=== PATIENT | female | born 1950 | race Caucasian/White ===

== ENCOUNTER 2023-01-26 10:29 | Outpatient (OUT) | payer MEDICARE, MEDICAID, SELFPAY ==
[2023-01-26 11:24] LABS: Basophils Percent Auto 0.6 % (0.2-2.0); Eosinophils Absolute Auto 0.1 10^3/uL (0.0-0.7); Eosinophils Percent Auto 2.7 % (0.9-7.0); Hematocrit 41.5 % (36.0-48.0); Hemoglobin 13.7 g/dL (12.0-16.0); Immature Granulocytes Abs Auto 0.02 10^3/uL (0.00-0.03); Immature Granulocytes Pct Auto 0.4 % (0.0-0.5); Lymphocytes Absolute Auto 1.2 10^3/uL (1.2-3.8); Lymphocytes Percent Auto 23.4 % (20.5-60.0); Mean Corpuscular Hemoglobin 28.1 pg (26.7-34.0); Mean Platelet Volume 8.7 fL (9.5-13.5); Monocytes Absolute Auto 0.3 10^3/uL (0.3-0.8); Monocytes Percent Auto 6.4 % (1.7-12.0); Neutrophils Absolute Auto 3.4 10^3/uL (1.4-6.5); Neutrophils Percent Auto 66.5 % (43.0-75.0); Platelet Count 223 10^3/uL (150-450); Red Blood Count 4.88 10^6/uL (4.20-5.40); Red Cell Distribution Width 12.4 % (11.0-15.0); White Blood Count 5.1 10^3/uL (4.0-11.0)
[2023-01-26 11:39] LABS: Microalbumin Urine Random 2.6 mg/dL (<=30.0)
[2023-01-26 11:45] LABS: Alanine Aminotransferase 67 U/L (14-59); Albumin Level 3.9 g/dL (3.4-5.0); Alkaline Phosphatase 76 U/L (46-116); Anion Gap 12.6; Aspartate Amino Transferase 46 U/L (15-37); BUN Creatinine Ratio 25.9; Bilirubin Total 0.4 mg/dL (0.2-1.0); Calcium 9.5 mg/dL (8.5-10.1); Carbon Dioxide 30.8 mmol/L (21.0-32.0); Chloride 101 mmol/L (98-107); Chol HDL Ratio 5.2; Cholesterol 196 mg/dL (<=200); Estimated GFR (African America >60 (>=60); Estimated GFR (Non-African Ame >60 (>=60); Globulin 3.9 g/dL; Glucose 133 mg/dL (74-106); HDL Cholesterol 38 mg/dL (40-60); Potassium 3.4 mmol/L (3.5-5.1); Sodium 141 mmol/L (136-145); Total Protein 7.8 g/dL (6.4-8.2); Triglycerides 294 mg/dL (<=150); VLDL CHOLESTEROL 58.8 mg/dL
[2023-01-26 11:48] LABS: Bilirubin Urine NEGATIVE (NEGATIVE); Blood Urine NEGATIVE (NEGATIVE); Clarity Urine CLEAR (CLEAR); Color Urine LT. YELLOW (YELLOW); Glucose Urine UA NEGATIVE (NEGATIVE); Ketones Urine NEGATIVE (NEGATIVE); Leukocyte Esterase Urine SMALL (NEGATIVE); Nitrite Urine NEGATIVE (NEGATIVE); Protein Urine NEGATIVE (NEG/TRACE); Specific Gravity Urine 1.025 (1.005-1.025); Urobilinogen Urine 0.2 EU/dL (0.2-1.0); pH Urine 5.5 (5.0-9.0)
[2023-01-26 11:52] LABS: Estimated Average Glucose 137 mg/dL; Glycohemoglobin A1C 6.4 % (4.5-6.2)
[2023-01-26 12:13] LABS: RBC Urine NONE SEEN #/HPF (0-2)
[2023-01-26 12:14] LABS: Bacteria Urine NONE SEEN #/HPF (NONE SEEN); Cast Seen? NONE SEEN #/LPF (NONE SEEN); Crystals Seen? None Seen #/HPF (None Seen); Mucus Urine NONE SEEN (NONE SEEN); Squamous Epithelial Cell Urine FEW #/LPF (NONE/RARE); Urine Culture Indicated YES
== END 2023-01-26 10:30 | disposition home or self-care (01) ==
LOC: LAB 10:35
PROVIDERS: PCP Nurse Practitioner; Visit Provider Nurse Practitioner
DX: E11.9 Type 2 diabetes mellitus without complications (principal); E78.5 Hyperlipidemia, unspecified; R82.90 Unspecified abnormal findings in urine
CPT/HCPCS: 36415; 80053; 80061; 81001; 82043; 83036; 85025; 87086

== ENCOUNTER 2023-02-06 12:00 | Outpatient (OUT) | payer MEDICARE, MEDICAID, SELFPAY | END 2023-02-06 12:01 | disposition home or self-care (01) | LOC: PST 02-10 18:47 | PROVIDERS: PCP Nurse Practitioner; Visit Provider Surgery | DX: Z01.818 Encounter for other preprocedural examination (principal); Z86.010 Personal history of colon polyps ==

== ENCOUNTER 2023-02-08 06:30 | Day surgery (SDC) | payer MEDICARE, MEDICAID, SELFPAY ==
[2023-02-08 06:54] LABS: Amphetamine Screen Urine NEGATIVE (NEGATIVE); Barbiturates Screen Urine NEGATIVE (NEGATIVE); Benzodiazepines Screen Urine NEGATIVE (NEGATIVE); Buprenorphine Screen Urine POSITIVE (NEGATIVE); Cannabinoid Screen Urine NEGATIVE (NEGATIVE); Cocaine Screen Urine NEGATIVE (NEGATIVE); Methadone Screen Urine NEGATIVE (NEGATIVE); Methamphetamines Screen Urine NEGATIVE (NEGATIVE); Opiate Screen Urine NEGATIVE (NEGATIVE); Oxycodone Screen Urine NEGATIVE (NEGATIVE); Phencyclidine Screen Urine NEGATIVE (NEGATIVE); Tricyclic Antidepressant Urine NEGATIVE (NEGATIVE)
[2023-02-08 07:13] LABS: Glucometer 150 mg/dL (74-106)
--- NOTE | 2023-02-08 07:17 | PM.GSPRC ---
Date of procedure: 02/08/23 Indications for Procedure: History of tubulovillous adenoma 2019 Pre-op diagnosis: History of tubulovillous adenoma two thousand nineteen Procedure: colonoscopy with hot snare ascending colon and proximal rectum 5-6 mm each Random biopsy descending colon rule out colitis Findings: colon polyp ?2 Anesthesia: MAC Surgeon: Jd Romeo Procedure Summary: 72-year-old female was taken to the Endo suite and placed in the left lateral recumbent position and given sedation and monitored anesthesia care by anesthesiologist. Rectal digital exam was performed. Sphincter counts found be normal. No rectal masses were appreciated. The Olympus video colonoscope was advanced under direct visualization into the rectum, sigmoid and descending, transverse, ascending colon to the ileocecal valve where the appendiceal lumen was visualized as well as the cecum. The scope was slowly withdrawn and just outside the cecum there was a small polyp which was snared and retrieved and hemostasis maintained. This was done with hot snare. The scope was then withdrawn further and random biopsy of the colon was taken and the descending colon and there was some bleeding and a clip was placed hemostasis which was maintained. And then in the proximal rectum there was another polyp which was hot snared and retrieved and hemostasis maintained and the scope was retroflexed on itself and that was normal. The scope was then withdrawn from the rectum. I would recommend polyps go to pathology as well as the biopsy and that as long as these are benign would recommend repeat colonoscopy in five years for surveillance. There was difficulty with the procedure due to her body habitus and abdominal pressure had a Pereyra placed on the abdomen and she had been given significant amounts of intravenous propofol by anesthesia almost 700 mg. Her prep was good enough to see polyps greater than 5 mm. Estimated blood loss (mL): 1 Specimens: colon polyps ?2 Random biopsy descending colon Complications: No Condition: stable Disposition: PACU
[2023-02-08] MEDS: LACTATED RINGER'S SOLUTION 1,000 ML 50 ML IV (07:20)
[2023-02-08 07:59] VITALS: BP 121/43; PULSE 70; RESP 16; TEMP 36.6; O2SAT 97
[2023-02-08 08:15] VITALS: BP 143/45; PULSE 70; RESP 20; O2SAT 93
[2023-02-08 08:52] VITALS: BP 160/65; PULSE 74; RESP 20; O2SAT 93
== END 2023-02-08 08:52 | disposition home or self-care (01) ==
PROVIDERS: PCP Nurse Practitioner; Visit Provider Surgery
PROC: (CPT 45385; principal; 2023-02-08 07:30)
DX: D12.7 Benign neoplasm of rectosigmoid junction (principal); Z86.010 Personal history of colon polyps; K59.00 Constipation, unspecified; R19.7 Diarrhea, unspecified; Z79.82 Long term (current) use of aspirin; Z79.899 Other long term (current) drug therapy; Z79.84 Long term (current) use of oral hypoglycemic drugs; Z87.891 Personal history of nicotine dependence
CPT/HCPCS: 45385; 36415; 80307; 82948; 88305; J2704

== ENCOUNTER 2023-08-01 11:29 | Outpatient (OUT) | payer MEDICARE, MEDICAID, SELFPAY ==
[2023-08-01 12:02] LABS: Microalbum Creatinine Ratio Ur 21.2 mg/g (0.0-29.9); Microalbumin Urine Random 4.8 mg/dL (<=30.0)
[2023-08-01 12:02] LABS: Basophils Absolute Auto 0.1 10^3/uL (0.0-0.1); Basophils Percent Auto 1.1 % (0.2-2.0); Eosinophils Absolute Auto 0.1 10^3/uL (0.0-0.7); Eosinophils Percent Auto 2.5 % (0.9-7.0); Estimated Average Glucose 140 mg/dL; Glycohemoglobin A1C 6.5 % (4.5-6.2); Hemoglobin 13.6 g/dL (12.0-16.0); Immature Granulocytes Abs Auto 0.02 10^3/uL (0.00-0.03); Immature Granulocytes Pct Auto 0.4 % (0.0-0.5); Lymphocytes Absolute Auto 1.4 10^3/uL (1.2-3.8); Mean Corpuscular HGB Conc 33.2 g/dL (29.9-35.2); Mean Corpuscular Hemoglobin 28.4 pg (26.7-34.0); Mean Corpuscular Volume 85.6 fL (81.0-99.0); Monocytes Absolute Auto 0.3 10^3/uL (0.3-0.8); Monocytes Percent Auto 6.3 % (1.7-12.0); Neutrophils Absolute Auto 3.4 10^3/uL (1.4-6.5); Neutrophils Percent Auto 63.7 % (43.0-75.0); Platelet Count 223 10^3/uL (150-450); Red Blood Count 4.79 10^6/uL (4.20-5.40); Red Cell Distribution Width 12.2 % (11.0-15.0); White Blood Count 5.3 10^3/uL (4.0-11.0)
[2023-08-01 12:06] LABS: Bilirubin Urine NEGATIVE (NEGATIVE); Blood Urine NEGATIVE (NEGATIVE); Clarity Urine CLEAR (CLEAR); Color Urine ORANGE (YELLOW); Glucose Urine UA NEGATIVE (NEGATIVE); Ketones Urine NEGATIVE (NEGATIVE); Leukocyte Esterase Urine SMALL (NEGATIVE); Nitrite Urine NEGATIVE (NEGATIVE); Protein Urine NEGATIVE (NEG/TRACE); Specific Gravity Urine >=1.030 (1.005-1.025)
[2023-08-01 12:11] LABS: Erythrocyte Sedimentation Rate 41 mm/hr (<=30)
[2023-08-01 12:24] LABS: Urine Microscopic Indicated YES
[2023-08-01 12:27] LABS: Uric Acid Crystals Urine MODERATE
[2023-08-01 12:28] LABS: Crystals Seen? Seen #/HPF (None Seen); Squamous Epithelial Cell Urine FEW #/LPF (NONE/RARE)
[2023-08-01 12:29] LABS: Bacteria Urine SMALL #/HPF (NONE SEEN); Cast Seen? SEEN #/LPF (NONE SEEN); Hyaline Casts Urine RARE; Mucus Urine NONE SEEN (NONE SEEN); Urine Culture Indicated YES
[2023-08-01 12:57] LABS: Alanine Aminotransferase 57 U/L (14-59); Albumin Level 3.7 g/dL (3.4-5.0); Alkaline Phosphatase 71 U/L (46-116); Anion Gap 12.4; Aspartate Amino Transferase 44 U/L (15-37); BUN Creatinine Ratio 18.5; Bilirubin Total 0.5 mg/dL (0.2-1.0); Calcium 9.7 mg/dL (8.5-10.1); Chloride 103 mmol/L (98-107); Estimated GFR (African America >60 (>=60); Estimated GFR (Non-African Ame >60 (>=60); Globulin 3.7 g/dL; Glucose 148 mg/dL (74-106); Potassium 3.4 mmol/L (3.5-5.1); Sodium 141 mmol/L (136-145); Total Protein 7.4 g/dL (6.4-8.2)
[2023-08-01 12:58] LABS: C Reactive Protein <0.50 mg/dL (<=0.50)
[2023-08-02 04:07] LABS: Antistreptolysin O Ab <20.0 IU/mL (0.0-200.0); Rheumatoid Factor (RF) <10.0 IU/mL (<14.0)
[2023-08-02 12:09] LABS: Sjogren's Anti-SS-A <0.2 AI (0.0-0.9); Sjogren's Anti-SS-B <0.2 AI (0.0-0.9)
[2023-08-03 12:10] LABS: Antinuclear Antibodies, IFA Negative (.)
== END 2023-08-01 11:30 | disposition home or self-care (01) ==
LOC: LAB 11:30
PROVIDERS: PCP Nurse Practitioner; Visit Provider Nurse Practitioner
DX: K11.20 Sialoadenitis, unspecified (principal); E11.9 Type 2 diabetes mellitus without complications; H04.123 Dry eye syndrome of bilateral lacrimal glands
CPT/HCPCS: 36415; 80053; 81001; 82043; 82570; 83036; 85025; 85652; 86038; 86060; 86140; 86235; 86430; 86431; 87086

== ENCOUNTER 2023-08-01 14:51 | Outpatient (OUT) | payer MEDICARE, MEDICAID, SELFPAY ==
--- NOTE | 2023-08-01 14:55 | CT_ITS ---
The [address] [address] Patient Name: LITTLE MONTEZ MRN: [id number] date: 1950 Sex: F Assigned Patient Location: CT Current Patient Location: CT Accession/Order Number: [id number] Exam Date: 08/01/2023 15:05 Report Date: 08/01/2023 15:34 At the request of: NON-STAFF PHYSICIAN Procedure: CT soft tissue neck wo con CT NECK WITHOUT CONTRAST. 08/01/2023 3:05 PM EST Clinical History:Sialadenitis K11.20 on the left Comparison: None available . Unenhanced helically acquired data per standard protocol. The lack of IV contrast material hampers evaluation of the vasculature, for enhancing fluid collections, and for adenopathy. There is artifact from dental hardware. At the expected location of far distal aspects of left Colbert's duct there is a calculus measuring 5 mm.. Colbert's duct is not obviously dilated. However, the left submandibular gland is slightly larger than the right and is minimally hazy at its undersurface. No submental adenopathy. There are symmetric minimally elongated submandibular nodes bilaterally. No fluid collection within the submandibular regions. No adenopathy along the cervical gregoria chains on either side. Thyroid is normal in size. It contains a few nonspecific calcifications in the right lobe. The parotid glands are symmetric and unremarkable. Some calcific disease at both carotid bifurcations. Multilevel degenerative changes cervical spinal column. CT/CT soft tissue neck wo con IMPRESSION: 1. A relatively good sized 5 mm calculus at the expected location far distal left Colbert's duct. Left Colbert's duct is not obviously dilated. The left submandibular gland is slightly larger than the right. No perisubmandibular fluid collection. All CT scans at this facility use dose modulation, iterative reconstruction, and/or weight based dosing when appropriate to reduce radiation dose to as low as reasonably achievable. Electronically authenticated by: DONNELL MARTINEZ Date: 08/01/2023 15:34
== END 2023-08-01 14:52 | disposition home or self-care (01) ==
LOC: CT 14:51
PROVIDERS: PCP Nurse Practitioner
DX: K11.20 Sialoadenitis, unspecified (principal)
CPT/HCPCS: 70490

== ENCOUNTER 2023-09-18 14:49 | Outpatient (OUT) | payer MEDICARE, MEDICAID, SELFPAY ==
[2023-09-18 15:11] LABS: Potassium 3.5 mmol/L (3.5-5.1)
== END 2023-09-18 14:50 | disposition home or self-care (01) ==
LOC: LAB 14:49
PROVIDERS: PCP Nurse Practitioner; Visit Provider Nurse Practitioner
DX: E87.6 Hypokalemia (principal)
CPT/HCPCS: 36415; 84132

== ENCOUNTER 2023-11-23 14:28 | Outpatient (RCR) | payer MEDICARE, MEDICAID, SELFPAY | END 2023-11-24 17:07 | disposition home or self-care (01) | LOC: PT 14:28 | PROVIDERS: PCP Nurse Practitioner; Visit Provider Personal Emergency Response Attendant | DX: M25.562 Pain in left knee (principal); M17.12 Unilateral primary osteoarthritis, left knee | CPT/HCPCS: 97110; 97161 ==

== ENCOUNTER 2024-01-04 11:30 | Outpatient (OUT) | payer MEDICARE, MEDICAID, SELFPAY ==
[2024-01-04 12:13] LABS: Estimated Average Glucose 120 mg/dL; Glycohemoglobin A1C 5.8 % (4.5-6.2)
[2024-01-04 13:13] LABS: Alanine Aminotransferase 43 U/L (14-59); Albumin Globulin Ratio 1.1; Albumin Level 3.9 g/dL (3.4-5.0); Alkaline Phosphatase 60 U/L (46-116); Anion Gap 11.3; Aspartate Amino Transferase 37 U/L (15-37); Bilirubin Total 0.7 mg/dL (0.2-1.0); Calcium 9.9 mg/dL (8.5-10.1); Carbon Dioxide 34.1 mmol/L (21.0-32.0); Chloride 102 mmol/L (98-107); Chol HDL Ratio 4.5; Cholesterol 208 mg/dL (<=200); Estimated GFR (African America >60 (>=60); Estimated GFR (Non-African Ame >60 (>=60); Globulin 3.7 g/dL; Glucose 141 mg/dL (74-106); HDL Cholesterol 46 mg/dL (40-60); Potassium 3.4 mmol/L (3.5-5.1); Sodium 144 mmol/L (136-145); Total Protein 7.6 g/dL (6.4-8.2); Triglycerides 208 mg/dL (<=150); VLDL CHOLESTEROL 41.6 mg/dL
== END 2024-01-04 11:31 | disposition home or self-care (01) ==
PROVIDERS: PCP Nurse Practitioner; Visit Provider Nurse Practitioner
DX: L03.90 Cellulitis, unspecified (principal); E11.9 Type 2 diabetes mellitus without complications; R82.90 Unspecified abnormal findings in urine
CPT/HCPCS: 36415; 80053; 80061; 83036; 87086; 87150; 87186

== ENCOUNTER 2024-04-24 08:04 | Outpatient (OUT) | payer MEDICARE, MEDICAID, SELFPAY ==
--- OUTSIDE RECORDS SUMMARY | 2024-04-24 08:12 | XMS_ITS | CCD ---
Author Organization [facility] Care Team Providers Care Dealer Account Manager Name Role Phone PHYSICIAN, DEFAULT Unavailable Unavailable PHYSICIAN, DEFAULT Unavailable Unavailable PHYSICIAN, DEFAULT Unavailable Unavailable PHYSICIAN, DEFAULT Unavailable Unavailable PHYSICIAN, DEFAULT Unavailable Unavailable PHYSICIAN, DEFAULT Unavailable Unavailable AICHHOLZ, DATA SCIENTIST GINNY Admitting Unavailable AICHHOLZ, DATA SCIENTIST GINNY Attending Unavailable AICHHOLZ, DATA SCIENTIST GINNY Primary Care Unavailable AICHHOLZ, DATA SCIENTIST GINNY Consulting Unavailable ZIEBER, DR BENEDICTO Aquino Consulting Unavailable AICHHOLZ, DATA SCIENTIST GINNY Admitting Unavailable AICHHOLZ, DATA SCIENTIST GINNY Attending Unavailable AICHHOLZ, DATA SCIENTIST GINNY Primary Care Unavailable AICHHOLZ, DATA SCIENTIST GINNY Admitting Unavailable AICHHOLZ, DATA SCIENTIST GINNY Attending Unavailable AICHHOLZ, DATA SCIENTIST GINNY Primary Care Unavailable AICHHOLZ, DATA SCIENTIST GINNY Primary Care Unavailable FLORENCIA ., DR LAFLEUR Admitting Unavailable HOY ., DR LAFLEUR Attending Unavailable HOY ., DR LAFLEUR Consulting Unavailable ZIEBER, DR BENEDICTO Aquino Consulting Unavailable PAY ., DR FOWLER Consulting Unavailable JOEL ., COTY DAVIS Consulting Unavailabl e AICHHOLZ, DATA SCIENTIST GINNY Admitting Unavailable AICHHOLZ, DATA SCIENTIST GINNY Attending Unavailable AICHHOLZ, DATA SCIENTIST GINNY Primary Care Unavailable AICHHOLZ, DATA SCIENTIST GINNY Consulting Unavailable Gina Harkins Unavailable Yair Nails MD Primary Care Provider [phone] Delgado HAYES, Ginny Unavailable DO Migel Best Attending Provider [phone] NON STAFF Primary Care Provider Unavailabl e AICHHOLZ, GINNY Attending Unavailable MIGEL BEST Attending Unavailable MGIEL BEST Attending Unavailable MIGEL BEST Attending Unavailable AICHHOLZ, GINNY Attending Unavailable AICHHOLZ, GINNY Attending Unavailable GRIS BOSE Attending Unavailable GRIS BOSE Referring Unavailable DANIELA CANO Attending Unavailable GRIS BOSE Referring Unavailable JOSE MONTES Attending Unavailable JR. TORY, VINCENZO Rubio Attending UnavailGINNY Matta Attending Unavailable SOFYA MEYER Attending Unavailable Ginny Natarajan Primary Care Provider [phone] Markus (Clinic), DO Crawford Attending Provider Migel Best Attending Unavailable NON STAFF Primary Care Unavailable Migel Best Admitting Unavailable Grenora (Clinic), Yvette Admitting Unavailyeni Aparicio (Clinic), Yvette Attending UnavailGinny Hutchison Primary Care Unavailable Allergies Allergy Classification Reported Allergen(s) Allergy Type Date of Onset Reaction(s) Facility (2 sources) Erythromycin; 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: [ERYTHROMYCIN BASE] Drug Allergy 2 [facility] Repository (2 sources) Gemfibrozil; 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: [GEMFIBROZIL] Drug Allergy 2 [facility] Repository (2 sources) Simvastatin; 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: [SIMVASTATIN] Drug Allergy 2 [facility] Repository (4 sources) HMG-CoA reductase inhibitor Propensity to adverse reactions 3 [facility] (4 sources) Simvastatin Propensity to adverse reactions 3 [facility] (1 source) Lidocaine; 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: [LIDOCAINE] Drug Allergy 2 [facility] Repository (1 source) Tukxsii-DKG-XrP Reductase Inhibitor Drug allergy (disorder) 4 [facility] Repository Medications Current Medications Medication Drug Class(es) Dates Sig (Normalized) Sig (Original) albuterol 0.83 mg/ml inhalation solution (8 sources) beta2-Adrenergic Agonist albuterol (2.5 MG/3ML) 0.083% nebulizer solution INHALE 1 VIAL VIA NEBULIZER EVERY 6 HOURS NEEDED FOR WHEEZING OR SHORTNESS OF BREATH 0 Active take 2 puff(s) by mo uth every six hours as needed albuterol HFA (Ventolin HFA) 90 mcg/act inhaler INHALE 2 PUFFS BY MOUTH EVERY 6 HOURS NEEDED FOR SHORTNESS OF BREATH 0 Active Ascorbic Acid (11 sources) Vitamin C Start: 11-10-2023 take 1 g by mouth once daily Ascorbic Acid (Vitamin C) Active 1 GM PO Daily November 10, 2023 12:00am take 1 tablet by mouth once rebecca y ascorbic acid (Vitamin C) 1000 MG tablet Take 1,000 mg by mouth 1 (one) time each day at the same time 0 Active aspirin 81 mg chewable tablet (11 sources) Platelet Aggregation Inhibitor, Nonsteroidal Anti-inflammatory Drug Start: 11-10-2023 take 81 mg by mouth once daily Aspirin Active 81 MG PO Daily November 10, 2023 12:00am aspirin 81 MG ch ewable tablet Chew 81 mg 1 (one) time each day at the same time 0 Active azithromycin 250 mg oral tablet (1 source) Macrolide Antimicrobial Start: 04-04-2023 Azithromycin 250 MG 2 tablet on the first day, then 1 tablet daily for 4 days Orally Once a day for 5 day(s) Mar, Active b complex vitamins capsule (4 sources) take 1 capsule by mouth in the morning b complex vitamins capsule Take 1 capsule by mouth in the morning. 0 Active Obhzbprm-Bpcgrtf-Fp tin-Quercet (Bilberry Extract) 40 MG capsule (4 sources) take 1 capsule by mouth in the morning Juzoyruh-Uulglxz-U utin-Quercet (Bilberry Extract) 40 MG capsule Take 40 mg by mouth in the morning. 0 Active buprenorphine 12 mg / naloxone 3 mg sublingual film (5 sources) Partial Opioid Agonist, Opioid Antagonist buprenorphine-nalo xone (Suboxone) 12-3 MG per sublingual film Place 1 Film under the tongue 1 (one) time 0 Active Buprenorphine HC l-Naloxone HCl 12-3 MG 1 film under the tongue and allow to dissolve Sublingual Once a day Not-Taking busPIRone hydrochloride 10 mg oral tablet (4 sources) take 1 tablet by mouth in the morning busPIRone (Buspar) 10 MG tablet Take 1 tablet by mouth in the morning and 1 tablet before bedtime. 0 Active CALCIUM MAGNESIUM ZINC PO (4 sources) take 1 tablet by mouth in the morning CALCIUM MAGNESIUM ZINC PO Take 1 tablet by mouth in the morning. 0 Active Calcium/Magnesium/Zinc - (1 source) Calcium/Magnesiu m/Zinc - as directed Orally *please review for potential _update for e-prescription and drug interaction check* Active Carboxymethylcellulose (6 sources) Start : 11-09 carboxymethylcellulose sodium (Refresh Tears) Active 1 DROPS OPHTHALMIC As Directed November 10, 2023 12:00am carvedilol 25 mg oral tablet (14 sources) alpha-Adrener gic Dave, beta-Adrenerg ic Dave Start : 02-15 End: 03-20 take 1 mg by mouth twice daily Carvedilol Active MG PO Twice daily March 20, 2024 2:44pm Start: 11-10-2023 End: 02-16-2024 take 12.5 mg by mouth twice daily Carvedilol Discontinued 12.5 MG PO Twice daily November 10, 2023 12:00am February 16, 2024 11:55am Start: 05-29-2023 take 1 tablet by tre th in the morning carvedilol (Coreg) 12.5 MG tablet Take 12.5 mg by mouth in the morning and 12.5 mg in the evening. Take with meals. 0 05/29/2023 Active Carvedilol 6.25 MG as directed Orally Active cetirizine hydrochloride 10 mg oral tablet (6 sources) Histamine-1 Receptor Antagonist Start: 11-10-2023 take 1 tablet by mouth once daily Cetirizine (Allergy Relief (Cetirizine)) 10 mg tablet Active 10 MG PO Daily November 10, 2023 12:00am chlorthalidone 25 mg oral tablet (14 sources) Thiazide-like Diuretic Start: 03-08-2023 End: 03-07-2024 take 25 mg by mouth once daily Chlorthalidone Active 25 MG PO Daily November 10, 2023 12:00am cholecalciferol 0.05 mg oral capsule (8 sources) Vitamin D Start: 12-27-2023 take 50 ug by mouth once daily Cholecalciferol (Vitamin D3) Active 50 MCG PO Daily December 27, 2023 12:00am cholecalciferol (Vitamin D-[address]) 25 MCG (1000 UT) tablet Take 1,000 Units by mouth in the morning. 0 Active clobetasol propionate 0.0005 mg/mg topical ointment (4 sources) Corticosteroid Start: 04-27-2023 clobetasol (Temovate) 0.05 % ointment Apply 1 application topically in the morning and 1 application before bedtime. 0 04/27/2023 Active docosahexaenoic acid 120 mg / eicosapentaenoic acid 180 mg oral capsule (4 sources) take 1 capsule by mouth every twelve hours omega-3 (Fish Oil) 1000 MG capsule 1 capsule every 12 (twelve) hours 0 Active fenofibrate 145 mg oral tablet (11 sources) Peroxisome Proliferator Receptor alpha Agonist Start: 11-10-2023 Fenofibrate Nanocrystallized Active 145 MG PO .3 times weekly November 10, 2023 12:00am take 1 tablet by mouth once rebecca y fenofibrate (Tricor) 145 MG tablet Take 145 mg by mouth 1 (one) time each day at the same time 0 Active Fish Oils (1 source) take 1 capsule by mouth twice daily Fish Oil 1000 MG 1 capsule Orally Twice a day Active fluconazole 150 mg oral tablet (4 sources) Azole Antifungal Start: 2022 take 1 tablet by mouth once fluconazole (Diflucan) 150 MG tablet Take 150 mg by mouth 1 (one) time 0 04/16/2023 Active Folic Acid-Cholecalciferol 1-59941 MG-UNIT tablet (4 sources) take 1 tablet by mouth in the morning Folic Acid-Cholecalciferol 1-44630 MG-UNIT tablet Take 10,000 Units by mouth in the morning. 0 Active Garlic preparation (4 sources) Non-Standardized Food Allergenic Extract GARLIC PO Take by mo uth 0 Active hydroCHLOROthiazide 25 mg oral tablet (5 sources) Thiazide Diuretic take 1 tablet by mouth once daily hydroCHLOROthiazide (HYDRODiuril) 25 MG tablet Take 25 mg by mouth 1 (one) time each day at the same time 0 Active ibuprofen 800 mg oral tablet (5 sources) Nonsteroidal Anti-inflammatory Drug Start: 2023 take 800 mg by mouth three times daily Ibuprofen Active 800 MG PO Three times daily March 20, 2024 12:00am Start: 10-25-2022 take 1 tablet by tre th in the morning, then take 1 tablet by mouth in the evening, then take 1 tablet by mouth at bedtime ibuprofen 800 MG tablet Take 800 mg by mouth in the morning and 800 mg in the evening and 800 mg before bedtime. 0 10/25/2022 Active ketoconazole 20 mg/ml topical cream (10 sources) Azole Antifungal Start: 11-10-2023 Ketoconazole Active APPLIC TOPICAL Twice daily November 10, 2023 12:00am Start: 04-27-2023 ketoconazole ( NIZOral) 2 % cream Apply 1 application topically in the morning and 1 application before bedtime. 0 04/27/2023 Active loratadine 10 mg oral tablet (4 sources) Start: 04-27-2023 take 1 tablet by mouth in the morning loratadine (Claritin) 10 MG tablet Take 10 mg by mouth in the morning. 0 04/27/2023 Active Magnesium Chloride (6 sources) Start: 11-10-2023 take 1 tablet by mouth once daily magnesium chloride Active 1 TAB PO Daily November 10, 2023 12:00am magnesium oxide 400 mg oral tablet (4 sources) take 1 tablet by mouth once daily magnesium oxide (Mag-Ox) 400 MG tablet magnesium oxide 400 mg (241.3 mg magnesium) tablet TAKE 1 TABLET BY MOUTH EVERY DAY DIRECTED 0 Active meclizine hydrochloride 12.5 mg oral tablet (10 sources) Antiemetic Start: 11-10-2023 take 12.5 mg by mouth once daily Meclizine Active 12.5 MG PO Daily November 10, 2023 12:00am Start: 04-27-2023 take 1 tablet by tre th three times daily as needed for dizziness meclizine (Antivert) 25 MG tablet Take 25 mg by mouth 3 (three) times a day as needed for dizziness 0 04/27/2023 Active meloxicam 15 mg oral tablet (4 sources) Nonsteroidal Anti-inflammatory Drug take 1 tablet by mouth in the morning meloxicam (Mobic) 15 MG tablet Take 1 tablet by mouth in the morning. 0 Active metFORMIN hydrochloride 1000 mg oral tablet (11 sources) Biguanide Start: 11-10-19 take 1000 mg by mouth twice daily Metformin Active 1000 MG PO Twice daily November 10, 2023 12:00am Start: 06-11-2023 take 1 tablet by tre th in the morning metFORMIN (Glucophage) 1000 MG tablet Take 1,000 mg by mouth in the morning and 1,000 mg before bedtime. 0 06/11/2023 Active take 1 tablet by tre th every twenty-four hours metFORMIN HCl 500 MG 1 tablet with a meal Orally Once a day for 30 day(s) Active milk thistle extract 500 mg oral capsule (5 sources) Milk Thistle 500 MG capsule as directed Orally 0 Active Milk Thistle 500 MG as directed Orally Not-Taking nitrofurantoin, macrocrystals 25 mg / nitrofurantoin, monohydrate 75 mg oral capsule (4 sources) Nitrofuran Antibacterial take 1 capsule by mouth in the morning nitrofurantoin, macrocrystal-monohydrate, (Macrobid) 100 MG capsule Take 1 capsule by mouth in the morning and 1 capsule before bedtime. 0 Active Cordova 4-Whi-Ajn-Fish Oil (Fish Oil) 1,000 mg (120 mg-180 mg) capsule (6 sources) Start : 11-09 take 1 capsule by mouth once daily Cordova 5-Yis-Xki-Fish Oil (Fish Oil) 1,000 mg (120 mg-180 mg) capsule Active 1 CAP PO Daily November 10, 2023 12:00am polaprezinc (zinc carnosine) (6 sources) Start : 11-09 take 1 tablet by mouth once daily polaprezinc (zinc carnosine) Active 1 TAB PO Daily November 10, 2023 12:00am potassium chloride 10 meq extended release oral capsule (8 sources) Start : 01-30 take 20 mEq by mouth once daily Potassium Chloride Active 20 MEQ PO Daily January 31, 2024 12:00am Start: 08-03-2023 End: 11-26-2023 take 1 tablet by mouth in the morning potassium chloride CR (Klor-Con M20) 20 MEQ ER tablet Indications: Hypokalemia Take 1 tablet (20 mEq) by mouth in the morning. Do not crush or chew.. 90 tablet 1 08/28/2023 11/26/2023 Active predniSONE 20 mg oral tablet (1 source) Start: 04-04-2023 take 1 tablet by tre th every twelve hours prednisone 20 MG 1 tablet Orally BID for 5 Mar, Active Tirzepatide (4 sources) Start: 03-20-2024 inject 0.5 mg by subcutaneous injection every week Tirzepatide Active 5 MG SUBCUT every week 09 20March 20, 2024 3:17pm Ok to dispense 2.5 mg dosing if 5.0 mg not available Start: 01-31-2024 End: 03-20-2024 inject 0.5 mg by subcutaneous injection every week Tirzepatide Discontinued 5 MG SUBCUT every week 2 January 31, 2024 2:33pm March 20, 2024 3:17pm Ok to dispense 2.5 mg dosing if 5.0 mg not available Start: 01-31-2024 inject 0.5 mg by sub cutaneous injection every week Tirzepatide Active 5 MG SUBCUT every week 2 January 31, 2024 2:33pm Ok to dispense 2.5 mg dosing if 5.0 mg not available tiZANidine 4 mg oral tablet (7 sources) Central alpha-2 Adrenergic Agonist Start: 02-16-2024 End: 03-20-2024 Tizanidine Active MG PO March 20, 2024 2:46pm tiZANidine (Micheal flex) 4 MG tablet TAKE 1 TABLET AT BEDTIME NEEDED FOR MUSCLE SPASMS 0 Active triamcinolone acetonide 0.07063 mg/mg topical ointment (2 sources) Corticosteroid Start: 08-16-2023 triamcinolone (Kenalog) 0.025 % ointment APPLY A SMALL AMOUNT EXTERNALLY TWICE A DAY FOR SEBORRHEIC DERMATITIS TO SKIN OF EARS/BEHIND EARS 0 08/16/2023 Active Tumeric (1 source) Tumeric daily *please review for potential _update for e-prescription and drug interaction check* Active Turmeric extract (4 sources) take 1 tablet by mouth once daily Turmeric (QC TUMERIC COMPLEX PO) Take 1 tablet by mouth 1 (one) time each day at the same time 0 Active ubidecarenone 10 mg oral capsule (10 sources) Start: 11-10-2023 Coenzyme Q10 A ctive 10 MG PO Daily November 10, 2023 12:00am take 1 capsule by mouth once nadine ly coenzyme Q-10 10 MG capsule Take 10 mg by mouth 1 (one) time each day at the same time 0 Active valACYclovir 1000 mg oral tablet (4 sources) Herpesvirus Nucleoside Analog DNA Polymerase Inhibitor, Herpes Simplex Virus Nucleoside Analog DNA Polymerase Inhibitor, Herpes Zoster Virus Nucleoside Analog DNA Polymerase Inhibitor take 1 tablet by mouth every twelve hours valACYclovir (Valtrex) 1 g tablet Take 1 tablet by mouth every 12 (twelve) hours 0 Active vitamin b12 1 mg oral tablet (11 sources) Vitamin B12 Start: 11-10-19 take 1000 ug by mouth once daily Cyanocobalamin (Vitamin B-12) Active 1000 MCG PO Daily November 10, 2023 12:00am take 1 tablet by mouth once rebecca y Cyanocobalamin 1000 MCG capsule Take 1 tablet by mouth 1 (one) time each day at the same time 0 Active take 1 tablet by mouth once rebecca y Cyanocobalamin 1000 MCG 1 tablet Orally Once a day for 30 day(s) *please review for potential _update for e-prescription and drug interaction check* Not-Taking vitamin e d-alpha 400 unt oral capsule (4 sources) alpha tocopherol (Vitamin E) 400 units capsule 1 capsule 1 (one) time each day at the same time 0 Active Vitamin E 400 UNIT (1 source) take 1 capsule by mo [facility] once daily Vitamin E 400 UNIT 1 capsule Orally Once a day for 30 day(s) Active Completed/Discontinued Medications Medication Drug Class(es) Dates Sig (Normalized) Sig (Original) bilberry extract 40 mg oral capsule (1 source) Bilberry Extract 40 MG as directed Orally Not-Taking Cholecalciferol 45580 UNIT (1 source) Cholecalciferol 63102 UNIT as directed Orally *please review for potential _update for e-prescription and drug interaction check* Not-Taking Coenzyme Q10 10 MG (1 source) take 1 capsule by mouth once daily Coenzyme Q10 10 MG 1 capsule with a meal Orally Once a day for 30 day(s) Not-Taking diclofenac sodium 75 mg delayed release oral tablet (1 source) Nonsteroidal Anti-inflammatory Drug Start: 12-27-2018 take 1 tablet by mouth every twelve hours Diclofenac Sodium 75 MG 1 tablet with food or milk Orally Twice a day for 30 day(s) Dec, Not-Taking grape seed extract 25 mg oral capsule (1 source) Grape Seed 25 MG as directed Orally *please review for potential _update for e-prescription and drug interaction check* Not-Taking Potassium Chloride (Klor-Con M20) 20 mEq tablet,ER particles/crystals (6 sources) Start: 11-10-2023 End: 01-31-2024 Potassium Chloride (Klor-Con M20) 20 mEq tablet,ER particles/crystals Discontinued MEQ PO November 10, 2023 12:00am January 31, 2024 2:02pm Start: 11-10-2023 Potassium Chlo ride (Klor-Con M20) 20 mEq tablet,ER particles/crystals Active MEQ PO November 10, 2023 12:00am Reservapak - (1 source) Reservapak - as directed Orally *please review for potential _update for e-prescription and drug interaction check* Not-Taking Tirzepatide (5 sources) Start: 11-10-2023 End: 01-31-2024 Tirzepatide (Mounjaro) 2.5 m g/0.5 mL pen injector Discontinued 2.5 MG SUBCUT every week 3 November 10, 2023 12:00am January 31, 2024 2:35pm Start: 11-10-2023 Tirzepatide (M ounjaro) 2.5 mg/0.5 mL pen injector Active 2.5 MG SUBCUT every week 3 November 10, 2023 12:00am Problems Active Problems Problem Classification Problem Date Documented Date Episodic/Chronic Anxiety disorders (5 sources) Generalized anxiety disorder; 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: [Generalized anxiety disorder] Onset: 03-14-2022 07-21-2023 Chronic Diabetes mellitus with complications (6 sources) Hyperglycemia due to type 2 diabetes mellitus; 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: [Type 2 diabetes mellitus with hyperglycemia] 11-10-2023 Chronic Diabetes mellitus without complication (9 sources) Type 2 diabetes mellitus without complications; 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: [Type 2 diabetes mellitus without complication] Onset: 08-05-2022 Resolved: 07-27-2023 07-26-2023 Chronic Disorders of lipid metabolism (20 sources) Hyperlipidemia, unspecified; 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: [Hyperlipidemia] Onset: 03-14-2022 Resolved: 07-27-2023 07-27-2023 Chronic Essential hypertension (17 sources) Essential (primary) hypertension; 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: [Hypertensive disorder] Onset: 12-23-2021 Resolved: 07-27-2023 07-21-2023 Chronic Fluid and electrolyte disorders (6 sources) Hypokalemia; 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: [Hypokalemia] Onset: 12-23-2021 08-28-2023 Episodic Lymphadenitis (4 sources) Enlarged lymph nodes, unspecified; 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: [ENLARGED LYMPH NODES UNSPECIFIED] Onset: 08-03-2022 Episodic Nutritional deficiencies (15 sources) Vitamin D deficiency; 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: [Vitamin D deficiency, unspecified] 11-10-2023 Chronic Nutritional deficiencies (5 sources) Cobalamin deficiency; 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: [Deficiency of other specified B group vitamins] 11-10-2023 Episodic Osteoarthritis (19 sources) Osteoarthritis; 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: [Unspecified osteoarthritis, unspecified site] Onset: 07-27-2023 Resolved: 07-27-2023 07-27-2023 Chronic Other eye disorders (4 sources) Dry eyes; 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: [Dry eye syndrome of bilateral lacrimal glands] Onset: 07-26-2023 07-26-2023 Episodic Other non-traumatic joint disorders (4 sources) Ankle pain; 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: [Pain in right ankle and joints of right foot] Onset: 07-21-2023 07-21-2023 Episodic Other nutritional; endocrine; and metabolic disorders (1 source) Morbid (severe) obesity due to excess calories; 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: [MORBID SEVERE OBES D/T EXCESS CHAI] Onset: 12-23-2021 Chronic Other nutritional; endocrine; and metabolic disorders (1 source) Body mass index (BMI) 37.0-37.9, adult; 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: [BODY MASS INDEX BMI 37.0-37.9 ADULT] Onset: 12-23-2021 Chronic Other nutritional; endocrine; and metabolic disorders (9 sources) Obesity; 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: [Obesity, unspecified] Onset: 07-27-2023 Resolved: 07-27-2023 07-27-2023 Chronic Other nutritional; endocrine; and metabolic disorders (5 sources) Body mass index 40+ - severely obese; 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: [Body mass index (BMI) 40.0-44.9, adult] 11-10-2023 Chronic Other nutritional; endocrine; and metabolic disorders (10 sources) Body mass index (BMI) 40.0-44.9, adult; 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: [Body Mass Index 40.0-44.9, adult] 11-10-2023 Chronic Other nutritional; endocrine; and metabolic disorders (10 sources) Obesity, unspecified; 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: [Obesity, unspecified] 11-10-2023 Chronic Other screening for suspected conditions (not mental disorders or infectious disease) (5 sources) Liver function tests abnormal; 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: [Abnormal results of liver function studies] Onset: 07-27-2023 Resolved: 07-27-2023 07-27-2023 Episodic Other skin disorders (2 sources) Mass of neck; 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: [Localized swelling, mass and lump, neck] 09-07-2023 Episodic Other upper respiratory infections (7 sources) Acute maxillary sinusitis, unspecified; 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: [Acute maxillary sinusitis] Onset: 07-27-2023 Resolved: 07-27-2023 Episodic Unclassified (1 source) CONTACT W/AND (SUSP) EXPOS COVID-19; 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: [CONTACT W/AND (SUSP) EXPOS COVID-19] Onset: 12-23-2021 Viral infection (4 sources) Herpes simplex; 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: [Herpesviral infection, unspecified] Onset: 07-21-2023 07-21-2023 Episodic Past or Other Problems Problem Classification Problem Date Documented Da te Episodic/Chronic Allergic reactions (4 sources) Allergic urticaria; 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: [Allergic urticaria] Onset: 4 Resolved: 4 07-27-2023 Episodic Blindness and vision defects (8 sources) Presbyopia; 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: [Presbyopia] Onset: 4 Resolved: 4 07-27-2023 Episodic Conditions associated with dizziness or vertigo (8 sources) Dizziness and giddiness; 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: [Dizziness] Onset: 2 Resolved: 4 Episodic Diabetes mellitus without complication (5 sources) Prediabetes; 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: [Prediabetes] Onset: 2 Resolved: 4 07-26-2023 Episodic Diseases of mouth; excluding dental (9 sources) Sialoadenitis; 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: [Sialoadenitis, unspecified] Onset: 3 07-26-2023 Episodic Esophageal disorders (4 sources) Gastroesophageal reflux disease; 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: [Gastro-esophageal reflux disease without esophagitis] Onset: 4 Resolved: 4 07-27-2023 Chronic Headache; including migraine (4 sources) Migraine; 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: [Migraine, unspecified, not intractable, without status migrainosus] Onset: 3 Resolved: 4 07-27-2023 Chronic Hepatitis (4 sources) Nonalcoholic steatohepatitis; 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: [Nonalcoholic steatohepatitis (CORCORAN)] Onset: 4 Resolved: 4 07-27-2023 Chronic Mood disorders (8 sources) Depressive disorder; 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: [Depressive disorder] Onset: 4 Resolved: 4 07-27-2023 Chronic Mycoses (4 sources) Onychomycosis of toenails; 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: [Tinea unguium] Onset: 4 Resolved: 4 07-27-2023 Episodic Neoplasms of unspecified nature or uncertain behavior (4 sources) Villous adenoma of colon; 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: [Neoplasm of uncertain behavior of colon] Onset: 4 Resolved: 4 07-27-2023 Episodic Other aftercare (1 source) 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 coordinator (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) use of 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; 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: [FLOOR 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 CURRENT USE OF ASPIRIN] Onset: 2 Episodic Other aftercare (1 source) [facility] (current) use of oral hypoglycemic drugs; 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: [FLOOR PRESS OPERATOR USE ORAL HYPOGLYCEMIC DX] Onset: 2 Episodic Other aftercare (1 source) Other [facility] (current) drug therapy; 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: [OTH FLOOR PRESS OPERATOR CURRENT DRUG THERAPY] Onset: 2 Episodic Other gastrointestinal disorders (4 sources) Occult blood in stools; 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: [Other fecal abnormalities] Onset: 4 Resolved: 4 07-27-2023 Episodic Other liver diseases (1 source) Abnormal levels of other serum enzymes; 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: [ABNORMAL LEVELS OTHER SERUM ENZYMES] Onset: 2 Episodic Other lower respiratory disease (4 sources) Breathing painful; 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: [Chest pain on breathing] Onset: 4 Resolved: 4 07-27-2023 Episodic Other nervous system disorders (4 sources) Carpal tunnel syndrome; 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: [Carpal tunnel syndrome, unspecified upper limb] Onset: 4 Resolved: 4 07-27-2023 Chronic Other nervous system disorders (1 source) Paresthesia of skin; 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: [PARESTHESIA OF SKIN] Onset: 2 Episodic Other nervous system disorders (4 sources) Skin sensation disturbance; 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: [Unspecified disturbances of skin sensation] Onset: 4 Resolved: 4 07-27-2023 Episodic Other skin disorders (4 sources) Ingrowing toenail; 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: [Ingrowing nail] Onset: 4 Resolved: 4 07-27-2023 Episodic Pancreatic disorders (not diabetes) (4 sources) Acute pancreatitis; 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: [Acute pancreatitis without necrosis or infection, unspecified] Onset: 4 Resolved: 4 07-27-2023 Episodic Residual codes; unclassified (4 sources) Other specified health status; 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: [OTHER SPECIFIED HEALTH STATUS] Onset: 2 Episodic Residual codes; unclassified (4 sources) Other general symptoms and signs; 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: [Other general symptoms] Onset: 4 Resolved: 4 07-27-2023 Episodic Residual codes; unclassified (4 sources) Tobacco user; 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: [Tobacco use] Onset: 4 Resolved: 4 07-27-2023 Episodic Screening and history of mental health and substance abuse codes (1 source) Personal history of nicotine dependence; 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: [PERSONAL HISTORY OF NICOTINE DEPEND] Onset: 2 Episodic Skin and subcutaneous tissue infections (4 sources) Carbuncle of trunk; 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: [Carbuncle of trunk, unspecified] Onset: 4 Resolved: 4 07-27-2023 Episodic Spondylosis; intervertebral disc disorders; other back problems (10 sources) Spondylosis without myelopathy or radiculopathy, cervical region; 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: [Spondylosis without myelopathy or radiculopathy, lumbar region] Onset: 2 Resolved: Chronic Spondylosis; intervertebral disc disorders; other back problems (4 sources) Sciatica; 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: [Sciatica, unspecified side] Onset: 4 Resolved: 4 07-27-2023 Episodic Sprains and strains (4 sources) Lumbar sprain; 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: [Sprain of ligaments of lumbar spine, initial encounter] Onset: 4 Resolved: 4 07-27-2023 Episodic Substance-related disorders (13 sources) Opioid abuse, uncomplicated; 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: [Nondependent opioid abuse ] Onset: 2 Resolved: 4 07-27-2023 Chronic Syncope (1 source) Syncope and collapse; 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: [SYNCOPE AND COLLAPSE] Onset: 2 Episodic Urinary tract infections (5 sources) Urinary tract infection, site not specified; 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: [Acute urinary tract infection] Onset: 2 Resolved: 4 07-27-2023 Episodic Results Test Name Value Interpretation Reference Range Facility MM screening mammo BI w/CADo n 03-11-2024 MM screening mammo BI w/CAD [facility] Main [place] [address] [place] [address] Mammography Report Signed Patient: Norma Redmond MR#: [id number] : 1950 Acct:[id number] Age/Sex: 73 / F ADM Date: 03/11/24 Loc: [place] Room: Type: [facility] Attending Dr: Yvette Aparicio (Clinic) DO [facility] Copies to: DO Ginny Blount NP-C Ordering Provider: Yvette Aparicio DO Date of Service: 03/11/24 MM/MM screening mammo BI w/CAD: SCREENING BILATERAL Screening Full Field digital mammogram with 3-D imaging. Full field digital CC and MLO imaging performed. CAD utilized. COMPARISON: 12/15/2022 HISTORY: Annual screening BREAST COMPOSITION: Scattered fibroglandular densities of the breast parenchyma identified BREAST CALCIFICATIONS: Benign calcifications present. VASCULAR CALCIFICATIONS: Present ARCHITECTURAL DISTORTION: None BREAST NODULE: Left intramammary lymph nodes redemonstrated AXILLARY LYMPH NODES: Normal POSTSURGICAL CHANGES: None MM/MM screening mammo BI w/CAD IMPRESSION: No mammographic evidence of malignancy. Routine follow-up recommended in one year. RESULT CODE: 2 Benign Findings(s) DENSITY CODE: 2 (approximately 25-50% glandular) FOLLOW UP: 1YR THE FALSE-NEGATIVE RATE OF MAMMOGRAPHY IS APPROXIMATELY 10%. IMAGING OF A PALPABLE ABNORMALITY MUST BE BASED ON CLINICAL GROUNDS. PATIENT WAS ENTERED INTO A REMINDER SYSTEM WITH A TARGET DUE DATE FOR THE NEXT MAMMOGRAM. Impression dictated by: Jose Yan M.D.03/11/2024 2:00 PM Dictation Location: [facility] Transcribed By: [facility] 03/11/24 1400 Dictated By: Jose Yan DO 03/11/24 1359 Signed By: 03/11/24 1400 Normal The Count Includes [facility] No Panel InformationOrdered By: Gina Harkins on 02-16-2024 Quick Strep (POC) [facility] Respiratory specimen 2019 no aaron coronavirus RNA detection by probe and target amplifion 02-16-2024 SARS-CoV-2 (COVID-19) RNA MARY+probe Ql (Resp) Negative [facility] Office Visiton 02-14-2024 Follow-up visit [id number] Norma Redmond 1950 F Date Provider Department Center 02/14/2024 120-BETSY, SOFYA BH C[facility] Family History Problem Relation Age of Onset Atrial fibrillation Mother Family Status - Relation Status Age at Mother Level of Service:29189 SC OFFICE/OUTPATIENT ESTABLISHED LOW MDM 20 MIN Normal [facility] HbA1c HPLC (Bld) [Mass fract ion]on 11-10-2023 HbA1c (Bld) [Mass fraction] 6.3 % [facility] No Panel Informationon 11-09 Bedside Glucose 122 [facility] Fernando 08-29-2023 L Specimen: [id number] Received: 08/29/23 Status: GAYE Rivera Num: [id number] Spec Type: Surgical Subm Dr: Migel Best DO Tissues: A Gross Only (SALIVARY STONE) Procedures: Level 1 Gross Age/ Patient Sex Location Account Attending Physician Norma Redmond 72/F [place] [id number] Migel Best DO SPEC NUM: [id number] RECD: 08/29/23 STATUS: GAYE RIVERA NUM: [id number] BIB: 08/29/23- SUBM DR: Migel Best DO ENTERED: 08/29/[address]: [facility] SPEC TYPE: Surgical DEPT: S ORDERED: Level 1 Gross ORDERED: Level 1 Gross Pathological Diagnosis Salivary gland stone removal from mouth, sialodochoplasty: - A yellow-rider slightly elongated calculus. Gross only examination Clinical Information Salivary stone Gross Description Received in formalin labeled with the patient's name, date of and salivary stone is a 0.6 x 0.3 x 0.2 cm yellow-rider calculus. A gross photo is taken. Gross examination only. CPT Codes 48572 Gross Photo Specimen: [id number] Received: 08/29/23 Status: GAYE Rivera Num: [id number] Spec Type: Surgical Subm Dr: Migel Best DO Tissues: A Gross Only (SALIVARY STONE) Procedures: Level 1 Gross Patient: Norma Redmond [id number] (Continued) Signed (signatur e on file) Lele Ford MD 02/16/24 1403 Normal The Count Includes [facility] COVID Quick Testingon 2022 Result Negative [employer] Other CT NECK ST W CONon CT NECK ST W CON EXAMINATION: CT NECK ST W CON HISTORY: Lymphadenopathy ; left side neck swelling after eating COMPARISON: No relevant comparison available. TECHNIQUE: Axial, Coronal, and Sagittal CT images created with IV contrast. Dose reduction techniques were achieved by using automated exposure control and/or adjustment of mA and/or kV according to patient size and/or use of iterative reconstruction technique. FINDINGS: NASOPHARYNX: No asymmetry of the fossae of Rosenmuller and torus tubarius. ORAL CAVITY: No visible mass. OROPHARYNX: No asymmetry of the facial and lingual tonsils. HYPOPHARYNX: No mass or other visible lesion. LARYNX: No mass or asymmetry of the vocal cords. SINUSES: No significant fluid or mucosal thickening. NECK GLADS: No visible abnormality of the parotid, submandibular, and thyroid glands. LYMPH NODES: No pathological-appear ing or enlarged lymph nodes. VASCULATURE: No suspicious abnormality. BONES: Slight reversal of the normal lordotic curvature. Moderate-marked degenerative disc disease C4-C5, C5-C6, C6-C7. Multilevel mild degenerative facet arthropathy. Congenital osseous fusion versus marked degenerative facet arthropathy C2-C3 and C3-C4 bilaterally. OTHER: No additional imaging findings. IMPRESSION: 1. No lymphadenopathy. 2. Skin surface marker localizing the patient's area of swelling overlies the left submandibular salivary gland; no appreciable abnormality of the salivary gland or asymmetry compared to right side. No specific findings to account for patient's symptoms. Electronically authenticated by: BENEDICTO KARIMI Date: 2022-08-04 08:41 Normal [facility] CBC AUTO DIFFon 08-03-2022 BASO # 0.0 103/ul Normal 0.0-0.1 [facility] Comment on above: Performed By: #### A 1C #### [facility] [address] [address] [address] Blanca Ford Basophils/100 WBC (Bld) 0.8 % Normal 0.2-2.0 [facility] Comment on above: Performed By: #### A 1C #### [facility] [address] [address] [address] Blanca Ford EO # 0.2 103/ul Normal 0.0-0.7 [facility] Comment on above: Performed By: #### A 1C #### [facility] [address] [place] [address] Dr. Blanca Ford Eosinophils/100 WBC (Bld) 3.1 % Normal 0.9-7.0 [facility] Comment on above: Performed By: #### A 1C #### [facility] [address] [place] [address] Dr. Blanca Ford Erythrocyte distribution width (RBC) [Ratio] 12.4 % Normal 11.0-15.0 [facility] Comment on above: Performed By: #### A 1C #### [facility] [address] [place] [address] Dr. Blanca Ford Hematocrit (Bld) [Volume fraction] 42.5 % Normal 36.0-48.0 [facility] Comment on above: Performed By: #### A 1C #### [facility] [address] [place] [address] Dr. Blanca Ford Hemoglobin (Bld) [Mass/Vol] 14.0 g/dL Normal 12.0-16.0 [facility] Comment on above: Performed By: #### A 1C #### [facility] [address] [place] [address] Dr. Blanca Ford IG # 0.03 10e3/ul Normal 0.00-0.03 [facility] Comment on above: Performed By: #### A 1C #### [facility] [address] [place] [address] Dr. Blanca Ford IG % 0.6 % Critically high 0.0-0.5 [facility] Comment on above: Performed By: #### A 1C #### [facility] [address] [place] [address] Dr. Blanca Ford LYMPH # 1.2 103/ul Normal 1.2-3.8 [facility] Comment on above: Performed By: #### A 1C #### [facility] [address] [place] [address] Dr. Blanca Ford Lymphocytes/100 WBC (Bld) 22.6 % Normal 20.5-60.0 [facility] Comment on above: Performed By: #### A 1C #### [facility] [address] [place] [address] Dr. Blanca Ford MANUAL DIFF REQ NO Normal [facility] Comment on above: Performed By: #### A 1C #### [facility] [address] [place] [address] Dr. Blanca Ford MCH (RBC) [Entitic mass] 28.1 pg Normal 26.7-34.0 [facility] Comment on above: Performed By: #### A 1C #### [facility] [address] [place] [address] Dr. Blanca Ford MCHC (RBC) [Mass/Vol] 32.9 g/dL Normal 29.9-35.2 [facility] Comment on above: Performed By: #### A 1C #### [facility] [address] [place] [address] Dr. Blanca Ford MCV (RBC) [Entitic vol] 85.3 fL Normal 81.0-99.0 [facility] Comment on above: Performed By: #### A 1C #### [facility] [address] [place] [address] Dr. Blanca Ford MONO # 0.3 103/ul Normal 0.3-0.8 [facility] Comment on above: Performed By: #### A 1C #### [facility] [address] [place] [address] Dr. Blanca Ford Monocytes/100 WBC (Bld) 6.3 % Normal 1.7-12.0 [facility] Comment on above: Performed By: #### A 1C #### [facility] [address] [place] [address] Dr. Blanca Ford NEUT # 3.5 103/ul Normal 1.4-6.5 [facility] Comment on above: Performed By: #### A 1C #### [facility] [address] [place] [address] Dr. Blanca Ford Neutrophils/100 WBC (Bld) 66.6 % Normal 43.0-75.0 [facility] Comment on above: Performed By: #### A 1C #### [facility] [address] [place] [address] Dr. Blanca Ford Platelet mean volume (Bld) [Entitic vol] 8.7 fL Critically low 9.5-13.5 [facility] Comment on above: Performed By: #### A 1C #### [facility] [address] [place] [address] Dr. Blanca Ford PLT 214 103/ul Normal 150-450 [facility] Comment on above: Performed By: #### A 1C #### [facility] [address] [place] [address] Dr. Blanca Ford RBC 4.98 106/ul Normal 4.20-5.40 [facility] Comment on above: Performed By: #### A 1C #### [facility] [address] [place] [address] Dr. Blanca Ford WBC 5.2 103/ul Normal 4.0-11.0 [facility] Comment on above: Performed By: #### A 1C #### [facility] [address] [place] [address] Dr. Blanca Ford CRPon 08-03-2022 CRP [Mass/Vol] mg/L Normal <=1.0 [facility] Comment on above: Performed By: #### L ACT #### [facility] [address] [place] [address] Dr. Blanca Ford GLYCOHEMOGLOBIN A1Con 2022 ADA RECOMMENDATION SEE BELOW Normal [facility] Comment on above: Result Comment: ADA RECOMMENDED LIMIT 4.0 - 6.0 ADA THERAPEUTIC TARGET < 7.0 ACTION SUGGESTED > 7.0 Performed By: #### C MP #### [facility] [address] [place] [address] Dr. Blanca Ford Glucose [Mass/Vol] 137 mg/dL Normal [facility] Comment on above: Performed By: #### C MP #### [facility] [address] [place] [address] Dr. lBanca Ford HbA1c (Bld) [Mass fraction] 6.4 % Critically high 4.5-6.2 [facility] Comment on above: Performed By: #### C MP #### [facility] [address], [place] [address] Dr. Blanca Ford PROF CHEM 8 (BAS METB)on Anion gap [Moles/Vol] 12.8 mmol/L Normal [facility] Comment on above: Performed By: #### B MP ####[facility] [address] [id number] Ford Calcium [Mass/Vol] 9.4 mg/dL Normal 8.5-10.1 [facility] Comment on above: Performed By: #### B MP ####[facility] [address] [id number] Ford Chloride [Moles/Vol] 101 mmol/L Normal 98-107 [facility] Comment on above: Performed By: #### B MP ####[facility] [address] [id number] Ford CO2 [Moles/Vol] 30.0 mmol/L Normal 21.0-32.0 [facility] Comment on above: Performed By: #### B MP ####[facility] [address] [id number] Fodr Creatinine [Mass/Vol] 0.69 mg/dL Normal 0.55-1.02 [facility] Comment on above: Performed By: #### B MP ####[facility] [address] [id number] Ford EGFR-AF MEXICAN >60 Normal >=60 [facility] Comment on above: Performed By: #### B MP ####[facility] [address] [id number] Ford EGFR-NON AF MEXICAN >60 Normal >=60 [facility] Comment on above: Performed By: #### B MP ####[facility] [address] [id number] Ford Glucose [Mass/Vol] 138 mg/dL Critically high 74-[address] [facility] Comment on above: Performed By: #### B MP ####[facility] [address] [address]Dr. Blanca Ford Potassium [Moles/Vol] 3.8 mmol/L Normal 3.5-5.1 [facility] Comment on above: Performed By: #### B MP ####[facility] [address] [address]DrElyssa Ford Sodium [Moles/Vol] 140 mmol/L Normal 136-145 [facility] Comment on above: Performed By: #### B MP ####[facility] [address] [address]Dr. Blanca Ford Urea nitrogen [Mass/Vol] 13.0 mg/dL Normal 7.0-18.0 [facility] Comment on above: Performed By: #### B MP ####[facility] [address] [place], [place] [address]DrElyssa Ford Urea nitrogen/Creatinine [Mass ratio] 18.8 mg/mg Normal [facility] Comment on above: Performed By: #### B MP ####[facility] [address] [place], [place] [address]DrElyssa Ford [facility] SED RATE 35 mm/hr Critically high <=30 [facility] Comment on above: Performed By: #### A 1C #### [facility] [address] [address] [address] Blanca Ford CBC AUTO DIFFon 03-03-2022 BASO # 0.1 103/ul Normal 0.0-0.1 [facility] Comment on above: Performed By: #### C BC ####[facility] [address] [address]DrElyssa Ford Basophils/100 WBC (Bld) 1.0 % Normal 0.2-2.0 [facility] Comment on above: Performed By: #### C BC ####[facility] [address] [address]Dr. Blanca Ford EO # 0.1 103/ul Normal 0.0-0.7 [facility] Comment on above: Performed By: #### C BC ####[facility] [address] [place], [place] [address]Dr. Blanca Ford Eosinophils/100 WBC (Bld) 2.4 % Normal 0.9-7.0 [facility] Comment on above: Performed By: #### C BC ####[facility] [address] [place], [place] [address]Dr. Blanca Ford Erythrocyte distribution width (RBC) [Ratio] 12.3 % Normal 11.0-15.0 [facility] Comment on above: Performed By: #### C BC ####[facility] [address] [place], [place] [address]Dr. Blanca Ford Hematocrit (Bld) [Volume fraction] 43.9 % Normal 36.0-48.0 [facility] Comment on above: Performed By: #### C BC ####[facility] [address] [place], [place] [address]Dr. Blanca Ford Hemoglobin (Bld) [Mass/Vol] 14.6 g/dL Normal 12.0-16.0 [facility] Comment on above: Performed By: #### C BC ####[facility] [address] [place], [place] [address]Dr. Blanca Ford IG # 0.01 10e3/ul Normal 0.00-0.03 [facility] Comment on above: Performed By: #### C BC ####[facility] [address] [place], [place] [address]Dr. Blanca Ford IG % 0.2 % Normal 0.0-0.5 [facility] Comment on above: Performed By: #### C BC ####[facility] [address] [place], [place] [address]Dr. Blanca Ford LYMPH # 1.2 103/ul Normal 1.2-3.8 [facility] Comment on above: Performed By: #### C BC ####[facility] [address] [id number]. Blanca Logan Lymphocytes/100 WBC (Bld) 22.9 % Normal 20.5-60.0 [facility] Comment on above: Performed By: #### C BC ####[facility] [address] [address]Dr. Claudiadebra Ford MANUAL DIFF REQ NO Normal [facility] Comment on above: Performed By: #### C BC ####[facility] [address] [address]Dr. Blanca Logan MCH (RBC) [Entitic mass] 28.0 pg Normal 26.7-34.0 [facility] Comment on above: Performed By: #### C BC ####[facility] [address] [place], [place] [address]Dr. Blanca Logan MCHC (RBC) [Mass/Vol] 33.3 g/dL Normal 29.9-35.2 [facility] Comment on above: Performed By: #### C BC ####[facility] [address] [place], [place] [address]Dr. Claudiadebra Ford MCV (RBC) [Entitic vol] 84.3 fL Normal 81.0-99.0 [facility] Comment on above: Performed By: #### C BC ####[facility] [address] [place], [place] [address]Dr. Blanca Ford MONO # 0.3 103/ul Normal 0.3-0.8 [facility] Comment on above: Performed By: #### C BC ####[facility] [address] [place], [place] [address]Dr. Claudiadebra Ford Monocytes/100 WBC (Bld) 5.9 % Normal 1.7-12.0 [facility] Comment on above: Performed By: #### C BC ####[facility] [address] [place], [place] [address]Dr. Blanca Ford NEUT # 3.4 103/ul Normal 1.4-6.5 [facility] Comment on above: Performed By: #### C BC ####[facility] [address] [address]Dr. Blanca Ford Neutrophils/100 WBC (Bld) 67.6 % Normal 43.0-75.0 [facility] Comment on above: Performed By: #### C BC ####[facility] [address] [address]Dr. Blanca Ford Platelet mean volume (Bld) [Entitic vol] 8.7 fL Critically low 9.5-13.5 [facility] Comment on above: Performed By: #### C BC ####[facility] [address] [address]Dr. Blanca Ford PLT 236 103/ul Normal 150-450 [facility] Comment on above: Performed By: #### C BC ####[facility] [address] [address]Dr. Blanca Ford RBC 5.21 106/ul Normal 4.20-5.40 [facility] Comment on above: Performed By: #### C BC ####[facility] [address] [place], [place] [address]DrElyssa Ford WBC 5.1 103/ul Normal 4.0-11.0 [facility] Comment on above: Performed By: #### C BC ####[facility] [address] [address]DrElyssa Ford FREE T4on 03-03-2022 Free T4 [Mass/Vol] 1.04 ng/dL Normal 0.76-1.46 [facility] Comment on above: Performed By: #### F T4 ####[facility] [address] [place], [place] [address]DrElyssa Ford GLYCOHEMOGLOBIN A1Con 2021 ADA RECOMMENDATION SEE BELOW Normal [facility] Comment on above: Result Comment: ADA RECOMMENDED LIMIT 4.0 - 6.0 ADA THERAPEUTIC TARGET < 7.0 ACTION SUGGESTED > 7.0 Performed By: #### A 1C #### [facility] [address] [address] [address] Blanca Ford Glucose [Mass/Vol] 128 mg/dL Normal [facility] Comment on above: Performed By: #### A 1C #### [facility] [address] [place] [address] Dr. Blanca Ford HbA1c (Bld) [Mass fraction] 6.1 % Normal 4.5-6.2 [facility] Comment on above: Performed By: #### A 1C #### [facility] [address] [place] [address] Dr. Blanca Ford LIPID PROFILEon 03-03-2022 CHOL-HDL RATIO NORM SEE BELOW Normal [facility] Comment on above: Result Comment: 3.3 - 4.4 LOW RISK 4.4 - 7.1 AVERAGE RISK 7.1 - 11.0 MODERATE RISK >11.0 HIGH RISK Performed By: #### L ACT #### [facility] [address] [place] [address] Dr. Blanca Ford Cholesterol [Mass/Vol] 214 mg/dL Critically high <=200 [facility] Comment on above: Performed By: #### L ACT #### [facility] [address] [place] [address] Dr. Blanca Ford Cholesterol in HDL [Mass/Vol] 45 mg/dL Normal 40-60 [facility] Comment on above: Performed By: #### L ACT #### [facility] [address] [place] [address] Dr. Blanca Ford Cholesterol in LDL [Mass/Vol] 134.2 mg/dL Normal [facility] Comment on above: Performed By: #### L ACT #### [facility] [address] [place] [address] Dr. Blanca Ford Cholesterol.total/Chol esterol in HDL [Mass ratio] 4.8 {ratio} Normal [facility] [facility] Comment on above: Performed By: #### L ACT #### [facility] [address] [place] [address] Dr. Blanca Ford HDL NORMAL > or = 60 mg/dl - LOW CARDIOVASCULAR RISK <40 mg/dl - HIGH CARDIOVASCULAR RISK Normal [facility] Comment on above: Performed By: #### L ACT #### [facility] [address] [place] [address] Dr. Blanca Ford LDL CALC NORMAL SEE BELOW Normal [facility] Comment on above: Result Comment: <100 mg/dl OPTIMAL 100 - 129 mg/dl NEAR OR ABOVE OPTIMAL 130 - 159 mg/dl BORDERLINE HIGH 160 - 189 mg/dl HIGH >190 mg/dl VERY HIGH Performed By: #### L ACT #### [facility] [address] [address] [address] Blanca Ford Triglyceride [Mass/Vol] 174 mg/dL Critically high <=150 [facility] Comment on above: Performed By: #### L ACT #### [facility] [address] [address] [address] Blanca Ford VLDL CALC 34.8 mg/dL Normal [facility] Comment on above: Performed By: #### L ACT #### [facility] [address] [address] [address] Blanca Ford PROF 14(COMP METB)on 022 Albumin [Mass/Vol] 4.1 g/dL Normal 3.4-5.0 [facility] Comment on above: Performed By: #### L ACT #### [facility] [address] [address] [address] Blanca Ford Albumin/Globulin [Mass ratio] 1.1 {ratio} Normal [facility] Comment on above: Performed By: #### L ACT #### [facility] [address] [address] [address] Blanca Ford ALP [Catalytic activity/Vol] 78 U/L Normal 46-116 [facility] Comment on above: Performed By: #### L ACT #### [facility] [address] [address] [address] Blanca Ford ALT [Catalytic activity/Vol] 54 U/L Normal 14-59 [facility] Comment on above: Performed By: #### L ACT #### [facility] [address] [address] [address] Blanca Ford Anion gap [Moles/Vol] 12.1 mmol/L Normal [facility] Comment on above: Performed By: #### L ACT #### [facility] [address] [address] [address] Blanca Ford AST [Catalytic activity/Vol] 35 U/L Normal 15-37 [facility] Comment on above: Performed By: #### L ACT #### [facility] [address] [address] [address] Blanca Ford Bilirubin [Mass/Vol] 0.7 mg/dL Normal 0.2-1.0 [facility] Comment on above: Performed By: #### L ACT #### [facility] [address] [address] [address] Blanca Ford Calcium [Mass/Vol] 9.6 mg/dL Normal 8.5-10.1 [facility] Comment on above: Performed By: #### L ACT #### [facility] [address] [place] [address] Dr. Blanca Ford Chloride [Moles/Vol] 102 mmol/L Normal 98-107 [facility] Comment on above: Performed By: #### L ACT #### [facility] [address] [address] [address] Blanca Ford CO2 [Moles/Vol] 30.5 mmol/L Normal 21.0-32.0 [facility] Comment on above: Performed By: #### L ACT #### [facility] [address] [place] [address] Dr. Blanca Ford Creatinine [Mass/Vol] 0.72 mg/dL Normal 0.55-1.02 [facility] Comment on above: Performed By: #### L ACT #### [facility] [address] [address] [address] Blanca Ford EGFR-AF MEXICAN >60 Normal >=60 [facility] Comment on above: Performed By: #### L ACT #### [facility] [address] [address] [address] Blanca Ford EGFR-NON AF MEXICAN >60 Normal >=60 [facility] Comment on above: Performed By: #### L ACT #### [facility] [address] [place] [address] Dr. Blanca Ford Globulin (S) [Mass/Vol] 3.6 g/dL Normal [facility] Comment on above: Performed By: #### L ACT #### [facility] [address] [address] [address] Blanca Ford Glucose [Mass/Vol] 129 mg/dL Critically high 74-106 [facility] Comment on above: Performed By: #### L ACT #### [facility] [address] [address] [address] Blanca Ford Potassium [Moles/Vol] 3.6 mmol/L Normal 3.5-5.1 [facility] Comment on above: Performed By: #### L ACT #### [facility] [address] [address] [address] Blanca Ford Protein [Mass/Vol] 7.7 g/dL Normal 6.4-8.2 [facility] Comment on above: Performed By: #### L ACT #### [facility] [address] [address] [address] Blanca Ford Sodium [Moles/Vol] 141 mmol/L Normal 136-145 [facility] Comment on above: Performed By: #### L ACT #### [facility] [address] [address] [address] Blanca Ford Urea nitrogen [Mass/Vol] 16.0 mg/dL Normal 7.0-18.0 [facility] Comment on above: Performed By: #### L ACT #### [facility] [address] [address] [address] Blanca Ford Urea nitrogen/Creatinine [Mass ratio] 22.2 mg/mg Normal [facility] Comment on above: Performed By: #### L ACT #### [facility] [address] [address] [address] Blanca Ford TSHon 03-03-2022 TSH 2.932 uIU/mL Normal 0.358-3.740 [facility] Comment on above: Performed By: #### L ACT #### [facility] [address] [address] [address] Blanca Ford UA RANDOM W/MICROSCOPICon BACTERIA TRACE Abnormal NONE SEEN The [facility] Comment on above: Performed By: #### U AMIC #### [facility] [address] [address] [address] Blanca Ford Bilirubin Ql (U) Negative Normal NEGATIVE [facility] Comment on above: Performed By: #### U AMIC #### [facility] [address] [address] [address] Blanca Ford CAST NONE SEEN Normal NONE SEEN The [facility] Comment on above: Performed By: #### U AMIC #### [facility] [address] [address] [address] Blanca Ford Clarity (U) CLEAR Normal CLEAR [facility] Comment on above: Performed By: #### U AMIC #### [facility] [address] [place] [address] Dr. Blanca Ford Color (U) YELLOW Normal YELLOW [facility] Comment on above: Performed By: #### U AMIC #### [facility] [address] [address] [address] Blanca Ford Crystals LM Nom (Urine sed) NONE SEEN Normal NONE SEEN The [facility] Comment on above: Performed By: #### U AMIC #### [facility] [address] [address] [address] Blanca Ford Epithelial cells LM Ql (Urine sed) FEW Abnormal NONE SEEN /RARE The [facility] Comment on above: Performed By: #### U AMIC #### [facility] [address] [place] [address] Dr. Blnaca Ford Glucose Ql (U) Negative Normal NEGATIVE [facility] Comment on above: Performed By: #### U AMIC #### [facility] [address] [address] [address] Blanca Ford Hemoglobin Ql (U) Negative Normal NEGATIVE [facility] Comment on above: Performed By: #### U AMIC #### [facility] [address] [address] [address] Blanca Ford Ketones Ql (U) Negative Normal NEGATIVE [facility] Comment on above: Performed By: #### U AMIC #### [facility] [address] [address] [address] Blanca Ford LEUKOCYTES SMALL Abnormal NEGATIVE [facility] Comment on above: Performed By: #### U AMIC #### [facility] [address] [address] [address] Blanca Ford MUCOUS SMALL Abnormal NONE SEEN The [facility] Comment on above: Performed By: #### U AMIC #### [facility] [address] [address] [address] Blanca Ford Nitrite Ql (U) Negative Normal NEGATIVE [facility] Comment on above: Performed By: #### U AMIC #### [facility] [address] [address] [address] Blanca Ford pH (U) 6.0 [pH] Normal 5-9 [facility] Comment on above: Performed By: #### U AMIC #### [facility] [address] [address] [address] Blanca Ford RBC NONE SEEN Abnormal 0-2 [facility] Comment on above: Performed By: #### U AMIC #### [facility] [address] [place] [address] Dr. Blanca Ford SPEC GRAVITY >=1.030 Abnormal 1.005-<=1.025 [facility] Comment on above: Performed By: #### U AMIC #### [facility] [address] [place] [address] Dr. Blanca Ford UA PROTEIN Negative Normal NEGATIVE/ TRACE [facility] Comment on above: Performed By: #### U AMIC #### [facility] [address] [place] [address] Dr. Blanca Ford Urobilinogen Qn (U) 1.0 {Erwin'U}/dL Normal 0.2 - 1. 0 [facility] Comment on above: Performed By: #### U AMIC #### [facility] [address] [place] [address] Dr. Blanca Ford WBC 5-10 Abnormal NONE SEEN The [facility] Comment on above: Performed By: #### U AMIC #### [facility] [address] [place] [address] Dr. Blanca Ford CBC AUTO DIFFon 12-19-2021 BASO # 0.0 103/ul Normal 0.0-0.1 [facility] Comment on above: Performed By: #### C MP #### [facility] [address] [place] [address] Dr. Blanca Ford Basophils/100 WBC (Bld) 0.2 % Normal 0.2-2.0 [facility] Comment on above: Performed By: #### C MP #### [facility] [address] [place] [address] Dr. Blanca Ford EO # 0.1 103/ul Normal 0.0-0.7 [facility] Comment on above: Performed By: #### C MP #### [facility] [address] [place] [address] Dr. Blanca Ford Eosinophils/100 WBC (Bld) 1.0 % Normal 0.9-7.0 [facility] Comment on above: Performed By: #### C MP #### [facility] [address] [place] [address] Dr. Blanca Ford Erythrocyte distribution width (RBC) [Ratio] 12.6 % Normal 11.0-15.0 [facility] Comment on above: Performed By: #### C MP #### [facility] [address] [place] [address] Dr. Blanca Ford Hematocrit (Bld) [Volume fraction] 36.1 % Normal 36.0-48.0 [facility] Comment on above: Performed By: #### C MP #### [facility] [address] [place] [address] Dr. Blanca Ford Hemoglobin (Bld) [Mass/Vol] 12.0 g/dL Normal 12.0-16.0 [facility] Comment on above: Performed By: #### C MP #### [facility] [address] [place] [address] Dr. Blanca Ford IG # 0.02 10e3/ul Normal 0.00-0.03 [facility] Comment on above: Performed By: #### C MP #### [facility] [address] [address] [address] Blanca Ford IG % 0.2 % Normal 0.0-0.5 [facility] Comment on above: Performed By: #### C MP #### [facility] [address] [place] [address] Dr. Blanca Ford LYMPH # 1.7 103/ul Normal 1.2-3.8 [facility] Comment on above: Performed By: #### C MP #### [facility] [address] [place] [address] Dr. Blanca Ford Lymphocytes/100 WBC (Bld) 20.9 % Normal 20.5-60.0 [facility] Comment on above: Performed By: #### C MP #### [facility] [address] [place] [address] Dr. Blanca Ford MANUAL DIFF REQ NO Normal [facility] Comment on above: Performed By: #### C MP #### [facility] [address] [place] [address] Dr. Blanca Ford MCH (RBC) [Entitic mass] 28.2 pg Normal 26.7-34.0 [facility] Comment on above: Performed By: #### C MP #### [facility] [address] [place] [address] Dr. Blanca Ford MCHC (RBC) [Mass/Vol] 33.2 g/dL Normal 29.9-35.2 [facility] Comment on above: Performed By: #### C MP #### [facility] [address] [place] [address] Dr. Blanca Ford MCV (RBC) [Entitic vol] 84.7 fL Normal 81.0-99.0 [facility] Comment on above: Performed By: #### C MP #### [facility] [address] [place] [address] Dr. Blanca Ford MONO # 0.4 103/ul Normal 0.3-0.8 [facility] Comment on above: Performed By: #### C MP #### [facility] [address] [place] [address] Dr. Blanca Ford Monocytes/100 WBC (Bld) 5.4 % Normal 1.7-12.0 [facility] Comment on above: Performed By: #### C MP #### [facility] [address] [address] [address] Blanca Ford NEUT # 5.9 103/ul Normal 1.4-6.5 [facility] Comment on above: Performed By: #### C MP #### [facility] [address] [address] [address] Blanca Ford Neutrophils/100 WBC (Bld) 72.3 % Normal 43.0-75.0 [facility] Comment on above: Performed By: #### C MP #### [facility] [address] [place] [address] Dr. Blanca Ford Platelet mean volume (Bld) [Entitic vol] 9.1 fL Critically low 9.5-13.5 [facility] Comment on above: Performed By: #### C MP #### [facility] [address] [place] [address] Dr. Blanca Ford PLT 216 103/ul Normal 150-450 [facility] Comment on above: Performed By: #### C MP #### [facility] [address] [place] [address] Dr. Blanca Ford RBC 4.26 106/ul Normal 4.20-5.40 [facility] Comment on above: Performed By: #### C MP #### [facility] [address] [place] [address] Dr. Blanca Ford WBC 8.1 103/ul Normal 4.0-11.0 [facility] Comment on above: Performed By: #### C MP #### [facility] [address] [place] [address] Dr. Blanca Ford POINT OF CARE GLUCOSEon 11-22 Glucose [Mass/Vol] 68 mg/dL Critically low 74-106 Th [facility] Comment on above: Performed By: #### P OCGLUC ####[facility] [id number] [address] Blanca Ford Glucose [Mass/Vol] 109 mg/dL Critically high 74-106 [facility] Comment on above: Performed By: #### L ACT #### [facility] [address] [place] [address] Dr. Blanca Ford Glucose [Mass/Vol] 127 mg/dL Critically high 74-106 [facility] Comment on above: Performed By: #### P OCGLUC #### [facility] [address] [place] [address] Dr. Blanca Ford PROF 14(COMP METB)on 022 Albumin [Mass/Vol] 3.1 g/dL Critically low 3.4-5.0 [facility] Comment on above: Performed By: #### C MP #### [facility] [address] [place] [address] Dr. Blanca Ford Albumin/Globulin [Mass ratio] 1.0 {ratio} Normal [facility] Comment on above: Performed By: #### C MP #### [facility] [address] [place] [address] Dr. Blanca Ford ALP [Catalytic activity/Vol] 50 U/L Normal 46-116 [facility] Comment on above: Performed By: #### C MP #### [facility] [address] [place] [address] Dr. Blanca Ford ALT [Catalytic activity/Vol] 10 U/L Critically low 14-59 [facility] Comment on above: Performed By: #### C MP #### [facility] [address] [place] [address] Dr. Blanca Ford Anion gap [Moles/Vol] 14.0 mmol/L Normal [facility] Comment on above: Performed By: #### C MP #### [facility] [address] [place] [address] Dr. Blanca Ford AST [Catalytic activity/Vol] 15 U/L Normal 15-37 [facility] Comment on above: Performed By: #### C MP #### [facility] [address] [place] [address] Dr. Blanca Ford Bilirubin [Mass/Vol] 0.2 mg/dL Normal 0.2-1.0 [facility] Comment on above: Performed By: #### C MP #### [facility] [address] [place] [address] Dr. Blanca Ford Calcium [Mass/Vol] 8.2 mg/dL Critically low 8.5-10.1 Th e [facility] Comment on above: Performed By: #### C MP #### [facility] [address] [place] [address] Dr. Blanca Ford Chloride [Moles/Vol] 104 mmol/L Normal 98-107 [facility] Comment on above: Performed By: #### C MP #### [facility] [address] [place] [address] Dr. Blanca Ford CO2 [Moles/Vol] 28.0 mmol/L Normal 21.0-32.0 [facility] Comment on above: Performed By: #### C MP #### [facility] [address] [place] [address] Dr. Blanca Ford Creatinine [Mass/Vol] 0.74 mg/dL Normal 0.55-1.02 [facility] Comment on above: Performed By: #### C MP #### [facility] [address] [place] [address] Dr. Blanca Ford EGFR-AF MEXICAN >60 Normal >=60 [facility] Comment on above: Performed By: #### C MP #### [facility] [address] [place] [address] Dr. Blanca Ford EGFR-NON AF MEXICAN >60 Normal >=60 [facility] Comment on above: Performed By: #### C MP #### [facility] [address] [place] [address] Dr. Blanca Ford Globulin (S) [Mass/Vol] 3.0 g/dL Normal [facility] Comment on above: Performed By: #### C MP #### [facility] [address] [place] [address] Dr. Blanca Ford Glucose [Mass/Vol] 127 mg/dL Critically high 74-[address] [facility] Comment on above: Performed By: #### C MP #### [facility] [address] [address] [address] Blanca Ford Potassium [Moles/Vol] 3.0 mmol/L Critically low 3.5-5.1 [facility] Comment on above: Performed By: #### C MP #### [facility] [address] [place] [address] Dr. Blanca Ford Protein [Mass/Vol] 6.1 g/dL Critically low 6.4-8.2 Th [facility] Comment on above: Performed By: #### C MP #### [facility] [address] [place] [address] Dr. Blanca Ford Sodium [Moles/Vol] 143 mmol/L Normal 136-145 [facility] Comment on above: Performed By: #### C MP #### [facility] [address] [place] [address] Dr. Blanca Ford Urea nitrogen [Mass/Vol] 16.0 mg/dL Normal 7.0-18.0 [facility] Comment on above: Performed By: #### C MP #### [facility] [address] [place] [address] Dr. Blanca Ford Urea nitrogen/Creatinine [Mass ratio] 21.6 mg/mg Normal [facility] Comment on above: Performed By: #### C MP #### [facility] [address] [place] [address] Dr. Blanca Ford CBC AUTO DIFFon 12-18-2021 BASO # 0.0 103/ul Normal 0.0-0.1 [facility] Comment on above: Performed By: #### C MP #### [facility] [address] [place] [address] Dr. Blanca Ford Basophils/100 WBC (Bld) 0.4 % Normal 0.2-2.0 [facility] Comment on above: Performed By: #### C MP #### [facility] [address] [place] [address] Dr. Blanca Ford EO # 0.0 103/ul Normal 0.0-0.7 [facility] Comment on above: Performed By: #### C MP #### [facility] [address] [address] [address] Blanca Ford Eosinophils/100 WBC (Bld) 0.2 % Critically low 0.9-7.0 [facility] Comment on above: Performed By: #### C MP #### [facility] [address] [place] [address] Dr. Blanca Ford Erythrocyte distribution width (RBC) [Ratio] 12.2 % Normal 11.0-15.0 [facility] Comment on above: Performed By: #### C MP #### [facility] [address] [place] [address] Dr. Blanca Ford Hematocrit (Bld) [Volume fraction] 40.4 % Normal 36.0-48.0 [facility] Comment on above: Performed By: #### C MP #### [facility] [address] [place] [address] Dr. Blanca Ford Hemoglobin (Bld) [Mass/Vol] 13.1 g/dL Normal 12.0-16.0 [facility] Comment on above: Performed By: #### C MP #### [facility] [address] [place] [address] Dr. Blanca Ford IG # 0.02 10e3/ul Normal 0.00-0.03 [facility] Comment on above: Performed By: #### C MP #### [facility] [address] [place] [address] Dr. Blanca Ford IG % 0.4 % Normal 0.0-0.5 [facility] Comment on above: Performed By: #### C MP #### [facility] [address] [place] [address] Dr. Blanca Ford LYMPH # 1.0 103/ul Critically low 1.2-3.8 [facility] Comment on above: Performed By: #### C MP #### [facility] [address] [place] [address] Dr. Blanca Ford Lymphocytes/100 WBC (Bld) 17.3 % Critically low 20.5-60.0 [facility] Comment on above: Performed By: #### C MP #### [facility] [address] [place] [address] Dr. Blanca Ford MANUAL DIFF REQ NO Normal [facility] Comment on above: Performed By: #### C MP #### [facility] [address] [place] [address] Dr. Blanca Ford MCH (RBC) [Entitic mass] 27.8 pg Normal 26.7-34.0 [facility] Comment on above: Performed By: #### C MP #### [facility] [address] [place] [address] Dr. Blanca Ford MCHC (RBC) [Mass/Vol] 32.4 g/dL Normal 29.9-35.2 [facility] Comment on above: Performed By: #### C MP #### [facility] [address] [place] [address] Dr. Blanca Ford MCV (RBC) [Entitic vol] 85.6 fL Normal 81.0-99.0 [facility] Comment on above: Performed By: #### C MP #### [facility] [address] [place] [address] Dr. Blanca Ford MONO # 0.1 103/ul Critically low 0.3-0.8 [facility] Comment on above: Performed By: #### C MP #### [facility] [address] [place] [address] Dr. Blanca Ford Monocytes/100 WBC (Bld) 1.4 % Critically low 1.7-12.0 [facility] Comment on above: Performed By: #### C MP #### [facility] [address] [place] [address] Dr. Blanca Ford NEUT # 4.6 103/ul Normal 1.4-6.5 [facility] Comment on above: Performed By: #### C MP #### [facility] [address] [place] [address] Dr. Blanca Ford Neutrophils/100 WBC (Bld) 80.3 % Critically high 43.0-75.0 [facility] Comment on above: Performed By: #### C MP #### [facility] [address] [address] [address] Blanca Ford Platelet mean volume (Bld) [Entitic vol] 9.1 fL Critically low 9.5-13.5 [facility] Comment on above: Performed By: #### C MP #### [facility] [address] [address] [address] Blanca Ford PLT 214 103/ul Normal 150-450 [facility] Comment on above: Performed By: #### C MP #### [facility] [address] [place] [address] Dr. Blanca Ford RBC 4.72 106/ul Normal 4.20-5.40 [facility] Comment on above: Performed By: #### C MP #### [facility] [address] [place] [address] Dr. Blanca Ford WBC 5.7 103/ul Normal 4.0-11.0 [facility] Comment on above: Performed By: #### C MP #### [facility] [address] [place] [address] Dr. Blanca Ford POINT OF CARE GLUCOSEon 11-22 Glucose [Mass/Vol] 159 mg/dL Critically high -[address] [place] [address] Comment on above: Performed By: #### L ACT #### [facility] [address] [place] [address] Dr. Blanca Ford Glucose [Mass/Vol] 142 mg/dL Critically high -106 [facility] Comment on above: Performed By: #### P OCGLUC #### [facility] [address] [place] [address] Dr. Blanca Ford Glucose [Mass/Vol] 224 mg/dL Critically high -106 [facility] Comment on above: Performed By: #### L ACT #### [facility] [address] [place] [address] Dr. Blanca Ford Glucose [Mass/Vol] 177 mg/dL Critically high [facility]106 [facility] Comment on above: Performed By: #### L ACT #### [facility] [address] [address] [address] Blanca Ford PROF 14(COMP METB)on 022 Albumin [Mass/Vol] 3.5 g/dL Normal 3.4-5.0 [facility] Comment on above: Performed By: #### C MP #### [facility] [address] [place] [address] Dr. Blanca Ford Albumin/Globulin [Mass ratio] 1.0 {ratio} Normal [facility] Comment on above: Performed By: #### C MP #### [facility] [address] [place] [address] Dr. Blanca Ford ALP [Catalytic activity/Vol] 61 U/L Normal 46-116 [facility] Comment on above: Performed By: #### C MP #### [facility] [address] [place] [address] Dr. Blanca Ford ALT [Catalytic activity/Vol] 40 U/L Normal 14-59 [facility] Comment on above: Performed By: #### C MP #### [facility] [address] [place] [address] Dr. Blanca Ford Anion gap [Moles/Vol] 12.8 mmol/L Normal [facility] Comment on above: Performed By: #### C MP #### [facility] [address] [place] [address] Dr. Blanca Ford AST [Catalytic activity/Vol] 20 U/L Normal 15-37 [facility] Comment on above: Performed By: #### C MP #### [facility] [address] [place] [address] Dr. Blanca Ford Bilirubin [Mass/Vol] 0.3 mg/dL Normal 0.2-1.0 [facility] Comment on above: Performed By: #### C MP #### [facility] [address] [place] [address] Dr. Blanca Ford Calcium [Mass/Vol] 8.7 mg/dL Normal 8.5-10.1 [facility] Comment on above: Performed By: #### C MP #### [facility] [address] [place] [address] Dr. Blanca Ford Chloride [Moles/Vol] 101 mmol/L Normal 98-107 [facility] Comment on above: Performed By: #### C MP #### [facility] [address] [address] [address] Blanca Ford CO2 [Moles/Vol] 28.5 mmol/L Normal 21.0-32.0 [facility] Comment on above: Performed By: #### C MP #### [facility] [address] [address] [address] Blanca Ford Creatinine [Mass/Vol] 0.91 mg/dL Normal 0.55-1.02 [facility] Comment on above: Performed By: #### C MP #### [facility] [address] [place] [address] Dr. Blanca Ford EGFR-AF MEXICAN >60 Normal >=60 [facility] Comment on above: Performed By: #### C MP #### [facility] [address] [address] [address] Blanca Ford EGFR-NON AF MEXICAN >60 Normal >=60 [facility] Comment on above: Performed By: #### C MP #### [facility] [address] [place] [address] Dr. Blanca Ford Globulin (S) [Mass/Vol] 3.6 g/dL Normal [facility] Comment on above: Performed By: #### C MP #### [facility] [address] [place] [address] Dr. Blanca Ford Glucose [Mass/Vol] 191 mg/dL Critically high 74-106 [facility] Comment on above: Performed By: #### C MP #### [facility] [address] [place] [address] Dr. Blanca Ford Potassium [Moles/Vol] 3.3 mmol/L Critically low 3.5-5.1 [facility] Comment on above: Performed By: #### C MP #### [facility] [address] [place] [address] Dr. Blanca Ford Protein [Mass/Vol] 7.1 g/dL Normal 6.4-8.2 [facility] Comment on above: Performed By: #### C MP #### [facility] [address] [address] [address] Blanca Ford Sodium [Moles/Vol] 139 mmol/L Normal 136-145 [facility] Comment on above: Performed By: #### C MP #### [facility] [address] [place] [address] Dr. Blanca Ford Urea nitrogen [Mass/Vol] 18.0 mg/dL Normal 7.0-18.0 [facility] Comment on above: Performed By: #### C MP #### [facility] [address] [place] [address] Dr. Blanca Ford Urea nitrogen/Creatinine [Mass ratio] 19.8 mg/mg Normal [facility] Comment on above: Performed By: #### C MP #### [facility] [address] [place] [address] Dr. Blanca Ford ACETONE SERUMon 12-17-2021 ACETONE Negative Normal NEGATIVE [facility] Comment on above: Performed By: #### L ACT #### [facility] [address] [place] [address] Dr. Blanca Ford CBC AUTO DIFFon 12-17-2021 BASO # 0.0 103/ul Normal 0.0-0.1 [facility] Comment on above: Performed By: #### C BC #### [facility] [address] [place] [address] Dr. Blanca Ford Basophils/100 WBC (Bld) 0.5 % Normal 0.2-2.0 [facility] Comment on above: Performed By: #### C BC #### [facility] [address] [place] [address] Dr. Blanca Ford EO # 0.1 103/ul Normal 0.0-0.7 [facility] Comment on above: Performed By: #### C BC #### [facility] [address] [place] [address] Dr. Blanca Ford Eosinophils/100 WBC (Bld) 1.2 % Normal 0.9-7.0 [facility] Comment on above: Performed By: #### C BC #### [facility] [address] [address] [address] Blanca Ford Erythrocyte distribution width (RBC) [Ratio] 12.3 % Normal 11.0-15.0 [facility] Comment on above: Performed By: #### C BC #### [facility] [address] [place] [address] Dr. Blanca Ford Hematocrit (Bld) [Volume fraction] 41.2 % Normal 36.0-48.0 [facility] Comment on above: Performed By: #### C BC #### [facility] [address] [place] [address] Dr. Blanca Ford Hemoglobin (Bld) [Mass/Vol] 13.8 g/dL Normal 12.0-16.0 [facility] Comment on above: Performed By: #### C BC #### [facility] [address] [place] [address] Dr. Blanca Ford IG # 0.02 10e3/ul Normal 0.00-0.03 [facility] Comment on above: Performed By: #### C BC #### [facility] [address] [place] [address] Dr. Blanca Ford IG % 0.3 % Normal 0.0-0.5 [facility] Comment on above: Performed By: #### C BC #### [facility] [address] [place] [address] Dr. Blanca Ford LYMPH # 1.1 103/ul Critically low 1.2-3.8 [facility] Comment on above: Performed By: #### C BC #### [facility] [address] [place] [address] Dr. Blanca Ford Lymphocytes/100 WBC (Bld) 15.0 % Critically low 20.5-60.0 [facility] Comment on above: Performed By: #### C BC #### [facility] [address] [place] [address] Dr. Blanca Ford MANUAL DIFF REQ NO Normal [facility] Comment on above: Performed By: #### C BC #### [facility] [address] [place] [address] Dr. Blanca Ford MCH (RBC) [Entitic mass] 28.1 pg Normal 26.7-34.0 [facility] Comment on above: Performed By: #### C BC #### [facility] [address] [place] [address] Dr. Blanca Ford MCHC (RBC) [Mass/Vol] 33.5 g/dL Normal 29.9-35.2 [facility] Comment on above: Performed By: #### C BC #### [facility] [address] [place] [address] Dr. Blanca Ford MCV (RBC) [Entitic vol] 83.9 fL Normal 81.0-99.0 [facility] Comment on above: Performed By: #### C BC #### [facility] [address] [place] [address] Dr. Blanca Ford MONO # 0.3 103/ul Normal 0.3-0.8 [facility] Comment on above: Performed By: #### C BC #### [facility] [address] [place] [address] Dr. Blanca Ford Monocytes/100 WBC (Bld) 4.3 % Normal 1.7-12.0 [facility] Comment on above: Performed By: #### C BC #### [facility] [address] [place] [address] Dr. Blanca Ford NEUT # 5.8 103/ul Normal 1.4-6.5 [facility] Comment on above: Performed By: #### C BC #### [facility] [address] [place] [address] Dr. Blanca Ford Neutrophils/100 WBC (Bld) 78.7 % Critically high 43.0-75.0 [facility] Comment on above: Performed By: #### C BC #### [facility] [address] [place] [address] Dr. Blanca Ford Platelet mean volume (Bld) [Entitic vol] 8.8 fL Critically low 9.5-13.5 [facility] Comment on above: Performed By: #### C BC #### [facility] [address] [place] [address] Dr. Blanca Ford PLT 240 103/ul Normal 150-450 [facility] Comment on above: Performed By: #### C BC #### [facility] [address] [address] [address] Blanca Ford RBC 4.91 106/ul Normal 4.20-5.40 [facility] Comment on above: Performed By: #### C BC #### [facility] [address] [address] [address] Blanca Ford WBC 7.4 103/ul Normal 4.0-11.0 [facility] Comment on above: Performed By: #### C BC #### [facility] [address] [address] [address] CSPINE WO CONon CT CSPINE WO CON EXAMINATION: CT CSPINE WO CON HISTORY: Dizziness , arm and feet numbness and tingling COMPARISON: No relevant comparison available. TECHNIQUE: Axial, Coronal, and Sagittal images were created without IV contrast. Dose reduction techniques were achieved by using automated exposure control and/or adjustment of mA and/or kV according to patient size and/or use of iterative reconstruction technique. FINDINGS: VERTEBRAL BODIES: Slight reversal of the normal lordotic curvature. No fracture or spondylolisthesis. FACET JOINTS: Multilevel degenerative changes, marked at C2-C3, C3-C4. No disruption or abnormal widening. CERVICAL DISCS: Marked narrowing C4-C5 through C6-C7. Uncovertebral joint spurring and posterior disc osteophyte complexes cause multilevel mild-moderate central canal and foramen narrowing. CENTRAL CANAL: No evidence of hemorrhage. PARASPINAL AREA: No visible mass. IMPRESSION: 1. No appreciable acute abnormality. 2. Multilevel moderate-marked degenerative changes. Electronically authenticated by: BENEDICTO KARIMI Date: 2021-12-17 17:12 Normal [facility] CT HEAD WO CONon 12-17-2021 CT HEAD WO CON EXAMINATION: CT HEAD WO CON HISTORY: Dizziness , blurred vision, arm and feet numbness and tingling for 5 days COMPARISON: No relevant comparison available. TECHNIQUE: Axial CT images were obtained without IV contrast. Dose reduction techniques were achieved by using automated exposure control and/or adjustment of mA and/or kV according to patient size and/or use of iterative reconstruction technique. FINDINGS: BRAIN: No edema, hemorrhage, mass, acute infarction, or inappropriate atrophy. CSF SPACES: No hydrocephalus, subarachnoid hemorrhage, or mass. Appropriate for age. SKULL: No fracture, mass, or other significant visible lesion. SINUSES: No significant mucosal thickening or fluid on the limited views. ORBITS: No appreciable abnormality on the limited views. OTHER: Negative IMPRESSION: 1. No intercranial hemorrhage, mass, hydrocephalus, or suspicious findings to account for patient's symptoms. 2. Age consistent chronic changes. Electronically authenticated by: BENEDICTO KARIMI Date: 2021-12-17 17:03 Normal [facility] CULTURE BLOODon 12-17-2021 Microscopic examination of blood, culture Culture Observations: NO GROWTH AT 5 DAYS. Normal [facility] Comment on above: Performed By: #### A 1C #### [facility] [address] [place] [address] Dr. Blanca Ford Microscopic examination of blood, culture Culture Observations: NO GROWTH AT 5 DAYS. Normal [facility] Comment on above: Performed By: #### A 1C #### [facility] [address] [address] [address] Blanca Ford CULTURE URINEon 12-17-2021 CULTURE URINE Culture Observations: LIGHT GROWTH OF MIXED GENITAL JULIANE. NO POTENTIAL PATHOGENS SEEN. Normal [facility] Comment on above: Performed By: #### A 1C #### [facility] [address] [place] [address] Dr. Blanca Ford [facility]22 SARS-CoV-2 (COVID-19) RNA MARY+probe Ql (Unsp spec) Not detected Normal NOT DETECTED [facility] Comment on above: Result Comment: When diagnostic testing is negative, the possibility of a false negative should be considered in the context of a patient's recent exposures and the presence of clinical signs and symptoms consistent with SARS-CoV-2. This test is not yet approved or cleared by the [place] FDA. When there are no FDA-approved or cleared tests available, and other criteria are met, FDA can make tests available under an emergency access mechanism called an Emergency Use Authorization (EUA). The EUA for this test is supported by the [place] of Health and Human Service's declaration that circumstances exist to justify the emergency use of in vitro diagnostics for the detection and/or diagnosis of the virus that causes COVID-19. This EUA will remain in effect for the duration of the COVID-19 declaration justifying emergency of IVDs, unless it is terminated or revoked by the FDA (after which the test may no longer be used). Performed By: #### A 1C #### [facility] [address] [address] [address] Blanca Ford ER URINE PROFILEon 2 Bilirubin Ql (U) Negative Normal NEGATIVE [facility] Comment on above: Performed By: #### SEAN BUSCH ####[facility] [address] [address]Dr. Blanca Ford Clarity (U) CLEAR Normal CLEAR [facility] Comment on above: Performed By: #### BRII BUSCHRO ####[facility] [address] [address]Dr. Blanca Ford Color (U) DK. ORANGE Abnormal YELLOW [facility] Comment on above: Performed By: #### BRII BUSCHRO ####[facility] [address] [address]Dr. Blanca DOWD A micrscopic examination will be performed if indicated. Normal [facility] Comment on above: Performed By: #### BRII BUSCHRO ####[facility] [address] [address]Dr. Blanca Ford Glucose Ql (U) Negative Normal NEGATIVE [facility] Comment on above: Performed By: #### BRII BUSCHRO ####[facility] [address] [address]Dr. Blanca Ford Hemoglobin Ql (U) Negative Normal NEGATIVE [facility] Comment on above: Performed By: #### BRII BUSCHRO ####[facility] [address] [place], [place] [address]Dr. Blanca Ford Ketones Ql (U) Negative Normal NEGATIVE [facility] Comment on above: Performed By: #### Jenniffer PETERSON UMICRO ####[facility] [address] [address]Dr. Blanca Ford LEUKOCYTES MODERATE Abnormal NEGATIVE [facility] Comment on above: Performed By: #### Jenniffer PETERSON UMICRO ####[facility] [address] [address]Dr. Blanca Ford Nitrite Ql (U) Positive Abnormal NEGATIVE [facility] Comment on above: Performed By: #### Jenniffer PETERSON UMICRO ####[facility] [address] [address]Dr. Blanca Ford pH (U) 6.5 [pH] Normal 5-9 [facility] Comment on above: Performed By: #### Jenniffer PETERSON UMICRO ####[facility] [address] [place], [place] [address]Dr. Blanca Ford SPEC GRAVITY 1.015 Normal 1.005-<=1.025 [facility] Comment on above: Performed By: #### Jenniffer PETERSON UMICRO ####[facility] [address] [place], [place] [address]Dr. Blanca Ford UA PROTEIN Negative Normal NEGATIVE/ TRACE [facility] Comment on above: Performed By: #### Jenniffer PETERSON UMICRO ####[facility] [address] [place], [place] [address]Dr. Blanca Ford UR MICRO IND INDICATED Normal [facility] Comment on above: Performed By: #### Jenniffer PETERSON UMICRO ####[facility] [address] [address]Dr. Blanca Ford Urobilinogen Qn (U) 1.0 {Erwin'U}/dL Normal 0.2 - 1. 0 [facility] Comment on above: Performed By: #### Jenniffer PETERSON UMICRO ####[facility] [address] [place], [place] [address]Dr. Blanca Ford LACTATE/LACTIC ACIDon 2021 Lactate [Moles/Vol] 1.8 mmol/L Normal 0.4-1.9 [facility] Comment on above: Performed By: #### L ACT #### [facility] [address] [address] [address] Blanca Ford Lactate [Moles/Vol] 2.2 mmol/L Critically high 0.4-1.9 [facility] Comment on above: Performed By: #### A 1C #### [facility] [address] [address] [address] Blanca Ford LIPASEon 12-17-2021 Lipase [Catalytic activity/Vol] 49.0 U/L Critically low 73.0-393.0 [facility] Comment on above: Performed By: #### T SH, HSTROPN, CMP, LIPA ####[facility] [address] [address]Dr. Blanca Ford POINT OF CARE GLUCOSEon 11-22 Glucose [Mass/Vol] 133 mg/dL Critically high 74-106 [facility] Comment on above: Performed By: #### L ACT #### [facility] [address] [address] [address] Blanca Ford Glucose [Mass/Vol] 113 mg/dL Critically high 74-106 [facility] Comment on above: Performed By: #### C MP #### [facility] [address] [place] [address] Dr. Blanca Ford PROF 14(COMP METB)on 022 Albumin [Mass/Vol] 3.8 g/dL Normal 3.4-5.0 [facility] Comment on above: Performed By: #### T SH, HSTROPN, CMP, LIPA ####[facility] [address] [address]Dr. Blanca Ford Albumin/Globulin [Mass ratio] 1.1 {ratio} Normal [facility] Comment on above: Performed By: #### T SH, HSTROPN, CMP, LIPA ####[facility] [address] [address]Dr. Blanca Ford ALP [Catalytic activity/Vol] 72 U/L Normal 46-116 [facility] Comment on above: Performed By: #### T SH, HSTROPN, CMP, LIPA ####[facility] [address] [address]Dr. Blanca Ford ALT [Catalytic activity/Vol] 46 U/L Normal 14-59 [facility] Comment on above: Performed By: #### T SH, HSTROPN, CMP, LIPA ####[facility] [address] [address]Dr. Blanca Ford Anion gap [Moles/Vol] 10.8 mmol/L Normal Th [facility] Comment on above: Performed By: #### T SH, HSTROPN, CMP, LIPA ####[facility] [address] [address]Dr. Blanca Ford AST [Catalytic activity/Vol] 25 U/L Normal 15-37 [facility] Comment on above: Performed By: #### T SH, HSTROPN, CMP, LIPA ####[facility] [address] [address]Dr. Blanca Ford Bilirubin [Mass/Vol] 0.5 mg/dL Normal 0.2-1.0 [facility] Comment on above: Performed By: #### T SH, HSTROPN, CMP, LIPA ####[facility] [address] [address]Dr. Blanca Ford Calcium [Mass/Vol] 9.4 mg/dL Normal 8.5-10.1 [facility] Comment on above: Performed By: #### T SH, HSTROPN, CMP, LIPA ####[facility] [address] [address]Dr. Blanca Ford Chloride [Moles/Vol] 99 mmol/L Normal 98-107 [facility] Comment on above: Performed By: #### T SH, HSTROPN, CMP, LIPA ####[facility] [address] [address]Dr. Blanca Ford CO2 [Moles/Vol] 31.2 mmol/L Normal 21.0-32.0 [facility] Comment on above: Performed By: #### T SH, HSTROPN, CMP, LIPA ####[facility] [address] [address]Dr. Blanca Ford Creatinine [Mass/Vol] 0.86 mg/dL Normal 0.55-1.02 [facility] Comment on above: Performed By: #### T SH, HSTROPN, CMP, LIPA ####[facility] [address] [address]Dr. Blanca Ford EGFR-AF MEXICAN >60 Normal >=60 [facility] Comment on above: Performed By: #### T SH, HSTROPN, CMP, LIPA ####[facility] [address] [address]Dr. Blanca Ford EGFR-NON AF MEXICAN >60 Normal >=60 [facility] Comment on above: Performed By: #### T SH, HSTROPN, CMP, LIPA ####[facility] [address] [place], [place] [address]Dr. Blanca Fodr Globulin (S) [Mass/Vol] 3.6 g/dL Normal [facility] Comment on above: Performed By: #### T SH, HSTROPN, CMP, LIPA ####[facility] [address] [address]Dr. Blanca Ford Glucose [Mass/Vol] 125 mg/dL Critically high 74-106 [facility] Comment on above: Performed By: #### T SH, HSTROPN, CMP, LIPA ####[facility] [address] [address]Dr. Blanca Ford Potassium [Moles/Vol] 3.0 mmol/L Critically low 3.5-5.1 [facility] Comment on above: Performed By: #### T SH, HSTROPN, CMP, LIPA ####[facility] [address] [address]Dr. Blanca Ford Protein [Mass/Vol] 7.4 g/dL Normal 6.4-8.2 [facility] Comment on above: Performed By: #### T SH, HSTROPN, CMP, LIPA ####[facility] [address] [address]Dr. Blanca Ford Sodium [Moles/Vol] 139 mmol/L Normal 136-145 [facility] Comment on above: Performed By: #### T SH, HSTROPN, CMP, LIPA ####[facility] [address] [address]Dr. Blanca Ford Urea nitrogen [Mass/Vol] 16.0 mg/dL Normal 7.0-18.0 [facility] Comment on above: Performed By: #### T SH, HSTROPN, CMP, LIPA ####[facility] [address] [address]Dr. Blanca Ford Urea nitrogen/Creatinine [Mass ratio] 18.6 mg/mg Normal [facility] Comment on above: Performed By: #### T SH, HSTROPN, CMP, LIPA ####[facility] [address] [address]DrElyssa Ford PROTIMEon 12-17-2021 INR Coag (PPP) [Relative time] 1.09 {INR} Normal The [facility] Comment on above: Performed By: #### P TT, PT #### [facility] [address] [place] [address] Dr. Blanca Ford INR GUIDELINES SEE BELOW Normal The [facility] [place] Comment on above: Result Comment: NICHOLAS RED INR: 2.0 - 3.0 CONDITIONS NOT LISTED BELOW 2.5 - 3.5 FOR PROSTHETIC HEART VALVE REPLACEMENT 2.5 - 3.5 RECURRENT THROMBOSIS Performed By: #### P TT, PT #### [facility] [address] [address] [address] Blanca Ford PT Coag (PPP) [Time] 11.7 s Critically high 9.0-11.6 [facility] Comment on above: Performed By: #### P TT, PT #### [facility] [address] [address] [address] Blanca Ford PTTon 12-17-2021 aPTT Coag (Bld) [Time] 26.5 s Normal 22.3-36.2 Th [facility] Comment on above: Performed By: #### P TT, PT #### [facility] [address] [address] [address] Blanca Ford TROPONIN, HIGH SENSITIVITYon 12-17-2021 HSTROP 6.8 pg/mL Normal 4.0-51.3 [facility] Comment on above: Result Comment: CUT- OFF POINTS HAVE BEEN ESTABLISHED BASED ON THE FOURTH UNIVERSAL DEFINITIONS OF MYOCARDIAL INFARCTION. THE UPPER REFERENCE LIMIT (URL) OF TROPONIN, DEFINED THE 99TH PERCENTILE OF cTnI DISTRIBUTION IN A REFERENCE POPULATION, HAS BEEN CONFIRMED THE DECISION THRESHOLD FOR MO DIAGNOSIS. Performed By: #### T SH, HSTROPN, CMP, LIPA ####[facility] [address] [address]Dr. Blanca Ford TSHon 12-17-2021 TSH 1.580 uIU/mL Normal 0.358-3.740 [facility] Comment on above: Performed By: #### T SH, HSTROPN, CMP, LIPA ####[facility] [address] [address]Dr. Blanca Ford TSH RANGE SEE BELOW Normal The [facility] Comment on above: Result Comment: <0.3 4 UIU/ml HYPERTHYROID 0.34-5.60 UIU/ml EUTHYROID >5.60 UIU/ml HYPOTHYROID Performed By: #### T SH, HSTROPN, CMP, LIPA ####[facility] [address] [address]Dr. Blanca Ford URINE MICROSCOPIC ONLYon BACTERIA TRACE Abnormal NONE SEEN The [facility] Comment on above: Performed By: #### SEAN BUSCH ####[facility] [address] [address]Dr. Blanca Ford Bacteria identified Cx Nom (U) INDICATED Normal [facility] Comment on above: Performed By: #### SEAN BUSCH ####[facility] [address] [address]Dr. Claudiadebra Ford CAST SEEN Abnormal NONE SEEN The [facility] Comment on above: Performed By: #### SEAN BUSCH ####[facility] [address] [address]Dr. Blanca Ford Crystals LM Nom (Urine sed) NONE SEEN Normal NONE SEEN The [facility] Comment on above: Performed By: #### SEAN BUSCH ####[facility] [address] [address]Dr. Blanca Ford Epithelial cells LM Ql (Urine sed) RARE Normal NONE SEEN /RARE [facility] Comment on above: Performed By: #### SEAN BUSCH ####[facility] [address] [address]Dr. Blanca Ford MUCOUS NONE SEEN Normal NONE SEEN The [facility] Comment on above: Performed By: #### SEAN BUSCH ####[facility] [address] [address]Dr. Blanca Ford RBC 0-2 Normal 0-2 [facility] Comment on above: Performed By: #### SEAN BUSCH ####[facility] [address] [address]Dr. Blanca Ford WBC 10-20 Abnormal NONE SEEN The [facility] Comment on above: Performed By: #### SEAN BUSCH ####[facility] [address] [address]Dr. Claudiadebra Ford XR CHEST 2 Von 12-17-2021 XR CHEST 2 V EXAMINATION: XR CHEST 2 V HISTORY: Dizziness COMPARISON: XR chest 05/31/2021 FINDINGS: LUNGS: No significant pulmonary parenchymal abnormalities. VASCULATURE: No increased pulmonary vasculature. PLEURA: No pneumothorax, effusion, or pleural thickening. CARDIAC: No cardiomegaly or cardiac silhouette abnormality. MEDIASTINUM: No visible mass or adenopathy. BONES: No fracture or visible bone lesion. OTHER: Negative. IMPRESSION: 1. No acute cardiopulmonary process. Stable chest. Electronically authenticated by: BENEDICTO KARIMI Date: 2021-12-17 17:13 Normal [facility] Vital Signs Date Time Vital Sign Value Performing Clinician Facility 03-20-2024 14:36-0400 Body height 163.83 cm Ginny Aichholz Work Phone: [facility] 03-20-2024 14:36-0400 Body mass index (BMI) [Ratio] 36.5 kg/m2 Ginny Aichholz Work Phone: [facility] 03-20-2024 14:36-0400 Body weight 97.97 kg Ginny Aichholz Work Phone: [facility] 03-20-2024 14:36-0400 Diastolic blood pressure 72 mm[Hg] Ginny Aichholz Work Phone: [facility] 03-20-2024 14:36-0400 Heart rate 70 /min Ginny Aichholz Work Phone: [facility] 03-20-2024 14:36-0400 Respiratory rate 18 /min Ginny Aichholz Work Phone: [facility] 03-20-2024 14:36-0400 SaO2% (BldA) [Mass fraction] 97 % Ginny Aichholz Work Phone: [facility] 03-20-2024 14:36-0400 Systolic blood pressure 132 mm[Hg] Ginny Aichholz Work Phone: [facility] 02-16-2024 12:04-0400 Body height 163.83 cm Ginny Aichholz Work Phone: [facility] 02-16-2024 12:04-0400 Body mass index (BMI) [Ratio] 37.5 kg/m2 Ginny Aichholz Work Phone: [facility] 02-16-2024 12:04-0400 Body temperature 97.7 [degF] Ginny Aichholz Work Phone: [facility] 02-16-2024 12:04-0400 Body weight 100.92 kg Ginny Aichholz Work Phone: [facility] 02-16-2024 12:04-0400 Diastolic blood pressure 77 mm[Hg] Ginny Aichholz Work Phone: [facility] 02-16-2024 12:04-0400 Heart rate 75 /min Ginny Aichholz Work Phone: [facility] 02-16-2024 12:04-0400 Respiratory rate 18 /min Ginny Aichholz Work Phone: [facility] 02-16-2024 12:04-0400 SaO2% (BldA) [Mass fraction] 97 % Ginny Aichholz Work Phone: [facility] 02-16-2024 12:04-0400 Systolic blood pressure 135 mm[Hg] Ginny Aichholz Work Phone: [facility] 01-31-2024 14:03-0400 Body height 163.83 cm [facility] 01-31-2024 14:03-0400 Body mass index (BMI) [Ratio] 38.5 kg/m2 [facility] 01-31-2024 14:03-0400 Body weight 103.47 kg [facility] 01-31-2024 14:03-0400 Heart rate 65 /min [facility] 01-31-2024 14:03-0400 Respiratory rate 18 /min [facility] 01-31-2024 14:03-0400 SaO2% (BldA) [Mass fraction] 100 % [facility] 12-27-2023 13:05-0400 Body height 163.83 cm [facility] 12-27-2023 13:05-0400 Body mass index (BMI) [Ratio] 38.3 kg/m2 [facility] 12-27-2023 13:05-0400 Body weight 102.96 kg [facility] 12-27-2023 13:05-0400 Diastolic blood pressure 79 mm[Hg] [facility] 12-27-2023 13:05-0400 Heart rate 65 /min [facility] 12-27-2023 13:05-0400 Respiratory rate 16 /min [facility] 12-27-2023 13:05-0400 SaO2% (BldA) [Mass fraction] 96 % [facility] 12-27-2023 13:05-0400 Systolic blood pressure 146 mm[Hg] [facility] 11-10-2023 11:28-0400 Body height 163.83 cm [facility] 11-10-2023 11:28-0400 Body mass index (BMI) [Ratio] 40.8 kg/m2 [facility] 11-10-2023 11:28-0400 Body weight 109.51 kg [facility] 11-10-2023 09:50-0400 Body height 163.83 cm DO Migel Biedenbach Work Phone: [facility] 11-10-2023 09:50-0400 Body mass index (BMI) [Ratio] 36.2 kg/m2 DO Migel Biedenbach Work Phone: [facility] 11-10-2023 09:50-0400 Body weight 97.26 kg DO Migel Biedenbach Work Phone: [facility] 11-10-2023 09:50-0400 Diastolic blood pressure 76 mm[Hg] DO Migel Biedenbach Work Phone: [facility] 11-10-2023 09:50-0400 Heart rate 67 /min DO Migel Biedenbach Work Phone: [facility] 11-10-2023 09:50-0400 Respiratory rate 18 /min DO Migel Biedenbach Work Phone: [facility] 11-10-2023 09:50-0400 SaO2% (BldA) [Mass fraction] 95 % DO Migel Biedenbach Work Phone: [facility] 11-10-2023 09:50-0400 Systolic blood pressure 120 mm[Hg] DO Migel [employer] Work Phone: [facility] 09-07-2023 10:42-0500 Body height 167.6 cm Migel Estebanedenthaddeus DO Work Phone: [facility] 09-07-2023 10:42-0500 Body mass index (BMI) [Ratio] 38.74 kg/m2 Migel Estebanedenthaddeus DO Work Phone: [facility] 09-07-2023 10:42-0500 Body weight 108.86 kg Migel Estebanedalan DO Work Phone: [facility] 04-04-2023 10:40-0400 Body height 167.64 cm Gina Harkins Other [employer] Other 04-04-2023 10:40-0400 Body mass index (BMI) [Ratio] 39.48 kg/m2 Gina Harkins Other [employer] Other 04-04-2023 10:40-0400 Body temperature 99.7 [degF] Gina Harkins Other [employer] Other 04-04-2023 10:40-0400 Body weight 110.95 kg Gina Harkins Other [employer] Other 04-04-2023 10:40-0400 Diastolic blood pressure 64 mm[Hg] Gina Harkins Other [employer] Other 04-04-2023 10:40-0400 Respiratory rate 18 /min Gina Harkins Other [employer] Other 04-04-2023 10:40-0400 SaO2% (BldA) [Mass fraction] 98 % Gina Harkins Other [employer] Other 04-04-2023 10:40-0400 Systolic blood pressure 149 mm[Hg] Gina Harkins Other [facility] [employer] Other Encounters Encounter Date Encounter Type Care Provider Facility Start: 03-20-2024 End: 03-20-2024 ambulatory Ginny Llanos Aichholz Work Phone: [facility] Work Phone: Start: 03-20-2024 End: 03-20-2024 Patient encounter procedure Ginny Aichholz Work Phone: Count Includes [facility] Work Phone: Start: 03-11-2024 End: 03-11-2024 Patient encounter procedure Ginny Aicjaylinholz Work Phone: [facility] Work Phone: Start: 03-11-2024 End: 03-11-2024 ambulatory Ginny Llanos Aichholz Work Phone: [facility] Work Phone: Start: 02-16-2024 End: 02-16-2024 Patient encounter procedure Ginny Aicjaylinholz Work Phone: Count Includes [facility] Work Phone: Start: 02-14-2024 End: 02-14-2024 ambulatory SOFYA [facility] Start: 01-31-2024 End: 01-31-2024 ambulatory [facility] Work Phone: Start: 01-31-2024 End: 01-31-2024 Patient encounter procedure Count Includes [facility] Work Phone: Start: 01-08-2024 End: 01-08-2024 ambulatory GINNY KARTHIKHOLZ Not Available Start: 01-03-2024 End: 01-03-2024 ambulatory VINCENZO BURNS Not Available Start: 12-27-2023 End: 12-27-2023 ambulatory [facility] Work Phone: Start: 12-27-2023 End: 12-27-2023 Patient encounter procedure Count Includes [facility] Work Phone: Start: 12-04-2023 End: 12-04-2023 ambulatory JOSE MONTES Not Available Start: 11-30-2023 End: 11-30-2023 ambulatory DANIELA CANO Not Available Start: 11-28-2023 End: 11-28-2023 ambulatory [facility] Work Phone: Start: 11-28-2023 End: 11-28-2023 Patient encounter procedure Count Includes [facility] Work Phone: Start: 11-10-2023 End: 11-10-2023 ambulatory NON STAFF [facility] Work Phone: Start: 11-10-2023 End: 11-10-2023 Patient encounter procedure DO Migel Best Work Phone: Count Includes [facility] Work Phone: Start: 11-06-2023 End: 11-06-2023 ambulatory GRIS BOSE Not Available Start: 10-04-2023 End: 10-04-2023 ambulatory GINNY AICHHOLZ Not Available Start: 09-25-2023 End: 09-25-2023 ambulatory GINNY AICHHOLZ Not Available Start: 09-07-2023 Bamboo flowsheet Migel travis DO Work Phone: [facility] Start: 09-07-2023 Bamboo flowsheet Migel travis DO Work Phone: [facility] Start: 09-07-2023 End: 09-07-2023 Postop follow up visit related to original px Migel Best DO Work Phone: [facility] Comment on above: Sialadenitis (Primar y Dx); Salivary duct stone; Neck mass Start: 09-07-2023 End: 09-07-2023 ambulatory MIGEL BEST Not Available Start: 08-29-2023 End: 08-29-2023 ambulatory Migel Best Facility:[facility] Start: 08-29-2023 End: 08-29-2023 Departed Referred DO Migel Best Work Phone: [facility] [place] Work Phone: Start: 08-28-2023 Refill Ginnyeleuterio Natarajan SEARCH DIRECTOR Work Phone: [facility] Comment on above: Hypokalemia Start: 08-11-2023 End: 08-11-2023 ambulatory MIGEL BEST Not Available Start: 07-28-2023 End: 07-28-2023 ambulatory MIGEL BEST Not Available Start: 07-27-2023 End: 07-27-2023 Patient encounter status Ginny Natarajan SEARCH DIRECTOR Work Phone: [facility] Start: 07-26-2023 End: 07-26-2023 ambulatory GINNY AICHHOLZ Not Available Start: 04-04-2023 End: 04-04-2023 ambulatory Gina Harkins Other [employer] Other Start: 04-04-2023 Office outpatient ne w 30 minutes Gina Harkins [facility] Start: 10-28-2022 ambulatory DATA SCIENTIST GINNY DELGADO Facil ity:H1 Start: 08-03-2022 End: 08-04-2022 ambulatory DATA SCIENTIST GINNY AICHHOLZ Facility:[facility] Start: 03-03-2022 End: 03-04-2022 ambulatory DATA SCIENTIST GINNY AICHHOLZ Facility:[facility] Start: 12-31-2021 End: 03-15-2022 ambulatory DATA SCIENTIST GINNY AICHHOLZ Facility:[facility] Start: 12-17-2021 End: 12-19-2021 ambulatory DATA SCIENTIST GINNY AICHHOLZ Facility:[facility] Start: 12-19-2017 End: 12-20-2017 Ambulatory DEFAULT PHYSICIAN Facility:[facility] Start: 12-14-2017 End: 12-15-2017 Ambulatory DEFAULT PHYSICIAN Facility:[facility] Start: 12-04-2017 End: 12-05-2017 Ambulatory DEFAULT PHYSICIAN Facility:[facility] Procedures Date Procedure Procedure Detail Performing Clinician Start: 03-11-2024 Screening mammograph y of bilateral breasts Ginny Delgado Work Phone: Start: 02-16-2024 Quick Strep (POC) Ginny Delgado Work Phone: Start: 12-15-2022 Mammography Ginny Sanchezalyson toney SEARCH DIRECTOR Work Phone: Plan of Treatment Date Care Activity Detail Author Start: 02-09-2028 Screening for malign ant neoplasm of colon [facility] Start: 06-06-2025 Glaucoma screening Diabetes: R etinopathy Screening [facility] Start: 08-01-2024 Urine screening for protein Diabetes: Urine Protein Screening [facility] Start: 01-21-2024 Influenza vaccination Influenza Vacc ine (#1) [facility] Comment on above: Postponed from 03/24 (Patient Refused) Start: 12-16-2023 Screening for malign ant neoplasm of breast Mammogram [facility] Start: 10-31-2023 Hemoglobin A1c measurement Diabetes: Hemoglobin A1C [facility] Start: 09-13-2023 End: 09-13-2023 Patient encounter procedure 09/13/2023 2:00 PM EST Office Visit [facility] [address] [place] [address] Ginny Natarajan NP [address] [place] [address] [facility] Start: 09-07-2023 End: 09-07-2023 Patient encounter procedure [facility] Comment on above: Arrived Start: 09-04-2023 End: 09-04-2023 Patient encounter procedure 09/04/2023 5:00 PM EST Office Visit [facility] [address] [place] [id number] Ginny Natarajan NP [address] [place] [address] [facility] Start: 08-29-2023 End: 08-29-2023 Patient encounter procedure 08/29/2023 10:15 AM EST Procedure Visit [facility]el Best, DO [address] [facility] [place] [address] [facility] Start: 12-09-1971 Urine screening for protein Diabetes: Urine Protein Screening [facility] Start: 1950 Hemoglobin A1c measurement Diabetes: Hemoglobin A1C [facility] Start: 1950 Medicare Annual Well ness (AWV) Medicare Annual Wellness (AWV) [facility] Start: 1950 Screening for malign ant neoplasm of colon [facility] Immunizations Immunization Date Immunization Notes Care Provider Fa cili 03-07-2022 pneumococcal polysaccharide vaccine, 23 valent Ginny Aichholz SEARCH DIRECTOR Work Phone: [facility] 09-28-2018 pneumococcal conjuga te vaccine, 13 valent Ginny Aichholz SEARCH DIRECTOR Work Phone: [facility] 04-10-2014 pneumococcal vaccine , unspecified formulation Ginny Aichholz SEARCH DIRECTOR Work Phone: [facility] 09-27-2012 hepatitis A and hepa titis B vaccine Ginny Aichholz SEARCH DIRECTOR Work Phone: [facility] 03-28-2012 hepatitis A and hepa titis B vaccine Ginny Aichholz SEARCH DIRECTOR Work Phone: [facility] 02-24-2012 hepatitis A and hepa titis B vaccine Ginny Aichholz SEARCH DIRECTOR Work Phone: [facility] 06-02-2010 influenza virus vacc ine, unspecified formulation Ginny Aichholz SEARCH DIRECTOR Work Phone: [facility] Payers Date Payer Category Payer Medicaid [id number] 2023 Self-pay [id number] 2017 [place] [facility] [place] [id number] 2017-Present [phone] [address] [place] [address] Medicaid [id number] 2017 Medicare MEDICARE MEDICAR E PART B [id number] 2017-Present [address] [address] [place] [address] Medicare [id number] 1959 Medicaid [id number] 1959 Medicare [id number] 1952 Unknown [id number] [id number] 1952 Unknown [id number] 2.16.840.1.366664.3.579.2.593 1952 Unknown [id number] 2.16.840.1.180347.3.579.2.593 1952 Unknown [id number] 2.16.840.1.780554.3.579.2.593 1952 Unknown [id number] 2.16.840.1.223215.3.579.2.593 1952 Unknown [id number] 2.16.840.1.511462.3.579.2.1259 1952 Unknown [id number] 2.16.840.1.262904.3.579.2.1259 1952 Unknown [id number] 2.16.840.1.335787.3.579.2.1259 1952 Unknown [id number] 2.16.840.1.917340.3.579.2.1259 1952 Unknown [id number] 2.16.840.1.344989.3.579.2.1258 1952 Unknown [id number] 2.16.840.1.253816.3.579.2.1258 1952 Unknown [id number] 2.16.840.1.480819.3.579.2.1258 1952 Unknown [id number] 2.16.840.1.067735.3.579.2.1258 1952 Unknown [id number] 2.16.840.1.165103.3.579.2.1258 1952 Unknown [id number] 2.16.840.1.315458.3.579.2.1258 1952 Unknown [id number] 2.16.840.1.792477.3.579.2.1258 1952 Unknown [id number] 2.16.840.1.841904.3.579.2.125 Unknown Unknown [id number] Unknown [id number] 2.16.840.1.410833.3.579.2.531 Unknown [id number] [id number] Social History Date Type Detail Facility Start: 08-11-2023 End: 09-07-2023 Sex Assigned At [facility] [employer] Other Start: 07-26-2023 End: 11-10-2023 Tobacco smoking status [facility] Ex-smoker [facility] End: 07-24-2011 History of tobacco use Current smoker [facility] End: 07-24-2011 History of tobacco use Cigarette Smoker [facility] Start: 07-26-2023 Tobacco use and exposure Smokeless tobacco non-user [facility] Start: 08-11-2023 End: 09-07-2023 Alcohol intake Lifetime non-drinker (finding) [facility] Start: 08-11-2023 End: 09-07-2023 History of Social function [facility] Start: 1950 Sex Assigned At Not on file [facility] Start: 1950 Sex Assigned At Female F [facility] Clinical Notes 04-04-2023 to 02-17-2024 Migel Parikh Carlitoyanivalan, - 09/07/2023 10:45 AM EST Note Date & Type Note Facility 02-17-2024 Note Lipid abnormalities are unchanged. Pharmacotherapy as ordered. She is intolerant in the past to statin, d/w pt about lifestyle modifications- heart healthy/low cholesterol diet, regular exercise and she voiced understanding, will monitor with PCP lipid levels [facility] 02-17-2024 Note Hypertension is unco ntrolled Therefore will increase coreg to 25 mg po bid and continue chlorthalidone 25 mg daily Continue to monitor b/p at home and d/w pt goal b/p is < 130/80 and to call office for any concerns [facility] 02-14-2024 Note [facility] CARDIOLOGY PROGR ESS NOTE HPI: Norma Redmond is a 73 y.o. female here for routine F/U HPI 73 yo female presents to clinic for routine F/U for HTN and HPL. States b/p at home is typically 140-150 systolic. Denied chest pain, SOB, orthopnea, palpitations States she has appt at [facility] Monday and they usually manage her lipid/cholesterol meds. 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 female is being evaluated via telehealth for routine follow-up. She has a past medical history including HTN, HLD. She hasn't been taking her BP routinely as of recently but before this it was averaging 140-160s/60. She states she has been feeling well. She gets SOB with heavy exertion. Otherwise she denies any CP, orthopnea, PND, LE edema dizziness/LH, headaches, palpitations. She states she is trying to walk more. We reviewed her most recent lipid panel. She states this is stable/improved from where it was. She is unable to tolerate statins d/t them causing liver impairment. [facility] manages her lipids. Hypertension This is a chronic problem. The problem is unchanged. The problem is uncontrolled. Pertinent negatives include no blurred vision, chest pain, headaches, orthopnea, palpitations, peripheral edema, PND or shortness of breath. There are no associated agents (stopped meloxicam since last seen) to hypertension. Risk factors for coronary artery disease include dyslipidemia, obesity and post-menopausal state. Hyperlipidemia This is a chronic problem. The current episode started more than 1 year ago. Recent lipid tests were reviewed and are high. Exacerbating diseases include obesity. Factors aggravating her hyperlipidemia include beta blockers. Pertinent negatives include no chest pain, focal sensory loss, focal weakness, leg pain, myalgias or shortness of breath. Current antihyperlipidemic treatment includes fibric acid derivatives (fish oil). Risk factors for coronary artery disease include hypertension, dyslipidemia, obesity and post-menopausal. Review of Systems Constitutional: Negative. Respiratory: Negative. Cardiovascular: Negative. Neurological: Negative. All other systems reviewed and are negative. Visit Vitals BP 165/73 Pulse 70 Ht 1.676 m (5' 6 ) Wt 101 kg (223 lb) SpO2 98% BMI 35.99 kg/m??? Smoking Status Former BSA 2.17 m??? Allergies Allergen Reactions Erythromycin Base Gemfibrozil Lidocaine Simvastatin Medications: Current Outpatient Medications on File Prior to Visit Medication Sig Dispense Refill aspirin 81 mg chewable tablet Chew 1 tablet every day by oral route. buprenorphine-naloxone (Suboxone) 8-[address] 1 film every day by sublingual route. fenofibrate (Tricor) 145 mg tablet Take 145 mg by mouth 3 (three) times a week. loratadine (Claritin) 10 mg tablet Take 1 tablet by mouth in the morning. magnesium oxide 400 mg magnesium capsule Take 1 capsule twice a day by oral route as directed for 90 days. metFORMIN (Glucophage) 1,000 mg tablet Take 1,000 mg by mouth with breakfast. tiZANidine (Zanaflex) 4 mg tablet TAKE 1 TABLET AT BEDTIME NEEDED FOR MUSCLE SPASMS valACYclovir (Valtrex) 1 gram tablet Take 1 tablet by mouth every 12 (twelve) hours. [DISCONTINUED] carvedilol (Coreg) 12.5 mg tablet TAKE 1 TABLET BY MOUTH TWICE DAILY, WITH BREAKFAST AND EVENING MEAL 180 tablet 3 [DISCONTINUED] chlorthalidone (Hygroton) 25 mg tablet Take 1 tablet (25 mg) by mouth in the morning. 90 tablet 3 potassium chloride ER (Micro-K) 10 mEq ER capsule Take 10 mEq by mouth in the morning. Do not crush or chew. No current facility-administered medications on file prior to visit. Physical Exam: Constitutional: Appearance: Normal appearance. Without apparent distress HENT: Head: Normocephalic and atraumatic. Nose: Nose normal. Mouth/Throat: Mouth: Mucous membranes are moist. Eyes: Extraocular Movements: Extraocular movements intact. Conjunctiva/sclera: Conjunctivae normal. Neck: Vascular: No JVD. Cardiovascular: Rate and Rhythm: Normal rate and regular rhythm. Pulses: Dorsalis pedis pulses are 3 on the right side and 3on the left side. Posterior tibial pulses are 3 on the right side and 3 on the left side. Heart sounds: Normal heart sounds, S1 normal and S2 normal. Pulmonary: Effort: Pulmonary effort is normal. Breath sounds: Normal breath sounds. Abdominal: General: Bowel sounds are normal. Palpations: Abdomen is soft. Musculoskeletal: General: Normal range of motion. Cervical back: Normal range of motion. Right lower leg: No edema. Left lower leg: No edema. Skin: General: Skin is warm and dry. Capillary Refill: Capillary refill takes less than 2 seconds. Neurological: General: No focal deficit present. Mental Status: She is alert and oriented to person, place, and time. Psychiatric: Mood and Affect: Mood normal. Behavior: Behavior normal. Thought Content: Thought content n (more content not included)... [facility] 02-14-2024 Note Review of Systems All other systems reviewed and are negative. [facility] 09-07-2023 History of Present illness Narrative Subjective Patient ID: Norma Redmond is a 72 y.o. female who presents for Post-op (Post op salivary stone removal) HPI This patient presents postop excision of left submandibular salivary stone with sialodochoplasty. States to be doing well. Mild fullness of the left neck. Review of Systems Patient describes mild fullness in the left submandibular region with very minimal discomfort. No longer having acute enlargement with eating. The rest of her review of systems is unchanged. Objective ENT Physical Exam The area of the salivary duct on the left is widely patent. Dissolvable sutures are still in place. Clear saliva is expressed. Assessment/Plan Diagnoses and all orders for this visit: Sialadenitis Comments: significant improvement Salivary duct stone Comments: floor of mouth is healing quite nicely. We will see her back as needed Neck mass Comments: Recommend massage and heat therapy documented in this encounter [facility] 04-04-2023 Evaluation note Encounter Date Diagnosis Assessment Notes Mar, Acute non-recurrent maxillary sinusitis (ICD-10 - J01.00) Advised patient that rapid COVID test was negative today in office. Discussed diagnosis with patient. Will today for bacterial sinusitis based on physical exam and duration of symptoms. Take antibiotic as prescribed, complete entire course of therapy even if symptoms resolve. Patient requests Z-Deyvi, states that medication works well for her. Reviewed allergies and recent antibiotic use with patient. Advised patient to take Rx of prednisone directed, reviewed side effects. Encouraged supportive care as directed, push fluids and rest, Tylenol as directed for discomfort/fev er, warm moist compress over sinuses several times a day, cool mist humidification , nasal saline spray as directed. Symptoms should improve in the next 3 days, if symptoms persist follow up with PCP. Immediate eval for warning s/sx as discussed. Patient verbalizes understanding and is agreeable to treatment plan [facility] [employer] Other Evaluation note* Diagnosis Hypokalemia Hypopotassemia documented in this encounter [facility] HealthcareEvaluation note* Diagnosis Sialadenitis- Primary Sialoadenitis Salivary duct stone Sialolithiasis Neck mass Swelling, mass, or lump in head and neck documented in this encounter [facility] [employer] GroupEvaluation noteNo assessment information availableSum[facility] Work Phone: Evaluation note* Diagnosis Onset Date Resolution Status Arthritis of knee acute BMI 40.0-44.9, adult acute Hyperlipidemia, unspecified acute Hypertriglyceridemia acute Obesity acute Vitamin D deficiency, unspecified acute [facility] Work Phone: Evaluation note* Diagnosis Onset Date Resolution Status Arthritis of knee acute BMI 40.0-44.9, adult acute Hyperlipidemia, unspecified acute Hypertriglyceridemia acute Obesity acute Vitamin D deficiency, unspecified acute Arthritis of knee acute BMI 40.0-44.9, adult acute Hyperlipidemia, unspecified acute Hypertriglyceridemia acute Obesity acute Vitamin D deficiency, unspecified acute Arthritis of knee acute BMI 40.0-44.9, adult acute Hyperlipidemia, unspecified acute Hypertriglyceridemia acute Obesity acute Vitamin D deficiency, unspecified acute [facility] Work Phone: Evaluation note* Diagnosis Onset Date Resolution Status Arthritis of knee acute BMI 40.0-44.9, adult acute Hyperlipidemia, unspecified acute Hypertriglyceridemia acute Obesity acute Vitamin D deficiency, unspecified acute Arthritis of knee acute BMI 40.0-44.9, adult acute Hyperlipidemia, unspecified acute Hypertriglyceridemia acute Obesity acute Vitamin D deficiency, unspecified acute Viral URI noneactive [facility] Work Phone: Evaluation note* Diagnosis Onset Date Resolution Status Arthritis of knee acute BMI 40.0-44.9, adult acute Hyperlipidemia, unspecified acute Hypertriglyceridemia acute Obesity acute Vitamin D deficiency, unspecified acute Arthritis of knee acute BMI 40.0-44.9, adult acute Hyperlipidemia, unspecified acute Hypertriglyceridemia acute Obesity acute Vitamin D deficiency, unspecified acute Viral URI noneactive Arthritis of knee acute BMI 40.0-44.9, adult acute Hyperlipidemia, unspecified acute Hypertriglyceridemia acute Obesity acute Vitamin D deficiency, unspecified acute [facility] Work Phone: History general Narrative - Reported* Type Description Date Medical History Arthritis Medical History Diabetes- Metformin Medical History Gallbladder Medical History HTN Surgical History Gallbladder 1997 Surgical History Lazer Surgery of Uterus 1995 Surgical History Rhinoplasty 1977 Surgical History Eyelids 2016 [facility] [employer] Other Summary Purpose Family History Relationship Condition Age at Onset Recorded Date/T jeff father Unknown Not Specified Hypertension Unknown Heart disease Unknown Unknown Atrial fibrillation Unknown Parkinson's disease Unknown Relationship Condition Age at Onset Recorded Date/T jeff father Unknown mother Hypertension Unknown Heart disease Unknown Unknown Atrial fibrillation Unknown Parkinson's disease Unknown Advance Directives Advance Directive Response Recorded Date/ Time Advance Directives No June 1:39pm Chief Complaint and Reason for Visit Chief Complaint salivary stone [facility] Chief Complaint [facility] Reason for Visit Arthritis of knee BMI 40.0-44.9, adult Hyperlipidemia, unspecified Hypertriglyceridemia Obesity Vitamin D deficiency, unspecified Chief Complaint [facility] [facility] f/u Reason for Visit Arthritis of knee BMI 40.0-44.9, adult Hyperlipidemia, unspecified Hypertriglyceridemia Obesity Vitamin D deficiency, unspecified Chief Complaint [facility] [facility]N f/u WMN f/u Reason for Visit Arthritis of knee BMI 40.0-44.9, adult Hyperlipidemia, unspecified Hypertriglyceridemia Obesity Vitamin D deficiency, unspecified Arthritis of knee BMI 40.0-44.9, adult Hyperlipidemia, unspecified Hypertriglyceridemia Obesity Vitamin D deficiency, unspecified Arthritis of knee BMI 40.0-44.9, adult Hyperlipidemia, unspecified Hypertriglyceridemia Obesity Vitamin D deficiency, unspecified Chief Complaint WMN f/u WMN f/u cough, sinus pressure Screening Reason for Visit Arthritis of knee BMI 40.0-44.9, adult Hyperlipidemia, unspecified Hypertriglyceridemia Obesity Vitamin D deficiency, unspecified Arthritis of knee BMI 40.0-44.9, adult Hyperlipidemia, unspecified Hypertriglyceridemia Obesity Vitamin D deficiency, unspecified Viral URI Chief Complaint WMN f/u WMN f/u cough, sinus pressure Screening 6-8 week f/u Reason for Visit Arthritis of knee BMI 40.0-44.9, adult Hyperlipidemia, unspecified Hypertriglyceridemia Obesity Vitamin D deficiency, unspecified Arthritis of knee BMI 40.0-44.9, adult Hyperlipidemia, unspecified Hypertriglyceridemia Obesity Vitamin D deficiency, unspecified Viral URI Arthritis of knee BMI 40.0-44.9, adult Hyperlipidemia, unspecified Hypertriglyceridemia Obesity Vitamin D deficiency, unspecified Additional Source Comments INFORMATION SOURCE (unrecogn ized section and content) DATE CREATED AUTHOR 01/10/2018 [facility] DATE CREATED AUTHOR AUTHOR'S ORGANIZ ATION 10/31/2022 [facility] DATE CREATED AUTHOR AUTHOR'S ORGANIZ ATION 01/10/2024 [facility] EPIC DATE CREATED AUTHOR AUTHOR'S ORGANIZ ATION 02/17/2024 [facility] DATE CREATED AUTHOR AUTHOR'S ORGANIZ ATION 03/15/2024 [facility] REASON FOR VISIT (unrecogniz ed section and content) Reason Comments Post-op Post op salivary sto ne removal Care Teams (unrecognized sec tion and content) Dealer Account Manager Relationship Specialty Start Date End Date Yair Nails MD PCP - General Family Medicine 07/24/22 Ginny Natarajan NP [address] [place] [id number] Referring Physician Nurse Practitioner 07/24/22 Dealer Account Manager Relationship Specialty Start Date End Date Yair Nails MD PCP - General Family Medicine 07/24/22 Ginny Natarajan NP [address] [place] [id number] Referring Physician Nurse Practitioner 07/24/22 Dealer Account Manager Relationship Specialty Start Date End Date Yair Nails MD PCP - General Family Medicine 07/24/22 Ginny Natarajan NP [address] [place] [address] Referring Physician Nurse Practitioner 07/24/22 Team Status: Active Member Role Status Dates Ginny Natarajan Primary Care Provider Active Team Status: Inactive Member Role Status Dates Migel Best DO Attending Provider Active S tart: August 29, 2023 End: August 29, 2023 NON STAFF Primary Care Provider Active Start: August 29, 2023 End: August 29, 2023 Team Status: Inactive Member Role Status Dates Danna Spence APRN Attending Provider Active Start: November 10, 2023 End: November 10, 2023 Ginny Natarajan Primary Care Provider Active Sta rt: November 10, 2023 End: November 10, 2023 Team Status: Inactive Member Role Status Dates Ginny Natarajan Primary Care Provider Active Sta rt: November 28, 2023 End: November 28, 2023 ADELIA Zhang Attending Provider Active Start: November 28, 2023 End: November 28, 2023 Team Status: Inactive Member Role Status Dates Ginny Natarajan Primary Care Provider Active Sta rt: December 27, 2023 End: December 27, 2023 Danna Spence APRN Attending Provider Active Start: December 27, 2023 End: December 27, 2023 Team Status: Inactive Member Role Status Dates Ginny Ariasricarda Primary Care Provider Active Sta rt: January 31, 2024 End: January 31, 2024 Danna Spence APRN Attending Provider Active Start: January 31, 2024 End: January 31, 2024 Team Status: Inactive Member Role Status Dates Ginny Ariasricarda Primary Care Provider Active Sta rt: February 16, 2024 End: February 16, 2024 Gina Harkins APRN Attending Provider Active Start: February 16, 2024 End: February 16, 2024 Team Status: Inactive Member Role Status Dates Ginny Ariasricarda Primary Care Provider Active Sta rt: March 11, 2024 End: March 11, 2024 Yvette Aparicio (Clinic) , DO [facility] Attending Provider Active Start: March 11, 2024 End: March 11, 2024 Team Status: Inactive Member Role Status Dates Ginny Ariasricarda Primary Care Provider Active Sta rt: March 20, 2024 End: March 20, 2024 Danna Spence APRN Attending Provider Active Start: March 20, 2024 End: March 20, 2024 Goals (unrecognized section and content) Goals may be documented in a n alternate section FOR RECORDS PERTAINING TO PATIENTS WHO ARE OR HAVE BEEN ENROLLED IN A CHEMICAL DEPENDENCY/SUBSTANCEABUSE PROGRAM, SOME INFORMATION MAY BE OMITTED. This clinical summary was aggregated from multiple sources. Caution should be exercised in using it in the provision of clinical care. This summary normalizes information from multiple sources, and as a consequence, information in this document may materially change the coding, format and clinical context of patient data. In addition, data may be omitted in some cases. CLINICAL DECISIONS SHOULD BE BASED ON THE PRIMARY CLINICAL RECORDS. [employer] provides no warranty or guarantee of the accuracy or completeness of information in this document.
[2024-04-24 08:59] LABS: BUN Creatinine Ratio 22.2; Calcium 9.8 mg/dL (8.5-10.1); Chloride 101 mmol/L (98-107); Estimated GFR (African America >60 (>=60 mL/min/1.73m^2); Estimated GFR (Non-African Ame >60 (>=60 mL/min/1.73m^2); Glucose 93 mg/dL (74-106); Magnesium 1.4 mg/dL (1.8-2.4); Potassium 3.5 mmol/L (3.5-5.1); Sodium 139 mmol/L (136-145)
[2024-04-24 09:04] LABS: Estimated Average Glucose 103 mg/dL; Glycohemoglobin A1C 5.2 % (4.5-6.2)
[2024-04-24 09:21] LABS: Anion Gap 11.1; Carbon Dioxide 30.4 mmol/L (21.0-32.0)
== END 2024-04-24 08:05 | disposition home or self-care (01) ==
LOC: LAB 08:08
PROVIDERS: PCP Nurse Practitioner; Visit Provider Nurse Practitioner
DX: R25.2 Cramp and spasm (principal); E11.9 Type 2 diabetes mellitus without complications
CPT/HCPCS: 36415; 80048; 83036; 83735

== ENCOUNTER 2024-07-18 22:51 | Emergency (ER) | payer MEDICARE, MEDICAID, SELFPAY ==
--- OUTSIDE RECORDS SUMMARY | 2024-07-18 23:00 | XMS_ITS | CCD ---
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 Name Role Phone PHYSICIAN, DEFAULT Unavailable Unavailable PHYSICIAN, DEFAULT Unavailable Unavailable PHYSICIAN, DEFAULT Unavailable Unavailable PHYSICIAN, DEFAULT Unavailable Unavailable PHYSICIAN, DEFAULT Unavailable Unavailable PHYSICIAN, DEFAULT Unavailable Unavailable AICHHOLZ, INDOOR LANDSCAPER/GARDENER GINNY Admitting Unavailable AICHHOLZ, INDOOR LANDSCAPER/GARDENER GINNY Attending Unavailable AICHHOLZ, INDOOR LANDSCAPER/GARDENER GINNY Primary Care Unavailable AICHHOLZ, INDOOR LANDSCAPER/GARDENER GINNY Consulting Unavailable ZIEBER, DR BENEDICTO Aquino Consulting Unavailable AICHHOLZ, INDOOR LANDSCAPER/GARDENER GINNY Admitting Unavailable AICHHOLZ, INDOOR LANDSCAPER/GARDENER GINNY Attending Unavailable AICHHOLZ, INDOOR LANDSCAPER/GARDENER GINNY Primary Care Unavailable AICHHOLZ, INDOOR LANDSCAPER/GARDENER GINNY Admitting Unavailable AICHHOLZ, INDOOR LANDSCAPER/GARDENER GINNY Attending Unavailable AICHHOLZ, INDOOR LANDSCAPER/GARDENER GINNY Primary Care Unavailable AICHHOLZ, INDOOR LANDSCAPER/GARDENER GINNY Primary Care Unavailable SANDRAY ., DR LAFLEUR Admitting Unavailable HOY ., DR LAFLEUR Attending Unavailable HOY ., DR LAFLEUR Consulting Unavailable ZIEBER, DR BENEDICTO Aquino Consulting Unavailable PAY ., DR FOWLER Consulting Unavailable GRECHNY ., COTY DAVIS Consulting Unavailabl e AICHHOLZ, INDOOR LANDSCAPER/GARDENER GINNY Admitting Unavailable AICHHOLZ, INDOOR LANDSCAPER/GARDENER GINNY Attending Unavailable AICHHOLZ, INDOOR LANDSCAPER/GARDENER GINNY Primary Care Unavailable AICHHOLZ, INDOOR LANDSCAPER/GARDENER GINNY Consulting Unavailable Gina Harkins Unavailable Yair Nails MD Primary Care Provider Aichjonathan DENTAL SECRETARY, Ginny Unavailable DO Migel Best Attending Provider NON STAFF Primary Care Provider UnavailSOFYA Jackson Attending Unavailable Aichholz, Ginny Viet Primary Care Provider [phone] Markus ([facility])DO Crawford Attending Provider [phone] Migel Best Attending Unavailable NON STAFF Primary Care Unavailable Migel Best Admitting Unavailable Markus (Clinic), Christine Admitting Unavailyeni Pereira (Clinic), Christine Attending UnavailGinny Hutchison Primary Care Unavailable Delgado DENTAL SECRETARY, Ginny Unavailable Yair Nails MD Primary Care Provider [phone] Delgado DENTAL SECRETARY, Ginny Unavailable GINNY NATARAJAN Attending Unavailable ESTEPHANIA, MIGEL Parikh Attending Unavailable MIGEL BEST Attending Unavailable MIGEL BEST Attending Unavailable GINNY NATARAJAN Attending Unavailable GINNY NATARAJAN Attending Unavailable GRIS BOSE Attending Unavailable GRIS BOSE Referring Unavailable DANIELA CANO Attending Unavailable GRIS BOSE Referring Unavailable JOSE MONTES Attending Unavailable JR. SPEARS GEORGE C Attending Unavaila GINNY Calvo Attending Unavailable GINNY NATARAJAN Attending Unavailable JOSE MONTES Attending Unavailable Allergies Allergy Classification Reported Allergen(s) Allergy Type Date of Onset Reaction(s) Facility (2 sources) Erythromycin; 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: [ERYTHROMYCIN BASE] Drug Allergy 2 [facility] Repository (2 sources) Gemfibrozil; 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: [GEMFIBROZIL] Drug Allergy 2 [facility] Repository (2 sources) Simvastatin; 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: [SIMVASTATIN] Drug Allergy 2 [facility] Repository (14 sources) HMG-CoA reductase inhibitor Propensity to adverse reactions 3 Unknown [facility] Healthcare (14 sources) Simvastatin Propensity to adverse reactions 3 [facility] Healthcare (1 source) Lidocaine; 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: [LIDOCAINE] Drug Allergy 2 [facility] Repository (1 source) Oletdmp-BYK-BoE Reductase Inhibitor Drug allergy (disorder) 4 [facility] Repository Medications Current Medications Medication Drug Class(es) [...] NEEDED FOR SHORTNESS OF BREATH 0 Active amoxicillin 875 mg / clavulanate 125 mg oral tablet (5 sources) Penicillin-class Antibacterial Start: 04-17-2024 End: 04-27-2024 take 1 tablet by mouth in the morning amoxicillin-clavulanate (Augmentin) 875-125 MG tablet Indications: Acute non-recurrent pansinusitis Take 1 tablet (875 mg) by mouth in the morning and 1 tablet (875 mg) before bedtime. Do all this for 10 days. Take with food. 20 tablet 04/17/2024 04/27/2024 Active Ascorbic Acid (20 sources) Vitamin C Start: 11-10-2023 take 1 g by mouth once daily Ascorbic Acid (Vitamin C) Active 1 GM PO Daily November 10, 2023 12:00am take 1 tablet by mouth once rebecca y ascorbic acid (Vitamin C) 1000 MG tablet Take 1,000 mg by mouth 1 (one) time each day at the same time Active aspirin 81 mg chewable tablet (20 sources) Platelet Aggregation Inhibitor, Nonsteroidal Anti-inflammatory Drug Start: 11-10-2023 take 81 mg by mouth once daily Aspirin Active 81 MG PO Daily November 10, 2023 12:00am azithromycin 250 mg oral tablet (1 source) Macrolide Antimicrobial Start: 04-04-2023 Azithromycin 250 MG 2 tablet on the first day, then 1 tablet daily for 4 days Orally Once a day for 5 day(s) Mar, Active b complex vitamins capsule (14 sources) take 1 capsule by mouth in the morning b complex vitamins capsule Take 1 capsule by mouth in the morning. Active take 1 capsule by mouth in the m orning b complex vitamins capsule Take 1 capsule by mouth in the morning. 0 Active Ripcztkw-Krbhsag-Ipuxf-Querc et (Bilberry Extract) 40 MG capsule (14 sources) take 1 capsule by mouth in the morning Sbdxppaa-Henpidy-Sexpf-Quercet (Bilberry Extract) 40 MG capsule Take 40 mg by mouth in the morning. Active take 1 capsule by mo uth in the morning Ujqwywmx-Whawfkf-Vrzij-Quercet (Bilberry Extract) 40 MG capsule Take 40 mg by mouth in the morning. 0 Active buprenorphine 12 mg / naloxone 3 mg sublingual film (15 sources) Partial Opioid Agonist, Opioid Antagonist buprenorphine-naloxo ne (Suboxone) 12-3 MG per sublingual film Place 1 Film under the tongue 1 (one) time Active Buprenorphine HC l-Naloxone HCl 12-3 MG 1 film under the tongue and allow to dissolve Sublingual Once a day Not-Taking busPIRone hydrochloride 10 m g oral tablet (4 sources) take 1 tablet by tre th in the morning busPIRone (Buspar) 10 MG tablet Take 1 tablet by mouth in the morning and 1 tablet before bedtime. 0 Active CALCIUM MAGNESIUM ZINC PO (14 sources) take 1 tablet by tre th in the morning CALCIUM MAGNESIUM ZINC PO Take 1 tablet by mouth in the morning. Active take 1 tablet by mouth in the mo rning CALCIUM MAGNESIUM ZINC PO Take 1 tablet by mouth in the morning. 0 Active Calcium/Magnesium/Zinc - (1 source) Calcium/Magnesiu m/Zinc - as directed Orally *please review for potential _update for e-prescription and drug interaction check* Active Carboxymethylcellulose (7 sources) Start: 2023 carboxymethylcellulose sodium (Refresh Tears) Active 1 DROPS OPHTHALMIC As Directed November 10, 2023 12:00am carvedilol 25 mg oral tablet (20 sources) alpha-Adrener gic Onofre, beta-Adrenerg ic Onofre Start: 2023 End: 2023 take 1 mg by mouth twice daily Carvedilol Discontinued MG PO Twice daily March 20, 2024 2:44pm May 15, 2024 2:11pm Start: 02-14-2024 take 1 tablet by tre th in the morning carvedilol (Coreg) 25 MG tablet Take 25 mg by mouth in the morning and 25 mg in the evening. Take with meals. 02/14/2024 Active Start: 05-29-2023 End: 04-17-2024 take 12.5 mg by mouth twice daily Carvedilol Discontinued 12.5 MG PO Twice daily November 10, 2023 12:00am February 16, 2024 11:55am Carvedilol 6.25 MG as directed Orally Active cetirizine hydrochloride 10 mg oral tablet (20 sources) Histamine-1 Receptor Antagonist Start: 10-24-2023 End: 07-23-2024 take 1 tablet by mouth once daily cetirizine (ZyrTEC) 10 MG tablet Indications: Environmental and seasonal allergies TAKE 1 TABLET (10 MG) BY MOUTH DAILY. 90 tablet 1 04/24/2024 07/23/2024 Active chlorthalidone 25 mg oral tablet (18 sources) Thiazide-like Diuretic Start: 03-08-2023 End: 04-17-2024 take 25 mg by mouth once daily Chlorthalidone Active 25 MG PO Daily November 10, 2023 12:00am cholecalciferol 0.05 mg oral capsule (19 sources) Vitamin D Start: 12-27-2023 take 50 ug by mouth once daily Cholecalciferol (Vitamin D3) Active 50 MCG PO Daily December 27, 2023 12:00am cholecalciferol (Vitamin D-[address]) 25 MCG (1000 UT) tablet Take 1,000 Units by mouth in the morning. Active clobetasol propionate 0.0005 mg/mg topical ointment (14 sources) Corticosteroid Start: 02-08-2024 clobetasol (Te movate) 0.05 % ointment Indications: Dyshidrosis (pompholyx) , Dyshidrosis APPLY TO HANDS TWICE A DAY MONDAY-MONDAY OFF ON WEEKENDS THEN NEEDED FOR FLARES 60 g 02/08/2024 Active Start: 04-27-2023 clobetasol (Te movate) 0.05 % ointment Apply 1 application topically in the morning and 1 application before bedtime. 0 04/27/2023 Active docosahexaenoic acid 120 mg / eicosapentaenoic acid 180 mg oral capsule (14 sources) take 1 capsule by mouth every twelve hours omega-3 (Fish Oil) 1000 MG capsule 1 capsule every 12 (twelve) hours Active doxycycline monohydrate 100 mg oral capsule (3 sources) Tetracycline-class Drug Start: End: take 1 capsule by mouth twice daily doxycycline (Monodox) 100 MG capsule Indications: Tick bite of abdomen, initial encounter Take 1 capsule, by mouth BID x 1 day 2 capsule 03/18/2024 04/17/2024 Discontinued (Therapy completed) fenofibrate 145 mg oral tablet (20 sources) Peroxisome Proliferator Receptor alpha Agonist Start: Fenofibrate Nanocrystallized Active 145 MG PO .3 times weekly November 10, 2023 12:00am take 1 tablet by mouth once rebecca y fenofibrate (Tricor) 145 MG tablet Take 145 mg by mouth 1 (one) time each day at the same time Active Fish Oils (1 source) take 1 capsule by mouth twice daily Fish Oil 1000 MG 1 capsule Orally Twice a day Active fluconazole 150 mg oral tablet (4 sources) Azole Antifungal Start: 04-16-2023 take 1 tablet by mouth once fluconazole (Diflucan) 150 MG tablet Take 150 mg by mouth 1 (one) time 0 04/16/2023 Active Folic Acid-Cholecalciferol 1-55095 MG-UNIT tablet (14 sources) take 1 tablet by mouth in the morning Folic Acid-Cholecalciferol 1-47584 MG-UNIT tablet Take 10,000 Units by mouth in the morning. Active take 1 tablet by tre th in the morning Folic Acid-Cholecalciferol 1-96118 MG-UN IT tablet Take 10,000 Units by mouth in the morning. 0 Active Garlic preparation (14 sources) Non-Standardized Food Allergenic Extract GARLIC PO Take by mo uth Active GARLIC PO Take b y mouth 0 Active hydroCHLOROthiazide 25 mg oral tablet (15 sources) Thiazide Diuretic take 1 tablet by mouth once daily hydroCHLOROthiazide (HYDRODiuril) 25 MG tablet Take 25 mg by mouth 1 (one) time each day at the same time Active ibuprofen 800 mg oral tablet (16 sources) Nonsteroidal Anti-inflammatory Drug Start: 2022 take 1 tablet by mouth in the morning, then take 1 tablet by mouth in the evening, then take 1 tablet by mouth at bedtime ibuprofen 800 MG tablet Take 800 mg by mouth in the morning and 800 mg in the evening and 800 mg before bedtime. 10/25/2022 Active ketoconazole 20 mg/ml topical cream (20 sources) Azole Antifungal Start: 2023 Ketoconazole Active APPLIC TOPICAL Twice daily November 10, 2023 12:00am Start: 04-27-2023 ketoconazole ( NIZOral) 2 % cream Apply 1 application topically in the morning and 1 application before bedtime. 04/27/2023 Active loratadine 10 mg oral tablet (4 sources) Start: 04-27-2023 take 1 tablet by mouth in the morning loratadine (Claritin) 10 MG tablet Take 10 mg by mouth in the morning. 0 04/27/2023 Active magnesium oxide 400 mg oral tablet (16 sources) Start: 04-25-2024 End: 07-24-2024 take 1 tablet by mouth once daily magnesium oxide (Mag-Ox) 400 MG tablet Indications: Hypomagnesemia Take 1 tablet (400 mg) by mouth Daily 90 tablet 04/25/2024 07/24/2024 Active take 1 tablet by mouth once rebecca y magnesium oxide (Mag-Ox) 400 MG tablet magnesium oxide 400 mg (241.3 mg magnesium) tablet TAKE 1 TABLET BY MOUTH EVERY DAY DIRECTED Active meclizine hydrochloride 12.5 mg oral tablet (20 sources) Antiemetic Start: 11-10-2023 take 12.5 mg by mouth once daily Meclizine Active 12.5 MG PO Daily November 10, 2023 12:00am Start: 04-27-2023 take 1 tablet by tre th three times daily as needed for dizziness meclizine (Antivert) 25 MG tablet Take 25 mg by mouth 3 (three) times a day as needed for dizziness 04/27/2023 Active meloxicam 15 mg oral tablet (4 sources) Nonsteroidal Anti-inflammatory Drug take 1 tablet by mouth in the morning meloxicam (Mobic) 15 MG tablet Take 1 tablet by mouth in the morning. 0 Active metFORMIN hydrochloride 1000 mg oral tablet (20 sources) Biguanide Start: End: 025 take 1 tablet by mouth in the morning metFORMIN (Glucophage) 1000 MG tablet Indications: Type 2 diabetes mellitus without complications (CMS/HCC) Take 1 tablet (1,000 mg) by mouth in the morning and 1 tablet (1,000 mg) in the evening. Take with meals. 180 tablet 1 03/11/2024 06/09/2024 Active Start: 06-11-2023 take 1 tablet by tre th in the morning metFORMIN (Glucophage) 1000 MG tablet Take 1,000 mg by mouth in the morning and 1,000 mg before bedtime. 0 06/11/2023 Active take 1 tablet by tre th every twenty-four hours metFORMIN HCl 500 MG 1 tablet with a meal Orally Once a day for 30 day(s) Active methylPREDNISolone (4 sources) Corticosteroid Start: 04-17-2024 End: 04-24-2024 methylPREDNISolone (Medrol Dospak) 4 MG tablets Indications: Acute non-recurrent pansinusitis Take as directed, take with food. Follow schedule on package instructions 21 tablet 04/17/2024 04/24/2024 Active milk thistle extract 500 mg oral capsule (15 sources) Milk Thistle 500 MG capsule as directed Orally Active Milk Thistle 500 MG capsule as directed Orally 0 Active Milk Thistle 500 MG as directed Orally Not-Taking Mounjaro 2.5 MG/0.5ML solution pen-injector (2 sources) Start: 11-10-2023 End: 04-17-2024 inject 0.5 mL by subcutaneous injection every week Mounjaro 2.5 MG/0.5ML solution pen-injector INJECT 0.5ML SUBCUTANEOUSLY ONCE A WEEK FOR 4 WEEKS 11/10/2023 04/17/2024 Discontinued (Therapy completed) Mounjaro 5 MG/0.5ML solution pen-injector (10 sources) Start: 03-26-2024 Mounjaro 5 MG/0.5ML solution pen-injector Inject 5 mg under the skin every 7 (seven) days 03/26/2024 Active nitrofurantoin, macrocrystals 25 mg / nitrofurantoin, monohydrate 75 mg oral capsule (4 sources) Nitrofuran Antibacterial take 1 capsule by mouth in the morning nitrofurantoin, macrocrystal-monoh ydrate, (Macrobid) 100 MG capsule Take 1 capsule by mouth in the morning and 1 capsule before bedtime. 0 Active ondansetron 4 mg disintegrating oral tablet (10 sources) Serotonin-3 Receptor Antagonist Start: 04-05-2024 take 1 tablet by mouth every eight hours as needed for nausea and vomiting ondansetron ODT (Zofran-ODT) 4 MG disintegrating tablet Take 4 mg by mouth every 8 (eight) hours if needed for nausea or vomiting 04/05/2024 Active polaprezinc (zinc carnosine) (7 sources) Start: 11-10-2023 take 1 tablet by mouth once daily polaprezinc (zinc carnosine) Active 1 TAB PO Daily November 10, 2023 12:00am potassium chloride 10 meq extended release oral capsule (20 sources) Start: 02-01-2024 End: 08-06-2024 potassium chloride ER (Micro-K) 10 MEQ ER capsule Indications: Hypokalemia Take 2 capsules (20 mEq) by mouth Daily 180 capsule 1 05/08/2024 08/06/2024 Active Start: 01-31-2024 take 20 mEq by mouth once rebecca y Potassium Chloride Active 20 MEQ PO Daily [...] source) Start: 04-04-2023 take 1 tablet by mouth every twelve hours prednisone 20 MG 1 tablet Orally BID for 5 Mar, Active sodium fluoride 0.011 mg/mg toothpaste (10 sources) Start: 03-13-2024 Sodium Fluorid e 5000 PPM 1.1 % paste APPLY THIN RIBBON TO TOOTHBRUSH, BRUSH TWICE DAILY X2MINS, SPIT, DO NOT EAT/DRINK/RINSE FOR 30 MIN 03/13/2024 Active Tirzepatide (1 source) Start: 05-15-2024 Tirzepatide Ac tive 7.5 MG SUBCUT every week 09 20May 15, 2024 3:05pm Ok to dispense 5.0 mg weekly if 7.5 mg delayed or unavailable tiZANidine 4 mg oral tablet (19 sources) Central alpha-2 Adrenergic Agonist Start: 02-16-2024 End: 03-20-2024 Tizanidine Active MG PO March 20, 2024 2:46pm Start: 02-08-2024 take 1 tablet by once daily at bedtime as needed for muscle spasms tiZANidine (Zanaflex) 4 MG tablet Indications: Spondylosis without myelopathy or radiculopathy, cervical region , Cervical spondylosis without myelopathy TAKE 1 TABLET BY MOUTH EVERY DAY AT BEDTIME NEEDED FOR MUSCLE SPASM 90 tablet 1 02/08/2024 Active tiZANidine (Micheal flex) 4 MG tablet TAKE 1 TABLET AT BEDTIME NEEDED FOR MUSCLE SPASMS 0 Active triamcinolone acetonide 0.48289 mg/mg topical ointment (12 sources) Corticosteroid Start: 08-16-2023 triamcinolone (Kenalog) 0.025 % ointment APPLY A SMALL AMOUNT EXTERNALLY TWICE A DAY FOR SEBORRHEIC DERMATITIS TO SKIN OF EARS/BEHIND EARS 08/16/2023 Active Tumeric (1 source) Tumeric daily *please review for potential _update for e-prescription and drug interaction check* Active Turmeric extract (14 sources) take 1 tablet by mouth once daily Turmeric (QC TUMERIC COMPLEX PO) Take 1 tablet by mouth 1 (one) time each day at the same time Active take 1 tablet by mouth once rebecca y Turmeric (QC TUMERIC COMPLEX PO) Take 1 tablet by mouth 1 (one) time each day at the same time 0 Active ubidecarenone 100 mg oral ca psule (20 sources) Start: 05-15-2024 Coenzyme Q10 ( Coq-10) 100 mg capsule Active 100 MG PO Daily May 15, 2024 12:00am Start: 11-10-2023 End: 05-15-2024 Coenzyme Q10 Discontinued 10 MG PO Daily November 10, 2023 12:00am May 15, 2024 2:06pm valACYclovir 1000 mg oral tablet (14 sources) Herpesvirus Nucleoside Analog DNA Polymerase Inhibitor, Herpes Simplex Virus Nucleoside Analog DNA Polymerase Inhibitor, Herpes Zoster Virus Nucleoside Analog DNA Polymerase Inhibitor Start: 03-29-2024 valACYclovir (Valtr ex) 1 g tablet Take 1,000 mg by mouth Daily as needed (breakouts) 03/29/2024 Active take 1 tablet by tre th every twelve hours valACYclovir (Valtrex) 1 g tablet Take 1 tablet by mouth every 12 (twelve) hours 0 Active vitamin b12 1 mg oral tablet (20 sources) Vitamin B12 Start: 11-10-2023 take 1000 ug by mouth once daily Cyanocobalamin (Vitamin B-12) Active 1000 MCG PO Daily November 10, 2023 12:00am take 1 tablet by mouth once rebecca y Cyanocobalamin 1000 MCG capsule Take 1 tablet by mouth 1 (one) time each day at the same time Active take 1 tablet by mouth once [...] (1 source) take 1 capsule by mo [facility] once daily Vitamin E 400 UNIT 1 capsule Orally Once a day for 30 day(s) Active Completed/Discontinued Medications Medication Drug Class(es) Dates Sig (Normalized) Sig (Original) bilberry extract 40 mg oral capsule (1 source) Bilberry Extract 40 MG as directed Orally Not-Taking Cholecalciferol 15670 UNIT (1 source) Cholecalciferol 39772 UNIT as directed Orally *please review for [...] for e-prescription and drug interaction check* Not-Taking Magnesium Chloride (7 sources) Start: 11-10-2023 End: 05-15-2024 take 1 tablet by mouth once daily magnesium chloride Discontinued 1 TAB PO Daily November 10, 2023 12:00am May 15, 2024 2:07pm Start: 11-10-2023 [facility] [address] [facility] chloride Active 1 TAB PO Daily November 10, 2023 12:00am [place] 0-Lhw-Tbn-Fish Oil (Fish Oil) 1,000 mg (120 mg-180 mg) capsule (7 sources) Start: 11-10-2023 End: 05-15-2024 take 1 capsule by mouth once daily [place] 0-Ktn-Pqj-Fish Oil (Fish Oil) 1,000 mg (120 mg-180 mg) capsule Discontinued 1 CAP PO Daily November 10, 2023 12:00am May 15, 2024 2:08pm Start: 11-10-2023 take 1 capsule by [facility] once daily [place] 7-Wdv-Tsn-Fish Oil (Fish Oil) 1,000 mg (120 mg-180 mg) capsule Active 1 CAP PO Daily November 10, 2023 12:00am Potassium Chloride (Klor-Con M20) 20 mEq tablet,ER particles/crystals (7 sources) Start: 11-10-2023 End: 01-31-2024 Potassium Chloride [...] e-prescription and drug interaction check* Not-Taking Tirzepatide (6 sources) Start: 11-10-2023 End: 01-31-2024 Tirzepatide (Mounjaro) 2.5 m g/0.5 mL pen injector Discontinued 2.5 MG SUBCUT every week 3 November 10, 2023 12:00am January 31, 2024 2:35pm Start: 11-10-2023 Tirzepatide (M ounjaro) 2.5 mg/0.5 mL pen injector Active 2.5 MG SUBCUT every week 3 November 10, 2023 12:00am Tirzepatide (6 sources) Start: 03-20-2024 End: 05-15-2024 inject 0.5 mg by subcutaneous injection every week Tirzepatide Discontinued 5 MG SUBCUT every week 2 March 20, 2024 3:17pm May 15, 2024 3:07pm Ok to dispense 2.5 mg dosing if 5.0 mg not available Start: 03-20-2024 inject 0.5 mg by sub cutaneous injection every week Tirzepatide Active 5 MG SUBCUT every week 2 March 20, 2024 3:17pm Ok to dispense [...] mg dosing if 5.0 mg not available Problems Active Problems Problem Classification Problem Date Documented Da te Episodic/Chronic Anxiety disorders (15 sources) Generalized anxiety disorder; 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: [Generalized anxiety disorder] Onset: 03-14-2022 07-21-2023 Chronic Diabetes mellitus without complication (20 sources) Type 2 diabetes mellitus without complications; 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: [Type 2 diabetes mellitus without complication] Onset: 08-05-2022 Resolved: 07-27-2023 07-26-2023 Chronic Disorders of lipid metabolism (20 sources) Hyperlipidemia, unspecified; 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: [Hyperlipidemia] Onset: 03-14-2022 Resolved: 07-27-2023 07-27-2023 Chronic Essential hypertension (20 sources) Essential (primary) hypertension; 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: [Hypertensive disorder] Onset: 12-23-2021 Resolved: 04-17-2024 07-21-2023 Chronic Lymphadenitis (4 sources) Enlarged lymph nodes, unspecified; 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: [ENLARGED LYMPH NODES UNSPECIFIED] Onset: 08-03-2022 Episodic Nutritional deficiencies (20 sources) Vitamin D deficiency; 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: [Vitamin D deficiency, unspecified] Onset: 01-08-2024 11-10-2023 Chronic Osteoarthritis (20 sources) Osteoarthritis; 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: [Unspecified osteoarthritis, unspecified site] Onset: 07-27-2023 Resolved: 07-27-2023 07-27-2023 Chronic Other and unspecified benign neoplasm (2 sources) Dermatofibroma; 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: [Other benign neoplasm of skin, unspecified] 05-27-2024 Episodic Other connective tissue disease (11 sources) Cramp; 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: [Cramp and spasm] Onset: 04-17-2024 04-17-2024 Episodic Other nutritional; endocrine; and metabolic disorders (1 source) Morbid (severe) obesity due to excess calories; 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: [MORBID SEVERE OBES D/T EXCESS CHAI] Onset: 12-23-2021 Chronic Other nutritional; endocrine; and metabolic disorders (1 source) Body mass index (BMI) 37.0-37.9, adult; 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: [BODY MASS INDEX BMI 37.0-37.9 ADULT] Onset: 12-23-2021 Chronic Other nutritional; endocrine; and metabolic disorders (6 sources) Body mass index 40+ - severely obese; 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: [Body mass index (BMI) 40.0-44.9, adult] 11-10-2023 Chronic Other nutritional; endocrine; and metabolic disorders (12 sources) Body mass index (BMI) 40.0-44.9, adult; 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: [Body Mass Index 40.0-44.9, adult] 11-10-2023 Chronic Other nutritional; endocrine; and metabolic disorders (12 sources) Obesity, unspecified; 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: [Obesity, unspecified] 11-10-2023 Chronic Other nutritional; endocrine; and metabolic disorders (10 sources) Body mass index 30+ - obesity; 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: [Obesity, unspecified] Onset: 10-04-2023 10-04-2023 Chronic Other nutritional; endocrine; and metabolic disorders (6 sources) Hypomagnesemia; 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: [Hypomagnesemia] Onset: 04-25-2024 04-25-2024 Chronic Other skin disorders (2 sources) Mass of neck; 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: [Localized swelling, mass and lump, neck] 09-07-2023 Episodic Other skin disorders (2 sources) Telogen effluvium; 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: [Telogen effluvium] 05-27-2024 Episodic Other upper respiratory disease (11 sources) Allergic disposition; 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: [Other allergic rhinitis] Onset: 09-25-2023 09-25-2023 Chronic Other upper respiratory infections (20 sources) Acute maxillary sinusitis, unspecified; 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: [Acute maxillary sinusitis] Onset: 07-27-2023 Resolved: 07-27-2023 Episodic Unclassified (1 source) CONTACT W/AND (SUSP) EXPOS COVID-19; 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: [CONTACT W/AND (SUSP) EXPOS COVID-19] Onset: 12-23-2021 Viral infection (20 sources) Herpes simplex; 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: [Herpesviral infection, unspecified] Onset: 07-21-2023 07-21-2023 Episodic Past or Other Problems Problem Classification Problem Date Documented Da te Episodic/Chronic Allergic reactions (14 sources) Allergic urticaria; 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: [Allergic urticaria] Onset: 4 Resolved: 4 07-27-2023 Episodic Blindness and vision defects (20 sources) Presbyopia; 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: [Presbyopia] Onset: 4 Resolved: 4 07-27-2023 Episodic Conditions associated with dizziness or vertigo (18 sources) Dizziness and giddiness; 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: [Dizziness] Onset: 2 Resolved: Episodic Diabetes mellitus with complications (19 sources) Hyperglycemia due to type 2 diabetes mellitus; 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: [Type 2 diabetes mellitus with hyperglycemia] Onset: 4 Resolved: 4 11-10-2023 Chronic Diabetes mellitus without complication (15 sources) Prediabetes; 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: [Prediabetes] Onset: 2 Resolved: 4 07-26-2023 Episodic Diseases of mouth; excluding dental (19 sources) Sialoadenitis; 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: [Sialoadenitis, unspecified] Onset: 3 07-26-2023 Episodic Esophageal disorders (14 sources) Gastroesophageal reflux disease; 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: [Gastro-esophageal reflux disease without esophagitis] Onset: 4 Resolved: 4 07-27-2023 Chronic Fluid and electrolyte disorders (17 sources) Hypokalemia; 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: [Hypokalemia] Onset: 2 08-28-2023 Episodic Headache; including migraine (14 sources) Migraine; 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: [Migraine, unspecified, not intractable, without status migrainosus] Onset: 3 Resolved: 4 07-27-2023 Chronic Hepatitis (14 sources) Nonalcoholic steatohepatitis; 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: [Nonalcoholic steatohepatitis (CORCORAN)] Onset: 4 Resolved: 4 07-27-2023 Chronic Mood disorders (20 sources) Depressive disorder; 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: [Depressive disorder] Onset: 4 Resolved: 07-27-2023 Chronic Mood disorders (10 sources) Mood disorders Onset: 4 01-08-2024 Mycoses (14 sources) Onychomycosis of toenails; 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: [Tinea unguium] Onset: 4 Resolved: 4 07-27-2023 Episodic Neoplasms of unspecified nature or uncertain behavior (16 sources) Villous adenoma of colon; 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: [Neoplasm of uncertain behavior of colon] Onset: 4 Resolved: 4 07-27-2023 Episodic Nutritional deficiencies (16 sources) Cobalamin deficiency; 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: [Deficiency of other specified B group vitamins] Onset: 4 11-10-2023 Episodic Other aftercare (1 source) terminal gauger (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) use of aspirin; 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: [CARE HOME CURRENT USE OF ASPIRIN] Onset: 2 Episodic Other aftercare (1 source) terminal gauger (current) use of oral hypoglycemic drugs; 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: [LOGGING OPERATIONS INSPECTOR USE ORAL HYPOGLYCEMIC DX] Onset: 2 Episodic Other aftercare (1 source) Other alf (current) drug therapy; 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: [OTH CARE HOME CURRENT DRUG THERAPY] Onset: 2 Episodic Other eye disorders (14 sources) Dry eyes; 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: [Dry eye syndrome of bilateral lacrimal glands] Onset: 4 07-26-2023 Episodic Other gastrointestinal disorders (14 sources) Occult blood in stools; 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: [Other fecal abnormalities] Onset: 4 Resolved: 4 07-27-2023 Episodic Other liver diseases (1 source) Abnormal levels of other serum enzymes; 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: [ABNORMAL LEVELS OTHER SERUM ENZYMES] Onset: 2 Episodic Other lower respiratory disease (14 sources) Breathing painful; 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: [Chest pain on breathing] Onset: 4 Resolved: 4 07-27-2023 Episodic Other nervous system disorders (14 sources) Carpal tunnel syndrome; 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: [Carpal tunnel syndrome, unspecified upper limb] Onset: 4 Resolved: 4 07-27-2023 Chronic Other nervous system disorders (1 source) Paresthesia of skin; 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: [PARESTHESIA OF SKIN] Onset: 2 Episodic Other nervous system disorders (14 sources) Skin sensation disturbance; 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: [Unspecified disturbances of skin sensation] Onset: 4 Resolved: 4 07-27-2023 Episodic Other non-traumatic joint disorders (14 sources) Ankle pain; 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: [Pain in right ankle and joints of right foot] Onset: 3 07-21-2023 Episodic Other non-traumatic joint disorders (10 sources) Pain in left knee; 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: [Pain in joint, lower leg] Onset: 4 09-26-2023 Episodic Other nutritional; endocrine; and metabolic disorders (20 sources) Obesity; 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: [Obesity, unspecified] Onset: 4 Resolved: 4 07-27-2023 Chronic Other screening for suspected conditions (not mental disorders or infectious disease) (20 sources) Liver function tests abnormal; 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: [Abnormal results of liver function studies] Onset: 4 Resolved: 4 07-27-2023 Episodic Other skin disorders (14 sources) Ingrowing toenail; 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: [Ingrowing nail] Onset: 4 Resolved: 4 07-27-2023 Episodic Other skin disorders (10 sources) Eruption; 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: [Rash and other nonspecific skin eruption] Onset: 4 01-08-2024 Episodic Pancreatic disorders (not diabetes) (14 sources) Acute pancreatitis; 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: [Acute pancreatitis without necrosis or infection, unspecified] Onset: 4 Resolved: 4 07-27-2023 Episodic Residual codes; unclassified (4 sources) Other specified health status; 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: [OTHER SPECIFIED HEALTH STATUS] Onset: 2 Episodic Residual codes; unclassified (14 sources) Other general symptoms and signs; 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: [Other general symptoms] Onset: 4 Resolved: 4 07-27-2023 Episodic Residual codes; unclassified (14 sources) Tobacco user; 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: [Tobacco use] Onset: 4 Resolved: 4 07-27-2023 Episodic Screening and history of mental health and substance abuse codes (1 source) Personal history of nicotine dependence; 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: [PERSONAL HISTORY OF NICOTINE DEPEND] Onset: 2 Episodic Skin and subcutaneous tissue infections (14 sources) Carbuncle of trunk; 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: [Carbuncle of trunk, unspecified] Onset: 4 Resolved: 4 07-27-2023 Episodic Spondylosis; intervertebral disc disorders; other back problems (20 sources) Spondylosis without myelopathy or radiculopathy, cervical region; 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: [Spondylosis without myelopathy or radiculopathy, lumbar region] Onset: 2 Resolved: 4 Chronic Spondylosis; intervertebral disc disorders; other back problems (4 sources) Sciatica; 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: [Sciatica, unspecified side] Onset: 4 Resolved: 4 07-27-2023 Episodic Sprains and strains (14 sources) Lumbar sprain; 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: [Sprain of ligaments of lumbar spine, initial encounter] Onset: 4 Resolved: 4 07-27-2023 Episodic Substance-related disorders (20 sources) Opioid abuse, uncomplicated; 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: [Nondependent opioid abuse ] Onset: 2 Resolved: 4 07-27-2023 Chronic Superficial injury; contusion (20 sources) Abrasion of left cornea; 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: [Injury of conjunctiva and corneal abrasion without foreign body, left eye, initial encounter] Onset: 4 Resolved: 4 04-17-2024 Episodic Syncope (1 source) Syncope and collapse; 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: [SYNCOPE AND COLLAPSE] Onset: 2 Episodic Urinary tract infections (20 sources) Urinary tract infection, site not specified; 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: [Acute urinary tract infection] Onset: 2 Resolved: 4 07-27-2023 Episodic Results Test Name Value Interpretation Reference Range Facility No Panel Informationon 05-27 Type of biopsy: tangential Informed consent: discussed and consent obtained Informed consent comment: The risks and benefits of the biopsy were discussed. Risks include but are not limited to bleeding, infection, scarring, pain, and nerve damage. An opportunity to ask questions prior to the procedure was permitted and all questions were answered. Patient was prepped and draped in usual sterile fashion: area cleansed with alcohol. Anesthesia: the lesion was anesthetized in a standard fashion Anesthetic: 1% lidocaine w/ epinephrine 1-100,000 buffered w/ 8.4% NaHCO3 Instrument used: DermaBlade Hemostasis achieved with: electrodesiccation Outcome: patient tolerated procedure well Outcome comment: The specimen was placed in a prelabeled formalin container to be sent for pathology Post-procedure details: sterile dressing applied and wound care instructions given Post-procedure details comment: Emphasized need to contact clinic for any signs of infection, uncontrollable bleeding, or complications. Dressing type: bandage Additional details: Photo taken Amount of lidocaine used: 1.0 cc [facility] Health[facility] e MLR HEMOGLOBIN A1Con 024 Glucose [Mass/Vol] 103 mg/dL [facility]althcare HbA1c (Bld) [Mass fraction] 5.2 % 4.5 - 6.2 % [facility] Comment on above: ADA RECOMMENDED LIMI T 4.0 - 6.0 ADA THERAPEUTIC TARGET < 7.0 ACTION SUGGESTED > 7.0 [facility] SpecialtyCare[facility] e MM screening mammo BI w/CADo n 03-11-2024 MM screening mammo BI w/CAD [facility] [place] [address] Mammography Report Signed Patient: Norma Redmond MR#: [id number] : 1950 Acct:[id number] Age/Sex: 73 / F ADM Date: 03/11/24 Loc: [place] Room: Type: [facility] Attending Dr: Christine Pereira (Clinic) , [facility] Copies to: DO Ginny Blount NP-C Ordering Provider: Christine Pereira DO Date of Service: 03/11/24 MM/MM screening [...] Jose Yan M.D.03/11/2024 2:00 PM Dictation Location: [facility] Transcribed By: [facility] 03/11/24 1400 Dictated By: Jose Yan DO 03/11/24 1359 Signed By: 03/11/24 1400 Normal [facility] No Panel InformationOrdered By: Gina Harkins on 02-16-2024 Quick Strep (POC) [facility] Respiratory specimen 2019 no aaron coronavirus RNA detection by probe and target amplifion 02-16-2024 SARS-CoV-2 (COVID-19) RNA MARY+probe Ql (Resp) Negative [facility] Office Visiton 02-14-2024 Follow-up visit [id number] Norma Redmond 1950 F Date Provider Department Center 02/14/2024 SOFYA ROJAS CARD [facility] Family History Problem Relation Age of Onset Atrial fibrillation Mother Family Status - Relation Status Age at Mother Level of Service:19138 [place] OFFICE/OUTPATIENT ESTABLISHED LOW MDM 20 MIN Normal [facility] HbA1c HPLC (Bld) [Mass fract ion]on 11-10-2023 HbA1c (Bld) [Mass fraction] 6.3 % [facility] No Panel Informationon 11-09 Bedside Glucose 122 [facility] Fernando 08-29-2023 L Specimen: [id number] Received: 08/29/23 Status: GAYE Rivera Num: [id number] Spec Type: Surgical Subm Dr: Migel Best DO Tissues: A Gross Only (SALIVARY STONE) Procedures: Level 1 Gross Age/ Patient Sex Location Account Attending Physician Norma Redmond 72/F [place] [id number] Migel Best DO SPEC NUM: [id number] RECD: 08/29/23 STATUS: GAYE RIVERA NUM: [id number] BIB: 08/29/23- SUBM DR: Migel Best DO ENTERED: 08/29/[address] [facility] [address]: Sebas [facility] SPEC TYPE: Surgical DEPT: S ORDERED: Level [...] is taken. Gross examination only. CPT Codes 73981 Gross Photo -------- -------- Specimen: [id number] Received: 08/29/23 Status: ARLENVianney Rivera Num: [id number] Spec Type: Surgical Subm Dr: Migel Best DO Tissues: A Gross Only (SALIVARY STONE) Procedures: Level 1 Gross -------- Patient: Norma Redmond [id number] (Continued) -------- Signed (signature on file) Ghassan-Jay Ford MD 09/08/23 1403 Normal [facility] COVID Quick Testingon 2022 Result Negative [email or web address] Other CT NECK ST W CONon CT [...] submandibular, and thyroid glands. LYMPH NODES: No pathological-appearin g or enlarged lymph nodes. VASCULATURE: No suspicious [...] BENEDICTO KARIMI Date: 2022-08-04 08:41 Normal [facility] CBC AUTO DIFFon 08-03-2022 BASO # 0.0 103/ul Normal 0.0-0.1 [facility] Comment on above: Performed By: #### A 1C #### [facility] [address] [address] [address] Blanca Ford Basophils/100 WBC (Bld) 0.8 % Normal 0.2-2.0 [facility] Comment on above: Performed By: #### A 1C #### [facility] [address] [place] [address] Dr. Blanca Ford EO # 0.2 103/ul Normal 0.0-0.7 [facility] Comment on above: Performed By: #### A 1C #### [facility] [address] [address] [address] Blanca Ford Eosinophils/100 WBC (Bld) 3.1 % Normal 0.9-7.0 [facility] Comment on above: Performed By: #### A 1C #### [facility] [address] [address] [address] Blanca Ford Erythrocyte distribution width (RBC) [Ratio] 12.4 % Normal 11.0-15.0 [facility] Comment on above: Performed By: #### A 1C #### [facility] [address] [place] [address] Dr. Blanca Ford Hematocrit (Bld) [Volume fraction] 42.5 % Normal 36.0-48.0 [facility] Comment on above: Performed By: #### A 1C #### [facility] [address] [place] [address] Dr. Blanca Ford Hemoglobin (Bld) [Mass/Vol] 14.0 g/dL Normal 12.0-16.0 [facility] Comment on above: Performed By: #### A 1C #### [facility] [address] [place] [address] Dr. Blanca Ford IG # 0.03 10e3/ul Normal 0.00-0.03 [facility] Comment on above: Performed By: #### A 1C #### [facility] [address] [place] [address] Dr. Blanca Ford IG % 0.6 % Critically high 0.0-0.5 [facility] Comment on above: Performed By: #### A 1C #### [facility] [address] [place] [address] Dr. Blanca Ford LYMPH # 1.2 103/ul Normal 1.2-3.8 [facility] Comment on above: Performed By: #### A 1C #### [facility] [address] [place] [address] Dr. Blanca Ford Lymphocytes/100 WBC (Bld) 22.6 % Normal 20.5-60.0 [facility] Comment on above: Performed By: #### A 1C #### [facility] [address] [place] [address] Dr. Blanca Ford MANUAL DIFF REQ NO Normal [facility] Comment on above: Performed By: #### A 1C #### [facility] [address] [place] [address] Dr. Blanca Ford MCH (RBC) [Entitic mass] 28.1 pg Normal 26.7-34.0 [facility] Comment on above: Performed By: #### A 1C #### [facility] [address] [place] [address] Dr. Blanca Ford MCHC (RBC) [Mass/Vol] 32.9 g/dL Normal 29.9-35.2 [facility] Comment on above: Performed By: #### A 1C #### [facility] [address] [place] [address] Dr. Blanca Ford MCV (RBC) [Entitic vol] 85.3 fL Normal 81.0-99.0 [facility] Comment on above: Performed By: #### A 1C #### [facility] [address] [place] [address] Dr. Blanca Ford MONO # 0.3 103/ul Normal 0.3-0.8 [facility] Comment on above: Performed By: #### A 1C #### [facility] [address] [place] [address] Dr. Blanca Ford Monocytes/100 WBC (Bld) 6.3 % Normal 1.7-12.0 [facility] Comment on above: Performed By: #### A 1C #### [facility] [address] [address] [address] Blanca Ford NEUT # 3.5 103/ul Normal 1.4-6.5 [facility] Comment on above: Performed By: #### A 1C #### [facility] [address] [place] [address] Dr. Blanca Ford Neutrophils/100 WBC (Bld) 66.6 % Normal 43.0-75.0 [facility] Comment on above: Performed By: #### A 1C #### [facility] [address] [place] [address] Dr. Blanca Ford Platelet mean volume (Bld) [Entitic vol] 8.7 fL Critically low 9.5-13.5 [facility] Comment on above: Performed By: #### A 1C #### [facility] [address] [place] [address] Dr. Blanca Ford PLT 214 103/ul Normal 150-450 [facility] Comment on above: Performed By: #### A 1C #### [facility] [address] [place] [address] Dr. Blanca Ford RBC 4.98 106/ul Normal 4.20-5.40 [facility] Comment on above: Performed By: #### A 1C #### [facility] [address] [place] [address] Dr. Blanca Ford WBC 5.2 103/ul Normal 4.0-11.0 [facility] Comment on above: Performed By: #### A 1C #### [facility] [address] [place] [address] Dr. Blanca Ford CRPon 08-03-2022 CRP [Mass/Vol] mg/L Normal <=1.0 [facility] Comment on above: Performed By: #### L ACT #### [facility] [address] [address] [address] Blanca Ford GLYCOHEMOGLOBIN A1Con 2022 ADA RECOMMENDATION SEE BELOW Normal [facility] Comment on above: Result Comment: ADA RECOMMENDED LIMIT 4.0 - 6.0 ADA THERAPEUTIC TARGET < 7.0 ACTION SUGGESTED > 7.0 Performed By: #### C MP #### [facility] [address] [address] [address] Blanca Ford Glucose [Mass/Vol] 137 mg/dL Normal [facility] Comment on above: Performed By: #### C MP #### [facility] [address] [address] [address] Blanca Ford HbA1c (Bld) [Mass fraction] 6.4 % Critically high 4.5-6.2 [facility] Comment on above: Performed By: #### C MP #### [facility] [address] [address] [address] Blanca Ford PROF CHEM 8 (BAS METB)on Anion gap [Moles/Vol] 12.8 mmol/L Normal [facility] Comment on above: Performed By: #### B MP ####[facility] [address] [address]DrElyssa Ford Calcium [Mass/Vol] 9.4 mg/dL Normal 8.5-10.1 [facility] Comment on above: Performed By: #### B MP ####[facility] [address] [address]DrElyssa Ford Chloride [Moles/Vol] 101 mmol/L Normal 98-107 [facility] Comment on above: Performed By: #### B MP ####[facility] [address] [address]DrElyssa oFrd CO2 [Moles/Vol] 30.0 mmol/L Normal 21.0-32.0 [facility] Comment on above: Performed By: #### B MP ####[facility] [address] [id number]. Blanca Ford Creatinine [Mass/Vol] 0.69 mg/dL Normal 0.55-1.02 [facility] Comment on above: Performed By: #### B MP ####[facility] [address] [id number]. Blanca Ford EGFR-AF PORTUGUESE >60 Normal >=60 [facility] Comment on above: Performed By: #### B MP ####[facility] [address] [id number]. Blanca Ford EGFR-NON AF PORTUGUESE >60 Normal >=60 [facility] Comment on above: Performed By: #### B MP ####[facility] [address] [place], [place] [address]Dr. Claudiadebra Logan Glucose [Mass/Vol] 138 mg/dL Critically high 74-106 T [facility] Comment on above: Performed By: #### B MP ####[facility] [address] [place], [place] [address]Dr. Blanca Ford Potassium [Moles/Vol] 3.8 mmol/L Normal 3.5-5.1 [facility] Comment on above: Performed By: #### B MP ####[facility] [address] [place], [place] [address]Dr. Claudiadebra Ford Sodium [Moles/Vol] 140 mmol/L Normal 136-145 [facility] Comment on above: Performed By: #### B MP ####[facility] [address] [address]Dr. Claudiadebra Logan Urea nitrogen [Mass/Vol] 13.0 mg/dL Normal 7.0-18.0 [facility] Comment on above: Performed By: #### B MP ####[facility] [address] [place], [place] [address]Dr. Claudiadebra Ford Urea nitrogen/Creatinine [Mass ratio] 18.8 mg/mg Normal [facility] Comment on above: Performed By: #### B MP ####[facility] [address] [place], [place] [address]DrElyssa Ford SED RATE WESTERGRENon 2022 SED RATE 35 mm/hr Critically high <=30 [facility] Comment on above: Performed By: #### A 1C #### [facility] [id number] Blanca Ford CBC AUTO DIFFon 03-03-2022 BASO # 0.1 103/ul Normal 0.0-0.1 [facility] Comment on above: Performed By: #### C BC ####[facility] [address] [address]DrElyssa Ford Basophils/100 WBC (Bld) 1.0 % Normal 0.2-2.0 [facility] Comment on above: Performed By: #### C BC ####[facility] [address] [address]DrElyssa Ford EO # 0.1 103/ul Normal 0.0-0.7 [facility] Comment on above: Performed By: #### C BC ####[facility] [address] [address]DrElyssa Ford Eosinophils/100 WBC (Bld) 2.4 % Normal 0.9-7.0 [facility] Comment on above: Performed By: #### C BC ####[facility] [address] [address]DrElyssa Ford Erythrocyte distribution width (RBC) [Ratio] 12.3 % Normal 11.0-15.0 [facility] Comment on above: Performed By: #### C BC ####[facility] [address] [id number] Ford Hematocrit (Bld) [Volume fraction] 43.9 % Normal 36.0-48.0 [facility] Comment on above: Performed By: #### C BC ####[facility] [address] [address]DrElyssa Ford Hemoglobin (Bld) [Mass/Vol] 14.6 g/dL Normal 12.0-16.0 [facility] Comment on above: Performed By: #### C BC ####[facility] [address] [id number]. Blanca Ford IG # 0.01 10e3/ul Normal 0.00-0.03 [facility] Comment on above: Performed By: #### C BC ####[facility] [address] [id number]. Blanca Ford IG % 0.2 % Normal 0.0-0.5 [facility] Comment on above: Performed By: #### C BC ####[facility] [address] [address]Dr. Blanca Ford LYMPH # 1.2 103/ul Normal 1.2-3.8 [facility] Comment on above: Performed By: #### C BC ####[facility] [address] [address]Dr. Blanca Ford Lymphocytes/100 WBC (Bld) 22.9 % Normal 20.5-60.0 [facility] Comment on above: Performed By: #### C BC ####[facility] [address] [address]Dr. Claudiadebra Ford MANUAL DIFF REQ NO Normal [facility] Comment on above: Performed By: #### C BC ####[facility] [address] [address]Dr. Blanca Ford MCH (RBC) [Entitic mass] 28.0 pg Normal 26.7-34.0 [facility] Comment on above: Performed By: #### C BC ####[facility] [address] [address]Dr. Blanca Ford MCHC (RBC) [Mass/Vol] 33.3 g/dL Normal 29.9-35.2 [facility] Comment on above: Performed By: #### C BC ####[facility] [address] [address]Dr. Blanca Ford MCV (RBC) [Entitic vol] 84.3 fL Normal 81.0-99.0 [facility] Comment on above: Performed By: #### C BC ####[facility] [address] [phone]. Blanca Ford MONO # 0.3 103/ul Normal 0.3-0.8 [facility] Comment on above: Performed By: #### C BC ####[facility] [address] [address]Dr. Blanca Ford Monocytes/100 WBC (Bld) 5.9 % Normal 1.7-12.0 [facility] Comment on above: Performed By: #### C BC ####[facility] [address] [phone]. Blanca Ford NEUT # 3.4 103/ul Normal 1.4-6.5 [facility] Comment on above: Performed By: #### C BC ####[facility] [address] [address]Dr. Blanca Ford Neutrophils/100 WBC (Bld) 67.6 % Normal 43.0-75.0 [facility] Comment on above: Performed By: #### C BC ####[facility] [address] [phone]. Blanca Ford Platelet mean volume (Bld) [Entitic vol] 8.7 fL Critically low 9.5-13.5 [facility] Comment on above: Performed By: #### C BC ####[facility] [address] [id number]. Blanca Ford PLT 236 103/ul Normal 150-450 [facility] Comment on above: Performed By: #### C BC ####[facility] [address] [phone]. Blanca Ford RBC 5.21 106/ul Normal 4.20-5.40 [facility] Comment on above: Performed By: #### C BC ####[facility] [address] [phone]. Blanca Ford WBC 5.1 103/ul Normal 4.0-11.0 [facility] Comment on above: Performed By: #### C BC ####[facility] [address] [address]Dr. Blanca Ford FREE T4on 03-03-2022 Free T4 [Mass/Vol] 1.04 ng/dL Normal 0.76-1.46 [facility] Comment on above: Performed By: #### F T4 ####[facility] [address] [place], [place] [address]ZdDr. Blanca Ford GLYCOHEMOGLOBIN A1Con 2021 ADA RECOMMENDATION SEE BELOW Normal [facility] Comment on above: Result Comment: ADA RECOMMENDED LIMIT 4.0 - 6.0 ADA THERAPEUTIC TARGET < 7.0 ACTION SUGGESTED > 7.0 Performed By: #### A 1C #### [facility] [address] [address] [address] Blanca Ford Glucose [Mass/Vol] 128 mg/dL Normal [facility] Comment on above: Performed By: #### A 1C #### [facility] [facility] [address] [address] [address] Blanca Ford HbA1c (Bld) [Mass fraction] 6.1 % Normal 4.5-6.2 [facility] Comment on above: Performed By: #### A 1C #### [facility] [address] [address] [address] Blanca Ford LIPID PROFILEon 03-03-2022 CHOL-HDL RATIO NORM SEE BELOW Normal [facility] Comment on above: Result Comment: 3.3 - 4.4 LOW RISK 4.4 - 7.1 AVERAGE RISK 7.1 - 11.0 MODERATE RISK >11.0 HIGH RISK Performed By: #### L ACT #### [facility] [address] [address] [address] Blanca Ford Cholesterol [Mass/Vol] 214 mg/dL Critically high <=200 [facility] Comment on above: Performed By: #### L ACT #### [facility] [address] [address] [address] Blanca Ford Cholesterol in HDL [Mass/Vol] 45 mg/dL Normal 40-60 [facility] Comment on above: Performed By: #### L ACT #### [facility] [address] [address] [address] Blanca Ford Cholesterol in LDL [Mass/Vol] 134.2 mg/dL Normal [facility] Comment on above: Performed By: #### L ACT #### [facility] [address] [address] [address] Blanca Ford Cholesterol.total/Cho lesterol in HDL [Mass ratio] 4.8 {ratio} Normal [facility] Comment on above: Performed By: #### L ACT #### [facility] [address] [address] [address] Blanca Ford HDL NORMAL > or = 60 mg/dl - LO W CARDIOVASCULAR RISK <40 mg/dl - HIGH CARDIOVASCULAR RISK Normal [facility] Comment on above: Performed By: #### L ACT #### [facility] [address] [address] [address] Blanca Ford LDL CALC NORMAL SEE BELOW Normal [facility] Comment on above: Result Comment: <100 mg/dl OPTIMAL 100 - 129 mg/dl NEAR OR ABOVE OPTIMAL 130 - 159 mg/dl BORDERLINE HIGH 160 - 189 mg/dl HIGH >190 mg/dl VERY HIGH Performed By: #### L ACT #### [facility] [address] [address] [address] Blanca Ford Triglyceride [Mass/Vol] 174 mg/dL Critically high <=150 [facility] Comment on above: Performed By: #### L ACT #### [facility] [address] [address] [address] Blanca Ford VLDL CALC 34.8 mg/dL Normal [facility] Comment on above: Performed By: #### L ACT #### [facility] [address] [address] [address] Blanca Ford PROF 14(COMP METB)on 022 Albumin [Mass/Vol] 4.1 g/dL Normal 3.4-5.0 [facility] Comment on above: Performed By: #### L ACT #### [facility] [address] [address] [address] Blanca Ford Albumin/Globulin [Mass ratio] 1.1 {ratio} Normal [facility] Comment on above: Performed By: #### L ACT #### [facility] [address] [address] [address] Blanca Ford ALP [Catalytic activity/Vol] 78 U/L Normal 46-116 [facility] Comment on above: Performed By: #### L ACT #### [facility] [address] [address] [address] Blanca Ford ALT [Catalytic activity/Vol] 54 U/L Normal 14-59 [facility] Comment on above: Performed By: #### L ACT #### [facility] [address] [address] [address] Blanca Ford Anion gap [Moles/Vol] 12.1 mmol/L Normal [facility] Comment on above: Performed By: #### L ACT #### [facility] [address] [place] [address] Dr. Blanca Ford AST [Catalytic activity/Vol] 35 U/L Normal 15-37 [facility] Comment on above: Performed By: #### L ACT #### [facility] [address] [place] [address] Dr. Blanca Ford Bilirubin [Mass/Vol] 0.7 mg/dL Normal 0.2-1.0 [facility] Comment on above: Performed By: #### L ACT #### [facility] [address] [place] [address] Dr. Blanca Ford Calcium [Mass/Vol] 9.6 mg/dL Normal 8.5-10.1 [facility] Comment on above: Performed By: #### L ACT #### [facility] [address] [place] [address] Dr. Blanca Ford Chloride [Moles/Vol] 102 mmol/L Normal 98-107 [facility] Comment on above: Performed By: #### L ACT #### [facility] [address] [address] [address] Blanca Ford CO2 [Moles/Vol] 30.5 mmol/L Normal 21.0-32.0 [facility] Comment on above: Performed By: #### L ACT #### [facility] [address] [address] [address] Blanca Ford Creatinine [Mass/Vol] 0.72 mg/dL Normal 0.55-1.02 [facility] Comment on above: Performed By: #### L ACT #### [facility] [address] [place] [address] Dr. Blanca Ford EGFR-AF PORTUGUESE >60 Normal >=60 [facility] Comment on above: Performed By: #### L ACT #### [facility] [address] [address] [address] Blanca Ford EGFR-NON AF PORTUGUESE >60 Normal >=60 [facility] Comment on above: Performed By: #### L ACT #### [facility] [address] [place] [address] Dr. Blanca Ford Globulin (S) [Mass/Vol] 3.6 g/dL Normal [facility] Comment on above: Performed By: #### L ACT #### [facility] [address] [place] [address] Dr. Blanca Ford Glucose [Mass/Vol] 129 mg/dL Critically high 74-106 [facility] Comment on above: Performed By: #### L ACT #### [facility] [address] [place] [address] Dr. Blanca Ford Potassium [Moles/Vol] 3.6 mmol/L Normal 3.5-5.1 [facility] Comment on above: Performed By: #### L ACT #### [facility] [address] [place] [address] Dr. Blanca Ford Protein [Mass/Vol] 7.7 g/dL Normal 6.4-8.2 [facility] Comment on above: Performed By: #### L ACT #### [facility] [address] [place] [address] Dr. Blanca Ford Sodium [Moles/Vol] 141 mmol/L Normal 136-145 [facility] Comment on above: Performed By: #### L ACT #### [facility] [address] [place] [address] Dr. Blanca Ford Urea nitrogen [Mass/Vol] 16.0 mg/dL Normal 7.0-18.0 [facility] Comment on above: Performed By: #### L ACT #### [facility] [address] [place] [address] Dr. Blanca Ford Urea nitrogen/Creatinine [Mass ratio] 22.2 mg/mg Normal [facility] Comment on above: Performed By: #### L ACT #### [facility] [address] [place] [address] Dr. Blanca Ford TSHon 03-03-2022 TSH 2.932 uIU/mL Normal 0.358-3.740 [facility] Comment on above: Performed By: #### L ACT #### [facility] [address] [place] [address] Dr. Blanca Ford UA RANDOM W/MICROSCOPICon BACTERIA TRACE Abnormal NONE SEEN [facility] Comment on above: Performed By: #### U AMIC #### [facility] [address] [place] [address] Dr. Blanca Ford Bilirubin Ql (U) Negative Normal NEGATIVE [facility] Comment on above: Performed By: #### U AMIC #### [facility] [address] [place] [address] Dr. Blanca Ford CAST NONE SEEN Normal NONE SEEN [facility] Comment on above: Performed By: #### U AMIC #### [facility] [address] [place] [address] Dr. Blanca Ford Clarity (U) CLEAR Normal CLEAR [facility] Comment on above: Performed By: #### U AMIC #### [facility] [address] [place] [address] Dr. Blanca Ford Color (U) YELLOW Normal YELLOW [facility] Comment on above: Performed By: #### U AMIC #### [facility] [address] [place] [address] Dr. Blanca Ford Crystals LM Nom (Urine sed) NONE SEEN Normal NONE SEEN [facility] Comment on above: Performed By: #### U AMIC #### [facility] [address] [place] [address] Dr. Blanca Ford Epithelial cells LM Ql (Urine sed) FEW Abnormal NONE SEEN /RARE [facility] Comment on above: Performed By: #### U AMIC #### [facility] [address] [place] [address] Dr. Blanca Ford Glucose Ql (U) Negative Normal NEGATIVE [facility] Comment on above: Performed By: #### U AMIC #### [facility] [address] [address] [address] Blanca Ford Hemoglobin Ql (U) Negative Normal NEGATIVE [facility] Comment on above: Performed By: #### U AMIC #### [facility] [address] [address] [address] Blanca Ford Ketones Ql (U) Negative Normal NEGATIVE [facility] Comment on above: Performed By: #### U AMIC #### [facility] [address] [place] [address] Dr. Blanca Ford LEUKOCYTES SMALL Abnormal NEGATIVE [facility] Comment on above: Performed By: #### U AMIC #### [facility] [address] [place] [address] Dr. Blanca Ford MUCOUS SMALL Abnormal NONE SEEN [facility] Comment on above: Performed By: #### U AMIC #### [facility] [address] [address] [address] Blanca Ford Nitrite Ql (U) Negative Normal NEGATIVE [facility] Comment on above: Performed By: #### U AMIC #### [facility] [address] [place] [address] Dr. Blanca Ford pH (U) 6.0 [pH] Normal 5-9 [facility] Comment on above: Performed By: #### U AMIC #### [facility] [address] [address] [address] Blanca Ford RBC NONE SEEN Abnormal 0-2 [facility] Comment on above: Performed By: #### U AMIC #### [facility] [address] [place] [address] Dr. Blanca Ford SPEC GRAVITY >=1.030 Abnormal 1.005-<=1.02 5 [facility] Comment on above: Performed By: #### U AMIC #### [facility] [address] [place] [address] Dr. Blanca Ford UA PROTEIN Negative Normal NEGATIVE/ TRACE [facility] Comment on above: Performed By: #### U AMIC #### [facility] [address] [place] [address] Dr. Blanca Ford Urobilinogen Qn (U) 1.0 {Erwin'U}/dL Normal 0.2 - 1. 0 [facility] Comment on above: Performed By: #### U AMIC #### [facility] [address] [place] [address] Dr. Blanca Ford WBC 5-10 Abnormal NONE SEEN [facility] Comment on above: Performed By: #### U AMIC #### [facility] [address] [place] [address] Dr. Blanca Ford CBC AUTO DIFFon 12-19-2021 BASO # 0.0 103/ul Normal 0.0-0.1 [facility] Comment on above: Performed By: #### C MP #### [facility] [address] [place] [address] Dr. Blanca Ford Basophils/100 WBC (Bld) 0.2 % Normal 0.2-2.0 [facility] Comment on above: Performed By: #### C MP #### [facility] [address] [place] [address] Dr. Blanca Ford EO # 0.1 103/ul Normal 0.0-0.7 [facility] Comment on above: Performed By: #### C MP #### [facility] [address] [place] [address] Dr. Blanca Ford Eosinophils/100 WBC (Bld) 1.0 % Normal 0.9-7.0 [facility] Comment on above: Performed By: #### C MP #### [facility] [address] [place] [address] Dr. Blanca Ford Erythrocyte distribution width (RBC) [Ratio] 12.6 % Normal 11.0-15.0 [facility] Comment on above: Performed By: #### C MP #### [facility] [address] [place] [address] Dr. Blanca Ford Hematocrit (Bld) [Volume fraction] 36.1 % Normal 36.0-48.0 [facility] Comment on above: Performed By: #### C MP #### [facility] [address] [place] [address] Dr. Blanca Ford Hemoglobin (Bld) [Mass/Vol] 12.0 g/dL Normal 12.0-16.0 [facility] Comment on above: Performed By: #### C MP #### [facility] [address] [place] [address] Dr. Blanca Ford IG # 0.02 10e3/ul Normal 0.00-0.03 [facility] Comment on above: Performed By: #### C MP #### [facility] [address] [place] [address] Dr. Blanca Ford IG % 0.2 % Normal 0.0-0.5 [facility] Comment on above: Performed By: #### C MP #### [facility] [address] [place] [address] Dr. Blanca Ford LYMPH # 1.7 103/ul Normal 1.2-3.8 [facility] Comment on above: Performed By: #### C MP #### [facility] [address] [place] [address] Dr. Blanca Ford Lymphocytes/100 WBC (Bld) 20.9 % Normal 20.5-60.0 [facility] Comment on above: Performed By: #### C MP #### [facility] [address] [place] [address] Dr. Blanca Ford MANUAL DIFF REQ NO Normal [facility] Comment on above: Performed By: #### C MP #### [facility] [address] [place] [address] Dr. Blanca Ford MCH (RBC) [Entitic mass] 28.2 pg Normal 26.7-34.0 [facility] Comment on above: Performed By: #### C MP #### [facility] [address] [address] [address] Blanca Ford MCHC (RBC) [Mass/Vol] 33.2 g/dL Normal 29.9-35.2 [facility] Comment on above: Performed By: #### C MP #### [facility] [address] [address] [address] Blanca Ford MCV (RBC) [Entitic vol] 84.7 fL Normal 81.0-99.0 [facility] Comment on above: Performed By: #### C MP #### [facility] [address] [place] [address] Dr. Blanca Ford MONO # 0.4 103/ul Normal 0.3-0.8 [facility] Comment on above: Performed By: #### C MP #### [facility] [address] [place] [address] Dr. Blanca Ford Monocytes/100 WBC (Bld) 5.4 % Normal 1.7-12.0 [facility] Comment on above: Performed By: #### C MP #### [facility] [address] [place] [address] Dr. Blanca Ford NEUT # 5.9 103/ul Normal 1.4-6.5 [facility] Comment on above: Performed By: #### C MP #### [facility] [address] [place] [address] Dr. Blanca Ford Neutrophils/100 WBC (Bld) 72.3 % Normal 43.0-75.0 [facility] Comment on above: Performed By: #### C MP #### [facility] [address] [place] [address] Dr. Blanca Ford Platelet mean volume (Bld) [Entitic vol] 9.1 fL Critically low 9.5-13.5 [facility] Comment on above: Performed By: #### C MP #### [facility] [address] [place] [address] Dr. Blanca Ford PLT 216 103/ul Normal 150-450 [facility] Comment on above: Performed By: #### C MP #### [facility] [address] [place] [address] Dr. Blanca Ford RBC 4.26 106/ul Normal 4.20-5.40 [facility] Comment on above: Performed By: #### C MP #### [facility] [address] [address] [address] Blanca oFrd WBC 8.1 103/ul Normal 4.0-11.0 [facility] Comment on above: Performed By: #### C MP #### [facility] [address] [address] [address] Blanca Ford POINT OF CARE GLUCOSEon 11-22 Glucose [Mass/Vol] 68 mg/dL Critically low 74-106 [facility] Comment on above: Performed By: #### P OCGLUC ####[facility] [id number] [address] Blanca Ford Glucose [Mass/Vol] 109 mg/dL Critically high 74-106 [facility] Comment on above: Performed By: #### L ACT #### [facility] [address] [place] [address] Dr. Blanca Ford Glucose [Mass/Vol] 127 mg/dL Critically high 74-106 [facility] Comment on above: Performed By: #### P OCGLUC #### [facility] [address] [place] [address] Dr. Blanca Ford PROF 14(COMP METB)on 022 Albumin [Mass/Vol] 3.1 g/dL Critically low 3.4-5.0 [facility] Comment on above: Performed By: #### C MP #### [facility] [address] [address] [address] Blanca Ford Albumin/Globulin [Mass ratio] 1.0 {ratio} Normal [facility] Comment on above: Performed By: #### C MP #### [facility] [address] [place] [address] Dr. Blanca Ford ALP [Catalytic activity/Vol] 50 U/L Normal 46-116 [facility] Comment on above: Performed By: #### C MP #### [facility] [address] [place], [place] [id number] Dr. Blanca Ford ALT [Catalytic activity/Vol] 10 U/L Critically low 14-59 [facility] Comment on above: Performed By: #### C MP #### [facility] [address] [place] [address] Dr. Blanca Ford Anion gap [Moles/Vol] 14.0 mmol/L Normal Th [facility] Comment on above: Performed By: #### C MP #### [facility] [address] [address] [address] Blanca Ford AST [Catalytic activity/Vol] 15 U/L Normal 15-37 [facility] Comment on above: Performed By: #### C MP #### [facility] [address] [place] [address] Dr. Blanca Ford Bilirubin [Mass/Vol] 0.2 mg/dL Normal 0.2-1.0 [facility] Comment on above: Performed By: #### C MP #### [facility] [address] [place] [address] Dr. Blanca Ford Calcium [Mass/Vol] 8.2 mg/dL Critically low 8.5-10.1 [facility] Comment on above: Performed By: #### C MP #### [facility] [address] [place] [address] Dr. Blanca Ford Chloride [Moles/Vol] 104 mmol/L Normal 98-107 [facility] Comment on above: Performed By: #### C MP #### [facility] [address] [place] [address] Dr. Blanca Ford CO2 [Moles/Vol] 28.0 mmol/L Normal 21.0-32.0 [facility] Comment on above: Performed By: #### C MP #### [facility] [address] [place] [address] Dr. Blanca Ford Creatinine [Mass/Vol] 0.74 mg/dL Normal 0.55-1.02 [facility] Comment on above: Performed By: #### C MP #### [facility] [address] [place] [address] Dr. Blanca Ford EGFR-AF PORTUGUESE >60 Normal >=60 [facility] Comment on above: Performed By: #### C MP #### [facility] [address] [address] [address] Blanca Ford EGFR-NON AF PORTUGUESE >60 Normal >=60 [facility] Comment on above: Performed By: #### C MP #### [facility] [address] [address] [address] Blanca Ford Globulin (S) [Mass/Vol] 3.0 g/dL Normal [facility] Comment on above: Performed By: #### C MP #### [facility] [address] [address] [address] Blanca Ford Glucose [Mass/Vol] 127 mg/dL Critically high 74-106 [facility] Comment on above: Performed By: #### C MP #### [facility] [address] [address] [address] Blanca Ford Potassium [Moles/Vol] 3.0 mmol/L Critically low 3.5-5.1 [facility] Comment on above: Performed By: #### C MP #### [facility] [address] [address] [address] Blanca Ford Protein [Mass/Vol] 6.1 g/dL Critically low 6.4-8.2 [facility] Comment on above: Performed By: #### C MP #### [facility] [address] [address] [address] Blanca Ford Sodium [Moles/Vol] 143 mmol/L Normal 136-145 [facility] Comment on above: Performed By: #### C MP #### [facility] [address] [address] [address] Blanca Ford Urea nitrogen [Mass/Vol] 16.0 mg/dL Normal 7.0-18.0 [facility] Comment on above: Performed By: #### C MP #### [facility] [address] [address] [address] Blanca Ford Urea nitrogen/Creatinine [Mass ratio] 21.6 mg/mg Normal [facility] Comment on above: Performed By: #### C MP #### [facility] [address] [address] [address] Blanca Ford CBC AUTO DIFFon 12-18-2021 BASO # 0.0 103/ul Normal 0.0-0.1 [facility] Comment on above: Performed By: #### C MP #### [facility] [address] [address] [address] Blanca Ford Basophils/100 WBC (Bld) 0.4 % Normal 0.2-2.0 [facility] Comment on above: Performed By: #### C MP #### [facility] [address] [address] [address] Blanca Ford EO # 0.0 103/ul Normal 0.0-0.7 [facility] Comment on above: Performed By: #### C MP #### [facility] [address] [place] [address] Dr. Blanca Ford Eosinophils/100 WBC (Bld) 0.2 % Critically low 0.9-7.0 [facility] Comment on above: Performed By: #### C MP #### [facility] [address] [place] [address] Dr. Blanca Ford Erythrocyte distribution width (RBC) [Ratio] 12.2 % Normal 11.0-15.0 [facility] Comment on above: Performed By: #### C MP #### [facility] [address] [place] [address] Dr. Blanca Ford Hematocrit (Bld) [Volume fraction] 40.4 % Normal 36.0-48.0 [facility] Comment on above: Performed By: #### C MP #### [facility] [address] [address] [address] Blanca Ford Hemoglobin (Bld) [Mass/Vol] 13.1 g/dL Normal 12.0-16.0 [facility] Comment on above: Performed By: #### C MP #### [facility] [address] [address] [address] Blanca Ford IG # 0.02 10e3/ul Normal 0.00-0.03 [facility] Comment on above: Performed By: #### C MP #### [facility] [address] [address] [address] Blanca Ford IG % 0.4 % Normal 0.0-0.5 [facility] Comment on above: Performed By: #### C MP #### [facility] [address] [address] [address] Blanca Ford LYMPH # 1.0 103/ul Critically low 1.2-3.8 [facility] Comment on above: Performed By: #### C MP #### [facility] [address] [place] [address] Dr. Blanca Ford Lymphocytes/100 WBC (Bld) 17.3 % Critically low 20.5-60.0 [facility] Comment on above: Performed By: #### C MP #### [facility] [address] [place] [address] Dr. Blanca Ford MANUAL DIFF REQ NO Normal [facility] Comment on above: Performed By: #### C MP #### [facility] [address] [place] [address] Dr. Blanca Ford MCH (RBC) [Entitic mass] 27.8 pg Normal 26.7-34.0 [facility] Comment on above: Performed By: #### C MP #### [facility] [address] [place] [address] Dr. Blanca Ford MCHC (RBC) [Mass/Vol] 32.4 g/dL Normal 29.9-35.2 [facility] Comment on above: Performed By: #### C MP #### [facility] [address] [place] [address] Dr. Blanca Ford MCV (RBC) [Entitic vol] 85.6 fL Normal 81.0-99.0 [facility] Comment on above: Performed By: #### C MP #### [facility] [address] [place] [address] Dr. Blanca Ford MONO # 0.1 103/ul Critically low 0.3-0.8 [facility] Comment on above: Performed By: #### C MP #### [facility] [address] [address] [address] Blanca Ford Monocytes/100 WBC (Bld) 1.4 % Critically low 1.7-12.0 [facility] Comment on above: Performed By: #### C MP #### [facility] [address] [address] [address] Blanca Ford NEUT # 4.6 103/ul Normal 1.4-6.5 [facility] Comment on above: Performed By: #### C MP #### [facility] [address] [address] [address] Blanca Ford Neutrophils/100 WBC (Bld) 80.3 % Critically high 43.0-75.0 [facility] Comment on above: Performed By: #### C MP #### [facility] [address] [place] [address] Dr. Blanca Ford Platelet mean volume (Bld) [Entitic vol] 9.1 fL Critically low 9.5-13.5 [facility] Comment on above: Performed By: #### C MP #### [facility] [address] [place] [address] Dr. Blanca Ford PLT 214 103/ul Normal 150-450 [facility] Comment on above: Performed By: #### C MP #### [facility] [address] [place] [address] Dr. Blanca Ford RBC 4.72 106/ul Normal 4.20-5.40 [facility] Comment on above: Performed By: #### C MP #### [facility] [address] [place] [address] Dr. Blanca Ford WBC 5.7 103/ul Normal 4.0-11.0 [facility] Comment on above: Performed By: #### C MP #### [facility] [address] [place] [address] Dr. Blanca Ford POINT OF CARE GLUCOSEon 05-2 Glucose [Mass/Vol] 159 mg/dL Critically high 74-106 [facility] Comment on above: Performed By: #### L ACT #### [facility] [address] [address] [address] Blanca Ford Glucose [Mass/Vol] 142 mg/dL Critically high -106 [facility] Comment on above: Performed By: #### P OCGLUC #### [facility] [address] [address] [address] Blanca Ford Glucose [Mass/Vol] 224 mg/dL Critically high -106 [facility] Comment on above: Performed By: #### L ACT #### [facility] [address] [address] [address] Blanca Ford Glucose [Mass/Vol] 177 mg/dL Critically high -106 [facility] Comment on above: Performed By: #### L ACT #### [facility] [address] [place] [address] Dr. Blanca Ford PROF 14(COMP METB)on 022 Albumin [Mass/Vol] 3.5 g/dL Normal 3.4-5.0 [facility] Comment on above: Performed By: #### C MP #### [facility] [address] [place] [address] Dr. Blanca Ford Albumin/Globulin [Mass ratio] 1.0 {ratio} Normal [facility] Comment on above: Performed By: #### C MP #### [facility] [address] [place] [address] Dr. Blanca Ford ALP [Catalytic activity/Vol] 61 U/L Normal 46-116 [facility] Comment on above: Performed By: #### C MP #### [facility] [address] [address] [address] Blanca Ford ALT [Catalytic activity/Vol] 40 U/L Normal 14-59 [facility] Comment on above: Performed By: #### C MP #### [facility] [address] [place] [address] Dr. Blanca Ford Anion gap [Moles/Vol] 12.8 mmol/L Normal [facility] Comment on above: Performed By: #### C MP #### [facility] [address] [address] [address] Blanca Ford AST [Catalytic activity/Vol] 20 U/L Normal 15-37 [facility] Comment on above: Performed By: #### C MP #### [facility] [address] [place] [address] Dr. Blanca Ford Bilirubin [Mass/Vol] 0.3 mg/dL Normal 0.2-1.0 [facility] Comment on above: Performed By: #### C MP #### [facility] [address] [place] [address] Dr. Blanca Ford Calcium [Mass/Vol] 8.7 mg/dL Normal 8.5-10.1 [facility] Comment on above: Performed By: #### C MP #### [facility] [address] [place] [address] Dr. Blanca Ford Chloride [Moles/Vol] 101 mmol/L Normal 98-107 [facility] Comment on above: Performed By: #### C MP #### [facility] [address] [place] [address] Dr. Blanca Ford CO2 [Moles/Vol] 28.5 mmol/L Normal 21.0-32.0 [facility] Comment on above: Performed By: #### C MP #### [facility] [address] [place] [address] Dr. Blanca Ford Creatinine [Mass/Vol] 0.91 mg/dL Normal 0.55-1.02 [facility] Comment on above: Performed By: #### C MP #### [facility] [address] [place] [address] Dr. Blanca Ford EGFR-AF PORTUGUESE >60 Normal >=60 [facility] Comment on above: Performed By: #### C MP #### [facility] [address] [place] [address] Dr. Blanac Ford EGFR-NON AF PORTUGUESE >60 Normal >=60 [facility] Comment on above: Performed By: #### C MP #### [facility] [address] [place] [address] Dr. Blanca Ford Globulin (S) [Mass/Vol] 3.6 g/dL Normal [facility] Comment on above: Performed By: #### C MP #### [facility] [address] [place] [address] Dr. Blanca Ford Glucose [Mass/Vol] 191 mg/dL Critically high 74-106 [facility] Comment on above: Performed By: #### C MP #### [facility] [address] [place] [address] Dr. Blanca Ford Potassium [Moles/Vol] 3.3 mmol/L Critically low 3.5-5.1 [facility] Comment on above: Performed By: #### C MP #### [facility] [address] [place] [address] Dr. Blanca Ford Protein [Mass/Vol] 7.1 g/dL Normal 6.4-8.2 [facility] Comment on above: Performed By: #### C MP #### [facility] [address] [place] [address] Dr. Blanca Ford Sodium [Moles/Vol] 139 mmol/L Normal 136-145 [facility] Comment on above: Performed By: #### C MP #### [facility] [address] [place] [address] Dr. Blanca Ford Urea nitrogen [Mass/Vol] 18.0 mg/dL Normal 7.0-18.0 [facility] Comment on above: Performed By: #### C MP #### [facility] [address] [place] [address] Dr. Blanca Ford Urea nitrogen/Creatinine [Mass ratio] 19.8 mg/mg Normal [facility] Comment on above: Performed By: #### C MP #### [facility] [address] [place] [address] Dr. Blanca Ford ACETONE SERUMon 12-17-2021 ACETONE Negative Normal NEGATIVE [facility] Comment on above: Performed By: #### L ACT #### [facility] [address] [place] [address] Dr. Blanca Ford CBC AUTO DIFFon 12-17-2021 BASO # 0.0 103/ul Normal 0.0-0.1 [facility] Comment on above: Performed By: #### C BC #### [facility] [address] [address] [address] Blanca Ford Basophils/100 WBC (Bld) 0.5 % Normal 0.2-2.0 [facility] Comment on above: Performed By: #### C BC #### [facility] [address] [place] [address] Dr. Blanca Ford EO # 0.1 103/ul Normal 0.0-0.7 [facility] Comment on above: Performed By: #### C BC #### [facility] [address] [place] [address] Dr. Blanca Ford Eosinophils/100 WBC (Bld) 1.2 % Normal 0.9-7.0 [facility] Comment on above: Performed By: #### C BC #### [facility] [address] [place] [address] Dr. Blanca Ford Erythrocyte distribution width (RBC) [Ratio] 12.3 % Normal 11.0-15.0 [facility] Comment on above: Performed By: #### C BC #### [facility] [address] [place] [address] Dr. Blanca Ford Hematocrit (Bld) [Volume fraction] 41.2 % Normal 36.0-48.0 [facility] Comment on above: Performed By: #### C BC #### [facility] [address] [place] [address] Dr. Blanca Ford Hemoglobin (Bld) [Mass/Vol] 13.8 g/dL Normal 12.0-16.0 [facility] Comment on above: Performed By: #### C BC #### [facility] [address] [place] [address] Dr. Blanca Ford IG # 0.02 10e3/ul Normal 0.00-0.03 [facility] Comment on above: Performed By: #### C BC #### [facility] [address] [place] [address] Dr. Blanca Ford IG % 0.3 % Normal 0.0-0.5 [facility] Comment on above: Performed By: #### C BC #### [facility] [address] [address] [address] Blanca Ford LYMPH # 1.1 103/ul Critically low 1.2-3.8 [facility] Comment on above: Performed By: #### C BC #### [facility] [address] [address] [address] Blanca Ford Lymphocytes/100 WBC (Bld) 15.0 % Critically low 20.5-60.0 [facility] Comment on above: Performed By: #### C BC #### [facility] [address] [place] [address] Dr. Blanca Ford MANUAL DIFF REQ NO Normal [facility] Comment on above: Performed By: #### C BC #### [facility] [address] [place] [address] Dr. Blanca Ford MCH (RBC) [Entitic mass] 28.1 pg Normal 26.7-34.0 [facility] Comment on above: Performed By: #### C BC #### [facility] [address] [place] [address] Dr. Blanca Ford MCHC (RBC) [Mass/Vol] 33.5 g/dL Normal 29.9-35.2 [facility] Comment on above: Performed By: #### C BC #### [facility] [address] [place] [address] Dr. Blanca Ford MCV (RBC) [Entitic vol] 83.9 fL Normal 81.0-99.0 [facility] Comment on above: Performed By: #### C BC #### [facility] [address] [place] [address] Dr. Blanca Ford MONO # 0.3 103/ul Normal 0.3-0.8 [facility] Comment on above: Performed By: #### C BC #### [facility] [address] [place] [address] Dr. Blanca Ford Monocytes/100 WBC (Bld) 4.3 % Normal 1.7-12.0 [facility] Comment on above: Performed By: #### C BC #### [facility] [address] [place] [address] Dr. Blanca Ford NEUT # 5.8 103/ul Normal 1.4-6.5 [facility] Comment on above: Performed By: #### C BC #### [facility] [address] [place] [address] Dr. Blanca Ford Neutrophils/100 WBC (Bld) 78.7 % Critically high 43.0-75.0 [facility] Comment on above: Performed By: #### C BC #### [facility] [address] [place] [address] Dr. Blanca Ford Platelet mean volume (Bld) [Entitic vol] 8.8 fL Critically low 9.5-13.5 [facility] Comment on above: Performed By: #### C BC #### [facility] [address] [place] [address] Dr. Blanca Ford PLT 240 103/ul Normal 150-450 [facility] Comment on above: Performed By: #### C BC #### [facility] [address] [place] [address] Dr. Blanca Ford RBC 4.91 106/ul Normal 4.20-5.40 [facility] Comment on above: Performed By: #### C BC #### [facility] [address] [place] [address] Dr. Blanca Ford WBC 7.4 103/ul Normal 4.0-11.0 [facility] Comment on above: Performed By: #### C BC #### [facility] [address] [place] [address] CSPINE WO CONon 2 CT CSPINE WO CON EXAMINATION: CT CSPINE [...] by: BENEDICTO KARIMI Date: 2021-12-17 17:12 Normal [facility] CT HEAD WO CONon 12-17-2021 CT [...] by: BENEDICTO KARIMI Date: 2021-12-17 17:03 Normal [facility] CULTURE BLOODon 12-17-2021 Microscopic examination of blood, culture Culture Observations: NO GROWTH AT 5 DAYS. Normal [facility] Comment on above: Performed By: #### A 1C #### [facility] [address] [address] [address] Blanca Ford Microscopic examination of blood, culture Culture Observations: NO GROWTH AT 5 DAYS. Normal [facility] Comment on above: Performed By: #### A 1C #### [facility] [address] [address] [address] Blanca Ford CULTURE URINEon 12-17-2021 CULTURE URINE Culture Observations : LIGHT GROWTH OF MIXED GENITAL JULIANE. NO POTENTIAL PATHOGENS SEEN. Normal [facility] Comment on above: Performed By: #### A 1C #### [facility] [address] [place] [address] Dr. Blanca Ford Covid-19 PCR ([facility])on 11-22 SARS-CoV-2 (COVID-19) RNA MARY+probe Ql (Unsp spec) Not detected Normal NOT DETECTED [facility] Comment on above: Result Comment: When [...] for this test is supported by the [place] of [employer] and Human Service's declaration that [...] used). Performed By: #### A 1C #### [facility] [address] [place] [address] Dr. Blanca Ford ER URINE PROFILEon Bilirubin Ql (U) Negative Normal NEGATIVE [facility] Comment on above: Performed By: #### SEAN BUSCH ####[facility] [address] [address]Dr. Blanca Ford Clarity (U) CLEAR Normal CLEAR [facility] Comment on above: Performed By: #### SEAN BUSCH ####[facility] [address] [address]Dr. Blanca Ford Color (U) DK. ORANGE Abnormal YELLOW [facility] Comment on above: Performed By: #### SEAN BUSCH ####[facility] [address] [place], [place] [address]Dr. Blanca CHAVES A micrscopic examination will be performed if indicated. Normal [facility] Comment on above: Performed By: #### SEAN BUSCH ####[facility] [address] [place], [place] [address]Dr. Blanca Ford Glucose Ql (U) Negative Normal NEGATIVE [facility] Comment on above: Performed By: #### SEAN BUSCH ####[facility] [address] [place], [place] [address]Dr. Blanca Ford Hemoglobin Ql (U) Negative Normal NEGATIVE [facility] Comment on above: Performed By: #### SEAN BUSCH ####[facility] [address] [place], [place] [address]Dr. Blanca Ford Ketones Ql (U) Negative Normal NEGATIVE [facility] Comment on above: Performed By: #### SEAN BUSCH ####[facility] [address] [place], [place] [address]Dr. Blanca Ford LEUKOCYTES MODERATE Abnormal NEGATIVE [facility] Comment on above: Performed By: #### SEAN BUSCH ####[facility] [address] [place], [place] [address]Dr. Blanca Ford Nitrite Ql (U) Positive Abnormal NEGATIVE [facility] Comment on above: Performed By: #### BRII BUSCHRO ####[facility] [address] [place], [place] [address]Dr. Blanca Ford pH (U) 6.5 [pH] Normal 5-9 [facility] Comment on above: Performed By: #### BRII BUSCHRO ####[facility] [address] [place], [place] [address]Dr. Blanca Ford SPEC GRAVITY 1.015 Normal 1.005-<=1.02 5 [facility] Comment on above: Performed By: #### BRII BUSCHRO ####[facility] [address] [place], [place] [address]Dr. Blanca Ford UA PROTEIN Negative Normal NEGATIVE/ TRACE [facility] Comment on above: Performed By: #### E NICHOLAS, UMICRO ####[facility] [address] [address]Dr. Blanca Ford UR MICRO IND INDICATED Normal [facility] Comment on above: Performed By: #### E NICHOLAS UMICRO ####[facility] [address] [address]Dr. Blanca Ford Urobilinogen Qn (U) 1.0 {Erwin'U}/dL Normal 0.2 - 1. 0 [facility] Comment on above: Performed By: #### TORIBIO BUSCHICRO ####[facility] [address] [address]DrElyssa Ford LACTATE/LACTIC ACIDon 2021 Lactate [Moles/Vol] 1.8 mmol/L Normal 0.4-1.9 [facility] Comment on above: Performed By: #### L ACT #### [facility] [address] [place] [address] Dr. Blanca Ford Lactate [Moles/Vol] 2.2 mmol/L Critically high 0.4-1.9 [facility] Comment on above: Performed By: #### A 1C #### [facility] [address] [place] [address] Dr. Blanca Ford LIPASEon 12-17-2021 Lipase [Catalytic activity/Vol] 49.0 U/L Critically low 73.0-393.0 [facility] Comment on above: Performed By: #### T SH, HSTROPN, CMP, LIPA ####[facility] [address] [address]DrElyssa Ford POINT OF CARE GLUCOSEon 11-22 Glucose [Mass/Vol] 133 mg/dL Critically high 74-106 [facility] Comment on above: Performed By: #### L ACT #### [facility] [address] [address] [address] Blanca Ford Glucose [Mass/Vol] 113 mg/dL Critically high 74-106 [facility] Comment on above: Performed By: #### C MP #### [facility] [address] [address] [address] Blanca Ford PROF 14(COMP METB)on 022 Albumin [Mass/Vol] 3.8 g/dL Normal 3.4-5.0 [facility] Comment on above: Performed By: #### T SH, HSTROPN, CMP, LIPA ####[facility] [address] [address]Dr. Blanca Ford Albumin/Globulin [Mass ratio] 1.1 {ratio} Normal [facility] Comment on above: Performed By: #### T SH, HSTROPN, CMP, LIPA ####[facility] [address] [address]Dr. Blanca Ford ALP [Catalytic activity/Vol] 72 U/L Normal 46-116 [facility] Comment on above: Performed By: #### T SH, HSTROPN, CMP, LIPA ####[facility] [address] [address]Dr. Blanca Ford ALT [Catalytic activity/Vol] 46 U/L Normal 14-59 [facility] Comment on above: Performed By: #### T SH, HSTROPN, CMP, LIPA ####[facility] [address] [address]Dr. Blanca Ford Anion gap [Moles/Vol] 10.8 mmol/L Normal [facility] Comment on above: Performed By: #### T SH, HSTROPN, CMP, LIPA ####[facility] [address] [address]Dr. Blanca Ford AST [Catalytic activity/Vol] 25 U/L Normal 15-37 [facility] Comment on above: Performed By: #### T SH, HSTROPN, CMP, LIPA ####[facility] [address] [address]Dr. Blanca Ford Bilirubin [Mass/Vol] 0.5 mg/dL Normal 0.2-1.0 [facility] Comment on above: Performed By: #### T SH, HSTROPN, CMP, LIPA ####[facility] [address] [address]Dr. Blanca Ford Calcium [Mass/Vol] 9.4 mg/dL Normal 8.5-10.1 [facility] Comment on above: Performed By: #### T SH, HSTROPN, CMP, LIPA ####[facility] [address] [address]Dr. Blanca Ford Chloride [Moles/Vol] 99 mmol/L Normal 98-107 [facility] Comment on above: Performed By: #### T SH, HSTROPN, CMP, LIPA ####[facility] [address] [address]Dr. Blanca Ford CO2 [Moles/Vol] 31.2 mmol/L Normal 21.0-32.0 [facility] Comment on above: Performed By: #### T SH, HSTROPN, CMP, LIPA ####[facility] [address] [address]Dr. Blanca Ford Creatinine [Mass/Vol] 0.86 mg/dL Normal 0.55-1.02 [facility] Comment on above: Performed By: #### T SH, HSTROPN, CMP, LIPA ####[facility] [address] [address]Dr. Blanca Ford EGFR-AF PORTUGUESE >60 Normal >=60 [facility] Comment on above: Performed By: #### T SH, HSTROPN, CMP, LIPA ####[facility] [address] [address]Dr. Yidebra Ford EGFR-NON AF PORTUGUESE >60 Normal >=60 [facility] Comment on above: Performed By: #### T SH, HSTROPN, CMP, LIPA ####[facility] [address] [address]Dr. Blanca Ford Globulin (S) [Mass/Vol] 3.6 g/dL Normal [facility] Comment on above: Performed By: #### T SH, HSTROPN, CMP, LIPA ####[facility] [address] [address]Dr. Blanca Ford Glucose [Mass/Vol] 125 mg/dL Critically high 74-106 [facility] Comment on above: Performed By: #### T SH, HSTROPN, CMP, LIPA ####[facility] [address] [address]Dr. Blanca Ford Potassium [Moles/Vol] 3.0 mmol/L Critically low 3.5-5.1 [facility] Comment on above: Performed By: #### T SH, HSTROPN, CMP, LIPA ####[facility] [address] [address]Dr. Blanca Ford Protein [Mass/Vol] 7.4 g/dL Normal 6.4-8.2 [facility] Comment on above: Performed By: #### T SH, HSTROPN, CMP, LIPA ####[facility] [address] [address]Dr. Blanca Ford Sodium [Moles/Vol] 139 mmol/L Normal 136-145 [facility] Comment on above: Performed By: #### T SH, HSTROPN, CMP, LIPA ####[facility] [address] [address]Dr. Blanca Ford Urea nitrogen [Mass/Vol] 16.0 mg/dL Normal 7.0-18.0 [facility] Comment on above: Performed By: #### T SH, HSTROPN, CMP, LIPA ####[facility] [address] [address]Dr. Blanca Ford Urea nitrogen/Creatinine [Mass ratio] 18.6 mg/mg Normal [facility] Comment on above: Performed By: #### T SH, HSTROPN, CMP, LIPA ####[facility] [address] [address]Dr. Blanca Ford PROTIMEon 12-17-2021 INR Coag (PPP) [Relative time] 1.09 {INR} Normal [facility] Comment on above: Performed By: #### P TT, PT #### [facility] [address] [address] [address] Blanca Ford INR GUIDELINES SEE BELOW Normal [facility] Comment on above: Result Comment: NICHOLAS RED INR: 2.0 - 3.0 CONDITIONS NOT LISTED BELOW 2.5 - 3.5 FOR PROSTHETIC HEART VALVE REPLACEMENT 2.5 - 3.5 RECURRENT THROMBOSIS Performed By: #### P TT, PT #### [facility] [address] [address] [address] Blanca Ford PT Coag (PPP) [Time] 11.7 s Critically high 9.0-11.6 [facility] Comment on above: Performed By: #### P TT, PT #### [facility] [address] [address] [address] Blanca Ford PTTon 12-17-2021 aPTT Coag (Bld) [Time] 26.5 s Normal 22.3-36.2 [facility] Comment on above: Performed By: #### P TT, PT #### [facility] [address] [address] [address] Blanca Ford TROPONIN, HIGH SENSITIVITYon 12-17-2021 HSTROP 6.8 pg/mL Normal 4.0-51.3 [facility] Comment on above: Result Comment: CUT- OFF POINTS HAVE BEEN ESTABLISHED BASED ON THE FOURTH UNIVERSAL DEFINITIONS OF MYOCARDIAL INFARCTION. THE UPPER REFERENCE LIMIT (URL) OF TROPONIN, DEFINED THE 99TH PERCENTILE OF cTnI DISTRIBUTION IN A REFERENCE POPULATION, HAS BEEN CONFIRMED THE DECISION THRESHOLD FOR ME DIAGNOSIS. Performed By: #### T SH, HSTROPN, CMP, LIPA ####[facility] [address] [address]Dr. Blanca Ford TSHon 12-17-2021 TSH 1.580 uIU/mL Normal 0.358-3.740 [facility] Comment on above: Performed By: #### T SH, HSTROPN, CMP, LIPA ####[facility] [address] [id number] Ford TSH RANGE SEE BELOW Normal [facility] Comment on above: Result Comment: <0.3 4 UIU/ml HYPERTHYROID 0.34-5.60 UIU/ml EUTHYROID >5.60 UIU/ml HYPOTHYROID Performed By: #### T SH, HSTROPN, CMP, LIPA ####[facility] [address] [address]Dr. Blanca Ford URINE MICROSCOPIC ONLYon BACTERIA TRACE Abnormal NONE SEEN [facility] Comment on above: Performed By: #### BRII BUSCHRO ####[facility] [address] [place], [place] [address]Dr. Blanca Ford Bacteria identified Cx Nom (U) INDICATED Normal [facility] Comment on above: Performed By: #### BRII BUSCHRO ####[facility] [address] [place], [place] [address]Dr. Blanca Ford CAST SEEN Abnormal NONE SEEN [facility] Comment on above: Performed By: #### BRII BUSCHRO ####[facility] [address] [place], [place] [address]Dr. Blanca Ford Crystals LM Nom (Urine sed) NONE SEEN Normal NONE SEEN [facility] Comment on above: Performed By: #### BRII BUSCHRO ####[facility] [address] [place], [place] [address]Dr. Blanca Ford Epithelial cells LM Ql (Urine sed) RARE Normal NONE SEEN /RARE [facility] Comment on above: Performed By: #### BRII BUSCHRO ####[facility] [address] [place], [place] [address]Dr. Blanca Ford MUCOUS NONE SEEN Normal NONE SEEN [facility] Comment on above: Performed By: #### BRII BUSCHRO ####[facility] [address] [place], [place] [address]Dr. Blanca Ford RBC 0-2 Normal 0-2 [facility] Comment on above: Performed By: #### BRII BUSCHRO ####[facility] [address] [place], [place] [address]Dr. Blanca Ford WBC 10-20 Abnormal NONE SEEN [facility] Comment on above: Performed By: #### E SEAN PETERSON ####[facility] [address] [place], [place] [address]QiElyssa Ford XR CHEST 2 Von 12-17-2021 XR CHEST 2 V EXAMINATION: XR CHES T 2 V HISTORY: Dizziness COMPARISON: XR chest [...] by: BENEDICTO KARIMI Date: 2021-12-17 17:13 Normal [facility] Vital Signs Date Time Vital Sign Value Performing Clinician Facility 05-15-2024 14:19-0400 Body mass index (BMI) [Ratio] 35.9 kg/m2 Ginny SonnydelmiiDoc24 Work Phone: [facility] 05-15-2024 14:19-0400 Diastolic blood pressure 70 mm[Hg] Ginny SanchezCalixar Work Phone: [facility] 05-15-2024 14:19-0400 Systolic blood pressure 136 mm[Hg] Ginny DennisAeroDron Work Phone: [facility] 05-15-2024 14:05-0400 Heart rate 69 /min Ginny Dennisjonathan Work Phone: [facility] 05-15-2024 14:05-0400 Respiratory rate 18 /min Ginny DennisAeroDron Work Phone: [facility] 05-15-2024 14:05-0400 SaO2% (BldA) [Mass fraction] 96 % Ginny Sonnyjonathan Work Phone: [facility] 05-15-2024 13:53-0400 Body height 163.83 cm Ginny Danielhholz Work Phone: [facility] 05-15-2024 13:53-0400 Body weight 96.38 kg Ginnyeleuterio Sanchezhholz Work Phone: [facility] 04-17-2024 13:05-0400 Body height 167.6 cm Ginny Danielhholz DENTAL SECRETARY Work Phone: [facility] 04-17-2024 13:05-0400 Body mass index (BMI) [Ratio] 33.7 kg/m2 Ginny Danielhholz DENTAL SECRETARY Work Phone: [facility] 04-17-2024 13:05-0400 Body temperature 98.49 [degF] Ginny Danielhholz DENTAL SECRETARY Work Phone: [facility] 04-17-2024 13:05-0400 Body weight 94.71 kg Ginny Danielhholz DENTAL SECRETARY Work Phone: [facility] 04-17-2024 13:05-0400 Diastolic blood pressure 70 mm[Hg] Ginny Danielhholz DENTAL SECRETARY Work Phone: [facility] 04-17-2024 13:05-0400 Heart rate 71 /min Ginny Aichholz DENTAL SECRETARY Work Phone: [facility] 04-17-2024 13:05-0400 Respiratory rate 20 /min Ginny Danielhholz DENTAL SECRETARY Work Phone: [facility] 04-17-2024 13:05-0400 SaO2% (BldA) [Mass fraction] 96 % Ginny Danielhholz DENTAL SECRETARY Work Phone: [facility] 04-17-2024 13:05-0400 Systolic blood pressure 132 mm[Hg] Ginny Aichholz DENTAL SECRETARY Work Phone: [facility] 03-20-2024 14:36-0400 Body height 163.83 cm Ginny Danielhholz Work Phone: [facility] 03-20-2024 14:36-0400 Body mass index (BMI) [Ratio] 36.5 kg/m2 Ginny Aichholz Work Phone: [facility] 03-20-2024 14:36-0400 Body weight 97.97 kg Ginny Aichholz Work Phone: [facility] 03-20-2024 14:36-0400 Diastolic blood pressure 72 mm[Hg] Ginny Aichholz Work Phone: [facility] 03-20-2024 14:36-0400 Heart rate 70 /min Ginny Aichholz Work Phone: [facility] 03-20-2024 14:36-0400 Respiratory rate 18 /min Ginny Aichholz Work Phone: [facility] 03-20-2024 14:36-0400 SaO2% (BldA) [Mass fraction] 97 % Ginny Aichholz Work Phone: [facility] 03-20-2024 14:36-0400 Systolic blood pressure 132 mm[Hg] Ginny Aichholz Work Phone: [facility] 02-16-2024 12:04-0400 Body height 163.83 cm Ginny Aichholz Work Phone: [facility] 02-16-2024 12:04-0400 Body mass index (BMI) [Ratio] 37.5 kg/m2 Ginny Aichholz Work Phone: [facility] 02-16-2024 12:04-0400 Body temperature 97.7 [degF] Ginny Aichholz Work Phone: [facility] 02-16-2024 12:04-0400 Body weight 100.92 kg Ginny Aichholz Work Phone: [facility] 02-16-2024 12:04-0400 Diastolic blood pressure 77 mm[Hg] Ginny Aichholz Work Phone: [facility] 02-16-2024 12:04-0400 Heart rate 75 /min Ginny Natarajan Work Phone: [facility] 02-16-2024 12:04-0400 Respiratory rate 18 /min Ginny Dennisholmeenakshi Work Phone: [facility] 02-16-2024 12:04-0400 SaO2% (BldA) [Mass fraction] 97 % Ginny Natarajan Work Phone: [facility] 02-16-2024 12:04-0400 Systolic blood pressure 135 mm[Hg] Ginny Dennisholmeenakshi Work Phone: [facility] 01-31-2024 14:03-0400 Body height 163.83 cm [facility] 01-31-2024 14:03-0400 Body mass index (BMI) [Ratio] 38.5 kg/m2 [facility] 01-31-2024 14:03-0400 Body weight 103.47 kg [facility] 01-31-2024 14:03-0400 Heart rate 65 /min [facility] 01-31-2024 14:03-0400 Respiratory rate 18 /min [facility] 01-31-2024 14:03-0400 SaO2% (BldA) [Mass fraction] 100 % [facility] 12-27-2023 13:05-0400 Body height 163.83 cm [facility] 12-27-2023 13:05-0400 Body mass index (BMI) [Ratio] 38.3 kg/m2 [facility] 12-27-2023 13:05-0400 Body weight 102.96 kg [facility] 12-27-2023 13:05-0400 Diastolic blood pressure 79 mm[Hg] [facility] 12-27-2023 13:05-0400 Heart rate 65 /min [facility] 12-27-2023 13:05-0400 Respiratory rate 16 /min [facility] 12-27-2023 13:05-0400 SaO2% (BldA) [Mass fraction] 96 % [facility] 12-27-2023 13:05-0400 Systolic blood pressure 146 mm[Hg] [facility] 11-10-2023 11:28-0400 Body height 163.83 cm [facility] 11-10-2023 11:28-0400 Body mass index (BMI) [Ratio] 40.8 kg/m2 [facility] 11-10-2023 11:28-0400 Body weight 109.51 kg [facility] 11-10-2023 09:50-0400 Body height 163.83 cm DO Migel Biedenbach Work Phone: [facility] 11-10-2023 09:50-0400 Body mass index (BMI) [Ratio] 36.2 kg/m2 DO Migel Biedenbach Work Phone: [facility] 11-10-2023 09:50-0400 Body weight 97.26 kg DO Migel Biedenbach Work Phone: [facility] 11-10-2023 09:50-0400 Diastolic blood pressure 76 mm[Hg] DO Migel Biedenbach Work Phone: [facility] 11-10-2023 09:50-0400 Heart rate 67 /min DO Migel Biedenbach Work Phone: [facility] 11-10-2023 09:50-0400 Respiratory rate 18 /min DO Migel Biedenbach Work Phone: [facility] 11-10-2023 09:50-0400 SaO2% (BldA) [Mass fraction] 95 % DO Migel Biedenbach Work Phone: [facility] 11-10-2023 09:50-0400 Systolic blood pressure 120 mm[Hg] DO Migel Biedenbach Work Phone: [facility] 09-07-2023 10:42-0500 Body height 167.6 cm Migel Biedenbach DO Work Phone: [facility] 09-07-2023 10:42-0500 Body mass index (BMI) [Ratio] 38.74 kg/m2 Migel Best DO Work Phone: [facility] [employer] 09-07-2023 10:42-0500 Body weight 108.86 kg Migel Best DO Work Phone: [facility] [employer] 04-04-2023 10:40-0400 Body height 167.64 cm Gina Harkins Other [email or web address] Other 04-04-2023 10:40-0400 Body mass index (BMI) [Ratio] 39.48 kg/m2 Gina Harkins Other [email or web address] Other 04-04-2023 10:40-0400 Body temperature 99.7 [degF] Gina Harkins Other [email or web address] Other 04-04-2023 10:40-0400 Body weight 110.95 kg Gina Harkins Other [email or web address] Other 04-04-2023 10:40-0400 Diastolic blood pressure 64 mm[Hg] Gina Harkins Other [email or web address] Other 04-04-2023 10:40-0400 Respiratory rate 18 /min Gina Harkins Other [email or web address] Other 04-04-2023 10:40-0400 SaO2% (BldA) [Mass fraction] 98 % Gina Harkins Other [email or web address] Other 04-04-2023 10:40-0400 Systolic blood pressure 149 mm[Hg] Gina Harkins Other [email or web address] Other Encounters Encounter Date Encounter Type Care Provider Facility Start: 06-24-2024 End: 06-24-2024 Refill Ginny Delgado DENTAL SECRETARY Work Phone: [facility] Comment on above: Type 2 diabetes bridget itus without complications ([facility]) Start: 05-27-2024 End: 05-27-2024 Office outpatient visit 15 minutes Jose Montes MD Work Phone: [facility] Comment on above: Telogen effluvium (P rimary Dx); Neoplasm of unspecified behavior of bone, soft tissue, and skin; Dermatofibroma Start: 05-27-2024 End: 05-27-2024 ambulatory JOSE MONTES Not Available Start: 05-15-2024 End: 05-15-2024 ambulatory Ginny Natarajan Work Phone: [facility] Work Phone: Start: 05-15-2024 End: 05-15-2024 Patient encounter procedure Ginny Natarajan Work Phone: [facility] Work Phone: Start: 05-08-2024 End: 05-08-2024 Refill Ginny Juanaz DENTAL SECRETARY Work Phone: [facility] Comment on above: Hypokalemia Start: 04-25-2024 End: 04-25-2024 Refill Ginny Juanaz DENTAL SECRETARY Work Phone: [facility] Comment on above: Hypomagnesemia (Prim carin Dx) Start: 04-24-2024 End: 04-24-2024 Clinisync Result Encounter Ginny Delgado DENTAL SECRETARY Work Phone: [facility] Unsolicited Start: 04-24-2024 End: 04-24-2024 Clinisync Result Encounter Ginny Juanaz DENTAL SECRETARY Work Phone: [facility] Unsolicited Start: 04-24-2024 End: 04-24-2024 Refill Ginny Sonnyholz DENTAL SECRETARY Work Phone: [facility] Comment on above: Environmental and se asonal allergies Start: 04-17-2024 End: 04-17-2024 Bamboo flowsheet Ginny Delgado DENTAL SECRETARY Work Phone: [facility] Start: 04-17-2024 End: 04-17-2024 Bamboo flowsheet Ginny Danielhillaryjonathan DENTAL SECRETARY Work Phone: [facility] Start: 04-17-2024 End: 04-17-2024 Office outpatient visit 25 minutes Ginny Natarajan DENTAL SECRETARY Work Phone: [facility] Comment on above: Type 2 diabetes bridget itus without complication, without long- term current use of insulin ([facility]) (Primary Dx); Muscle cramps; UTI (urinary tract infection), uncomplicated; COVID; Essential hypertension; Acute non-recurrent pansinusitis Start: 04-17-2024 End: 04-17-2024 ambulatory GINNY SONNYHOLZ Not Available Start: 03-20-2024 End: 03-20-2024 ambulatory Ginny Viet Natarajan Work Phone: [facility] Work Phone: Start: 03-20-2024 End: 03-20-2024 Patient encounter procedure Ginny Sonnyholz Work Phone: [facility] Work Phone: Start: 03-11-2024 End: 03-11-2024 Patient encounter procedure Ginny Sonnyholz Work Phone: [facility] Work Phone: Start: 03-11-2024 End: 03-11-2024 ambulatory Ginny J Aichholz Work Phone: [facility] Work Phone: Start: 02-16-2024 End: 02-16-2024 Patient encounter procedure Ginny Danielhholz Work Phone: [facility] Work Phone: Start: 02-14-2024 End: 02-14-2024 ambulatory [facility] Start: 01-31-2024 End: 01-31-2024 ambulatory [facility] Work Phone: Start: 01-31-2024 End: 01-31-2024 Patient encounter procedure [facility] Work Phone: Start: 01-08-2024 End: 01-08-2024 ambulatory GINNY NATARAJAN Not Available Start: 01-08-2024 Patient encounter procedure Ginny Dennisdelmimeenakshi DENTAL SECRETARY Work Phone: [facility] Start: 01-03-2024 End: 01-03-2024 ambulatory VINCENZO BURNS Not Available Start: 12-27-2023 End: 12-27-2023 ambulatory [facility] Work Phone: Start: 12-27-2023 End: 12-27-2023 Patient encounter procedure [facility] Work Phone: Start: 12-04-2023 End: 12-04-2023 ambulatory JOSE MONTES Not Available Start: 11-30-2023 End: 11-30-2023 ambulatory DANIELA SPARROWM Not Available Start: 11-28-2023 End: 11-28-2023 ambulatory [facility] Work Phone: Start: 11-28-2023 End: 11-28-2023 Patient encounter procedure [facility] Work Phone: Start: 11-10-2023 End: 11-10-2023 ambulatory NON STAFF [facility] Work Phone: Start: 11-10-2023 End: 11-10-2023 Patient encounter procedure DO Migel Best Work Phone: [facility] Work Phone: Start: 11-06-2023 End: 11-06-2023 ambulatory GRIS Llanos BOSE Not Available Start: 10-04-2023 End: 10-04-2023 ambulatory GINNY DELGADO Not Available Start: 09-25-2023 End: 09-25-2023 ambulatory GINNY AICHHOLZ Not Available Start: 09-07-2023 Bamboo flowsheet Migel Estebanankur travis DO Work Phone: [facility] [place] Start: 09-07-2023 Bamboo flowsheet Migel Ryees thaddeus DO Work Phone: [facility] [place] Start: 09-07-2023 End: 09-07-2023 Postop follow up visit related to original px Migel Best DO Work Phone: [facility] [place] Comment on above: Sialadenitis (Primar y Dx); Salivary duct stone; Neck mass Start: 09-07-2023 End: 09-07-2023 ambulatory MIGEL BEST Not Available Start: 08-29-2023 End: 08-29-2023 ambulatory Migel Best Facility:[facility] Start: 08-29-2023 End: 08-29-2023 Departed Referred DO Migel Best Work Phone: [facility] [place] Work Phone: Start: 08-28-2023 Refill Ginny Natarajan DENTAL SECRETARY Work Phone: [facility] Comment on above: Hypokalemia Start: 08-11-2023 End: 08-11-2023 ambulatory MIGEL S ESTEPHANIA Not Available Start: 07-28-2023 End: 07-28-2023 ambulatory MIGEL S BIEDENTHADDEUS Not Available Start: 07-27-2023 End: 07-27-2023 Patient encounter status Ginny Natarajan DENTAL SECRETARY Work Phone: [facility] Start: 07-26-2023 End: 07-26-2023 ambulatory GINNY DELGADO Not Available Start: 04-04-2023 End: 04-04-2023 ambulatory Gina Harkins Other [facility] [employer] Other Start: 04-04-2023 Office outpatient ne w 30 minutes Gina Harkins [facility] Start: 10-28-2022 ambulatory NEELIMA NATARAJAN Facil ity:[facility] Start: 08-03-2022 End: 08-04-2022 ambulatory NEELIMA MARRA DANIELHillaryDELMIMeenakshi Facility:[facility] Start: 03-03-2022 End: 03-04-2022 ambulatory [employer]GARDENER GINNY SONNYDELMIMeenakshi Facility:[facility] Start: 12-31-2021 End: 03-15-2022 ambulatory IN[employer] LANDSCAPER/GARDENER GINNY SONNYDELMIMeenakshi Facility:[facility] Start: 12-17-2021 End: 12-19-2021 ambulatory [employer] LANDSCAPER/GARDENER GINNY DANIELHillaryDELMIMeenakshi Facility:[facility] Start: 12-19-2017 End: 12-20-2017 Ambulatory DEFAULT PHYSICIAN Facility:[facility] Start: 12-14-2017 End: 12-15-2017 Ambulatory DEFAULT PHYSICIAN Facility:[facility] Start: 12-04-2017 End: 12-05-2017 Ambulatory DEFAULT PHYSICIAN Facility:[facility] Procedures Date Procedure Procedure Detail Performing Clinician Start: 05-27-2024 SKIN / NAIL BIOPSY Rey Montes MD Work Phone: Start: 04-24-2024 MLR HEMOGLOBIN A1C Ginny Natarajan DENTAL SECRETARY Work Phone: Start: 03-13-2024 Mammography Ginny toney DENTAL SECRETARY Work Phone: Start: 03-11-2024 Screening mammograph y of bilateral breasts Ginny Natarajan Work Phone: Start: 02-16-2024 Quick Strep (POC) Ginny Natarajan Work Phone: Start: 12-15-2022 Mammography Ginny toney DENTAL SECRETARY Work Phone: Plan of Treatment Date Care Activity Detail Author Start: 02-09-2028 Screening for malignant neoplasm of colon [facility] Start: 06-06-2025 Glaucoma screening Diabetes: Retinopathy Screening [facility] Start: 05-10-2025 Urine screening for protein Diabetes: Urine Protein Screening [facility] Start: 03-13-2025 Screening for malignant neoplasm of breast Mammogram [facility] Start: 01-07-2025 Medicare Annual Wellness (AWV) Medicare Annual Wellness (AWV) [facility] Start: 08-14-2024 Urine screening for protein Diabetes: Urine Protein Screening [facility] Start: 08-01-2024 Urine screening for protein Diabetes: Urine Protein Screening [facility] Start: 07-10-2024 End: 07-10-2024 Patient encounter procedure 07/10/2024 1:00 PM EST Office Visit [facility] [address] [place] [address] Ginny Natarajan, DENTAL SECRETARY [address] [place] [address] [facility] Start: 05-14-2024 End: 05-14-2024 Patient encounter procedure 05/14/2024 2:30 PM EDT Office Visit [facility] [address] [place] [id number] Jose Montes MD [address] [place], [place] [id number] [facility] Start: 04-17-2024 End: 04-17-2025 Basic metabolic 1998 panel - Serum or Plasma Basic metabolic panel Lab Routine Muscle cramps Expected: 04/17/2024 (Approximate), Expires: 04/17/2025 [facility] Comment on above: Expected: 04/17/2024 (Approximate), Expi res: 04/17/2025 Start: 04-17-2024 End: 04-17-2025 Hemoglobin A1c/Hemoglobin.total in Blood Hemoglobin A1c Lab Routine Type 2 diabetes mellitus without complication, without long-term current use of insulin ([facility]) Expected: 04/17/2024 (Approximate), Expires: 04/17/2025 [facility] Work Phone: Comment on above: Expected: 04/17/2024 (Approximate), Expi res: 04/17/2025 Start: 04-17-2024 End: 04-17-2025 Magnesium [Mass/volume] in Serum or Plasma Magnesium Lab Routine Muscle cramps Expected: 04/17/2024 (Approximate), Expires: 04/17/2025 [facility] Comment on above: Expected: 04/17/2024 (Approximate), Expi res: 04/17/2025 Start: 04-05-2024 Hemoglobin A1c measurement Diabetes: Hemoglobin A1C [facility] Start: 03-24-2024 Influenza vaccination Influenza Vaccine (#1) [facility] Start: 01-21-2024 Influenza vaccination Influenza Vaccine (#1) [facility] Comment on above: Postponed from 03/24/2023 (Patient Refus ed) Start: 12-16-2023 Screening for malignant neoplasm of breast Mammogram [facility] Start: 10-31-2023 Hemoglobin A1c measurement Diabetes: Hemoglobin A1C [facility] Start: 09-13-2023 End: 09-13-2023 Patient encounter procedure 09/13/2023 2:00 PM EST Office Visit [facility] [address] [place] [address] Ginny Natarajan, DENTAL SECRETARY [address] [place] [address] [facility] Start: 09-07-2023 End: 09-07-2023 Patient encounter procedure [facility] Comment on above: Arrived Start: 09-04-2023 End: 09-04-2023 Patient encounter procedure 09/04/2023 5:00 PM EST Office Visit [facility] [address] [place] [address] Ginny Natarajan, DENTAL SECRETARY [address] [place] [address] [facility] Start: 08-29-2023 End: 08-29-2023 Patient encounter procedure 08/29/2023 10:15 AM EST Procedure Visit [facility] Migel Best, DO [address] [place] [address] [facility] Start: 12-09-1971 Urine screening for protein Diabetes: Urine Protein Screening [facility] Start: 1950 Hemoglobin A1c measurement Diabetes: Hemoglobin A1C [facility] Start: 1950 Medicare Annual Wellness (AWV) Medicare Annual Wellness (AWV) [facility] Start: 1950 Screening for malignant neoplasm of colon [facility] Dermatopathology exam Dermatopat hology exam Pathology and Cytology Timed Neoplasm of unspecified behavior of bone, soft tissue, and skin Release Upon Ordering for 1 Occurrences starting 05/27/2024 [facility] Work Phone: Comment on above: Release Upon Ordering for 1 Occurrences starting 05/27/2024 Immunizations Immunization Date Immunization Notes Care Provider Fa cility 03-07-2022 pneumococcal polysaccharide vaccine, 23 valent Ginny Aichholz DENTAL SECRETARY Work Phone: [facility] 09-28-2018 pneumococcal conjuga te vaccine, 13 valent Ginny Aichholz DENTAL SECRETARY Work Phone: [facility] 04-10-2014 pneumococcal vaccine , unspecified formulation Ginny Aichholz DENTAL SECRETARY Work Phone: [facility] 09-27-2012 hepatitis A and hepa titis B vaccine Ginny Aichholz DENTAL SECRETARY Work Phone: [facility] 03-28-2012 hepatitis A and hepa titis B vaccine Ginny Aichholz DENTAL SECRETARY Work Phone: [facility] 02-24-2012 hepatitis A and hepa titis B vaccine Ginny Aichholz DENTAL SECRETARY Work Phone: [facility] 06-02-2010 influenza virus vacc ine, unspecified formulation Ginny Aichholz DENTAL SECRETARY Work Phone: [facility] Payers Date Payer Category Payer Medicaid [id number] 2023 Self-pay [id number] 2017 Medicaid [id number] 2017 Medicare [id number] 1959 Medicaid [id number] 1959 Medicare [id number] 1952 Unknown [id number] 2.16.84 0.1.354408.3.579.2.593 1952 Unknown [id number] 2.16.84 0.1.254241.3.579.2.593 1952 Unknown [id number] 2.16.84 0.1.168788.3.579.2.593 1952 Unknown [id number] 2.16.84 0.1.624178.3.579.2.593 1952 Unknown [id number] 2.16.84 0.1.774324.3.579.2.593 1952 Unknown [id number] 2.16.84 0.1.683833.3.579.2.1259 1952 Unknown [id number] 2.16.84 0.1.620992.3.579.2.1259 1952 Unknown [id number] 2.16.84 0.1.122392.3.579.2.1259 1952 Unknown [id number] 2.16.84 0.1.983028.3.579.2.1259 1952 Unknown [id number] 2.16.84 0.1.930169.3.579.2.125 1952 Unknown [id number] 2.16.84 0.1.393248.3.579.2.1259 1952 Unknown [id number] 2.16.84 0.1.674809.3.579.2.1259 1952 Unknown [id number] 2.16.84 0.1.507731.3.579.2.1259 1952 Unknown [id number] 2.16.84 0.1.744556.3.579.2.9 1952 Unknown [id number] 2.16.84 0.1.271125.3.579.2.9 1952 Unknown [id number] 2.16.84 0.1.387016.3.579.2.1258 1952 Unknown [id number] 2.16.84 0.1.952489.3.579.2.9 1952 Unknown [id number] 2.16.840 .1.373419.3.579.2.1258 1952 Unknown [id number] 2.16.840 .1.417937.3.579.2.1259 Unknown Unknown [id number] 2.16.8 40.1.990647.3.579.2.531 Unknown [id number] 2.16.8 40.1.359104.3.579.2.531 Social History Date Type Detail Facility Start: 08-11-2023 End: 01-08-2024 Sex Assigned At [facility] Start: 07-26-2023 End: 01-08-2024 Tobacco smoking status [facility] Ex-smoker [facility] End: 07-24-2011 History of tobacco use Current smoker [facility] End: 07-24-2011 History of tobacco use Cigarette Smoker [facility] Start: 07-26-2023 End: 01-08-2024 Tobacco use and exposure Smokeless tobacco non-user [facility] Start: 08-11-2023 End: 01-08-2024 Alcohol intake Lifetime non-drinker (finding) [facility] Start: 08-11-2023 End: 01-08-2024 History of Social function [facility] Start: 1950 Sex Assigned At Not on file [facility] Start: 1950 Sex Assigned At Female F [facility] Clinical Notes 04-04-2023 to 05-27-2024 Jose Montes MD - 05/27/2024 11:30 AM Jesus Natarajan, ABIGAIL - 04/17/2024 1:49 PM Cali Delgado, DENTAL SECRETARY - 04/17/2024 1:49 PM ROBERTquinn Dennisjonathan, ABIGAIL - 04/17/2024 1:48 PM EDT Note Date & Type Note Facility 05-27-2024 History of Present illness Narrative Images from the original note were not included. Lesions: Location: frontal scalp Duration: 5 years Quality: painful, denies itch Associated symptoms: red Treatments: none Hair Loss Location: scalp Duration: since 2020- after having COVID Severity: localized-frontal and parietal areas Associated factors: had COVID again 03/2024 which caused, admits mother had thin hair Treatments used: shampoo for hair loss Follow up Diagnosis: Dermatofibroma Location: left calf Status: not healing Procedure performed: Shave biopsy Date of procedure: 11/2023 Current treatment: none Established patient All pertinent medical history, medications, and allergies were reviewed. General Exam: alert, oriented to person, place, and time, normal affect, well appearing Unaccompanied A focused exam completed based on patient reported problems, see below: 1. Dermatofibroma Left Calf Well healed scar at biopsy site. Discussed that these are benign scars on the skin. If lesion is changing/symptomatic, return to office to have lesion re-evaluated. No further treatment necessary. 2. Neoplasm of unspecified behavior of bone, soft tissue, and skin Mid Frontal Scalp Sunnyslope pearly papule Lesion biopsy Type of biopsy: tangential Informed consent: discussed and consent obtained Informed consent comment: The risks and benefits of the biopsy were discussed. Risks include but are not limited to bleeding, infection, scarring, pain, and nerve damage. An opportunity to ask questions prior to the procedure was permitted and all questions were answered. Patient was prepped and draped in usual sterile fashion: area cleansed with alcohol. Anesthesia: the lesion was anesthetized in a standard fashion Anesthetic: 1% lidocaine w/ epinephrine 1-100,000 buffered w/ 8.4% NaHCO3 Instrument used: DermaBlade Hemostasis achieved with: electrodesiccation Outcome: patient tolerated procedure well Outcome comment: The specimen was placed in a prelabeled formalin container to be sent for pathology Post-procedure details: sterile dressing applied and wound care instructions given Post-procedure details comment: Emphasized need to contact clinic for any signs of infection, uncontrollable bleeding, or complications. Dressing type: bandage Additional details: Photo taken Amount of lidocaine used: 1.0 cc Specimen A - Dermatopathology exam Differential Diagnosis: BCC vs lucas cell vs nevus Check Margins: No Size of lesion: 0.5 x 0.5 cm 3. Telogen effluvium Mid Parietal Scalp Moderate hair loss noted Counseled regarding this condition. Discussed starting OTC rogaine. Can use a generic men's version, recommend the liquid over the foam for tolerance. Apply thin layer to scalp at bedtime, can rinse out in the morning if desired. Discussed Viviscal or Nutrafol. Next Visit: prn for any new/changing lesions documented in this encounter [facility] 04-17-2024 History of Present illness Narrative Associated Problem(s): Essential hypertension Stable, no med dose changes Associated Problem(s): COVID No resp distress Did not take paxlovid Fluids, and rest, treat symptoms Associated Problem(s): Muscle cramps Check basic and mg d/t recent diarrhea and vomiting fluids Associated Problem(s): UTI (urinary tract infection), uncomplicated Finished atb Urine still concentrated, recommend increasing fluids Associated Problem(s): Type 2 diabetes mellitus without complication, without long-term current use of insulin ([facility]) Check labs Continue mounjaro (prescribed through weight mgmt office-I did not prescribe d/t hx pancreatitis) Check blood sugars daily, notify if <70 or >200. Take medications (pills or insulin) as directed. Monitor for s/s of hypoglycemia (sweaty, dizziness, nausea, vomiting, or shakiness). Watch for increase in thirst, urination, or appetite. Inspect feet frequently monitoring for open wounds , and also recommend yearly eye exam. Pt should attempt to remain as physically active as chronic conditions allow, as well as trying to follow a diet low in carbohydrates, and simple sugars. Associated Problem(s): Obesity (BMI 30-39.9) Doing well with mounjaro script has lost about 32 pounds this year Pt has been sick- for 2 weeks now. Joaquin morning she was in urgent care in [place]- had tested pos for covid and UTI, pt did not take the paxlovid due to too many side effects She has been taking otc cold/flu medication and stopped with most of her vitamins other than potassium Pt is having bad leg cramps. Images from the original note were not included. Norma Redmond is a 73 y.o. female presents with chief complaint of No chief complaint on file. HPI: Dx with UTI and COVID last week in [place] Did not take paxlovid , took bactrim and from UTI stand point is doing well Taking OTC Mucinex D Hypertension This is a chronic problem. The current episode started more than 1 year ago. The problem is unchanged. The problem is controlled. Pertinent negatives include no blurred vision, chest pain, headaches, palpitations, peripheral edema or shortness of breath. There are no associated agents to hypertension. Risk factors for coronary artery disease include diabetes mellitus, dyslipidemia, obesity and sedentary lifestyle. Past treatments include beta blockers and diuretics. The current treatment provides significant improvement. There are no compliance problems. There is no history of CAD/ME, heart failure or PVD. Diabetes She presents for her follow-up diabetic visit. She has type 2 diabetes mellitus. Her disease course has been stable. There are no hypoglycemic associated symptoms. Pertinent negatives for hypoglycemia include no dizziness, headaches, nervousness/anxiousness, seizures or tremors. Pertinent negatives for diabetes include no blurred vision, no chest pain, no polydipsia, no polyphagia and no polyuria. There are no hypoglycemic complications. Symptoms are stable. Pertinent negatives for diabetic complications include no heart disease, nephropathy or PVD. Risk factors for coronary artery disease include diabetes mellitus, dyslipidemia, obesity and sedentary lifestyle. Current diabetic treatments: leah. She is compliant with treatment all of the time. Her overall blood glucose range is 90-110 mg/dl. An ELIAZAR inhibitor/angiotensin II receptor onofre is not being taken. She does not see a data reduction technician.Eye exam is current. Sinusitis This is a new problem. The current episode started in the past 7 days. The problem has been gradually worsening since onset. There has been no fever. The pain is moderate. Associated symptoms include congestion, coughing, ear pain, sinus pressure and a sore throat. Pertinent negatives include no chills, headaches or shortness of breath. SUBJECTIVE: MEDICATIONS: Current Outpatient Medications Medication Instructions ascorbic acid (VITAMIN C) 1,000 mg, Oral, Every 24 hours aspirin 81 mg, Oral, Every 24 hours b complex vitamins capsule 1 capsule, Oral, Daily RT Azwfksyk-Xbqnrjw-Hxaig-Quercet (Bilberry Extract) 40 MG capsule 40 mg, Oral, Daily buprenorphine-naloxone (Suboxone) 12-3 MG per sublingual film 1 Film, Sublingual, Once CALCIUM MAGNESIUM ZINC PO 1 tablet, Oral, Daily carvedilol (COREG) 25 mg, Oral, 2 times daily with meals cetirizine (ZYRTEC) 10 mg, Oral, Daily CETIRIZINE HCL PO TAKE 1 TABLET (10 MG) BY MOUTH DAILY. chlorthalidone (Hygroton) 25 MG tablet 1 tablet, Oral, Daily cholecalciferol (VITAMIN D-[address]) 1,000 Units, Oral, Daily RT clobetasol (Temovate) 0.05 % ointment APPLY TO HANDS TWICE A DAY MONDAY-MONDAY OFF ON WEEKENDS THEN NEEDED FOR FLARES coenzyme Q-10 10 mg, Oral, Every 24 hours Cyanocobalamin 1000 MCG capsule 1 tablet, Oral, Every 24 hours doxycycline (Monodox) 100 MG capsule Take 1 capsule, by mouth BID x 1 day fenofibrate (TRICOR) 145 mg, Oral, Every 24 hours Folic Acid-Cholecalciferol 1-30440 MG-UNIT tablet 10,000 Units, Oral, Daily GARLIC PO Oral hydroCHLOROthiazide (HYDRODIURIL) 25 mg, Oral, Every 24 hours ibuprofen 800 mg, Oral, 3 times daily ketoconazole (NIZOral) 2 % cream 1 application , Topical, 2 times daily magnesium oxide (Mag-Ox) 400 MG tablet magnesium oxide 400 mg (241.3 mg magnesium) tablet TAKE 1 TABLET BY MOUTH EVERY DAY DIRECTED meclizine (ANTIVERT) 25 mg, Oral, 3 times daily PRN metFORMIN (GLUCOPHAGE) 1,000 mg, Oral, 2 times daily with meals Milk Thistle 500 MG capsule as directed Orally Mounjaro 5 mg, Subcutaneous, Every 7 days omega-3 (Fish Oil) 1000 MG capsule 1 capsule, Every 12 hours ondansetron ODT (ZOFRAN-ODT) 4 mg, Oral, Every 8 hours PRN potassium chloride ER (Micro-K) 10 MEQ ER capsule TAKE 2 CAPSULES (20 MEQ) BY MOUTH DAILY DO NOT CRUSH OR CHEW. Sodium Fluoride 5000 PPM 1.1 % paste APPLY THIN RIBBON TO TOOTHBRUSH, BRUSH TWICE DAILY X2MINS, SPIT, DO NOT EAT/DRINK/RINSE FOR 30 MIN tiZANidine (Zanaflex) 4 MG tablet TAKE 1 TABLET BY MOUTH EVERY DAY AT BEDTIME NEEDED FOR MUSCLE SPASM triamcinolone (Kenalog) 0.025 % ointment APPLY A SMALL AMOUNT EXTERNALLY TWICE A DAY FOR SEBORRHEIC DERMATITIS TO SKIN OF EARS/BEHIND EARS Turmeric (QC TUMERIC COMPLEX PO) 1 tablet, Oral, Every 24 hours valACYclovir (VALTREX) 1,000 mg, Oral, Daily PRN ALLERGIES: Allergies Allergen Reactions Statins Unknown Simvastatin Other Reaction(s): Alkaline phosphatase raised, ALT (SGPT) level raised, Aspartate aminotransferase serum level raised, Alkaline phosphatase raised, ALT (SGPT) level raised, Aspartate aminotransferase serum level raised, Alkaline phosphatase raised, ALT (SGPT) level raised, Aspartate aminotransferase serum level raised, Not available REVIEW OF SYMPTOMS: Review of Systems Constitutional: Negative for appetite change, chills and fever. HENT: Positive for congestion, ear pain, sinus pressure and sore throat. Eyes: Negative for blurred vision, pain, discharge, redness and visual disturbance. Respiratory: Positive for cough. Negative for shortness of breath and wheezing. Cardiovascular: Negative for chest pain, palpitations and leg swelling. Gastrointestinal: Negative for abdominal pain, blood in stool, constipation, diarrhea, nausea and vomiting. Genitourinary: Negative for difficulty urinating, dysuria and frequency. Musculoskeletal: Negative for arthralgias, back pain, joint swelling and myalgias. Skin: Negative for rash and wound. Neurological: Negative for dizziness, tremors, seizures, syncope and headaches. Psychiatric/Behavioral: Negative for behavioral problems, self-injury and suicidal ideas. The patient is not nervous/anxious. Hematological: Does not bruise/bleed easily. Endocrine: Negative for polydipsia, polyphagia and polyuria. Allergic/Immunologic: Negative for environmental allergies and food allergies. PAST MEDICAL HISTORY Past Medical History: Diagnosis Date Abnormal results of liver function studies 07/27/2023 Acute maxillary sinusitis 07/27/2023 Acute pancreatitis 07/27/2023 Apr 29, 2008 Entered By: OPAL TAYLOR Comment: on creon 20mg Acute urinary tract infection 07/27/2023 Allergic urticaria 07/27/2023 Arthritis Benign essential hypertension ([facility]/HCC) 07/27/2023 Carbuncle and furuncle of trunk 07/27/2023 Carpal tunnel syndrome 07/27/2023 COVID-19 15 day stay Degeneration of lumbar or lumbosacral intervertebral disc 07/27/2023 Depressive disorder (CMS/HCC) 07/27/2023 Dizziness 11/29/2022 Encounter for routine gynecological examination 07/27/2023 Apr 29, 2008 Entered By: OPAL TAYLOR Comment: 5 years ago was last one Gallbladder problem Gastroesophageal reflux disease 07/27/2023 HTN (hypertension) (CMS/HCC) Hyperlipidemia (CMS/HCC) 07/27/2023 Hyperlipidemia, unspecified (CMS/HCC) 07/27/2023 Ingrown toenail 07/27/2023 Lumbar sprain 07/27/2023 Migraine (CMS/HCC) 11/29/2022 Mixed hyperlipidemia (CMS/HCC) 07/27/2023 Nonalcoholic steatohepatitis (CORCORAN) 07/27/2023 Nondependent opioid abuse ([facility]) 07/27/2023 Obesity 07/27/2023 Occult blood in stools 07/27/2023 Onychomycosis of toenail 07/27/2023 Opioid dependence in remission ([facility]) 07/27/2023 Opioid dependence, in remission ([facility]) 07/27/2023 Osteoarthritis 07/27/2023 Other general symptoms and signs 07/27/2023 Painful breathing 07/27/2023 Pancreatitis Presbyopia 07/27/2023 Recurrent major depressive disorder (HCC) ([facility]) 07/27/2023 Regular astigmatism, bilateral 07/27/2023 Sciatica 07/27/2023 Skin sensation disturbance 07/27/2023 Tobacco user 07/27/2023 Villous adenoma of colon 07/27/2023 Mar 12, 2019 Entered By: FELICIA GONCALVES Comment: Surveillance colonoscopy due February, Entered By: CHRISTINE PEREIRA Comment: - colonoscopy - polyp. Dr. Jd Wood 2021 Entered By: CHRISTINE PEREIRA Comment: 2019 - colonscopy. maybe a polyp will send report Past Surgical History: Procedure Laterality Date GALLBLADDER 1997 OTHER SURGICAL HISTORY 1995 Lazer Surgery of Uterus OTHER SURGICAL HISTORY 2017 Eyelids OTHER SURGICAL HISTORY Left 08/29/2023 Removal left salivary stone / Sialodochoplasty RHINOPLASTY 1977 family history includes Heart disease in her mother; Hypertension in her mother. OBJECTIVE: Visit Vitals BP 132/70 (BP Location: Left arm, Patient Position: Sitting, BP Cuff Size: Adult long) Pulse 71 Temp 98.5 F (Temporal) Resp 20 Ht 5' 6 Wt 208 lb 12.8 oz SpO2 96% BMI 33.70 kg/m Smoking Status Former BSA 2.1 m Physical Exam Vitals and nursing note reviewed. Constitutional: General: She is not in acute distress. Appearance: Normal appearance. HENT: Head: Normocephalic and atraumatic. Right Ear: Tympanic membrane, ear canal and external ear normal. Left Ear: Ear canal and external ear normal. Ears: Comments: Excess cerumen removed from left canal, no complete visualization of TM Nose: Congestion present. Right Nostril: No occlusion. Left Nostril: No occlusion. Right Turbinates: Swollen. Left Turbinates: Swollen. Right Sinus: Maxillary sinus tenderness and frontal sinus tenderness present. Left Sinus: Maxillary sinus tenderness and frontal sinus tenderness present. Mouth/Throat: Mouth: Mucous membranes are moist. Eyes: Extraocular Movements: Extraocular movements intact. Conjunctiva/sclera: Conjunctivae normal. Cardiovascular: Rate and Rhythm: Normal rate and regular rhythm. Pulses: Normal pulses. Heart sounds: Normal heart sounds. Pulmonary: Effort: Pulmonary effort is normal. Breath sounds: Normal breath sounds. Abdominal: General: Bowel sounds are normal. There is no distension. Palpations: Abdomen is soft. There is no mass. Tenderness: There is no abdominal tenderness. Musculoskeletal: General: Normal range of motion. Cervical back: Normal range of motion and neck supple. Skin: General: Skin is warm and dry. Capillary Refill: Capillary refill takes 2 to 3 seconds. Findings: No rash. Neurological: General: No focal deficit present. Mental Status: She is alert and oriented to person, place, and time. Psychiatric: Mood and Affect: Mood normal. Behavior: Behavior normal. Thought Content: Thought content normal. Judgment: Judgment normal. ASSESSMENT AND PLAN: No follow-ups on file. Problem List Items Addressed This Visit Type 2 diabetes mellitus without complication, without long-term current use of insulin ([facility]) - Primary Check labs Continue mounjaro (prescribed through weight mgmt office-I did not prescribe d/t hx pancreatitis) Check blood sugars daily, notify if <70 or >200. Take medications (pills or insulin) as directed. Monitor for s/s of hypoglycemia (sweaty, dizziness, nausea, vomiting, or shakiness). Watch for increase in thirst, urination, or appetite. Inspect feet frequently monitoring for open wounds , and also recommend yearly eye exam. Pt should attempt to remain as physically active as chronic conditions allow, as well as trying to follow a diet low in carbohydrates, and simple sugars. Relevant Orders Hemoglobin A1c Essential hypertension (Chronic) Stable, no med dose changes UTI (urinary tract infection), uncomplicated Finished atb Urine still concentrated, recommend increasing fluids Muscle cramps Check basic and mg d/t recent diarrhea and vomiting fluids Relevant Orders Magnesium Basic metabolic panel COVID No resp distress Did not take paxlovid Fluids, and rest, treat symptoms Acute non-recurrent pansinusitis Relevant Medications amoxicillin-clavulanate (Augmentin) 875-125 MG tablet methylPREDNISolone (Medrol Dospak) 4 MG tablets documented in this encounter [facility] 02-17-2024 Note Lipid abnormalities are unchanged. Pharmacotherapy as ordered. She is intolerant in the past to statin, d/w pt about lifestyle modifications- heart healthy/low cholesterol diet, regular exercise and she voiced understanding, will monitor with PCP lipid levels [facility] 02-17-2024 Note Hypertension is unco ntrolled Therefore will increase coreg to 25 mg po bid and continue chlorthalidone 25 mg daily Continue to monitor b/p at home and d/w pt goal b/p is < 130/80 and to call office for any concerns [facility] 02-14-2024 Note [facility] CARDIOLOGY PROGR ESS NOTE HPI: Norma Redmond is a 73 y.o. female here for routine F/U HPI 73 yo female presents to clinic for routine F/U for HTN and HPL. States b/p at home is typically 140-150 systolic. Denied chest pain, SOB, orthopnea, palpitations States she has appt [facility] and they usually manage her lipid/cholesterol [...] tolerate statins d/t them causing liver impairment. [facility] manages her lipids. Hypertension This is a [...] Thought content n (more content not included)... [facility] 02-14-2024 Note Review of Systems All other systems reviewed and are negative. [facility] 09-07-2023 History of Present illness Narrative [...] and heat therapy documented in this encounter [facility] 04-04-2023 Evaluation note Encounter Date Diagnosis Assessment [...] understanding and is agreeable to treatment plan [email or web address] Other Evaluation note* Diagnosis Hypokalemia Hypopotassemia documented in this encounter [facility] HealthcareEvaluation note* Diagnosis Sialadenitis- Primary Sialoadenitis Salivary duct stone Sialolithiasis Neck mass Swelling, mass, or lump in head and neck documented in this encounter [facility] HealthcareEvaluation noteNo assessment information available[facility] Work [facility]* Diagnosis Onset Date Resolution Status Arthritis of knee acute BMI 40.0-44.9, adult acute Hyperlipidemia, unspecified acute Hypertriglyceridemia acute Obesity acute Vitamin D deficiency, unspecified acute [facility] Work Phone: Evaluation note* Diagnosis Onset Date [...] Obesity acute Vitamin D deficiency, unspecified acute [facility] Work Phone: Evaluation note* Diagnosis Onset Date Resolution Status Arthritis of knee acute BMI 40.0-44.9, adult acute Hyperlipidemia, unspecified acute Hypertriglyceridemia acute Obesity acute Vitamin D deficiency, unspecified acute Arthritis of knee acute BMI 40.0-44.9, adult acute Hyperlipidemia, unspecified acute Hypertriglyceridemia acute Obesity acute Vitamin D deficiency, unspecified acute Viral URI noneactive [facility] Work Phone: Evaluation note* Diagnosis [...] Obesity acute Vitamin D deficiency, unspecified acute [facility] Work Phone: Evaluation note* Diagnosis Environmental and seasonal allergies documented in this encounter [facility]* Diagnosis Hypomagnesemia- Primary Disorders of magnesium metabolism documented in this encounter [facility]* Diagnosis Type 2 diabetes mellitus without complication, without long-term current use of insulin ([facility])- Primary Sialadenitis Sialoadenitis Dry eyes Unspecified tear film insufficiency Abrasion of left cornea, subsequent encounter- Primary Environmental and seasonal allergies Type 2 diabetes mellitus without complication, without long-term current use of insulin ([facility]) Chronic pain of left knee Abrasion of left cornea, subsequent encounter- Primary Obesity (BMI 30-39.9) Encounter for subsequent annual wellness visit (AWV) in Medicare patient- Primary Essential hypertension Unspecified essential hypertension Obesity (BMI 30-39.9) Type 2 diabetes mellitus without complication, without long-term current use of insulin ([facility]) Herpes Herpes simplex without mention of complication Hypokalemia Hypopotassemia Mixed hyperlipidemia (CMS/[facility]) Mixed hyperlipidemia Rash and nonspecific skin eruption Rash and other nonspecific skin eruption Urinary tract infection without hematuria, site unspecified Type 2 diabetes mellitus without complication, without long-term current use of insulin (CMS/HCC)- Primary Muscle cramps UTI (urinary tract infection), uncomplicated Urinary tract infection, site not specified COVID Essential hypertension Unspecified essential hypertension Acute non-recurrent pansinusitis Hypokalemia Hypopotassemia documented in this encounter [facility]* Diagnosis Onset Date Resolution Status Viral URI noneactive Arthritis of knee acute BMI 40.0-44.9, adult acute Hyperlipidemia, unspecified acute Hypertension acute Hypertriglyceridemia acute Obesity acute Type 2 diabetes mellitus with hyperglycemia acute Vitamin D deficiency, unspecified acute Arthritis of knee acute BMI 40.0-44.9, adult acute Hyperlipidemia, unspecified acute Hypertension acute Hypertriglyceridemia acute Obesity acute Type 2 diabetes mellitus with hyperglycemia acute Vitamin D deficiency, unspecified acute [facility] Work Phone: Evaluation note* Diagnosis Type 2 diabetes mellitus without complication, without long-term current use of insulin (CMS/HCC)- Primary Sialadenitis Sialoadenitis Dry eyes Unspecified tear film insufficiency Abrasion of left cornea, subsequent encounter- Primary Environmental and seasonal allergies Type 2 diabetes mellitus without complication, without long-term current use of insulin (CMS/HCC) Chronic pain of left knee Abrasion of left cornea, subsequent encounter- Primary Obesity (BMI 30-39.9) Encounter for subsequent annual wellness visit (AWV) in Medicare patient- Primary Essential hypertension Unspecified essential hypertension Obesity (BMI 30-39.9) Type 2 diabetes mellitus without complication, without long-term current use of insulin (CMS/HCC) Herpes Herpes simplex without mention of complication Hypokalemia Hypopotassemia Mixed hyperlipidemia (CMS/HCC) Mixed hyperlipidemia Rash and nonspecific skin eruption Rash and other nonspecific skin eruption Urinary tract infection without hematuria, site unspecified Type 2 diabetes mellitus without complication, without long-term current use of insulin (CMS/HCC)- Primary Muscle cramps UTI (urinary tract infection), uncomplicated Urinary tract infection, site not specified COVID Essential hypertension Unspecified essential hypertension Acute non-recurrent pansinusitis Telogen effluvium- Primary Neoplasm of unspecified behavior of bone, soft tissue, and skin Dermatofibroma Benign neoplasm of skin, site unspecified documented in this encounter [facility]* Diagnosis Type 2 diabetes mellitus without complication, without long-term current use of insulin (CMS/HCC)- Primary Sialadenitis Sialoadenitis Dry eyes Unspecified tear film insufficiency Abrasion of left cornea, subsequent encounter- Primary Environmental and seasonal allergies Type 2 diabetes mellitus without complication, without long-term current use of insulin ([facility]) Chronic pain of left knee Abrasion of left cornea, subsequent encounter- Primary Obesity (BMI 30-39.9) Encounter for subsequent annual wellness visit (AWV) in Medicare patient- Primary Essential hypertension Unspecified essential hypertension Obesity (BMI 30-39.9) Type 2 diabetes mellitus without complication, without long-term current use of insulin ([facility]) Herpes Herpes simplex without mention of complication Hypokalemia Hypopotassemia Mixed hyperlipidemia (CMS/[facility]) Mixed hyperlipidemia Rash and nonspecific skin eruption Rash and other nonspecific skin eruption Urinary tract infection without hematuria, site unspecified Type 2 diabetes mellitus without complication, without long-term current use of insulin ([facility])- Primary Muscle cramps UTI (urinary tract infection), uncomplicated Urinary tract infection, site not specified COVID Essential hypertension Unspecified essential hypertension Acute non-recurrent pansinusitis Type 2 diabetes mellitus without complications ([facility]) documented in this encounter [facility] HealthcareEvaluation note* Diagnosis Type 2 diabetes mellitus without complication, without long-term current use of insulin ([facility])- Primary Muscle cramps UTI (urinary tract infection), uncomplicated Urinary tract infection, site not specified COVID Essential hypertension Unspecified essential hypertension Acute non-recurrent pansinusitis documented in this encounter [facility] Narrative - Reported* Type Description Date Medical History Arthritis Medical History Diabetes- Metformin Medical History Gallbladder Medical History HTN Surgical History Gallbladder 1997 Surgical History Lazer Surgery of Uterus 1995 Surgical History Rhinoplasty 1977 Surgical History Eyelids 2016 [email or web address] Other Summary Purpose Family History Relationship Condition [...] Reason for Visit Chief Complaint salivary stone [facility] Chief [place] [facility] Reason for Visit Arthritis of knee BMI 40.0-44.9, adult Hyperlipidemia, unspecified Hypertriglyceridemia Obesity Vitamin D deficiency, unspecified Chief Complaint [facility] WMN f/u Reason for Visit Arthritis of knee BMI 40.0-44.9, adult Hyperlipidemia, unspecified Hypertriglyceridemia Obesity Vitamin D deficiency, unspecified Chief Complaint [facility] WMN f/u WMN f/u Reason for Visit [...] Obesity Vitamin D deficiency, unspecified Chief Complaint cough, sinus pressur e Screening 6-8 week f/u WMN f/u Reason for Visit Viral URI Arthritis of knee BMI 40.0-44.9, adult Hyperlipidemia, unspecified Hypertension Hypertriglyceridemia Obesity Type 2 diabetes mellitus with hyperglycemia Vitamin D deficiency, unspecified Arthritis of knee BMI 40.0-44.9, adult Hyperlipidemia, unspecified Hypertension Hypertriglyceridemia Obesity Type 2 diabetes mellitus with hyperglycemia Vitamin D deficiency, unspecified Additional Source Comments INFORMATION SOURCE (unrecogn ized section and content) DATE CREATED AUTHOR 01/10/2018 [facility] DATE CREATED AUTHOR AUTHOR'S ORGANIZ ATION 10/31/2022 [facility] DATE CREATED AUTHOR AUTHOR'S ORGANIZ ATION 02/17/2024 [facility] DATE CREATED AUTHOR AUTHOR'S ORGANIZ ATION 03/15/2024 [facility] DATE CREATED AUTHOR AUTHOR'S ORGANIZ ATION 05/28/2024 [facility] EPIC REASON FOR VISIT (unrecogniz ed section and content) Reason Comments Post-op Post op salivary sto ne removal Reason Comments Med Refill Reason Comments Follow-up Hair/Scalp Problem Suspicious Skin Lesion Care Teams (unrecognized sec tion and content) [employer] Relationship Specialty Start Date End Date Yair Nails MD PCP - General Family Medicine 07/24/22 Ginny Natarajan NP [address] [place] [address] Referring Physician Nurse Practitioner 07/24/22 [employer] Relationship Specialty Start Date End Date Yair Nails MD PCP - General Family Medicine 07/24/22 Ginny Natarajan NP [address] [place] [address] Referring Physician Nurse Practitioner 07/24/22 [employer] Relationship Specialty Start Date End Date Yair Nails MD PCP - General Family Medicine 07/24/22 Ginny Natarajan NP [address] [place] [address] Referring Physician Nurse Practitioner 07/24/22 Team [...] Natarajan Primary Care Provider Active Sta rt: January 31, 2024 End: January 31, 2024 Danna Spence APRN Attending Provider Active Start: January 31, 2024 End: January 31, 2024 Team Status: Inactive Member Role Status Dates Ginny Natarajan Primary Care Provider Active Sta rt: February 16, 2024 End: February 16, 2024 Gina Harkins APRN Attending Provider Active Start: February 16, 2024 End: February 16, 2024 Team Status: Inactive Member Role Status Dates Ginny Natarajan Primary Care Provider Active Sta rt: March 11, 2024 End: March 11, 2024 Christine Pereira (Clinic) , DO [facility] Attending Provider Active Start: March 11, 2024 End: March 11, 2024 Team Status: Inactive Member Role Status Dates Ginny Natarajan Primary Care Provider Active Sta rt: March 20, 2024 End: March 20, 2024 Danna Spence APRN Attending Provider Active Start: March 20, 2024 End: March 20, 2024 [employer] Relationship Specialty Start Date End Date Yair Nails MD [address] [place] [address] PCP - General Family Medicine 09/19/23 Ginny Natarajan NP [address] [place] [phone] Referring Physician Nurse Practitioner 07/24/22 Ginny Natarajan NP [address] [place] [phone] Nurse Practitioner Family Medicine 09/19/23 [employer] Relationship Specialty Start Date End Date Yair Nails MD [address] [place] [phone] PCP - General Family Medicine 09/19/23 Ginny Natarajan NP [address] [place] [phone] Referring Physician Nurse Practitioner 07/24/22 Ginny Natarajan NP [address] [place] [phone] Nurse Practitioner Family Medicine 09/19/23 [employer] Relationship Specialty Start Date End Date Yair Nails MD [address] [place] [phone] PCP - General Family Medicine 09/19/23 Ginny Natarajan NP [address] [place] [phone] Referring Physician Nurse Practitioner 07/24/22 Ginny Natarajan NP [address] [place] [phone] Nurse Practitioner Family Medicine 09/19/23 [employer] Relationship Specialty Start Date End Date Yair Nails MD [address] [place] [phone] PCP - General Family Medicine 09/19/23 Ginny Natarajan NP [address] [place] [phone] Referring Physician Nurse Practitioner 07/24/22 Ginny Natarajan NP [address] [place] [phone] Nurse Practitioner Family Medicine 09/19/23 Team Status: Inactive Member Role Status Dates Ginny Natarajan Primary Care Provider Active Sta rt: May 15, 2024 End: May 15, 2024 Danna Spence APRN Attending Provider Active Start: May 15, 2024 End: May 15, 2024 [employer] Relationship Specialty Start Date End Date Yair Nails MD [address] [place] [phone] PCP - General Family Medicine 09/19/23 Ginny Natarajan NP [address] [place] [phone] Referring Physician Nurse Practitioner 07/24/22 Ginny Natarajan NP [address] [place] [phone] Nurse Practitioner Family Medicine 09/19/23 [employer] Relationship Specialty Start Date End Date Yair Nails MD [address] [place] [phone] PCP - General Family Medicine 09/19/23 Ginny Natarajan NP [address] [place] [phone] Referring Physician Nurse Practitioner 07/24/22 Ginny Natarajan NP [address] [place] [phone] Nurse Practitioner Family Medicine 09/19/23 [employer] Relationship Specialty Start Date End Date Yair Nails MD [address] [place] [phone] PCP - General Family Medicine 09/19/23 Ginny Natarajan NP [address] [place] [phone] Referring Physician Nurse Practitioner 07/24/22 Ginny Natarajan NP [address] [place] [phone] Nurse Practitioner Family Medicine 09/19/23 Goals (unrecognized section and content) Goals may [...] BE BASED ON THE PRIMARY CLINICAL RECORDS. [facility] [employer] [facility]. provides no warranty or guarantee of the accuracy or completeness of information in this document.
[2024-07-18 23:03] VITALS: BP 161/71; PULSE 80; TEMP 36.8; O2SAT 94; BMI 33.1
--- NOTE | 2024-07-18 23:37 | PC.NURSE ---
two complaints- first is a bay leaf stuck in throat that is causing pain to right chest. She googled this, and found that she should seek immediate medical attention because the body cannot break down a bay leaf. She tried drinking several different things and eating different things to get the bay leaf to go down and nothing helped. She is not vomiting or having difficulty breathing or speaking. Second complaint is that she tripped on a rug at her apartment last night and fell, hitting her face on a radiator and fell onto her right knee. She has a bruise under her right eye and a lump on her right knee.
--- NOTE | 2024-07-19 00:14 | ED.GENADUL1 ---
HPI HPI - General Adult General Chief complaint: Skin/Abscess/Foreign Body Stated complaint: fall, facial injury-bay leaf lodged in esophagus Time Seen by Provider: 07/18/24 23:29 Source: patient Mode of arrival: walk-in Limitations: no limitations History of Present Illness HPI narrative: Patient is a 73-year-old female who is presenting to the ER today with chief complaint of multiple things. Patient is #1 chief concern was that she has a bay leaf stuck in her esophagus that is causing pain to the right anterior chest wall. Patient had a mechanical fall yesterday where she tripped on a rug, falling forward. Patient had hit the right side of her face on a hard object. Patient was lying on the floor, she was asking for family members to give her ice while she is on the floor before she was set up. Patient was not on the floor for any lengthy amount of time. Patient has been alternating Tylenol and Motrin, Motrin 8 oh milligrams and Tylenol 500 mg every 4 hours since yesterday to help prevent pain and swelling. Patient fell at approximately 6:30 PM yesterday. Patient did have 3 episodes of nausea and vomiting this morning, that self resolved. Patient did run out of her Zofran at home, she was asking for refill on her Zofran prescription. Patient also has 2 small areas of contusions to her bilateral anterior knees, she was concerned about blood clots. Patient also and most importantly is focused to the right anterior chest wall pain. Patient does not feel that she is having any pain or any to her chest. Patient gives a very detailed story for 3 to 5 minutes on how she feels or there is a progression of a baby leaf that she was cooking with, accidentally swallowed, and how the sleeve had progressed in her mouth down into her esophagus and might be stuck. However patient has no evidence of food impaction or food bolus. Patient drinking liquids well with no vomiting at all. Patient has no other acute complaints. Patient does have intermittent mild acid reflux history. All systems are negative except as noted/marked. All systems reviewed and otherwise negative. Nurses note and vital signs reviewed and patient is not hypoxic. General: The patient appears well and in no apparent distress. Patient is anxious. Patient is resting comfortably on cart. Patient is not toxic, lethargic, or listless Skin: Warm, dry, no pallor noted. There is no rash noted. No petechiae, purpura. Patient has extreme minimal areas less than 0.5 cm x 0.5 cm areas of ecchymosis to bilateral anterior distal knees, patient has mild to moderate tenderness to the area which is pain out of proportion, but the areas are minimal. Patient is able to walk in and out with no difficulty. Patient drove to the ER. Patient has full range of motion of bilateral knees with no difficulty or pain Head: Normocephalic, patient has minimal tenderness to palpation to the inferior, lateral, superior orbit. Patient has equal ocular motion no difficulty. No retrobulbar hematoma. No globe rupture. No entrapment noted to the right or left eye. Eye: Normal conjunctiva, no drainage, EOMI. PERRL Ears, Nose, Mouth, and Throat: oral mucosa is moist. Nares patent. Mouth without vesicles. Cardiovascular: Regular Rate and Rhythm, no murmur, gallop, rub, patient has pinpoint tenderness to palpation to the right anterior chest wall over ribs 3-4, midclavicular line, very tender to light palpation to that area. No ecchymosis noted. When patient takes a deep inspiration, she will have the pinpoint anterior chest wall tenderness to the area as well and also intercostal over the muscles between rib space 3 and 4, right anterior chest wall, midclavicular line. Equal breath sounds. No tracheal deviation. No signs of pneumothorax. Respiratory: Patient is in no distress, no accessory muscle use, lungs are clear to auscultation, no wheezing, rales or rhonchi Back: non-tender, no CVA tenderness bilaterally to percussion. No CT LS midline pain GI: no tenderness to palpation, no masses appreciated. No rebound, guarding, or rigidity noted. No distention Musculoskeletal: Patient has full range of motion of all of the extremities, no motor, sensory, or focal neurological deficits Neurological: A&O x4, normal speech Psychiatric: Cooperative, patient is anxious, rapid speech, not tangential, not psychotic or hallucinating. Related Data Home Medications ?Medication ?Instructions ?Recorded ?Confirmed ascorbic acid (vitamin C) 1,000 mg 1 g PO DAILY 02/06/23 02/08/23 capsule aspirin 81 mg tablet,delayed 81 mg PO DAILY 02/06/23 02/08/23 release (Adult Aspirin Regimen) buprenorphine 8 mg-naloxone 2 mg 1 film buccal DAILY 02/06/23 02/08/23 sublingual film (Suboxone) carvedilol 12.5 mg tablet 12.5 mg PO Q12H 02/06/23 02/08/23 chlorthalidone 25 mg tablet 25 mg PO QDAY 02/06/23 02/08/23 cholecalciferol (vitamin D3) 25 1,000 unit PO DAILY 02/06/23 02/08/23 mcg (1,000 unit) capsule fenofibrate nanocrystallized 145 145 mg PO DAILY 02/06/23 02/08/23 mg tablet garlic 1,000 mg capsule 1,000 mg PO DAILY 02/06/23 02/08/23 magnesium oxide 400 mg PO DAILY 02/06/23 02/08/23 meclizine 12.5 mg tablet 12.5 mg PO TID-QID PRN dizziness 02/06/23 02/08/23 metformin 1,000 mg tablet 500 mg PO QDAY 02/06/23 02/08/23 omega-3 fatty acids 500 mg PO DAILY 02/06/23 02/08/23 tizanidine 4 mg tablet 4 mg PO Q12H PRN muscle spasticity 02/06/23 02/06/23 vitamin B complex 1 cap PO DAILY 02/06/23 02/08/23 carvedilol 6.25 mg tablet mg 02/08/23 Previous Rx's ?Medication ?Instructions ?Recorded ondansetron 4 mg disintegrating 4 mg PO Q4H PRN nausea and 07/19/24 tablet vomiting 3 days #6 tabs Allergies Allergy/AdvReac Type Severity Reaction Status Date / Time erythromycin base Allergy Unknown Verified 07/18/24 23:13 gemfibrozil Allergy Unknown Verified 07/18/24 23:13 simvastatin Allergy Unknown Verified 07/18/24 23:13 Opioid HPI Opioid Management Most Recent Opioid Data: Ur Phencyclidine Scrn Negative (NEGATIVE) 02/08/23 06:38 02/08/23 [facility] Medical History (Updated 07/19/24 @ 00:11 by Jose Nelson MD) Arthritis ?M19.90 - Unspecified osteoarthritis, unspecified site (ICD-10) Back pain ?M54.9 - Dorsalgia, unspecified (ICD-10) COVID-19 ?U07.1 - COVID-19 (ICD-10) Vestibular migraine ?G43.809 - Other migraine, not intractable, without status migrainosus (ICD-10) Vertigo ?R42 - Dizziness and giddiness (ICD-10) Urinary tract infection ?N39.0 - Urinary tract infection, site not specified (ICD-10) Dizziness ?R42 - Dizziness and giddiness (ICD-10) High cholesterol ?E78.00 - Pure hypercholesterolemia, unspecified (ICD-10) Hypertension ?I10 - Essential (primary) hypertension (ICD-10) Diabetes ?E11.9 - Type 2 diabetes mellitus without complications (ICD-10) Colon polyp ?K63.5 - Polyp of colon (ICD-10) Surgical History (Updated 02/06/23 @ 12:48 by Dottie Recinos NP) History of colonoscopy ?Z98.890 - Other specified postprocedural states (ICD-10) History of cholecystectomy ?Z90.49 - Acquired absence of other specified parts of digestive tract (ICD-10) History of endometrial ablation ?Z98.890 - Other specified postprocedural states (ICD-10) History of dilation and curettage ?Z98.890 - Other specified postprocedural states (ICD-10) H/O breast surgery ?Z98.890 - Other specified postprocedural states (ICD-10) Family History (Updated 02/06/23 @ 12:48 by Dottie Recinos NP) Other Family history of Parkinson disease Family history of breast cancer Family history of hypertension Family history of stroke Social History (Updated 02/06/23 @ 12:38 by Dottie Recinos NP) Within the past year, how often did you have a drink containing alcohol: monthly or less Smoking status: Former smoker Non-prescribed substance use: denies use and former substance user Highest level of school completed/degree received: high school graduate Little interest or pleasure in doing things: not at all Feeling down, depressed, or hopeless: not at all Exam Constitutional Vital Signs, click to edit/add: Last Vital Signs Temp 98.2 F 07/18/24 23:03 Pulse 80 07/18/24 23:03 Resp 18 07/18/24 23:03 BP 161/71 H 07/18/24 23:03 Pulse Ox 94 L 07/18/24 23:03 O2 Del Method Room Air 07/18/24 23:03 Course Vital Signs Vital signs: Vital Signs Temperature 98.2 F 07/18/24 23:03 Pulse Rate 80 07/18/24 23:03 Respiratory Rate 18 07/18/24 23:03 Blood Pressure 161/71 H 07/18/24 23:03 Pulse Oximetry 94 L 07/18/24 23:03 Oxygen Delivery Method Room Air 07/18/24 23:03 Temperature 98.2 F 07/18/24 23:03 Pulse Rate 80 07/18/24 23:03 Respiratory Rate 18 07/18/24 23:03 Blood Pressure 161/71 H 07/18/24 23:03 Pulse Oximetry 94 L 07/18/24 23:03 Oxygen Delivery Method Room Air 07/18/24 23:03 Medical Decision Making MDM Narrative Medical decision making narrative: A lot of education was spent on close head injury, facial contusion, nausea and vomiting, foreign bodies, food bolus impaction. Patient has pinpoint mild to moderate tenderness palpation her anterior chest wall, she states this happened after she had the belief. Patient has no crepitus to the anterior chest wall, or into her neck. Patient has no bruising to her chest. Patient has minimal bruising to bilateral knees from a fall yesterday. Patient is on no blood thinners, she takes a baby aspirin daily. She has known headache neck pain or facial pain at this time. Patient will follow-up with PCP. Education on foreign body ingestion was discussed at bedside and on discharge paperwork. No questions discharge. Patient is admittedly anxious. Patient will follow-up with PCP. Patient was given a refill on her Zofran to use at home if needed. Discharge Plan Discharge Chief Complaint: Skin/Abscess/Foreign Body Clinical Impression: CHI (closed head injury), Contusion of face, Contusion of knee, Gastritis, Right-sided chest wall pain Patient Disposition: Home, Self-Care Time of Disposition Decision: 00:08 Condition: Fair Prescriptions / Home Meds: New ondansetron 4 mg tablet,disintegrating 4 mg PO Q4H PRN (Reason: nausea and vomiting) 3 Days Qty: 6 0RF No Action carvedilol 12.5 mg tablet 12.5 mg PO Q12H chlorthalidone 25 mg tablet 25 mg PO QDAY metformin 1,000 mg tablet 500 mg PO QDAY tizanidine 4 mg tablet 4 mg PO Q12H PRN (Reason: muscle spasticity) ascorbic acid (vitamin C) 1,000 mg capsule 1 g PO DAILY aspirin [Adult Aspirin Regimen] 81 mg tablet,delayed release (DR/EC) 81 mg PO DAILY buprenorphine-naloxone [Suboxone] 8-2 mg film 1 film buccal DAILY cholecalciferol (vitamin D3) 25 mcg (1,000 unit) capsule 1,000 unit PO DAILY fenofibrate nanocrystallized 145 mg tablet 145 mg PO DAILY garlic 1,000 mg capsule 1,000 mg PO DAILY magnesium oxide 400 mg magnesium capsule 400 mg PO DAILY meclizine 12.5 mg tablet 12.5 mg PO TID-QID PRN (Reason: dizziness) omega-3 fatty acids Capsule 500 mg PO DAILY vitamin B complex Capsule 1 cap PO DAILY carvedilol 6.25 mg tablet Print Language: Turkmen Instructions: Gastritis (ED), How to Perform the Heimlich Maneuver (ED), Head Injury (ED), Contusion in Adults (ED), Food Impaction (ED), Chest Wall Pain (ED), Facial Contusion (ED) Additional Instructions: I am not diagnosing you with any food obstruction or impaction this evening, you are drinking water with no difficulty. Education on food obstruction or impaction was discussed at bedside and given to you at discharge paperwork for education. If you continue to have a hard time swallowing things, you may need to have EGD as an outpatient procedure. Alternate Tylenol and either Motrin, Advil, or ibuprofen every 4 hours to help with pain. Maximum dose of Tylenol is 3000 mg a day. Maximum dose of either Motrin, Advil, or ibuprofen is 2400 mg a day. Use Maalox or Mylanta [id number] to help with acid reflux if needed. Continue using ice water. Education close head injury was discussed at bedside and on discharge paperwork. Any other acute concerns follow-up with PCP or return back to the ER. Referrals: Ginny Natarajan NP [Primary Care Provider] - 1 week
== END 2024-07-19 00:20 | disposition home or self-care (01) ==
PROVIDERS: Emergency Provider Emergency Medicine; PCP Nurse Practitioner
DX: S00.83XA Contusion of other part of head, initial encounter (principal); S80.02XA Contusion of left knee, initial encounter; S09.8XXA Other specified injuries of head, initial encounter; K29.70 Gastritis, unspecified, without bleeding; S80.01XA Contusion of right knee, initial encounter; W01.198A Fall on same level from slipping, tripping and stumbling with subsequent striking against other object, initial encounter; K21.9 Gastro-esophageal reflux disease without esophagitis; Z90.49 Acquired absence of other specified parts of digestive tract; Z87.891 Personal history of nicotine dependence; Z79.82 Long term (current) use of aspirin; R07.89 Other chest pain
CPT/HCPCS: 99283

== ENCOUNTER 2024-09-04 12:19 | Outpatient (OUT) | payer MEDICARE, MEDICAID, SELFPAY ==
--- OUTSIDE RECORDS SUMMARY | 2024-09-04 12:43 | XMS_ITS | CCD ---
Author Organization [facility] Care Team Providers Care Steam Service Inspector Name Role Phone PHYSICIAN, DEFAULT Unavailable Unavailable PHYSICIAN, DEFAULT Unavailable Unavailable PHYSICIAN, DEFAULT Unavailable Unavailable PHYSICIAN, DEFAULT Unavailable Unavailable PHYSICIAN, DEFAULT Unavailable Unavailable PHYSICIAN, DEFAULT Unavailable Unavailable AICHHOLZ, ENGINEER RF DEPLOYMENT GINNY Admitting Unavailable AICHHOLZ, ENGINEER RF DEPLOYMENT GINNY Attending Unavailable AICHHOLZ, ENGINEER RF DEPLOYMENT GINNY Primary Care Unavailable AICHHOLZ, ENGINEER RF DEPLOYMENT GINNY Consulting Unavailable ZIEBER, DR BENEDICTO Aquino Consulting Unavailable AICHHOLZ, ENGINEER RF DEPLOYMENT GINNY Admitting Unavailable AICHHOLZ, ENGINEER RF DEPLOYMENT GINNY Attending Unavailable AICHHOLZ, ENGINEER RF DEPLOYMENT GINNY Primary Care Unavailable AICHHOLZ, ENGINEER RF DEPLOYMENT GINNY Admitting Unavailable AICHHOLZ, ENGINEER RF DEPLOYMENT GINNY Attending Unavailable AICHHOLZ, ENGINEER RF DEPLOYMENT GINNY Primary Care Unavailable AICHHOLZ, ENGINEER RF DEPLOYMENT GINNY Primary Care Unavailable SANDRAY ., DR LAFLEUR Admitting Unavailable HOY ., DR LAFLEUR Attending Unavailable HOY ., DR LAFLEUR Consulting Unavailable ZIEBER, DR BENEDICTO Aquino Consulting Unavailable PAY ., DR FOWLER Consulting Unavailable GRECHNY ., COTY DAVIS Consulting Unavailabl e AICHHOLZ, ENGINEER RF DEPLOYMENT GINNY Admitting Unavailable AICHHOLZ, ENGINEER RF DEPLOYMENT GINNY Attending Unavailable AICHHOLZ, ENGINEER RF DEPLOYMENT GINNY Primary Care Unavailable AICHHOLZ, ENGINEER RF DEPLOYMENT GINNY Consulting Unavailable Gina Harkins Unavailable Yair Nails MD Primary Care Provider [phone] Aichjonathan BABY DOCTOR, Ginny Unavailable DO Migel Best Attending Provider NON STAFF Primary Care Provider UnavailSOFYA Jackson Attending Unavailable Aichholz, Ginny Viet Primary Care Provider [phone] Markus ([facility])DO Crawford Attending Provider Migel Best Attending Unavailable NON STAFF Primary Care Unavailable Migel Best Admitting Unavailable Markus (Clinic), Christine Admitting Unavailyeni Pereira (Clinic), Christine Attending UnavailGinny Hutchison Primary Care Unavailable Delgado BABY DOCTOR, Ginny Unavailable Yair Nails MD Primary Care Provider Delgado BABY DOCTOR, Ginny Unavailable GINNY NATARAJAN Attending Unavailable ESTEPHANIA, [...] 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: [ERYTHROMYCIN BASE] Drug Allergy 2 [facility] Repository (2 sources) Gemfibrozil; 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: [GEMFIBROZIL] Drug Allergy 2 [facility] Repository (2 sources) Simvastatin; 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: [SIMVASTATIN] Drug Allergy 2 [facility] Repository (16 sources) HMG-CoA reductase inhibitor Propensity to adverse reactions 3 Unknown [facility] Healthcare (16 sources) Simvastatin Propensity to adverse reactions 3 [facility] Healthcare (1 source) Lidocaine; 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: [LIDOCAINE] Drug Allergy 2 [facility] Repository (1 source) Lszmygg-OHK-QsD Reductase Inhibitor Drug allergy (disorder) 4 [facility] Repository Medications Current Medications Medication Drug Class(es) [...] with food. 20 tablet 04/17/2024 04/27/2024 Active ascorbic acid 1000 mg oral tablet (20 sources) Vitamin C Start: 11-10-2023 take 1 g by mouth once daily Ascorbic Acid (Vitamin C) 1,000 mg capsule Active 1 GM PO Daily November 09, 2023 11:00pm Start: 11-10-2023 take 1 g by mouth once daily A scorbic Acid (Vitamin C) Active 1 GM PO Daily November 10, 2023 12:00am aspirin 81 mg chewable tablet (20 sources) Platelet Aggregation Inhibitor, Nonsteroidal Anti-inflammatory Drug Start: 11-10-2023 take 1 tablet by mouth once daily Aspirin 81 mg tablet,chewable Active 81 MG PO Daily November 09, 2023 11:00pm azithromycin 250 mg oral tablet (1 source) Macrolide Antimicrobial Start: 04-04-2023 Azithromycin 250 MG 2 tablet on the first day, then 1 tablet daily for 4 days Orally Once a day for 5 day(s) Mar, Active b complex vitamins capsule (16 sources) take 1 capsule by mouth in the morning b complex vitamins capsule Take 1 capsule by mouth in the morning. Active take 1 capsule by mouth in the m orning b complex vitamins capsule Take 1 capsule by mouth in the morning. 0 Active Ojpyjeuc-Twlyahx-Pcmpf-Querc et (Bilberry Extract) 40 MG capsule (16 sources) take 1 capsule by mouth in the morning Akkkydho-Kifhxhd-Wyape-Quercet (Bilberry Extract) 40 MG capsule Take 40 mg by mouth in the morning. Active take 1 capsule by mo uth in the morning Zieagcmd-Mucsxym-Bxwkg-Quercet (Bilberry Extract) 40 MG capsule Take 40 mg by mouth in the morning. 0 Active buprenorphine 12 mg / naloxone 3 mg sublingual film (17 sources) Partial Opioid Agonist, Opioid Antagonist buprenorphine-naloxo [...] bedtime. 0 Active CALCIUM MAGNESIUM ZINC PO (16 sources) take 1 tablet by tre th [...] e-prescription and drug interaction check* Active Carboxymethylcellulose (8 sources) Start: 11-10-2023 carboxymethylc ellulose sodium (Refresh Tears) Active 1 DROPS OPHTHALMIC As Directed as needed November 09, 2023 11:00pm Start: 11-10-2023 carboxymethylc ellulose sodium (Refresh Tears) Active 1 DROPS OPHTHALMIC As Directed November 10, 2023 12:00am cetirizine hydrochloride 10 mg oral tablet (20 sources) Histamine-1 Receptor Antagonist Start: 10-24-2023 End: 07-23-2024 take 1 tablet by mouth once daily cetirizine (ZyrTEC) 10 MG tablet Indications: Environmental and seasonal allergies TAKE 1 TABLET (10 MG) BY MOUTH DAILY. 90 tablet 1 04/24/2024 Active chlorthalidone 25 mg oral tablet (19 sources) Thiazide-like Diuretic Start: 03-08-2023 End: 04-17-2024 take 1 tablet by mouth once daily Chlorthalidone 25 mg tablet Active 25 MG PO Daily November 09, 2023 11:00pm cholecalciferol 0.05 mg oral capsule (20 sources) Vitamin D Start: 12-27-2023 take 1 capsule by mouth once daily Cholecalciferol (Vitamin D3) 50 mcg (2,000 unit) capsule Active 50 MCG PO Daily December 26, 2023 11:00pm cholecalciferol (Vitamin D-[address]) 25 MCG (1000 UT) tablet Take 1,000 Units by mouth in the morning. Active clobetasol propionate 0.0005 mg/mg topical ointment (16 sources) Corticosteroid Start: 02-08-2024 clobetasol (Te movate) [...] / eicosapentaenoic acid 180 mg oral capsule (16 sources) take 1 capsule by mouth every [...] Proliferator Receptor alpha Agonist Start: Fenofibrate Nanocrystallized 145 mg tablet Active 145 MG PO .3 times weekly November 09, 2023 11:00pm take 1 tablet by mouth once rebecca y fenofibrate (Tricor) 145 MG tablet Take 145 mg by mouth 1 (one) time each day at the same time Active Fish Oils (1 source) take 1 capsule by mouth twice daily Fish Oil 1000 MG 1 capsule Orally Twice a day Active fluconazole 150 mg oral tablet (5 sources) Azole Antifungal Start: fluconazole (Diflucan) 150 MG tablet Indications: Hypomagnesemia One time dose repeat in 3 days if needed 2 tablet 1 08/12/2024 Active Start: 04-16-2023 take 1 tablet by mouth once fl uconazole (Diflucan) 150 MG tablet Take 150 mg by mouth 1 (one) time 0 04/16/2023 Active Folic Acid-Cholecalciferol 1-13437 MG-UNIT tablet (16 sources) take 1 tablet by mouth in the morning Folic Acid-Cholecalciferol 1-58265 MG-UNIT tablet Take 10,000 Units by mouth in the morning. Active take 1 tablet by tre th in the morning Folic Acid-Cholecalciferol 1-97828 MG-UN IT tablet Take 10,000 Units by mouth in the morning. 0 Active Garlic (17 sources) Non-Standardized Food Allergenic Extract Start: 08-20-2024 take 1 capsule by mouth once daily Garlic 500 mg capsule Active 500 MG PO Daily August 20, 2024 12:00am GARLIC PO Take b y mouth Active GARLIC PO Take b y mouth 0 Active hydroCHLOROthiazide 25 mg oral tablet (17 sources) Thiazide Diuretic take 1 tablet by mouth once daily hydroCHLOROthiazide (HYDRODiuril) 25 MG tablet Take 25 mg by mouth 1 (one) time each day at the same time Active ibuprofen 800 mg oral tablet (19 sources) Nonsteroidal Anti-inflammatory Drug Start: 2022 take [...] (20 sources) Azole Antifungal Start: 2023 Ketoconazole 2 % cream Active APPLIC TOPICAL Twice daily as needed November 09, 2023 11:00pm Start: 04-27-2023 ketoconazole ( NIZOral) 2 % cream Apply 1 application topically in the morning and 1 application before bedtime. 04/27/2023 Active loratadine 10 mg oral tablet (4 sources) Start: 04-27-2023 take 1 tablet by mouth in the morning loratadine (Claritin) 10 MG tablet Take 10 mg by mouth in the morning. 0 04/27/2023 Active magnesium oxide 400 mg oral tablet (18 sources) Start: 08-12-2024 End: 11-10-2024 take 1 tablet by mouth once daily magnesium oxide (Mag-Ox) 400 MG tablet Indications: Hypomagnesemia Take 1 tablet (400 mg) by mouth Daily 90 tablet 08/12/2024 11/10/2024 Active Start: 04-25-2024 End: 07-24-2024 take 1 tablet by mouth once daily Magnesium Oxide 400 mg (241.3 mg magnesium) tablet Active 400 MG PO Daily May 14, 2024 11:00pm take 1 tablet by tre th once daily magnesium oxide (Mag-Ox) 400 MG tablet magnesium oxide 400 mg (241.3 mg magnesium) tablet TAKE 1 TABLET BY MOUTH EVERY DAY DIRECTED Active meclizine hydrochloride 25 m g oral tablet (20 sources) Antiemetic Start: 11-10-2023 Meclizine 25 m g tablet Active 12.5 MG PO Daily as needed November 09, 2023 11:00pm Start: 11-10-2023 take 12.5 mg by mouth once nadine ly Meclizine Active 12.5 MG PO Daily November [...] mg oral tablet (20 sources) Biguanide Start: 06-24-20 End: 09-23-19 take 1 tablet by mouth once daily Metformin 1,000 mg tablet Active 1000 MG PO Daily August 20, 2024 2:38pm Start: 11-10-2023 End: 09-22-2024 take 1 tablet by mouth twice daily Metformin 1,000 mg tablet Discontinued 1000 MG PO Twice daily November 09, 2023 11:00pm August 20, 2024 2:39pm Start: 06-11-2023 take 1 tablet by tre [...] milk thistle extract 500 mg oral capsule (17 sources) Milk Thistle 500 MG capsule as [...] skin every 7 (seven) days 03/26/2024 Active Mounjaro 7.5 MG/0.5ML solution auto-injector (2 sources) Start: 06-15-2024 Mounjaro 7.5 MG/0.5ML solution auto-injector Inject 7.5 mg as directed every 7 (seven) days 06/15/2024 Active nitrofurantoin, macrocrystals 25 mg / nitrofurantoin, monohydrate 75 mg oral capsule (5 sources) Nitrofuran Antibacterial Start: 08-27-2024 End: 09-03-2024 take 1 capsule by mouth in the morning nitrofurantoin, macrocrystal-monoh ydrate, (Macrobid) 100 MG capsule Indications: Urinary tract infection symptoms Take 1 capsule (100 mg) by mouth in the morning and 1 capsule (100 mg) before bedtime. Do all this for 7 days. 14 capsule 08/27/2024 09/03/2024 Active take 1 capsule by mo uth in the morning nitrofurantoin, macrocrystal-monohydrate , (Macrobid) 100 MG capsule Take 1 capsule by mouth in the morning and 1 capsule before bedtime. 0 Active ondansetron 4 mg disintegrating oral tablet (12 sources) Serotonin-3 Receptor Antagonist Start: 04-05-2024 take 1 tablet by mouth every eight hours as needed for nausea and vomiting ondansetron ODT (Zofran-ODT) 4 MG disintegrating tablet Take 4 mg by mouth every 8 (eight) hours if needed for nausea or vomiting 04/05/2024 Active polaprezinc (zinc carnosine) (8 sources) Start: 11-10-2023 take 1 tablet by mouth once daily polaprezinc (zinc carnosine) Active 1 TAB PO Daily November 09, 2023 11:00pm Start: 11-10-2023 take 1 tablet by tre once daily polaprezinc (zinc carnosine) Active 1 TAB PO Daily November 10, 2023 12:00am potassium chloride 10 meq extended release oral capsule (20 sources) Start: 01-31-2024 End: 08-06-2024 potassium chloride ER (Micro -K) 10 MEQ ER capsule Indications: Hypokalemia Take [...] Mar, Active sodium fluoride 0.011 mg/mg toothpaste (12 sources) Start: 03-13-2024 Sodium Fluorid e 5000 PPM 1.1 % paste APPLY THIN RIBBON TO TOOTHBRUSH, BRUSH TWICE DAILY X2MINS, SPIT, DO NOT EAT/DRINK/RINSE FOR 30 MIN 03/13/2024 Active Tirzepatide (3 sources) Start: 08-12-2024 inject 1 mL by subcutaneous injection every week Tirzepatide (Mounjaro) 7.5 mg/0.5 mL pen injector Active 0 .ROUTE .COMPLEX 2 August 12, 2024 5:09pm INJECT 7.5MG(0.5ML) SUBCUTANEOUSLY ONCE EVERY WEEK FOR 4 WEEKS Start: 05-15-2024 End: 08-12-2024 Tirzepatide 7.5 mg/0.5 mL pe n injector Discontinued 7.5 MG SUBCUT every week 2 May 15, 2024 2:05pm August 12, 2024 5:10pm Ok to dispense 5.0 mg weekly if 7.5 mg delayed or unavailable Start: 05-15-2024 Tirzepatide Ac tive 7.5 MG SUBCUT every week 2 May 15, 2024 3:05pm Ok to dispense 5.0 mg weekly if 7.5 mg delayed or unavailable tiZANidine 4 mg oral tablet (20 sources) Central alpha-2 Adrenergic Agonist Start: 02-16-2024 End: 03-20-2024 Tizanidine Active MG PO March 20, 2024 2:46pm Start: 02-08-2024 End: 11-05-2024 tiZANidine (Zanaflex) 4 MG t ablet Indications: Spondylosis without myelopathy or radiculopathy, cervical region , Cervical spondylosis without myelopathy Take 1 tablet (4 mg) by mouth as needed at bedtime for muscle spasms 90 tablet 1 08/07/2024 11/05/2024 Active tiZANidine (Micheal flex) 4 MG tablet TAKE 1 TABLET AT BEDTIME NEEDED FOR MUSCLE SPASMS 0 Active triamcinolone acetonide 0.04786 mg/mg topical ointment (14 sources) Corticosteroid Start: 08-16-2023 triamcinolone (Kenalog) 0.025 % ointment APPLY A SMALL AMOUNT EXTERNALLY TWICE A DAY FOR SEBORRHEIC DERMATITIS TO SKIN OF EARS/BEHIND EARS 08/16/2023 Active Tumeric (1 source) Tumeric daily *please review for potential _update for e-prescription and drug interaction check* Active Turmeric extract (16 sources) take 1 tablet by mouth once [...] capsule Active 100 MG PO Daily May 14, 2024 11:00pm Start: 11-10-2023 End: 05-15-2024 Coenzyme Q10 10 mg capsule D iscontinued 10 MG PO Daily November 09, 2023 11:00pm May 15, 2024 1:06pm valACYclovir 1000 mg oral tablet (16 sources) Herpesvirus Nucleoside Analog DNA Polymerase Inhibitor, [...] mouth every 12 (twelve) hours 0 Active Vitamin B Complex tablet (1 source) Start: 08-20-2024 take 1 tablet by mouth once daily Vitamin B Complex tablet Active 1 TAB PO Daily August 20, 2024 12:00am vitamin e d-alpha 400 unt oral capsule (4 sources) alpha tocopherol (Vitamin E) 400 units capsule 1 capsule 1 (one) time each day at the same time 0 Active Vitamin E 400 UNIT (1 source) take 1 capsule by mouth once daily Vitamin E 400 UNIT 1 capsule Orally Once a day for 30 day(s) Active Completed/Discontinued Medications Medication Drug Class(es) Dates Sig (Normalized) Sig (Original) bilberry extract 40 mg oral capsule (1 source) Bilberry Extract 40 MG as directed Orally Not-Taking carvedilol 25 mg oral tablet (20 sources) alpha-Adrenergic Onofre, beta-Adrenergic Onofre Start: 02-16-2024 End: 05-15-2024 take 1 mg by mouth twice daily Carvedilol Discontinued MG PO Twice daily March 20, 2024 2:44pm May 15, 2024 2:11pm Start: 02-14-2024 End: 05-15-2024 take 1 tablet by mouth in the morning carvedilol (Coreg) 25 MG tablet Take 25 mg by mouth in the morning and 25 mg in the evening. Take with meals. 02/14/2024 Active Start: 05-29-2023 End: 04-17-2024 take 1 tablet by mouth twice daily Carvedilol 12.5 mg tablet Discontinued 12.5 MG PO Twice daily November 09, 2023 11:00pm February 16, 2024 10:55am Carvedilol 6.25 MG as directed Orally Active Cholecalciferol 48749 UNIT (1 source) Cholecalciferol 77110 UNIT as directed Orally *please review for potential _update for e-prescription and drug interaction check* Not-Taking Coenzyme Q10 10 MG (1 source) take 1 capsule by mouth once daily Coenzyme Q10 10 MG 1 capsule with a meal Orally Once a day for 30 day(s) Not-Taking diclofenac sodium 75 mg delayed release oral tablet (1 source) Nonsteroidal Anti-inflammatory Drug Start: take 1 tablet by mouth every twelve hours Diclofenac Sodium 75 MG 1 tablet with food or milk Orally Twice a day for 30 day(s) Dec, Not-Taking grape seed extract 25 mg oral capsule (1 source) Grape Seed 25 MG as directed Orally *please review for potential _update for e-prescription and drug interaction check* Not-Taking Magnesium Chloride (8 sources) Start: End: take 1 tablet by mouth once daily as needed magnesium chloride Discontinued 1 TAB PO Daily as needed November 09, 2023 11:00pm May 15, 2024 1:07pm Start: 11-10-2023 End: 05-15-2024 take 1 tablet by mouth once daily magnesium chloride Discontinued 1 TAB PO Daily November 10, 2023 12:00am May 15, 2024 2:07pm Start: 11-10-2023 take 1 tablet by tre once daily magnesium chloride Active 1 TAB PO Daily November 10, 2023 12:00am [place] 2-Euk-Zfq-Fish Oil (Fish Oil) 1,000 mg (120 mg-180 mg) capsule (8 sources) Start: 11-10-2023 End: 05-15-2024 take 1 capsule by mouth once daily as needed [place] 5-Jdo-Pgc-Fish Oil (Fish Oil) 1,000 mg (120 mg-180 mg) capsule Discontinued 1 CAP PO Daily as needed November 09, 2023 11:00pm May 15, 2024 1:08pm Start: 11-10-2023 End: 05-15-2024 take 1 capsule by mouth once daily [place] 3-Enm-Tmm-Fish Oil (Fish Oil) 1,000 mg (120 mg-180 mg) capsule Discontinued 1 CAP PO Daily November 10, 2023 12:00am May 15, 2024 2:08pm Start: 11-10-2023 take 1 capsule by mo ilh once daily [place] 4-Tdz-Qav-Fish Oil (Fish Oil) 1,000 mg (120 mg-180 mg) capsule Active 1 CAP PO Daily November 10, 2023 12:00am Potassium Chloride (Klor-Con M20) 20 mEq tablet,ER particles/crystals (8 sources) Start: 11-10-2023 End: 01-31-2024 Potassium Chloride (Klor-Con M20) 20 mEq tablet,ER particles/crystals Discontinued MEQ PO November 09, 2023 11:00pm January 31, 2024 1:02pm Start: 11-10-2023 End: 01-31-2024 Potassium Chloride (Klor-Con M20) 20 mEq tablet,ER particles/crystals Discontinued MEQ PO November 10, 2023 12:00am January 31, 2024 2:02pm Start: 11-10-2023 Potassium Chlo ride (Klor-Con M20) 20 mEq tablet,ER particles/crystals Active MEQ PO November 10, 2023 12:00am Reservapak - (1 source) Reservapak - as directed Orally *please review for potential _update for e-prescription and drug interaction check* Not-Taking Tirzepatide (7 sources) Start: 11-10-2023 End: 01-31-2024 Tirzepatide (Mounjaro) 2.5 m g/0.5 mL pen injector Discontinued 2.5 MG SUBCUT every week 3 November 09, 2023 11:00pm January 31, 2024 1:35pm Start: 11-10-2023 End: 01-31-2024 Tirzepatide (Mounjaro) 2.5 m g/0.5 mL pen injector Discontinued 2.5 MG SUBCUT every week 3 November 10, 2023 12:00am January 31, 2024 2:35pm Start: 11-10-2023 Tirzepatide (M ounjaro) 2.5 mg/0.5 mL pen injector Active 2.5 MG SUBCUT every week 3 November 10, 2023 12:00am Tirzepatide (8 sources) Start: 03-20-2024 End: 05-15-2024 inject 0.5 mg by subcutaneous injection every week Tirzepatide 5 mg/0.5 mL pen injector Discontinued 5 MG SUBCUT every week 2 March 20, 2024 2:17pm May 15, 2024 2:07pm Ok to dispense 2.5 mg dosing if 5.0 mg not available Start: 03-20-2024 End: 05-15-2024 inject 0.5 mg [...] mg by subcutaneous injection every week Tirzepatide 5 mg/0.5 mL pen injector Discontinued 5 MG SUBCUT every week 2 January 31, 2024 1:33pm March 20, 2024 2:17pm Ok to dispense 2.5 mg dosing if [...] Active 5 MG SUBCUT every week 09 20January 31, 2024 2:33pm Ok to dispense 2.5 mg dosing if 5.0 mg not available vitamin b12 1 mg oral tablet (20 sources) Vitamin B12 Start: 11-10-2023 End: 08-20-2024 take 1 tablet by mouth once daily as needed Cyanocobalamin (Vitamin B-12) 1,000 mcg tablet Discontinued 1000 MCG PO Daily as needed November 09, 2023 11:00pm August 20, 2024 2:36pm take 1 tablet by mouth once rebecca y Cyanocobalamin 1000 MCG capsule Take 1 tablet by mouth 1 (one) time each day at the same time Active take 1 tablet by mouth once rebecca y Cyanocobalamin 1000 MCG 1 tablet Orally Once a day for 30 day(s) *please review for potential _update for e-prescription and drug interaction check* Not-Taking Problems Active Problems Problem Classification Problem Date Documented Date Episodic/Chronic Anxiety disorders (17 sources) Generalized anxiety disorder; 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: [Generalized anxiety [...] disorder] Onset: 12-23-2021 Resolved: 04-17-2024 07-21-2023 Chronic Genitourinary symptoms and ill-defined conditions (2 sources) Urinary symptoms ; 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: [Unspecified symptoms and signs involving the genitourinary system] Onset: 08-27-2024 08-27-2024 Episodic Lymphadenitis (4 sources) Enlarged lymph nodes, [...] neoplasm of skin, unspecified] 05-27-2024 Episodic Other nutritional; endocrine; and metabolic disorders (1 source) Morbid (severe) obesity due to excess calories; 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: [MORBID SEVERE OBES D/T EXCESS CHAI] Onset: 12-23-2021 Chronic Other nutritional; endocrine; and metabolic disorders (1 source) Body mass index (BMI) 37.0-37.9, adult; 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: [BODY MASS INDEX BMI 37.0-37.9 ADULT] Onset: 12-23-2021 Chronic Other nutritional; endocrine; and metabolic disorders (7 sources) Body mass index 40+ - severely obese; 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: [Body mass index (BMI) 40.0-44.9, adult] 11-10-2023 Chronic Other nutritional; endocrine; and metabolic disorders (13 sources) Body mass index (BMI) 40.0-44.9, adult; 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: [Body Mass Index 40.0-44.9, adult] 11-10-2023 Chronic Other nutritional; endocrine; and metabolic disorders (13 sources) Obesity, unspecified; 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: [Obesity, unspecified] 11-10-2023 Chronic Other nutritional; endocrine; and metabolic disorders (12 sources) Body mass index 30+ - obesity; 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: [Obesity, unspecified] Onset: 10-04-2023 10-04-2023 Chronic Other nutritional; endocrine; and metabolic disorders (8 sources) Hypomagnesemia; 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: [Hypomagnesemia] Onset: 04-25-2024 04-25-2024 Chronic Other skin disorders (2 sources) Mass of neck; 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: [Localized swelling, mass and lump, neck] 09-07-2023 Episodic Other skin disorders (2 sources) Telogen effluvium; 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: [Telogen effluvium] 05-27-2024 Episodic Other upper respiratory disease (13 sources) Allergic disposition; 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: [Other allergic rhinitis] Onset: 09-25-2023 09-25-2023 Chronic Residual codes; unclassified (6 sources) Other specified health status; 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: [Other drug allergy] Onset: 03-03-2022 Episodic Unclassified (1 source) CONTACT W/AND (SUSP) EXPOS COVID-19; 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: [CONTACT W/AND (SUSP) EXPOS COVID-19] Onset: 12-23-2021 Past or Other Problems Problem Classification Problem Date Documented Da te Episodic/Chronic Allergic reactions (16 sources) Allergic urticaria; 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: [Allergic urticaria] Onset: 4 Resolved: 4 07-27-2023 Episodic Blindness and vision defects (20 sources) Presbyopia; 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: [Presbyopia] Onset: 4 Resolved: 4 07-27-2023 Episodic Conditions associated with dizziness or vertigo (20 sources) Dizziness and giddiness; 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: [Dizziness] Onset: 2 Resolved: Episodic Diabetes mellitus with complications (20 sources) Hyperglycemia due to type 2 diabetes mellitus; 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: [Type 2 diabetes mellitus with hyperglycemia] Onset: 4 Resolved: 4 11-10-2023 Chronic Diabetes mellitus without complication (17 sources) Prediabetes; 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: [Prediabetes] Onset: 2 Resolved: 4 07-26-2023 Episodic Diseases of mouth; excluding dental (20 sources) Sialoadenitis; 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: [Sialoadenitis, unspecified] Onset: 3 07-26-2023 Episodic Esophageal disorders (16 sources) Gastroesophageal reflux disease; 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: [Gastro-esophageal reflux disease without esophagitis] Onset: 4 Resolved: 4 07-27-2023 Chronic Fluid and electrolyte disorders (19 sources) Hypokalemia; 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: [Hypokalemia] Onset: 2 08-28-2023 Episodic Headache; including migraine (16 sources) Migraine; 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: [Migraine, unspecified, not intractable, without status migrainosus] Onset: 3 Resolved: 4 07-27-2023 Chronic Hepatitis (16 sources) Nonalcoholic steatohepatitis; 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: [Nonalcoholic steatohepatitis (CORCORAN)] Onset: 4 Resolved: 4 07-27-2023 Chronic Mood disorders (20 sources) Depressive disorder; 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: [Depressive disorder] Onset: 4 Resolved: 4 07-27-2023 Chronic Mood disorders (12 sources) Mood disorders Onset: 4 01-08-2024 Mycoses (16 sources) Onychomycosis of toenails; 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: [Tinea unguium] Onset: 4 Resolved: 4 07-27-2023 Episodic Neoplasms of unspecified nature or uncertain behavior (18 sources) Villous adenoma of colon; 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: [Neoplasm of uncertain behavior of colon] Onset: 4 Resolved: 4 07-27-2023 Episodic Nutritional deficiencies (19 sources) Cobalamin deficiency; 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: [Deficiency of other specified B group vitamins] Onset: 4 11-10-2023 Episodic Other aftercare (1 source) [facility] (current) use of aspirin; 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: [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 USE OF ASPIRIN] Onset: 2 Episodic Other aftercare (1 source) vp packaging (current) use of oral hypoglycemic drugs; 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] Onset: 2 Episodic Other aftercare (1 source) Other alf (current) drug therapy; 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: [OTH 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 CURRENT DRUG THERAPY] Onset: 2 Episodic Other connective tissue disease (13 sources) Cramp; 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: [Cramp and spasm] Onset: 4 04-17-2024 Episodic Other eye disorders (16 sources) Dry eyes; 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: [Dry eye syndrome of bilateral lacrimal glands] Onset: 4 07-26-2023 Episodic Other gastrointestinal disorders (16 sources) Occult blood in stools; 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: [Other fecal abnormalities] Onset: 4 Resolved: 4 07-27-2023 Episodic Other liver diseases (1 source) Abnormal levels of other serum enzymes; 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: [ABNORMAL LEVELS OTHER SERUM ENZYMES] Onset: 2 Episodic Other lower respiratory disease (16 sources) Breathing painful; 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: [Chest pain on breathing] Onset: 4 Resolved: 4 07-27-2023 Episodic Other nervous system disorders (16 sources) Carpal tunnel syndrome; 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: [Carpal tunnel syndrome, unspecified upper limb] Onset: 4 Resolved: 4 07-27-2023 Chronic Other nervous system disorders (1 source) Paresthesia of skin; 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: [PARESTHESIA OF SKIN] Onset: 2 Episodic Other nervous system disorders (16 sources) Skin sensation disturbance; 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: [Unspecified disturbances of skin sensation] Onset: 4 Resolved: 4 07-27-2023 Episodic Other non-traumatic joint disorders (16 sources) Ankle pain; 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: [Pain in right ankle and joints of right foot] Onset: 3 07-21-2023 Episodic Other non-traumatic joint disorders (12 sources) Pain in left knee; 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: [Pain [...] Resolved: 4 07-27-2023 Episodic Other skin disorders (16 sources) Ingrowing toenail; 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: [Ingrowing nail] Onset: 4 Resolved: 4 07-27-2023 Episodic Other skin disorders (12 sources) Eruption; 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: [Rash and other nonspecific skin eruption] Onset: 4 01-08-2024 Episodic Other upper respiratory infections (20 sources) Acute maxillary sinusitis, unspecified; 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: [Acute maxillary sinusitis] Onset: 4 Resolved: 4 Episodic Pancreatic disorders (not diabetes) (16 sources) Acute pancreatitis; 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: [Acute pancreatitis without necrosis or infection, unspecified] Onset: 4 Resolved: 4 07-27-2023 Episodic Residual codes; unclassified (16 sources) Other general symptoms and signs; 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: [Other general symptoms] Onset: 4 Resolved: 4 07-27-2023 Episodic Residual codes; unclassified (16 sources) Tobacco user; 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: [Tobacco use] Onset: 4 Resolved: 4 07-27-2023 Episodic Screening and history of mental health and substance abuse codes (1 source) Personal history of nicotine dependence; 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: [PERSONAL HISTORY OF NICOTINE DEPEND] Onset: 2 Episodic Skin and subcutaneous tissue infections (16 sources) Carbuncle of trunk; 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: [Carbuncle of [...] Resolved: 4 07-27-2023 Episodic Sprains and strains (16 sources) Lumbar sprain; 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: [Sprain of ligaments [...] infection] Onset: 2 Resolved: 4 07-27-2023 Episodic Viral infection (20 sources) Herpes simplex; 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: [Herpesviral infection, unspecified] Onset: 3 07-21-2023 Episodic Results Test Name Value Interpretation Reference [...] Amount of lidocaine used: 1.0 cc [facility] e MLR HEMOGLOBIN A1Con 024 Glucose [Mass/Vol] 103 mg/dL [facility] ealtare HbA1c (Bld) [Mass fraction] 5.2 % 4.5 - 6.2 % [facility] Comment on above: ADA RECOMMENDED LIMI T 4.0 - 6.0 ADA THERAPEUTIC TARGET < 7.0 ACTION SUGGESTED > 7.0 [facility] e MM screening mammo BI w/CADo n 03-11-2024 MM screening mammo BI w/CAD [facility] [address] [place] [id number] Mammography Report Signed Patient: Norma Redmond MR#: [id number] : 1950 Acct:[id number] Age/Sex: 73 / F ADM Date: 03/11/24 Loc: [place] Room: Type: [facility] Attending Dr: Christine Pereira (Clinic) , [facility] Copies to: DO Ginny Blount NP-C [...] Jose Yan M.D.03/11/2024 2:00 PM Dictation Location: [facility] Transcribed By: [facility] 03/11/24 1400 Dictated By: Jose Yan DO 03/11/24 1359 Signed By: 03/11/24 1400 Normal [facility] No Panel InformationOrdered By: Gina Harkins on 02-16-2024 Quick Strep (POC) [facility] Respiratory specimen 2019 no aaron coronavirus RNA detection by probe and target amplifion 02-16-2024 SARS-CoV-2 (COVID-19) RNA MARY+probe Ql (Resp) Negative [facility] Office Visiton 02-14-2024 Follow-up visit [id number] Norma Redmond 1950 F Date Provider Department Center 02/14/2024 Jeovanny-SOFYA MEYER CARD [facility] Family History Problem Relation Age of Onset Atrial fibrillation Mother Family Status - Relation Status Age at Mother Level of Service:68221 [place] OFFICE/OUTPATIENT ESTABLISHED LOW MDM 20 MIN Normal [facility] HbA1c HPLC (Bld) [Mass fract ion]on 11-10-2023 HbA1c (Bld) [Mass fraction] 6.3 % [facility] No Panel Informationon 11-09 Bedside Glucose 122 [facility] Fernando 08-29-2023 L Specimen: [id number] Received: 08/29/23 Status: GAYE Miguel Num: [id number] Spec Type: Surgical Subm Dr: Migel Best DO Tissues: A Gross Only (SALIVARY STONE) Procedures: Level 1 Gross Age/ Patient Sex Location Account Attending Physician RuyNorma 72/F [place] [id number] Migel Best DO SPEC NUM: [id number] RECD: 08/29/23 STATUS: GAYE RIVERA NUM: [id number] BIB: 08/29/23- SUBM DR: Migel Best DO ENTERED: 08/29/[address]: Sebas Garza [facility] SPEC TYPE: Surgical DEPT: S ORDERED: [...] is taken. Gross examination only. CPT Codes 89227 Gross Photo -------- -------- Specimen: [id number] Received: 08/29/23 Status: GAYE Rivera Num: [id number] Spec Type: Surgical Subm Dr: Migel Best,DO Tissues: A Gross Only (SALIVARY STONE) Procedures: Level 1 Gross -------- Patient: Norma Redmond [id number] (Continued) -------- Signed (signature on file) Ghassan-Jay Ford MD 09/08/23 1403 Normal [facility] COVID Quick Testingon 2022 Result Negative [facility] Other CT NECK ST W CONon [address] W CON EXAMINATION: CT [...] BENEDICTO KARIMI Date: 2022-08-04 08:41 Normal The [facility] CBC AUTO DIFFon 08-03-2022 BASO # 0.0 103/ul Normal 0.0-0.1 [facility] Comment on above: Performed By: #### A 1C #### [facility] Laboratory [address] [address] [address] Blanca Ford Basophils/100 WBC (Bld) 0.8 % Normal 0.2-2.0 [facility] Comment on above: Performed By: #### A 1C #### [facility] Laboratory [address] [address] [address] Blanca Ford EO # 0.2 103/ul Normal 0.0-0.7 [facility] Comment on above: Performed By: #### A 1C #### [facility] Laboratory [address] [address] [address] Blanca Ford Eosinophils/100 WBC (Bld) 3.1 % Normal 0.9-7.0 [facility] Comment on above: Performed By: #### A 1C #### [facility] Laboratory [address] [address] [address] Blanca Ford Erythrocyte distribution width (RBC) [Ratio] 12.4 % Normal 11.0-15.0 [facility] Comment on above: Performed By: #### A 1C #### [facility] Laboratory [address] [place] [address] Dr. Blanca Ford Hematocrit (Bld) [Volume fraction] 42.5 % Normal 36.0-48.0 [facility] Comment on above: Performed By: #### A 1C #### [facility] Laboratory [address] [place] [address] Dr. Blanca Ford Hemoglobin (Bld) [Mass/Vol] 14.0 g/dL Normal 12.0-16.0 [facility] Comment on above: Performed By: #### A 1C #### [facility] Laboratory [address] [place] [address] Dr. Blanca Ford IG # 0.03 10e3/ul Normal 0.00-0.03 [facility] Comment on above: Performed By: #### A 1C #### [facility] Laboratory [address] [place] [address] Dr. Blanca Ford IG % 0.6 % Critically high 0.0-0.5 [facility] Comment on above: Performed By: #### A 1C #### [facility] Laboratory [address] [place] [address] Dr. Blanca Ford LYMPH # 1.2 103/ul Normal 1.2-3.8 [facility] Comment on above: Performed By: #### A 1C #### [facility] Laboratory [address] [place] [address] Dr. Blanca Ford Lymphocytes/100 WBC (Bld) 22.6 % Normal 20.5-60.0 [facility] Comment on above: Performed By: #### A 1C #### [facility] Laboratory [address] [place] [address] Dr. Blanca Ford MANUAL DIFF REQ NO Normal [facility] Comment on above: Performed By: #### A 1C #### [facility] Laboratory [address] [place] [address] Dr. Blanca Ford MCH (RBC) [Entitic mass] 28.1 pg Normal 26.7-34.0 [facility] Comment on above: Performed By: #### A 1C #### [facility] Laboratory [address] [address] [address] Blanca Ford MCHC (RBC) [Mass/Vol] 32.9 g/dL Normal 29.9-35.2 [facility] Comment on above: Performed By: #### A 1C #### [facility] Laboratory [address] [address] [address] Blanca Ford MCV (RBC) [Entitic vol] 85.3 fL Normal 81.0-99.0 [facility] Comment on above: Performed By: #### A 1C #### [facility] Laboratory [address] [address] [address] Blanca Ford MONO # 0.3 103/ul Normal 0.3-0.8 [facility] Comment on above: Performed By: #### A 1C #### [facility] Laboratory [address] [place] [address] Dr. Blanca Ford Monocytes/100 WBC (Bld) 6.3 % Normal 1.7-12.0 [facility] Comment on above: Performed By: #### A 1C #### [facility] Laboratory [address] [address] [address] Blanca Ford NEUT # 3.5 103/ul Normal 1.4-6.5 [facility] Comment on above: Performed By: #### A 1C #### [facility] Laboratory [address] [address] [address] Blanca Ford Neutrophils/100 WBC (Bld) 66.6 % Normal 43.0-75.0 [facility] Comment on above: Performed By: #### A 1C #### [facility] Laboratory [address] [address] [address] Blanca Ford Platelet mean volume (Bld) [Entitic vol] 8.7 fL Critically low 9.5-13.5 [facility] Comment on above: Performed By: #### A 1C #### [facility] Laboratory [address] [address] [address] Blanca Ford PLT 214 103/ul Normal 150-450 [facility] Comment on above: Performed By: #### A 1C #### [facility] Laboratory [address] [address] [address] Blanca Ford RBC 4.98 106/ul Normal 4.20-5.40 [facility] Comment on above: Performed By: #### A 1C #### [facility] Laboratory [address] [address] [address] Blanca Ford WBC 5.2 103/ul Normal 4.0-11.0 [facility] Comment on above: Performed By: #### A 1C #### [facility] Laboratory [address] [address] [address] Blanca Ford CRPon 08-03-2022 CRP [Mass/Vol] mg/L Normal <=1.0 [facility] Comment on above: Performed By: #### L ACT #### [facility] Laboratory [address] [place] [address] Dr. Blanca Ford GLYCOHEMOGLOBIN A1Con 2022 ADA RECOMMENDATION SEE BELOW Normal [facility] Comment on above: Result Comment: ADA RECOMMENDED LIMIT 4.0 - 6.0 ADA THERAPEUTIC TARGET < 7.0 ACTION SUGGESTED > 7.0 Performed By: #### C MP #### [facility] Laboratory [address] [address] [address] Blanca Ford Glucose [Mass/Vol] 137 mg/dL Normal [facility] Comment on above: Performed By: #### C MP #### [facility] Laboratory [address] [address] [address] Blanca Ford HbA1c (Bld) [Mass fraction] 6.4 % Critically high 4.5-6.2 [facility] Comment on above: Performed By: #### C MP #### [facility] Laboratory [address] [address] [address] Blanca Ford PROF CHEM 8 (BAS METB)on Anion gap [Moles/Vol] 12.8 mmol/L Normal [facility] Comment on above: Performed By: #### B MP ####[facility] [address] [place] [address]Dr. Blanca Ford Calcium [Mass/Vol] 9.4 mg/dL Normal 8.5-10.1 [facility] Comment on above: Performed By: #### B MP ####[facility] [address] [place] [address]Dr. Blanca Ford Chloride [Moles/Vol] 101 mmol/L Normal 98-107 [facility] Comment on above: Performed By: #### B MP ####[facility] [address] [place] [address]Dr. Blanca Ford CO2 [Moles/Vol] 30.0 mmol/L Normal 21.0-32.0 [facility] Comment on above: Performed By: #### B MP ####[facility] [address] [place] [address]Dr. Blanca Ford Creatinine [Mass/Vol] 0.69 mg/dL Normal 0.55-1.02 [facility] Comment on above: Performed By: #### B MP ####[facility] [address] [place], [place] [address]Dr. Blanca Ford EGFR-AF INDIAN >60 Normal >=60 [facility] Comment on above: Performed By: #### B MP ####[facility] [address] [place], [place] [address]Dr. Blanca Ford EGFR-NON AF INDIAN >60 Normal >=60 [facility] Comment on above: Performed By: #### B MP ####[facility] [address] [place], [place] [address]Dr. Blanca Ford Glucose [Mass/Vol] 138 mg/dL Critically high 74-106 [facility] Comment on above: Performed By: #### B MP ####[facility] [address] [place] [address]Dr. Blanca Ford Potassium [Moles/Vol] 3.8 mmol/L Normal 3.5-5.1 [facility] Comment on above: Performed By: #### B MP ####[facility] [address] [place] [address]Dr. Claudiadebra Ford Sodium [Moles/Vol] 140 mmol/L Normal 136-145 [facility] Comment on above: Performed By: #### B MP ####[facility] [address] [place], [place] [address]Gw. Blanca Ford Urea nitrogen [Mass/Vol] 13.0 mg/dL Normal 7.0-18.0 [facility] Comment on above: Performed By: #### B MP ####[facility] [address] [place] [id number]. Blanca Ford Urea nitrogen/Creatinine [Mass ratio] 18.8 mg/mg Normal [facility] Comment on above: Performed By: #### B MP ####[facility] [address] [place] [id number]. Blanca Ford SED RATE WESTERGRENon 2022 SED RATE 35 mm/hr Critically high <=30 [facility] Comment on above: Performed By: #### A 1C #### [facility] Laboratory [address] [address] [address] Balnca Ford CBC AUTO DIFFon 03-03-2022 BASO # 0.1 103/ul Normal 0.0-0.1 [facility] Comment on above: Performed By: #### C BC ####[facility] [address] [place] [address]Dr. Blanca Ford Basophils/100 WBC (Bld) 1.0 % Normal 0.2-2.0 [facility] Comment on above: Performed By: #### C BC ####[facility] [address] [place] [address]Dr. Blanca Ford EO # 0.1 103/ul Normal 0.0-0.7 [facility] Comment on above: Performed By: #### C BC ####[facility] [address] [place] [id number] Ford Eosinophils/100 WBC (Bld) 2.4 % Normal 0.9-7.0 [facility] Comment on above: Performed By: #### C BC ####[facility] [address] [place] [id number] Ford Erythrocyte distribution width (RBC) [Ratio] 12.3 % Normal 11.0-15.0 [facility] Comment on above: Performed By: #### C BC ####[facility] [address] [place] [address]Dr. Blanca Ford Hematocrit (Bld) [Volume fraction] 43.9 % Normal 36.0-48.0 [facility] Comment on above: Performed By: #### C BC ####[facility] [address] [place] [address]Dr. Blanca Ford Hemoglobin (Bld) [Mass/Vol] 14.6 g/dL Normal 12.0-16.0 [facility] Comment on above: Performed By: #### C BC ####[facility] [address] [place], [place] [address]Dr. Blanca Ford IG # 0.01 10e3/ul Normal 0.00-0.03 [facility] Comment on above: Performed By: #### C BC ####[facility] [address] [place], [place] [address]Dr. Blanca Ford IG % 0.2 % Normal 0.0-0.5 [facility] Comment on above: Performed By: #### C BC ####[facility] [address] [place], [place] [address]Dr. Blanca Ford LYMPH # 1.2 103/ul Normal 1.2-3.8 [facility] Comment on above: Performed By: #### C BC ####[facility] [address] [place], [place] [address]Dr. Blanca Ford Lymphocytes/100 WBC (Bld) 22.9 % Normal 20.5-60.0 [facility] Comment on above: Performed By: #### C BC ####[facility] [address] [place], [place] [address]Dr. Blanca Ford MANUAL DIFF REQ NO Normal [facility] Comment on above: Performed By: #### C BC ####[facility] [address] [place] [address]Dr. Blanca Ford MCH (RBC) [Entitic mass] 28.0 pg Normal 26.7-34.0 [facility] Comment on above: Performed By: #### C BC ####[facility] [address] [place] [id number]. Blanca Logan MCHC (RBC) [Mass/Vol] 33.3 g/dL Normal 29.9-35.2 [facility] Comment on above: Performed By: #### C BC ####[facility] [address] [place] [id number]. Blanca Ford MCV (RBC) [Entitic vol] 84.3 fL Normal 81.0-99.0 [facility] Comment on above: Performed By: #### C BC ####[facility] [address] [place], [place] [address]Dr. Blanca Ford MONO # 0.3 103/ul Normal 0.3-0.8 [facility] Comment on above: Performed By: #### C BC ####[facility] [address] [place], [place] [address]Dr. Blanca Ford Monocytes/100 WBC (Bld) 5.9 % Normal 1.7-12.0 [facility] Comment on above: Performed By: #### C BC ####[facility] [address] [place], [place] [address]Dr. Blanca Ford NEUT # 3.4 103/ul Normal 1.4-6.5 [facility] Comment on above: Performed By: #### C BC ####[facility] [address] [place], [place] [address]Dr. Blanca Ford Neutrophils/100 WBC (Bld) 67.6 % Normal 43.0-75.0 [facility] Comment on above: Performed By: #### C BC ####[facility] [address] [place], [place] [address]DrElyssa Ford Platelet mean volume (Bld) [Entitic vol] 8.7 fL Critically low 9.5-13.5 [facility] Comment on above: Performed By: #### C BC ####[facility] [address] [place], [place] [address]Dr. Blanca Ford PLT 236 103/ul Normal 150-450 [facility] Comment on above: Performed By: #### C BC ####[facility] [address] [place] [id number] Ford RBC 5.21 106/ul Normal 4.20-5.40 [facility] Comment on above: Performed By: #### C BC ####[facility] [address] [place] [id number]. Blanca Ford WBC 5.1 103/ul Normal 4.0-11.0 [facility] Comment on above: Performed By: #### C BC ####[facility] [address] [place] [id number] Ford FREE T4on 03-03-2022 Free T4 [Mass/Vol] 1.04 ng/dL Normal 0.76-1.46 [facility] Comment on above: Performed By: #### F T4 ####[facility] [address] [address]Dr. Blanca Ford GLYCOHEMOGLOBIN A1Con 2021 ADA RECOMMENDATION SEE BELOW Normal [facility] Comment on above: Result Comment: ADA RECOMMENDED LIMIT 4.0 - 6.0 ADA THERAPEUTIC TARGET < 7.0 ACTION SUGGESTED > 7.0 Performed By: #### A 1C #### [facility] Laboratory [address] [place] [address] Dr. Blanca Ford Glucose [Mass/Vol] 128 mg/dL Normal [facility] Comment on above: Performed By: #### A 1C #### [facility] Laboratory [address] [address] [address] Blanca Ford HbA1c (Bld) [Mass fraction] 6.1 % Normal 4.5-6.2 [facility] Comment on above: Performed By: #### A 1C #### [facility] Laboratory [address] [address] [address] Blanca Ford LIPID PROFILEon 03-03-2022 CHOL-HDL RATIO NORM SEE BELOW Normal [facility] Comment on above: Result Comment: 3.3 - 4.4 LOW RISK 4.4 - 7.1 AVERAGE RISK 7.1 - 11.0 MODERATE RISK >11.0 HIGH RISK Performed By: #### L ACT #### [facility] Laboratory [address] [address] [address] Blanca Ford Cholesterol [Mass/Vol] 214 mg/dL Critically high <=200 [facility] Comment on above: Performed By: #### L ACT #### [facility] Laboratory [address] [address] [address] Blanca Ford Cholesterol in HDL [Mass/Vol] 45 mg/dL Normal 40-60 [facility] Comment on above: Performed By: #### L ACT #### [facility] Laboratory [address] [address] [address] Blanca Ford Cholesterol in LDL [Mass/Vol] 134.2 mg/dL Normal [facility] Comment on above: Performed By: #### L ACT #### [facility] Laboratory [address] [address] [address] Blanca Ford Cholesterol.total/Cho lesterol in HDL [Mass ratio] 4.8 {ratio} Normal [facility] Comment on above: Performed By: #### L ACT #### [facility] Laboratory [address] [address] [address] Blanca Ford HDL NORMAL > or = 60 mg/dl - LO W CARDIOVASCULAR RISK <40 mg/dl - HIGH CARDIOVASCULAR RISK Normal [facility] Comment on above: Performed By: #### L ACT #### [facility] [address] [address] [address] Blanca Ford LDL CALC NORMAL SEE BELOW Normal [facility] Comment on above: Result Comment: <100 mg/dl OPTIMAL 100 - 129 mg/dl NEAR OR ABOVE OPTIMAL 130 - 159 mg/dl BORDERLINE HIGH 160 - 189 mg/dl HIGH >190 mg/dl VERY HIGH Performed By: #### L ACT #### [facility] [address] [address] [address] Blanca Ford Triglyceride [Mass/Vol] 174 mg/dL Critically high <=150 [facility] Comment on above: Performed By: #### L ACT #### [facility] [address] [address] [address] Blanca Ford VLDL CALC 34.8 mg/dL Normal [facility] Comment on above: Performed By: #### L ACT #### [facility] [address] [address] [address] Blanca Ford PROF 14(COMP METB)on 022 Albumin [Mass/Vol] 4.1 g/dL Normal 3.4-5.0 [facility] Comment on above: Performed By: #### L ACT #### [facility] [address] [place] [address] Dr. Blanca Ford Albumin/Globulin [Mass ratio] 1.1 {ratio} Normal [facility] Comment on above: Performed By: #### L ACT #### [facility] [address] [place] [address] Dr. Blanca Ford ALP [Catalytic activity/Vol] 78 U/L Normal 46-116 [facility] Comment on above: Performed By: #### L ACT #### [facility] [address] [place] [address] Dr. Blanca Ford ALT [Catalytic activity/Vol] 54 U/L Normal 14-59 [facility] Comment on above: Performed By: #### L ACT #### [facility] [address] [place] [address] Dr. Blanca Ford Anion gap [Moles/Vol] 12.1 mmol/L Normal [facility] Comment on above: Performed By: #### L ACT #### [facility] [address] [place] [address] Dr. Blanca Ford AST [Catalytic activity/Vol] 35 U/L Normal 15-37 [facility] Comment on above: Performed By: #### L ACT #### [facility] [address] [place] [address] Dr. Blanca Ford Bilirubin [Mass/Vol] 0.7 mg/dL Normal 0.2-1.0 [facility] Comment on above: Performed By: #### L ACT #### [facility] [address] [place] [address] Dr. Blanca Ford Calcium [Mass/Vol] 9.6 mg/dL Normal 8.5-10.1 [facility] Comment on above: Performed By: #### L ACT #### [facility] [address] [address] [address] Blanca Ford Chloride [Moles/Vol] 102 mmol/L Normal 98-107 [facility] Comment on above: Performed By: #### L ACT #### [facility] [address] [address] [address] Blanca Ford CO2 [Moles/Vol] 30.5 mmol/L Normal 21.0-32.0 [facility] Comment on above: Performed By: #### L ACT #### [facility] [address] [address] [address] Blanca Ford Creatinine [Mass/Vol] 0.72 mg/dL Normal 0.55-1.02 [facility] Comment on above: Performed By: #### L ACT #### [facility] [address] [address] [address] Blanca Ford EGFR-AF INDIAN >60 Normal >=60 [facility] Comment on above: Performed By: #### L ACT #### [facility] [address] [address] [address] Blanca Ford EGFR-NON AF INDIAN >60 Normal >=60 [facility] Comment on above: Performed By: #### L ACT #### [facility] [address] [address] [address] Blanca Ford Globulin (S) [Mass/Vol] 3.6 g/dL Normal [facility] Comment on above: Performed By: #### L ACT #### [facility] [address] [address] [address] Blanca Ford Glucose [Mass/Vol] 129 mg/dL Critically high 74-106 [facility] Comment on above: Performed By: #### L ACT #### [facility] [address] [address] [address] Blanca Ford Potassium [Moles/Vol] 3.6 mmol/L Normal 3.5-5.1 [facility] Comment on above: Performed By: #### L ACT #### [facility] [address] [address] [address] Blanca Ford Protein [Mass/Vol] 7.7 g/dL Normal 6.4-8.2 [facility] Comment on above: Performed By: #### L ACT #### [facility] [address] [place] [address] Dr. Blanca Ford Sodium [Moles/Vol] 141 mmol/L Normal 136-145 [facility] Comment on above: Performed By: #### L ACT #### [facility] [address] [place] [address] Dr. Blanca Ford Urea nitrogen [Mass/Vol] 16.0 mg/dL Normal 7.0-18.0 [facility] Comment on above: Performed By: #### L ACT #### [facility] [address] [place] [address] Dr. Blanca Ford Urea nitrogen/Creatinine [Mass ratio] 22.2 mg/mg Normal [facility] Comment on above: Performed By: #### L ACT #### [facility] [address] [place] [address] Dr. Blanca Ford TSHon 03-03-2022 TSH 2.932 uIU/mL Normal 0.358-3.[address] [facility] Comment on above: Performed By: #### L ACT #### [facility] [address] [place] [address] Dr. Blanca Ford UA RANDOM W/MICROSCOPICon BACTERIA TRACE Abnormal NONE SEEN The [facility] Comment on above: Performed By: #### U AMIC #### [facility] [address] [place] [address] Dr. Blanca Ford Bilirubin Ql (U) Negative Normal NEGATIVE [facility] Comment on above: Performed By: #### U AMIC #### [facility] [address] [place] [address] Dr. Blanca Ford CAST NONE SEEN Normal NONE SEEN [facility] Comment on above: Performed By: #### U AMIC #### [facility] [address] [place] [address] Dr. Blanca Ford Clarity (U) CLEAR Normal CLEAR [facility] Comment on above: Performed By: #### U AMIC #### [facility] [address] [address] [address] Blanca Ford Color (U) YELLOW Normal YELLOW [facility] Comment on above: Performed By: #### U AMIC #### [facility] [address] [address] [address] Blanca Ford Crystals LM Nom (Urine sed) NONE SEEN Normal NONE SEEN [facility] Comment on above: Performed By: #### U AMIC #### [facility] [address] [address] [address] Blanca Ford Epithelial cells LM Ql (Urine sed) FEW Abnormal NONE SEEN /RARE The [facility] Comment on above: Performed By: #### U AMIC #### [facility] [address] [address] [address] Blanca Ford Glucose Ql (U) Negative Normal NEGATIVE The [facility] Comment on above: Performed By: #### U AMIC #### [facility] [address] [address] [address] Blanca Ford Hemoglobin Ql (U) Negative Normal NEGATIVE [facility] Comment on above: Performed By: #### U AMIC #### [facility] [address] [address] [address] Blnaca Ford Ketones Ql (U) Negative Normal NEGATIVE The [facility] Comment on above: Performed By: #### U AMIC #### [facility] [address] [address] [address] Blanca Ford LEUKOCYTES SMALL Abnormal NEGATIVE [facility] Comment on above: Performed By: #### U AMIC #### [facility] [address] [address] [address] Blanca Ford MUCOUS SMALL Abnormal NONE SEEN [facility] Comment on above: Performed By: #### U AMIC #### [facility] [address] [address] [address] Blanca Ford Nitrite Ql (U) Negative Normal NEGATIVE The [facility] Comment on above: Performed By: #### U AMIC #### [facility] [address] [place] [address] Dr. Blanca Ford pH (U) 6.0 [pH] Normal 5-9 [facility] Comment on above: Performed By: #### U AMIC #### [facility] [address] [place] [address] Dr. Blanca Ford RBC NONE SEEN Abnormal 0-2 [facility] Comment on above: Performed By: #### U AMIC #### [facility] [address] [place] [address] Dr. Blanca Ford SPEC GRAVITY >=1.030 Abnormal 1.005-<=1.02 5 [facility] Comment on above: Performed By: #### U AMIC #### [facility] [address] [place] [address] Dr. Blanca Ford UA PROTEIN Negative Normal NEGATIVE/ TRACE The [facility] Comment on above: Performed By: #### U AMIC #### [facility] [address] [place] [address] Dr. Blanca Ford Urobilinogen Qn (U) 1.0 {Erwin'U}/dL Normal 0.2 - 1. 0 [facility] Comment on above: Performed By: #### U AMIC #### [facility] [address] [place] [address] Dr. Blanca Ford WBC 5-10 Abnormal NONE SEEN The [facility] Comment on above: Performed By: #### U AMIC #### [facility] [address] [place] [address] Dr. Blanca Ford CBC AUTO DIFFon 12-19-2021 BASO # 0.0 103/ul Normal 0.0-0.1 [facility] Comment on above: Performed By: #### C MP #### [facility] [address] [place] [address] Dr. Blanca Ford Basophils/100 WBC (Bld) 0.2 % Normal 0.2-2.0 [facility] Comment on above: Performed By: #### C MP #### [facility] [address] [place] [address] Dr. Blanca Ford EO # 0.1 103/ul Normal 0.0-0.7 [facility] Comment on above: Performed By: #### C MP #### [facility] [address] [place] [address] Dr. Blanca Ford Eosinophils/100 WBC (Bld) 1.0 % Normal 0.9-7.0 [facility] Comment on above: Performed By: #### C MP #### [facility] [address] [place] [address] Dr. Blanca Ford Erythrocyte distribution width (RBC) [Ratio] 12.6 % Normal 11.0-15.0 [facility] Comment on above: Performed By: #### C MP #### [facility] [address] [place] [address] Dr. Blanca Ford Hematocrit (Bld) [Volume fraction] 36.1 % Normal 36.0-48.0 [facility] Comment on above: Performed By: #### C MP #### [facility] [address] [place] [address] Dr. Blanca Ford Hemoglobin (Bld) [Mass/Vol] 12.0 g/dL Normal 12.0-16.0 [facility] Comment on above: Performed By: #### C MP #### [facility] [address] [place] [address] Dr. Blanca Ford IG # 0.02 10e3/ul Normal 0.00-0.03 [facility] Comment on above: Performed By: #### C MP #### [facility] [address] [place] [address] Dr. Blanca Ford IG % 0.2 % Normal 0.0-0.5 [facility] Comment on above: Performed By: #### C MP #### [facility] [address] [place] [address] Dr. Blanca Ford LYMPH # 1.7 103/ul Normal 1.2-3.8 [facility] Comment on above: Performed By: #### C MP #### [facility] [address] [place] [address] Dr. Blanca Ford Lymphocytes/100 WBC (Bld) 20.9 % Normal 20.5-60.0 [facility] Comment on above: Performed By: #### C MP #### [facility] [address] [place] [address] Dr. Blanca Ford MANUAL DIFF REQ NO Normal [facility] Comment on above: Performed By: #### C MP #### [facility] [address] [place] [address] Dr. Blanca Ford MCH (RBC) [Entitic mass] 28.2 pg Normal 26.7-34.0 [facility] Comment on above: Performed By: #### C MP #### [facility] [address] [place] [address] Dr. Blanca Ford MCHC (RBC) [Mass/Vol] 33.2 g/dL Normal 29.9-35.2 [facility] Comment on above: Performed By: #### C MP #### [facility] [address] [place] [address] Dr. Blanca Ford MCV (RBC) [Entitic vol] 84.7 fL Normal 81.0-99.0 [facility] Comment on above: Performed By: #### C MP #### [facility] [address] [place] [address] Dr. Blanca Ford MONO # 0.4 103/ul Normal 0.3-0.8 [facility] Comment on above: Performed By: #### C MP #### [facility] [address] [place] [address] Dr. Blanca Ford Monocytes/100 WBC (Bld) 5.4 % Normal 1.7-12.0 [facility] Comment on above: Performed By: #### C MP #### [facility] [address] [place] [address] Dr. Blanca Ford NEUT # 5.9 103/ul Normal 1.4-6.5 [facility] Comment on above: Performed By: #### C MP #### [facility] [address] [place] [address] Dr. Blanca Ford Neutrophils/100 WBC (Bld) 72.3 % Normal 43.0-75.0 [facility] Comment on above: Performed By: #### C MP #### [facility] [address] [address] [address] Blanca Ford Platelet mean volume (Bld) [Entitic vol] 9.1 fL Critically low 9.5-13.5 [facility] Comment on above: Performed By: #### C MP #### [facility] [address] [address] [address] Blanca Ford PLT 216 103/ul Normal 150-450 [facility] Comment on above: Performed By: #### C MP #### [facility] [address] [address] [address] Blanca Ford RBC 4.26 106/ul Normal 4.20-5.40 [facility] Comment on above: Performed By: #### C MP #### [facility] [address] [address] [address] Blanca Ford WBC 8.1 103/ul Normal 4.0-11.0 [facility] Comment on above: Performed By: #### C MP #### [facility] [address] [address] [address] Blanca Ford POINT OF CARE GLUCOSEon 11-22 Glucose [Mass/Vol] 68 mg/dL Critically low 74-[address] [facility] Comment on above: Performed By: #### P OCGLUC ####[facility] [id number] [address] Blanca Ford Glucose [Mass/Vol] 109 mg/dL Critically high 74-106 [facility] Comment on above: Performed By: #### L ACT #### [facility] [address] [address] [address] Blanca Ford Glucose [Mass/Vol] 127 mg/dL Critically high 74-106 [facility] Comment on above: Performed By: #### P OCGLUC #### [facility] [address] [address] [address] Blanca Ford PROF 14(COMP METB)on 022 Albumin [Mass/Vol] 3.1 g/dL Critically low 3.4-5.[address] [facility] Comment on above: Performed By: #### C MP #### [facility] [address] [address] [address] Blanca Ford Albumin/Globulin [Mass ratio] 1.0 {ratio} Normal [facility] Comment on above: Performed By: #### C MP #### [facility] [address] [address] [address] Blanca Ford ALP [Catalytic activity/Vol] 50 U/L Normal 46-116 [facility] Comment on above: Performed By: #### C MP #### [facility] [address] [address] [address] Blanca Ford ALT [Catalytic activity/Vol] 10 U/L Critically low 14-59 [facility] Comment on above: Performed By: #### C MP #### [facility] [address] [place] [address] Dr. Blanca Ford Anion gap [Moles/Vol] 14.0 mmol/L Normal [facility] Comment on above: Performed By: #### C MP #### [facility] [address] [place] [address] Dr. Blanca Ford AST [Catalytic activity/Vol] 15 U/L Normal 15-37 [facility] Comment on above: Performed By: #### C MP #### [facility] [address] [place] [address] Dr. Blanca Ford Bilirubin [Mass/Vol] 0.2 mg/dL Normal 0.2-1.0 [facility] Comment on above: Performed By: #### C MP #### [facility] [address] [place] [address] Dr. Blanca Ford Calcium [Mass/Vol] 8.2 mg/dL Critically low 8.5-10.[address] [facility] Comment on above: Performed By: #### C MP #### [facility] [address] [place] [address] Dr. Blanca Ford Chloride [Moles/Vol] 104 mmol/L Normal 98-107 [facility] Comment on above: Performed By: #### C MP #### [facility] [address] [address] [address] Blanca Ford CO2 [Moles/Vol] 28.0 mmol/L Normal 21.0-32.0 [facility] Comment on above: Performed By: #### C MP #### [facility] [address] [address] [address] Blanca Ford Creatinine [Mass/Vol] 0.74 mg/dL Normal 0.55-1.02 [facility] Comment on above: Performed By: #### C MP #### [facility] [address] [address] [address] Blanca Ford EGFR-AF INDIAN >60 Normal >=60 [facility] Comment on above: Performed By: #### C MP #### [facility] [address] [place] [address] Dr. Blanca Ford EGFR-NON AF INDIAN >60 Normal >=60 [facility] Comment on above: Performed By: #### C MP #### [facility] [address] [place] [address] Dr. Blanca Ford Globulin (S) [Mass/Vol] 3.0 g/dL Normal [facility] Comment on above: Performed By: #### C MP #### [facility] [address] [place] [address] Dr. Blanca Ford Glucose [Mass/Vol] 127 mg/dL Critically high 74-106 [facility] Comment on above: Performed By: #### C MP #### [facility] [address] [address] [address] Blanca Ford Potassium [Moles/Vol] 3.0 mmol/L Critically low 3.5-5.1 [facility] Comment on above: Performed By: #### C MP #### [facility] [address] [place] [address] Dr. Blanca Ford Protein [Mass/Vol] 6.1 g/dL Critically low 6.4-8.[address] [facility] Comment on above: Performed By: #### C MP #### [facility] [address] [place] [address] Dr. Blanca Ford Sodium [Moles/Vol] 143 mmol/L Normal 136-145 [facility] Comment on above: Performed By: #### C MP #### [facility] [address] [place] [address] Dr. Blanca Ford Urea nitrogen [Mass/Vol] 16.0 mg/dL Normal 7.0-18.0 [facility] Comment on above: Performed By: #### C MP #### [facility] [address] [place] [address] Dr. Blanca Ford Urea nitrogen/Creatinine [Mass ratio] 21.6 mg/mg Normal [facility] Comment on above: Performed By: #### C MP #### [facility] [address] [place] [address] Dr. Blanca Ford CBC AUTO DIFFon 12-18-2021 BASO # 0.0 103/ul Normal 0.0-0.1 [facility] Comment on above: Performed By: #### C MP #### [facility] [address] [place] [address] Dr. Blanca Ford Basophils/100 WBC (Bld) 0.4 % Normal 0.2-2.0 [facility] Comment on above: Performed By: #### C MP #### [facility] [address] [place] [address] Dr. Blanca Ford EO # 0.0 103/ul Normal 0.0-0.7 [facility] Comment on above: Performed By: #### C MP #### [facility] [address] [place] [address] Dr. Blanca Ford Eosinophils/100 WBC (Bld) 0.2 % Critically low 0.9-7.0 [facility] Comment on above: Performed By: #### C MP #### [facility] [address] [place] [address] Dr. Blanca Ford Erythrocyte distribution width (RBC) [Ratio] 12.2 % Normal 11.0-15.0 [facility] Comment on above: Performed By: #### C MP #### [facility] [address] [place] [address] Dr. Blanca Ford Hematocrit (Bld) [Volume fraction] 40.4 % Normal 36.0-48.0 [facility] Comment on above: Performed By: #### C MP #### [facility] [address] [place] [address] Dr. Blanca Ford Hemoglobin (Bld) [Mass/Vol] 13.1 g/dL Normal 12.0-16.0 [facility] Comment on above: Performed By: #### C MP #### [facility] [address] [place] [address] Dr. Blanca Ford IG # 0.02 10e3/ul Normal 0.00-0.03 [facility] Comment on above: Performed By: #### C MP #### [facility] [address] [place] [address] Dr. Blanca Ford IG % 0.4 % Normal 0.0-0.5 [facility] Comment on above: Performed By: #### C MP #### [facility] [address] [place] [address] Dr. Blanca Ford LYMPH # 1.0 103/ul Critically low 1.2-3.8 [facility] Comment on above: Performed By: #### C MP #### [facility] [address] [place] [address] Dr. Blanca Ford Lymphocytes/100 WBC (Bld) 17.3 % Critically low 20.5-60.0 [facility] Comment on above: Performed By: #### C MP #### [facility] [address] [place] [address] Dr. Blanca Ford MANUAL DIFF REQ NO Normal [facility] Comment on above: Performed By: #### C MP #### [facility] [address] [place] [address] Dr. Blanca Ford MCH (RBC) [Entitic mass] 27.8 pg Normal 26.7-34.0 [facility] Comment on above: Performed By: #### C MP #### [facility] [address] [place] [address] Dr. Blanca Ford MCHC (RBC) [Mass/Vol] 32.4 g/dL Normal 29.9-35.2 [facility] Comment on above: Performed By: #### C MP #### [facility] Laboratory [address] [place] [address] Dr. Blanca Ford MCV (RBC) [Entitic vol] 85.6 fL Normal 81.0-99.0 [facility] Comment on above: Performed By: #### C MP #### [facility] Laboratory [address] [place] [address] Dr. Blanca Ford MONO # 0.1 103/ul Critically low 0.3-0.8 [facility] Comment on above: Performed By: #### C MP #### [facility] Laboratory [address] [place] [address] Dr. Blanca Ford Monocytes/100 WBC (Bld) 1.4 % Critically low 1.7-12.0 [facility] Comment on above: Performed By: #### C MP #### [facility] Laboratory [address] [place] [address] Dr. Blanca Ford NEUT # 4.6 103/ul Normal 1.4-6.5 [facility] Comment on above: Performed By: #### C MP #### [facility] Laboratory [address] [place] [address] Dr. Blanca Ford Neutrophils/100 WBC (Bld) 80.3 % Critically high 43.0-75.0 [facility] Comment on above: Performed By: #### C MP #### [facility] Laboratory [address] [place] [address] Dr. Blanca Ford Platelet mean volume (Bld) [Entitic vol] 9.1 fL Critically low 9.5-13.5 [facility] Comment on above: Performed By: #### C MP #### [facility] Laboratory [address] [place] [address] Dr. Blanca Ford PLT 214 103/ul Normal 150-450 [facility] Comment on above: Performed By: #### C MP #### [facility] Laboratory [address] [place] [address] Dr. Blanca Ford RBC 4.72 106/ul Normal 4.20-5.40 [facility] Comment on above: Performed By: #### C MP #### [facility] Laboratory [address] [address] [address] Blanca Ford WBC 5.7 103/ul Normal 4.0-11.0 [facility] Comment on above: Performed By: #### C MP #### [facility] Laboratory [address] [address] [address] Blanca Ford POINT OF CARE GLUCOSEon 11-22 Glucose [Mass/Vol] 159 mg/dL Critically high 74-106 [facility] Comment on above: Performed By: #### L ACT #### [facility] Laboratory [address] [place] [address] Dr. Blanca Ford Glucose [Mass/Vol] 142 mg/dL Critically high [facility]106 [facility] Comment on above: Performed By: #### P OCGLUC #### [facility] Laboratory [address] [place] [address] Dr. Blanca Ford Glucose [Mass/Vol] 224 mg/dL Critically high -106 [facility] Comment on above: Performed By: #### L ACT #### [facility] Laboratory [address] [place] [address] Dr. Blanca Ford Glucose [Mass/Vol] 177 mg/dL Critically high [facility]106 [facility] Comment on above: Performed By: #### L ACT #### [facility] Laboratory [address] [place] [address] Dr. Blanca Ford PROF 14(COMP METB)on 022 Albumin [Mass/Vol] 3.5 g/dL Normal 3.4-5.0 [facility] Comment on above: Performed By: #### C MP #### [facility] Laboratory [address] [place] [address] Dr. Blanca Ford Albumin/Globulin [Mass ratio] 1.0 {ratio} Normal [facility] Comment on above: Performed By: #### C MP #### [facility] Laboratory [address] [place] [address] Dr. Blanca Ford ALP [Catalytic activity/Vol] 61 U/L Normal 46-116 [facility] Comment on above: Performed By: #### C MP #### [facility] Laboratory [address] [address] [address] Blanca Ford ALT [Catalytic activity/Vol] 40 U/L Normal 14-59 [facility] Comment on above: Performed By: #### C MP #### [facility] Laboratory [address] [address] [address] Blanca Ford Anion gap [Moles/Vol] 12.8 mmol/L Normal [facility] Comment on above: Performed By: #### C MP #### [facility] Laboratory [address] [address] [address] Blanca Ford AST [Catalytic activity/Vol] 20 U/L Normal 15-37 [facility] Comment on above: Performed By: #### C MP #### [facility] Laboratory [address] [address] [address] Blanca Ford Bilirubin [Mass/Vol] 0.3 mg/dL Normal 0.2-1.0 [facility] Comment on above: Performed By: #### C MP #### [facility] Laboratory [address] [address] [address] Blanca Ford Calcium [Mass/Vol] 8.7 mg/dL Normal 8.5-10.1 [facility] Comment on above: Performed By: #### C MP #### [facility] Laboratory [address] [address] [address] Blanca Ford Chloride [Moles/Vol] 101 mmol/L Normal 98-107 [facility] Comment on above: Performed By: #### C MP #### [facility] Laboratory [address] [address] [address] Blanca Ford CO2 [Moles/Vol] 28.5 mmol/L Normal 21.0-32.0 [facility] Comment on above: Performed By: #### C MP #### [facility] Laboratory [address] [address] [address] Blanca Ford Creatinine [Mass/Vol] 0.91 mg/dL Normal 0.55-1.02 [facility] Comment on above: Performed By: #### C MP #### [facility] Laboratory [address] [address] [address] Blanca Ford EGFR-AF INDIAN >60 Normal >=60 [facility] Comment on above: Performed By: #### C MP #### [facility] Laboratory [address] [address] [address] Blanca Ford EGFR-NON AF INDIAN >60 Normal >=60 [facility] Comment on above: Performed By: #### C MP #### [facility] Laboratory [address] [address] [address] Blanca Ford Globulin (S) [Mass/Vol] 3.6 g/dL Normal [facility] Comment on above: Performed By: #### C MP #### [facility] Laboratory [address] [address] [address] Blanca Ford Glucose [Mass/Vol] 191 mg/dL Critically high 74-106 [facility] Comment on above: Performed By: #### C MP #### [facility] Laboratory [address] [address] [address] Blanca Ford Potassium [Moles/Vol] 3.3 mmol/L Critically low 3.5-5.1 [facility] Comment on above: Performed By: #### C MP #### [facility] Laboratory [address] [address] [address] Blanca Ford Protein [Mass/Vol] 7.1 g/dL Normal 6.4-8.2 [facility] Comment on above: Performed By: #### C MP #### [facility] Laboratory [address] [address] [address] Blanca Ford Sodium [Moles/Vol] 139 mmol/L Normal 136-145 [facility] Comment on above: Performed By: #### C MP #### [facility] Laboratory [address] [address] [address] Blanca Ford Urea nitrogen [Mass/Vol] 18.0 mg/dL Normal 7.0-18.0 [facility] Comment on above: Performed By: #### C MP #### [facility] Laboratory [address] [place] [address] Dr. Blanca Ford Urea nitrogen/Creatinine [Mass ratio] 19.8 mg/mg Normal [facility] Comment on above: Performed By: #### C MP #### [facility] Laboratory [address] [place] [address] Dr. Blanca Ford ACETONE SERUMon 12-17-2021 ACETONE Negative Normal NEGATIVE [facility] Comment on above: Performed By: #### L ACT #### [facility] Laboratory [address] [place] [address] Dr. Blanca Ford CBC AUTO DIFFon 12-17-2021 BASO # 0.0 103/ul Normal 0.0-0.1 [facility] Comment on above: Performed By: #### C BC #### [facility] Laboratory [address] [place] [address] Dr. Blanca Ford Basophils/100 WBC (Bld) 0.5 % Normal 0.2-2.0 [facility] Comment on above: Performed By: #### C BC #### [facility] Laboratory [address] [place] [address] Dr. Blanca Ford EO # 0.1 103/ul Normal 0.0-0.7 [facility] Comment on above: Performed By: #### C BC #### [facility] Laboratory [address] [place] [address] Dr. Blanca Ford Eosinophils/100 WBC (Bld) 1.2 % Normal 0.9-7.0 [facility] Comment on above: Performed By: #### C BC #### [facility] Laboratory [address] [place] [address] Dr. Blanca Ford Erythrocyte distribution width (RBC) [Ratio] 12.3 % Normal 11.0-15.0 [facility] Comment on above: Performed By: #### C BC #### [facility] Laboratory [address] [place] [address] Dr. Blanca Ford Hematocrit (Bld) [Volume fraction] 41.2 % Normal 36.0-48.0 [facility] Comment on above: Performed By: #### C BC #### [facility] Laboratory [address] [place] [address] Dr. Blanca Ford Hemoglobin (Bld) [Mass/Vol] 13.8 g/dL Normal 12.0-16.0 [facility] Comment on above: Performed By: #### C BC #### [facility] Laboratory [address] [place] [address] Dr. Blanca Ford IG # 0.02 10e3/ul Normal 0.00-0.03 [facility] Comment on above: Performed By: #### C BC #### [facility] Laboratory [address] [place] [address] Dr. Blanca Ford IG % 0.3 % Normal 0.0-0.5 [facility] Comment on above: Performed By: #### C BC #### [facility] Laboratory [address] [place] [address] Dr. Blanca Ford LYMPH # 1.1 103/ul Critically low 1.2-3.8 The [facility] Comment on above: Performed By: #### C BC #### [facility] Laboratory [address] [place] [address] Dr. Blanca Ford Lymphocytes/100 WBC (Bld) 15.0 % Critically low 20.5-60.0 [facility] Comment on above: Performed By: #### C BC #### [facility] Laboratory [address] [place] [address] Dr. Blanca Ford MANUAL DIFF REQ NO Normal [facility] Comment on above: Performed By: #### C BC #### [facility] Laboratory [address] [place] [address] Dr. Blanca Ford MCH (RBC) [Entitic mass] 28.1 pg Normal 26.7-34.0 [facility] Comment on above: Performed By: #### C BC #### [facility] Laboratory [address] [place] [address] Dr. Blanca Ford MCHC (RBC) [Mass/Vol] 33.5 g/dL Normal 29.9-35.2 [facility] Comment on above: Performed By: #### C BC #### [facility] Laboratory [address] [place] [address] Dr. Blanca Ford MCV (RBC) [Entitic vol] 83.9 fL Normal 81.0-99.0 [facility] Comment on above: Performed By: #### C BC #### [facility] Laboratory [address] [place] [address] Dr. Blanca Ford MONO # 0.3 103/ul Normal 0.3-0.8 [facility] Comment on above: Performed By: #### C BC #### [facility] Laboratory [address] [place] [address] Dr. Blanca Ford Monocytes/100 WBC (Bld) 4.3 % Normal 1.7-12.0 [facility] Comment on above: Performed By: #### C BC #### [facility] Laboratory [address] [place] [address] Dr. Blanca Ford NEUT # 5.8 103/ul Normal 1.4-6.5 [facility] Comment on above: Performed By: #### C BC #### [facility] Laboratory [address] [place] [address] Dr. Blanca Ford Neutrophils/100 WBC (Bld) 78.7 % Critically high 43.0-75.0 [facility] Comment on above: Performed By: #### C BC #### [facility] Laboratory [address] [place] [address] Dr. Blanca Ford Platelet mean volume (Bld) [Entitic vol] 8.8 fL Critically low 9.5-13.5 [facility] Comment on above: Performed By: #### C BC #### [facility] Laboratory [address] [place] [address] Dr. Blanca Ford PLT 240 103/ul Normal 150-450 [facility] Comment on above: Performed By: #### C BC #### [facility] Laboratory [address] [place] [address] Dr. Blanca Ford RBC 4.91 106/ul Normal 4.20-5.40 [facility] Comment on above: Performed By: #### C BC #### [facility] Laboratory [address] [place] [address] Dr. Blanca Ford WBC 7.4 103/ul Normal 4.0-11.0 [facility] Comment on above: Performed By: #### C #### [facility] Laboratory [address] [address] [address] CSPINE WO CONon [...] KARIMI Date: 2021-12-17 17:12 Normal [facility] CT HEAD WO CONon 12-17-2021 CT [...] Age consistent chronic changes. Electronically authenticated by: BENEDICOT KARIMI Date: 2021-12-17 17:03 Normal [facility] CULTURE BLOODon 12-17-2021 Microscopic examination of blood, culture Culture Observations: NO GROWTH AT 5 DAYS. Normal [facility] Comment on above: Performed By: #### A 1C #### [facility] Laboratory [address] [place] [address] Dr. Blanca Ford Microscopic examination of blood, culture Culture Observations: NO GROWTH AT 5 DAYS. Normal [facility] Comment on above: Performed By: #### A 1C #### [facility] Laboratory [address] [place] [address] Dr. Blanca Ford CULTURE URINEon 12-17-2021 CULTURE URINE Culture Observations : LIGHT GROWTH OF MIXED GENITAL JULIANE. NO POTENTIAL PATHOGENS SEEN. Normal [facility] Comment on above: Performed By: #### A 1C #### [facility] Laboratory [address] [place] [address] Dr. Blanca Ford Covid-19 PCR ([facility])on 11-22 SARS-CoV-2 (COVID-19) RNA MARY+probe Ql (Unsp spec) Not detected Normal NOT DETECTED [facility] Comment on above: Result Comment: When diagnostic [...] for this test is supported by the [place] of [employer] and Human Service's declaration that [...] used). Performed By: #### A 1C #### [facility] Laboratory [address] [place] [address] Dr. Blanca Ford ER URINE PROFILEon Bilirubin Ql (U) Negative Normal NEGATIVE [facility] Comment on above: Performed By: #### Jenniffer PETERSON UMICRO ####[facility] [address] [address] Blanca Ford Clarity (U) CLEAR Normal CLEAR [facility] Comment on above: Performed By: #### Jenniffer PETERSON UMICRO ####[facility] [address] [address]Dr. Blanca Ford Color (U) DK. ORANGE Abnormal YELLOW [facility] Comment on above: Performed By: #### Jenniffer PETERSON UMICRO ####[facility] [address] [address]. Blanca ALFONSOAHD A micrscopic examination will be performed if indicated. Normal [facility] Comment on above: Performed By: #### Jenniffer PETERSON UMICRO ####[facility] [address] [place], [place] [address]Dr. Blanca Ford Glucose Ql (U) Negative Normal NEGATIVE The [facility] Comment on above: Performed By: #### Jenniffer PETERSON UMICRO ####[facility] [address] [place], [place] [address]Dr. Blanca Ford Hemoglobin Ql (U) Negative Normal NEGATIVE [facility] Comment on above: Performed By: #### Jenniffer PETERSON UMICRO ####[facility] [address] [address]Dr. Blanca Ford Ketones Ql (U) Negative Normal NEGATIVE The [facility] Comment on above: Performed By: #### Jenniffer PETERSON UMICRO ####[facility] [address] [address]. Blanca Ford LEUKOCYTES MODERATE Abnormal NEGATIVE The [facility] Comment on above: Performed By: #### Jenniffer PETERSON UMICRO ####[facility] [address] [address]Dr. Blanca Ford Nitrite Ql (U) Positive Abnormal NEGATIVE The [facility] Comment on above: Performed By: #### Jenniffer PETERSON UMICRO ####[facility] [address] [address]Dr. Blanca Ford pH (U) 6.5 [pH] Normal 5-9 [facility] Comment on above: Performed By: #### SEAN BUSCH ####[facility] [address] [address]Dr. Blanca Ford SPEC GRAVITY 1.015 Normal 1.005-<=1.02 5 [facility] Comment on above: Performed By: #### SEAN BUSCH ####[facility] [address] [address]Dr. Blanca Ford UA PROTEIN Negative Normal NEGATIVE/ TRACE [facility] Comment on above: Performed By: #### SEAN BUSCH ####[facility] [address] [address]Dr. Blanca Ford UR MICRO IND INDICATED Normal [facility] Comment on above: Performed By: #### SEAN BUSCH ####[facility] [address] [address]Dr. Blanca Ford Urobilinogen Qn (U) 1.0 {Erwin'U}/dL Normal 0.2 - 1. 0 The [facility] Comment on above: Performed By: #### SEAN BUSCH ####[facility] [address] [address]Dr. Blanca Ford LACTATE/LACTIC ACIDon 2021 Lactate [Moles/Vol] 1.8 mmol/L Normal 0.4-1.9 [facility] Comment on above: Performed By: #### L ACT #### [facility] Laboratory [address] [place] [address] Dr. Blanca Ford Lactate [Moles/Vol] 2.2 mmol/L Critically high 0.4-1.9 [facility] Comment on above: Performed By: #### A 1C #### [facility] Laboratory [address] [place] [address] Dr. Blanca Ford LIPASEon 12-17-2021 Lipase [Catalytic activity/Vol] 49.0 U/L Critically low 73.0-393.0 The [facility] Comment on above: Performed By: #### T SH, HSTROPN, CMP, LIPA ####[facility] [address] [address]DrElyssa Ford POINT OF CARE GLUCOSEon 05 Glucose [Mass/Vol] 133 mg/dL Critically high 74-106 [facility] Comment on above: Performed By: #### L ACT #### [facility] Laboratory [address] [address] [address] Blanca Ford Glucose [Mass/Vol] 113 mg/dL Critically high 74-106 [facility] Comment on above: Performed By: #### C MP #### [facility] Laboratory [address] [address] [address] Blanca Ford PROF 14(COMP METB)on 022 Albumin [Mass/Vol] 3.8 g/dL Normal 3.4-5.0 [facility] Comment on above: Performed By: #### T SH, HSTROPN, CMP, LIPA ####[facility] [address] [address]Dr. Blanca Ford Albumin/Globulin [Mass ratio] 1.1 {ratio} Normal [facility] Comment on above: Performed By: #### T SH, HSTROPN, CMP, LIPA ####[facility] [address] [address]Dr. Blanca Ford ALP [Catalytic activity/Vol] 72 U/L Normal 46-116 [facility] Comment on above: Performed By: #### T SH, HSTROPN, CMP, LIPA ####[facility] [address] [address]Dr. Blanca Ford ALT [Catalytic activity/Vol] 46 U/L Normal 14-59 [facility] Comment on above: Performed By: #### T SH, HSTROPN, CMP, LIPA ####[facility] [address] [address]Dr. Blanca Ford Anion gap [Moles/Vol] 10.8 mmol/L Normal [facility] Comment on above: Performed By: #### T SH, HSTROPN, CMP, LIPA ####[facility] [address] [address]Dr. Blanca Ford AST [Catalytic activity/Vol] 25 U/L Normal 15-37 [facility] Comment on above: Performed By: #### T SH, HSTROPN, CMP, LIPA ####[facility] [address] [address]Dr. Blanca Ford Bilirubin [Mass/Vol] 0.5 mg/dL Normal 0.2-1.0 [facility] Comment on above: Performed By: #### T SH, HSTROPN, CMP, LIPA ####[facility] [address] [address]Dr. Blanca Ford Calcium [Mass/Vol] 9.4 mg/dL Normal 8.5-10.1 [facility] Comment on above: Performed By: #### T SH, HSTROPN, CMP, LIPA ####[facility] [address] [address]Dr. Blanca Ford Chloride [Moles/Vol] 99 mmol/L Normal 98-107 [facility] Comment on above: Performed By: #### T SH, HSTROPN, CMP, LIPA ####[facility] [address] [address]Dr. Blanca Ford CO2 [Moles/Vol] 31.2 mmol/L Normal 21.0-32.0 [facility] Comment on above: Performed By: #### T SH, HSTROPN, CMP, LIPA ####[facility] [address] [address]Dr. Blanca Ford Creatinine [Mass/Vol] 0.86 mg/dL Normal 0.55-1.02 [facility] Comment on above: Performed By: #### T SH, HSTROPN, CMP, LIPA ####[facility] [address] [address]Dr. Blanca Ford EGFR-AF INDIAN >60 Normal >=60 [facility] Comment on above: Performed By: #### T SH, HSTROPN, CMP, LIPA ####[facility] [address] [address]Dr. Claudialan Ford EGFR-NON AF INDIAN >60 Normal >=60 [facility] Comment on above: Performed By: #### T SH, HSTROPN, CMP, LIPA ####[facility] [address] [address]Dr. Blanca Ford Globulin (S) [Mass/Vol] 3.6 g/dL Normal [facility] Comment on above: Performed By: #### T SH, HSTROPN, CMP, LIPA ####[facility] [address] [address]Dr. Blanca Ford Glucose [Mass/Vol] 125 mg/dL Critically high 74-106 [facility] Comment on above: Performed By: #### T SH, HSTROPN, CMP, LIPA ####[facility] [address] [address]Dr. Blanca Ford Potassium [Moles/Vol] 3.0 mmol/L Critically low 3.5-5.1 [facility] Comment on above: Performed By: #### T SH, HSTROPN, CMP, LIPA ####[facility] [address] [address]Dr. Claudialan Ford Protein [Mass/Vol] 7.4 g/dL Normal 6.4-8.2 [facility] Comment on above: Performed By: #### T SH, HSTROPN, CMP, LIPA ####[facility] [address] [address]Dr. Claudialan Ford Sodium [Moles/Vol] 139 mmol/L Normal 136-145 The [facility] Comment on above: Performed By: #### T SH, HSTROPN, CMP, LIPA ####[facility] [address] [address]Dr. Claudialan Ford Urea nitrogen [Mass/Vol] 16.0 mg/dL Normal 7.0-18.0 The [facility] Comment on above: Performed By: #### T SH, HSTROPN, CMP, LIPA ####[facility] [address] [address]Dr. Blanca Ford Urea nitrogen/Creatinine [Mass ratio] 18.6 mg/mg Normal The [facility] Comment on above: Performed By: #### T SH, HSTROPN, CMP, LIPA ####[facility] [address] [address]Dr. Blanca Ford PROTIMEon 12-17-2021 INR Coag (PPP) [Relative time] 1.09 {INR} Normal The [facility] Comment on above: Performed By: #### P TT, PT #### [facility] Laboratory [address] [address] [address] Blanca Ford INR GUIDELINES SEE BELOW Normal The [facility] Comment on above: Result Comment: NICHOLAS RED INR: 2.0 - 3.0 CONDITIONS NOT LISTED BELOW 2.5 - 3.5 FOR PROSTHETIC HEART VALVE REPLACEMENT 2.5 - 3.5 RECURRENT THROMBOSIS Performed By: #### P TT, PT #### [facility] Laboratory [address] [address] [address] Blanca Ford PT Coag (PPP) [Time] 11.7 s Critically high 9.0-11.6 The [facility] Comment on above: Performed By: #### P TT, PT #### [facility] Laboratory [address] [address] [address] Blanca Ford PTTon 12-17-2021 aPTT Coag (Bld) [Time] 26.5 s Normal 22.3-36.2 The [facility] Comment on above: Performed By: #### P TT, PT #### [facility] Laboratory [address] [address] [address] Blanca Ford TROPONIN, HIGH SENSITIVITYon 12-17-2021 HSTROP 6.8 pg/mL Normal 4.0-51.3 The [facility] Comment on above: Result Comment: CUT- OFF POINTS HAVE BEEN ESTABLISHED BASED ON THE FOURTH UNIVERSAL DEFINITIONS OF MYOCARDIAL INFARCTION. THE UPPER REFERENCE LIMIT (URL) OF TROPONIN, DEFINED THE 99TH PERCENTILE OF cTnI DISTRIBUTION IN A REFERENCE POPULATION, HAS BEEN CONFIRMED THE DECISION THRESHOLD FOR [place] DIAGNOSIS. Performed By: #### T SH, HSTROPN, CMP, LIPA ####[facility] [address] [address]Dr. Blanca Ford TSHon 12-17-2021 TSH 1.580 uIU/mL Normal 0.358-3.[address] [facility] Comment on above: Performed By: #### T SH, HSTROPN, CMP, LIPA ####[facility] [address] [place], [place] [address]Dr. Blanca Ford TSH RANGE SEE BELOW Normal The [facility] Comment on above: Result Comment: <0.3 4 UIU/ml HYPERTHYROID 0.34-5.60 UIU/ml EUTHYROID >5.60 UIU/ml HYPOTHYROID Performed By: #### T SH, HSTROPN, CMP, LIPA ####[facility] [address] [place], [place] [address]Dr. Claudiadebra Logan URINE MICROSCOPIC ONLYon BACTERIA TRACE Abnormal NONE SEEN The [facility] Comment on above: Performed By: #### Jenniffer PETERSON UMICRO ####[facility] [address] [place], [place] [address]Dr. Blanca Ford Bacteria identified Cx Nom (U) INDICATED Normal The [facility] Comment on above: Performed By: #### Jenniffer PETERSON UMICRO ####[facility] [address] [place], [place] [address]Dr. Blanca Ford CAST SEEN Abnormal NONE SEEN The [facility] Comment on above: Performed By: #### Jenniffer PETERSON UMICRO ####[facility] [address] [place], [place] [address]Dr. Blanca Ford Crystals LM Nom (Urine sed) NONE SEEN Normal NONE SEEN The [facility] Comment on above: Performed By: #### Jenniffer PETERSON UMICRO ####[facility] [address] [address]Dr. Blanca Ford Epithelial cells LM Ql (Urine sed) RARE Normal NONE SEEN /RARE The [facility] Comment on above: Performed By: #### SEAN BUSCH ####[facility] [address] [place], [place] [address]Wi. Blanca Ford MUCOUS NONE SEEN Normal NONE SEEN The [facility] Comment on above: Performed By: #### SEAN BUSCH ####[facility] [address] [place], [place] [address]Qx. Blanca Ford RBC 0-2 Normal 0-2 The [facility] Comment on above: Performed By: #### SEAN BUSCH ####[facility] [address] [place], [place] [address]Uo. Blanca Ford WBC 10-20 Abnormal NONE SEEN The [facility] Comment on above: Performed By: #### SEAN BUSCH ####[facility] [address] [id number]. Blanca Ford XR CHEST 2 Von 12-17-2021 XR [...] KARIMI Date: 2021-12-17 17:13 Normal [facility] Vital Signs Date Time Vital Sign Value Performing Clinician Facility 08-20-2024 14: Body height 163.83 cm [facility] 08-20-2024 14: Body mass index (BMI) [Ratio] 35.2 kg/m2 [facility] 08-20-2024 14: Body weight 94.48 kg [facility] 08-20-2024 14:050 Diastolic blood pressure 70 mm[Hg] [facility] 08-20-2024 14:050 Heart rate 67 /min [facility] 08-20-2024 14:29-0500 Respiratory rate 18 /min [facility] 08-20-2024 14:29-0500 SaO2% (BldA) [Mass fraction] 95 % [facility] 08-20-2024 14:29-0500 Systolic blood pressure 116 mm[Hg] [facility] 05-15-2024 14:19-0400 Body mass index (BMI) [Ratio] 35.9 kg/m2 Ginny Aichholz Work Phone: [facility] 05-15-2024 14:19-0400 Diastolic blood pressure 70 mm[Hg] Ginny Aichholz Work Phone: [facility] 05-15-2024 14:19-0400 Systolic blood pressure 136 mm[Hg] Ginny Aichholz Work Phone: [facility] 05-15-2024 14:05-0400 Heart rate 69 /min Ginny Aichholz Work Phone: [facility] 05-15-2024 14:05-0400 Respiratory rate 18 /min Ginny Aichholz Work Phone: [facility] 05-15-2024 14:05-0400 SaO2% (BldA) [Mass fraction] 96 % Ginny Aichholz Work Phone: [facility] 05-15-2024 13:53-0400 Body height 163.83 cm Ginny Aichholz Work Phone: [facility] 05-15-2024 13:53-0400 Body weight 96.38 kg Ginny Aichholz Work Phone: [facility] 04-17-2024 13:05-0400 Body height 167.6 cm Ginny Aichholz BABY DOCTOR Work Phone: [facility] 04-17-2024 13:05-0400 Body mass index (BMI) [Ratio] 33.7 kg/m2 Ginny Aichholz BABY DOCTOR Work Phone: [facility] 04-17-2024 13:05-0400 Body temperature 98.49 [degF] Ginny Aichholz BABY DOCTOR Work Phone: [facility] 04-17-2024 13:05-0400 Body weight 94.71 kg Ginny Aichholz BABY DOCTOR Work Phone: [facility] 04-17-2024 13:05-0400 Diastolic blood pressure 70 mm[Hg] Ginny Aichholz BABY DOCTOR Work Phone: [facility] 04-17-2024 13:05-0400 Heart rate 71 /min Ginny Aichholz BABY DOCTOR Work Phone: [facility] 04-17-2024 13:05-0400 Respiratory rate 20 /min Ginny Aichholz BABY DOCTOR Work Phone: [facility] 04-17-2024 13:05-0400 SaO2% (BldA) [Mass fraction] 96 % Ginny Aichholz BABY DOCTOR Work Phone: [facility] 04-17-2024 13:05-0400 Systolic blood pressure 132 mm[Hg] Ginny Aichholz BABY DOCTOR Work Phone: [facility] 03-20-2024 14:36-0400 Body height 163.83 cm Ginny Aichholz Work Phone: [facility] 03-20-2024 14:36-0400 Body mass index (BMI) [Ratio] 36.5 kg/m2 Ginny Aichholz Work Phone: [facility] 03-20-2024 14:36-0400 Body weight 97.97 kg Ginny Aichholz Work Phone: [facility] 03-20-2024 14:36-0400 Diastolic blood pressure 72 mm[Hg] Ginny Aichholz Work Phone: [facility] 03-20-2024 14:36-0400 Heart rate 70 /min Ginny Aichholz Work Phone: [facility] 03-20-2024 14:36-0400 Respiratory rate 18 /min Ginny Aichholz Work Phone: [facility] 03-20-2024 14:36-0400 SaO2% (BldA) [Mass fraction] 97 % Ginny Aichholz Work Phone: [facility] 03-20-2024 14:36-0400 Systolic blood pressure 132 mm[Hg] Ginny Aichholz Work Phone: [facility] 02-16-2024 12:04-0400 Body height 163.83 cm Ginny Aichholz Work Phone: [facility] 02-16-2024 12:04-0400 Body mass index (BMI) [Ratio] 37.5 kg/m2 Ginny Aichholz Work Phone: [facility] 02-16-2024 12:04-0400 Body temperature 97.7 [degF] Ginny Aichholz Work Phone: [facility] 02-16-2024 12:04-0400 Body weight 100.92 kg Ginny Aichholz Work Phone: [facility] 02-16-2024 12:04-0400 Diastolic blood pressure 77 mm[Hg] Ginny Aichholz Work Phone: [facility] 02-16-2024 12:04-0400 Heart rate 75 /min Ginny Aichholz Work Phone: [facility] 02-16-2024 12:04-0400 Respiratory rate 18 /min Ginny Aichholz Work Phone: [facility] 02-16-2024 12:04-0400 SaO2% (BldA) [Mass fraction] 97 % Ginny Aichholz Work Phone: [facility] 02-16-2024 12:04-0400 Systolic blood pressure 135 mm[Hg] Ginny Natarajan Work Phone: [facility] 01-31-2024 14:03-0400 Body height 163.83 cm [facility] 01-31-2024 14:03-0400 Body mass index (BMI) [Ratio] 38.5 kg/m2 [facility] 01-31-2024 14:03-0400 Body weight 103.47 kg [facility] 01-31-2024 14:03-0400 Heart rate 65 /min [facility] 01-31-2024 14:03-0400 Respiratory rate 18 /min [facility] 01-31-2024 14:03-0400 SaO2% (BldA) [Mass fraction] 100 % [facility] 12-27-2023 13:05-0400 Body height 163.83 cm [facility] 12-27-2023 13:05-0400 Body mass index (BMI) [Ratio] 38.3 kg/m2 [facility] 12-27-2023 13:05-0400 Body weight 102.96 kg [facility] 12-27-2023 13:05-0400 Diastolic blood pressure 79 mm[Hg] [facility] 12-27-2023 13:05-0400 Heart rate 65 /min [facility] 12-27-2023 13:05-0400 Respiratory rate 16 /min [facility] 12-27-2023 13:05-0400 SaO2% (BldA) [Mass fraction] 96 % [facility] 12-27-2023 13:05-0400 Systolic blood pressure 146 mm[Hg] [facility] 11-10-2023 11:28-0400 Body height 163.83 cm [facility] 11-10-2023 11:28-0400 Body mass index (BMI) [Ratio] 40.8 kg/m2 [facility] 11-10-2023 11:28-0400 Body weight 109.51 kg [facility] 11-10-2023 09:50-0400 Body height 163.83 cm DO Migel Best Work Phone: [facility] 11-10-2023 09:50-0400 Body mass index (BMI) [Ratio] 36.2 kg/m2 DO Migel Biedenbach Work Phone: [facility] 11-10-2023 09:50-0400 Body weight 97.26 kg DO Migel Biedenbach Work Phone: [facility] 11-10-2023 09:50-0400 Diastolic blood pressure 76 mm[Hg] DO Migel Biedenbach Work Phone: [facility] 11-10-2023 09:50-0400 Heart rate 67 /min DO Migel Biedenbach Work Phone: [facility] 11-10-2023 09:50-0400 Respiratory rate 18 /min DO Migel Biedenbach Work Phone: [facility] 11-10-2023 09:50-0400 SaO2% (BldA) [Mass fraction] 95 % DO Migel Biedenbach Work Phone: [facility] 11-10-2023 09:50-0400 Systolic blood pressure 120 mm[Hg] DO Migel Biedenbach Work Phone: [facility] 09-07-2023 10:42-0500 Body height 167.6 cm Migel Biedenbach DO Work Phone: [facility] 09-07-2023 10:42-0500 Body mass index (BMI) [Ratio] 38.74 kg/m2 Migel Biedenbach DO Work Phone: [facility] 09-07-2023 10:42-0500 Body weight 108.86 kg Migel Biedenbach DO Work Phone: [facility] 04-04-2023 10:40-0400 Body height 167.64 cm Gina Harkins Other [employer] Other 04-04-2023 10:40-0400 Body mass index (BMI) [Ratio] 39.48 kg/m2 Gina Harkins Other [employer] Other 04-04-2023 10:40-0400 Body temperature 99.7 [degF] Gina Harkins Other [employer] Other 04-04-2023 10:40-0400 Body weight 110.95 kg Gina Harkins Other [employer] Other 04-04-2023 10:40-0400 Diastolic blood pressure 64 mm[Hg] Gina Harkins Other [employer] Other 04-04-2023 10:40-0400 Respiratory rate 18 /min Gina Harkins Other [employer] Other 04-04-2023 10:40-0400 SaO2% (BldA) [Mass fraction] 98 % Gina Harkins Other [employer] Other 04-04-2023 10:40-0400 Systolic blood pressure 149 mm[Hg] Gina Harkins Other [employer] Other Encounters Encounter Date Encounter Type Care Provider Facility Start: 08-27-2024 End: 08-27-2024 Refill Ginny Natarajan BABY DOCTOR Work Phone: [facility] Comment on above: Urinary tract infect ion symptoms (Primary Dx) Start: 08-20-2024 End: 08-20-2024 ambulatory [facility] Work Phone: Start: 08-20-2024 End: 08-20-2024 Patient encounter procedure [facility] Work Phone: Start: 08-07-2024 End: 08-07-2024 Refbjorn Nails MD Work Phone: [facility] Comment on above: Spondylosis without myelopathy or radiculopathy, cervical region; Cervical spondylosis without myelopathy Start: 06-24-2024 End: 06-24-2024 Refill Ginny Natarajan BABY DOCTOR Work Phone: [facility] Comment on above: Type 2 diabetes bridget itus without complications ([facility]) Start: 05-27-2024 End: 05-27-2024 Office outpatient visit 15 minutes Jose Montes MD Work Phone: [facility] Comment on above: Telogen effluvium (P rimary Dx); Neoplasm of unspecified behavior of bone, soft tissue, and skin; Dermatofibroma Start: 05-27-2024 End: 05-27-2024 ambulatory JOSE MONTES Not Available Start: 05-15-2024 End: 05-15-2024 ambulatory Ginny Natarajan Work Phone: [facility] Work Phone: Start: 05-15-2024 End: 05-15-2024 Patient encounter procedure Ginny Natarajan Work Phone: [facility] Work Phone: Start: 05-08-2024 End: 05-08-2024 Refill Ginny Delgado BABY DOCTOR Work Phone: [facility] Comment on above: Hypokalemia Start: 04-25-2024 End: 04-25-2024 Refill Ginny Delgado BABY DOCTOR Work Phone: [facility] Comment on above: Hypomagnesemia (Prim carin Dx) Start: 04-24-2024 End: 04-24-2024 Clinisync Result Encounter Ginny Natarajan BABY DOCTOR Work Phone: [facility] Unsolicited Start: 04-24-2024 End: 04-24-2024 Clinisync Result Encounter Ginny Natarajan BABY DOCTOR Work Phone: [facility] Unsolicited Start: 04-24-2024 End: 04-24-2024 Refill Ginny Juanaz BABY DOCTOR Work Phone: [facility] Comment on above: Environmental and se asonal allergies Start: 04-17-2024 End: 04-17-2024 Bamboo flowsheet Ginny Aichholz BABY DOCTOR Work Phone: [facility] Start: 04-17-2024 End: 04-17-2024 Bamboo flowsheet Ginny Aichholz BABY DOCTOR Work Phone: [facility] Start: 04-17-2024 End: 04-17-2024 Office outpatient visit 25 minutes Ginny Delgado BABY DOCTOR Work Phone: [facility] Comment on above: Type 2 diabetes bridget itus without complication, without long- term current use of insulin ([facility]) (Primary Dx); Muscle cramps; UTI (urinary tract infection), uncomplicated; COVID; Essential hypertension; Acute non-recurrent pansinusitis Start: 04-17-2024 End: 04-17-2024 ambulatory GINNY AICHHOLZ Not Available Start: 03-20-2024 End: 03-20-2024 ambulatory Ginny J Danielhholz Work Phone: [facility] Work Phone: Start: 03-20-2024 End: 03-20-2024 Patient encounter procedure Ginny Danielhholz Work Phone: [facility] Work Phone: Start: 03-11-2024 End: 03-11-2024 Patient encounter procedure Ginny Aichholz Work Phone: [facility] Work Phone: Start: 03-11-2024 End: 03-11-2024 ambulatory Ginny J Aichholz Work Phone: [facility] Work Phone: Start: 02-16-2024 End: 02-16-2024 Patient encounter procedure Ginny Natarajan Work Phone: [facility] Work Phone: Start: 02-14-2024 End: 02-14-2024 ambulatory [facility] Start: 01-31-2024 End: 01-31-2024 ambulatory [facility] Work Phone: Start: 01-31-2024 End: 01-31-2024 Patient encounter procedure [facility] Work Phone: Start: 01-08-2024 End: 01-08-2024 ambulatory GINNY DELGADO Not Available Start: 01-08-2024 Patient encounter procedure Ginny Delgado BABY DOCTOR Work Phone: [facility] Start: 01-03-2024 End: 01-03-2024 ambulatory VINCENZO BURNS Not Available Start: 12-27-2023 End: 12-27-2023 ambulatory [facility] Work Phone: Start: 12-27-2023 End: 12-27-2023 Patient encounter procedure [facility] Work Phone: Start: 12-04-2023 End: 12-04-2023 ambulatory JOSE A PETANITHAI Not Available Start: 11-30-2023 End: 11-30-2023 ambulatory DANIELA NORTHEIM Not Available Start: 11-28-2023 End: 11-28-2023 ambulatory [facility] Work Phone: Start: 11-28-2023 End: 11-28-2023 Patient encounter procedure [facility] Work Phone: Start: 11-10-2023 End: 11-10-2023 ambulatory NON STAFF [facility] Work Phone: Start: 11-10-2023 End: 11-10-2023 Patient encounter procedure DO Migel Best Work Phone: [facility] Work Phone: Start: 11-06-2023 End: 11-06-2023 ambulatory GRIS BOSE Not Available Start: 10-04-2023 End: 10-04-2023 ambulatory GINNY NATARAJAN Not Available Start: 09-25-2023 End: 09-25-2023 ambulatory GINNY JUANAZ Not Available Start: 09-07-2023 Bamboo flowsheet Migel travis DO Work Phone: [facility] [place] Start: 09-07-2023 Bamboo flowsheet Migel travis DO Work Phone: [facility] Start: 09-07-2023 End: 09-07-2023 Postop follow up visit related to original px Migel Best DO Work Phone: [facility] Comment on above: Sialadenitis (Primar y Dx); Salivary duct stone; Neck mass Start: 09-07-2023 End: 09-07-2023 ambulatory MIGEL BEST Not Available Start: 08-29-2023 End: 08-29-2023 ambulatory Migel Best Facility:[facility] Start: 08-29-2023 End: 08-29-2023 Departed Referred DO Migel Best Work Phone: [facility] [place] Work Phone: Start: 08-28-2023 Refill Ginny Natarajan BABY DOCTOR Work Phone: [facility] Comment on above: Hypokalemia Start: 08-11-2023 End: 08-11-2023 ambulatory MIGEL BEST Not Available Start: 07-28-2023 End: 07-28-2023 ambulatory MIGEL BEST Not Available Start: 07-27-2023 End: 07-27-2023 Patient encounter status Ginny Natarajan BABY DOCTOR Work Phone: [facility] Start: 07-26-2023 End: 07-26-2023 ambulatory GINNY KARTHIKHOLZ Not Available Start: 04-04-2023 End: 04-04-2023 ambulatory Gina Harkins Other [employer] Other Start: 04-04-2023 Office outpatient ne w 30 minutes Gina Harkins [facility] Start: 10-28-2022 ambulatory [employer] GINNY AICHHOLZ Facil ity:[facility] Start: 08-03-2022 End: 08-04-2022 ambulatory [employer] GINNY AICHHOLZ Facility:[facility] Start: 03-03-2022 End: 03-04-2022 ambulatory [employer] GINNY AICHHOLZ Facility:[facility] Start: 12-31-2021 End: 03-15-2022 ambulatory [employer] GINNY AICHHOLZ Facility:[facility] Start: 12-17-2021 End: 12-19-2021 ambulatory [employer] GINNY AICHHOLZ Facility:[facility] Start: 12-19-2017 End: 12-20-2017 Ambulatory DEFAULT PHYSICIAN Facility:[facility] Start: 12-14-2017 End: 12-15-2017 Ambulatory DEFAULT PHYSICIAN Facility:[facility] Start: 12-04-2017 End: 12-05-2017 Ambulatory DEFAULT PHYSICIAN Facility:[facility] Procedures Date Procedure Procedure Detail Performing Clinician Start: 05-27-2024 SKIN / NAIL BIOPSY Rey Montes MD Work Phone: Start: 04-24-2024 MLR HEMOGLOBIN A1C Ginny Delgado BABY DOCTOR Work Phone: Start: 03-13-2024 Mammography Ginny Dash toney BABY DOCTOR Work Phone: Start: 03-11-2024 Screening mammograph y of bilateral breasts Ginny Delgado Work Phone: Start: 02-16-2024 Quick Strep (POC) Ginny Delgado Work Phone: Start: 12-15-2022 Mammography Ginny Dash toney BABY DOCTOR Work Phone: Plan of Treatment Date Care Activity Detail Author Start: 02-09-2028 Screening for malignant neoplasm of colon [facility] Start: 06-06-2025 Glaucoma screening Diabetes: Retinopathy Screening [facility] Start: 05-10-2025 Urine screening for protein Diabetes: Urine Protein Screening [facility] Start: 03-13-2025 Screening for malignant neoplasm of breast Mammogram [facility] Start: 01-07-2025 Medicare Annual Wellness (AWV) Medicare Annual Wellness (AWV) [facility] Start: 10-23-2024 Hemoglobin A1c measurement Diabetes: Hemoglobin A1C [facility] Start: 09-05-2024 End: 09-05-2024 Patient encounter procedure 09/05/2024 2:20 PM EST Office Visit [facility] [address] [place] [address] Ginny Natarajan NP [address] [place] [phone] [facility] Start: 08-14-2024 Urine screening for protein Diabetes: Urine Protein Screening [facility] Start: 08-01-2024 Urine screening for protein Diabetes: Urine Protein Screening [facility] Start: 07-10-2024 End: 07-10-2024 Patient encounter procedure 07/10/2024 1:00 PM EST Office Visit [facility] [address] [place] [address] Ginny Natarajan NP [address] [place] [phone] [facility] Start: 05-14-2024 End: 05-14-2024 Patient encounter procedure 05/14/2024 2:30 PM EDT Office Visit [facility] [address] [place] [id number] Jose Montes MD [address] [place] [address] [facility] Start: 04-17-2024 End: 04-17-2025 Basic metabolic 1998 panel - Serum or Plasma Basic metabolic panel Lab Routine Muscle cramps Expected: 04/17/2024 (Approximate), Expires: 04/17/2025 [facility] Comment on above: Expected: 04/17/2024 (Approximate), Expi res: 04/17/2025 Start: 04-17-2024 End: 04-17-2025 Hemoglobin A1c/Hemoglobin.total in Blood Hemoglobin A1c Lab Routine Type 2 diabetes mellitus without complication, without long-term current use of insulin ([facility]) Expected: 04/17/2024 (Approximate), Expires: 04/17/2025 [facility] Work Phone: Comment on above: Expected: 04/17/2024 (Approximate), Expi res: 04/17/2025 Start: 04-17-2024 End: 04-17-2025 Magnesium [Mass/volume] in Serum or Plasma Magnesium Lab Routine Muscle cramps Expected: 04/17/2024 (Approximate), Expires: 04/17/2025 [facility] Comment on above: Expected: 04/17/2024 (Approximate), Expi res: 04/17/2025 Start: 04-05-2024 Hemoglobin A1c measurement Diabetes: Hemoglobin A1C [facility] Start: 03-24-2024 Influenza vaccination Influenza Vaccine (#1) [facility] Start: 01-21-2024 Influenza vaccination Influenza Vaccine (#1) [facility] Comment on above: Postponed from 03/24/2023 (Patient Refus ed) Start: 12-16-2023 Screening for malignant neoplasm of breast Mammogram [facility] Start: 10-31-2023 Hemoglobin A1c measurement Diabetes: Hemoglobin A1C [facility] Start: 09-13-2023 End: 09-13-2023 Patient encounter procedure 09/13/2023 2:00 PM EST Office Visit [facility] [address] [place] [phone] Ginny Natarajan NP [address] [place] [phone] [facility] Start: 09-07-2023 End: 09-07-2023 Patient encounter procedure [facility] Comment on above: Arrived Start: 09-04-2023 End: 09-04-2023 Patient encounter procedure 09/04/2023 5:00 PM EST Office [facility] [address] [place] [address] Ginny Natarajan NP [address] [place] [address] [facility] Start: 08-29-2023 End: 08-29-2023 Patient encounter procedure 08/29/2023 10:15 AM EST Procedure Visit [facility] Migel Best, DO [address] [facility] [place] [address] [facility] Start: 12-09-1971 Urine screening for protein Diabetes: Urine Protein Screening [facility] Start: 1950 Hemoglobin A1c measurement Diabetes: Hemoglobin A1C [facility] Start: 1950 Medicare Annual Wellness (AWV) Medicare Annual Wellness (AWV) [facility] Start: 1950 Screening for malignant neoplasm of colon [facility] Dermatopathology exam Dermatopat hology exam Pathology and Cytology Timed Neoplasm of unspecified behavior of bone, soft tissue, and skin Release Upon Ordering for 1 Occurrences starting 05/27/2024 [facility] Work Phone: Comment on above: Release Upon Ordering for 1 Occurrences starting 05/27/2024 Immunizations Immunization Date Immunization Notes Care Provider [facility] 03-07-2022 pneumococcal polysaccharide vaccine, 23 valent Ginny Natarajan BABY DOCTOR Work Phone: [facility] 09-28-2018 pneumococcal conjuga te vaccine, 13 valent Ginny Natarajan BABY DOCTOR Work Phone: [facility] 04-10-2014 pneumococcal vaccine , unspecified formulation Ginny Natarajan BABY DOCTOR Work Phone: [facility] 09-27-2012 hepatitis A and hepa titis B vaccine Ginny Natarajan BABY DOCTOR Work Phone: [facility] 03-28-2012 hepatitis A and hepa titis B vaccine Ginny Natarajan BABY DOCTOR Work Phone: [facility] 02-24-2012 hepatitis A and hepa titis B vaccine Ginny Natarajan BABY DOCTOR Work Phone: [facility] 06-02-2010 influenza virus vacc ine, unspecified formulation Ginny Natarajan BABY DOCTOR Work Phone: [facility] Payers Date Payer Category Payer Medicaid [id number] 2023 Self-pay [id number] 2017 Medicaid [id number] 2017 Medicare [id number] 1959 Medicaid [id number] 1959 Medicare [id number] 1952 Unknown [id number] 2.16.84 0.1.328072.3.579.2.593 1952 Unknown [id number] 2.16.84 0.1.077405.3.579.2.593 1952 Unknown [id number] 2.16.84 0.1.458039.3.579.2.593 1952 Unknown [id number] 2.16.84 0.1.387626.3.579.2.593 1952 Unknown [id number] 2.16.84 0.1.235147.3.579.2.593 1952 Unknown [id number] 2.16.84 0.1.326401.3.579.2.1259 1952 Unknown [id number] 2.16.84 0.1.785333.3.579.2.1259 1952 Unknown [id number] 2.16.84 0.1.377859.3.579.2.1258 1952 Unknown [id number] 2.16.84 0.1.648006.3.579.2.1258 1952 Unknown [id number] 2.16.84 0.1.809716.3.579.2.1258 1952 Unknown [id number] 2.16.84 0.1.183809.3.579.2.1258 1952 Unknown [id number] 2.16.84 0.1.050929.3.579.2.1258 1952 Unknown [id number] 2.16.84 0.1.093772.3.579.2.1258 1952 Unknown [id number] 2.16.84 0.1.390089.3.579.2.1258 1952 Unknown [id number] 2.16.84 0.1.330658.3.579.2.1258 1952 Unknown [id number] 2.16.84 0.1.684645.3.579.2.1258 1952 Unknown [id number] 2.16.84 0.1.811692.3.579.2.1258 1952 Unknown [id number] 2.16.840 .1.479923.3.579.2.1258 1952 Unknown [id number] 2.16.840 .1.785901.3.579.2.1259 Unknown Unknown [id number] 2.16.8 40.1.057928.3.579.2.531 Unknown [id number] 2.16.8 40.1.014289.3.579.2.531 Social History Date Type Detail Facility Start: 08-11-2023 End: 01-08-2024 Sex Assigned At [facility] Start: 07-26-2023 End: 01-08-2024 Tobacco smoking status NHIS Ex-smoker [facility] End: 07-24-2011 History of tobacco use Current smoker [facility] End: 07-24-2011 History of tobacco use Cigarette Smoker [facility] Start: 07-26-2023 End: 01-08-2024 Tobacco use and exposure Smokeless tobacco non-user [facility] Start: 08-11-2023 End: 05-27-2024 Alcohol intake Lifetime non-drinker (finding) [facility] Start: 08-11-2023 End: 01-08-2024 History of Social function [facility] Start: 1950 Sex Assigned At Not on file [facility] Start: 1950 Sex Assigned At Female [facility] Start: 08-20-2024 Sex Female (finding) [facility] Clinical Notes 04-04-2023 to 05-27-2024 Jose Montes MD - 05/27/2024 11:30 AM Jesus Natarajan, BABY DOCTOR - 04/17/2024 1:49 PM Cali Natarajan, BABY DOCTOR - 04/17/2024 1:49 PM Cali Natarajan, BABY DOCTOR - 04/17/2024 1:48 PM EDT Note Date [...] soft tissue, and skin Mid Frontal Scalp [place] pearly papule Lesion biopsy Type of biopsy: [...] any new/changing lesions documented in this encounter [facility] 04-17-2024 History of Present illness Narrative [...] complication, without long-term current use of insulin ([facility]) Check labs Continue mounjaro (prescribed through weight [...] has been sick- for 2 weeks now. Monday morning she was in urgent care in [place]- had tested pos for covid and UTI, [...] with UTI and COVID last week in [place] Did not take paxlovid , took bactrim [...] compliance problems. There is no history of CAD/NH, heart failure or PVD. Diabetes She presents [...] obesity and sedentary lifestyle. Current diabetic treatments: mounjaro. She is compliant with treatment all of the time. Her overall blood glucose range is 90-110 mg/dl. An ELIAZAR inhibitor/angiotensin II receptor onofre is not being taken. She does not see a white kid buffer.Eye exam is current. Sinusitis This is a [...] vitamins capsule 1 capsule, Oral, Daily RT Zqtntlih-Fybqqwa-Ccxmz-Quercet (Bilberry Extract) 40 MG capsule 40 mg, [...] mg, Oral, Every 24 hours Folic Acid-Cholecalciferol 1-12611 MG-UNIT tablet 10,000 Units, Oral, Daily GARLIC [...] Allergic urticaria 07/27/2023 Arthritis Benign essential hypertension ([facility]/HCC) 07/27/2023 Carbuncle and furuncle of trunk 07/27/2023 Carpal tunnel syndrome 07/27/2023 COVID-19 15 day stay Degeneration of lumbar or lumbosacral intervertebral disc 07/27/2023 Depressive disorder ([facility]/H[facility]) 07/27/2023 Dizziness 11/29/2022 Encounter for routine gynecological examination 07/27/2023 Apr 29, 2008 Entered By: OPAL TAYLOR Comment: 5 years ago was last one Gallbladder problem Gastroesophageal reflux disease 07/27/2023 HTN (hypertension) ([facility]) Hyperlipidemia ([facility]) 07/27/2023 Hyperlipidemia, unspecified ([facility]) 07/27/2023 Ingrown toenail 07/27/2023 Lumbar sprain 07/27/2023 Migraine ([facility]) 11/29/2022 Mixed hyperlipidemia ([facility]) 07/27/2023 Nonalcoholic steatohepatitis (CORCORAN) 07/27/2023 Nondependent opioid abuse ([facility]) 07/27/2023 Obesity 07/27/2023 Occult blood in stools 07/27/2023 Onychomycosis of toenail 07/27/2023 Opioid dependence in remission ([facility]) 07/27/2023 Opioid dependence, in remission ([facility]) 07/27/2023 Osteoarthritis 07/27/2023 Other general symptoms and signs 07/27/2023 Painful breathing 07/27/2023 Pancreatitis Presbyopia 07/27/2023 Recurrent major depressive disorder (HCC) ([facility]) 07/27/2023 Regular astigmatism, bilateral 07/27/2023 Sciatica 07/27/2023 [...] complication, without long-term current use of insulin ([facility]) - Primary Check labs Continue mounjaro (prescribed [...] 4 MG tablets documented in this encounter [facility] 02-17-2024 Note Lipid abnormalities are unchanged. Pharmacotherapy as ordered. She is intolerant in the past to statin, d/w pt about lifestyle modifications- heart healthy/low cholesterol diet, regular exercise and she voiced understanding, will monitor with PCP lipid levels [facility] 02-17-2024 Note Hypertension is unco ntrolled Therefore will increase coreg to 25 mg po bid and continue chlorthalidone 25 mg daily Continue to monitor b/p at home and d/w pt goal b/p is < 130/80 and to call office for any concerns [facility] 02-14-2024 Note UTP CARDIOLOGY PROGR ESS NOTE HPI: Norma Redmond is a 73 y.o. female here for routine F/U HPI 73 yo female presents to clinic for routine F/U for HTN and HPL. States b/p at home is typically 140-150 systolic. Denied chest pain, SOB, orthopnea, palpitations States she has appt [facility] Monday and they usually manage her lipid/cholesterol [...] tolerate statins d/t them causing liver impairment. [facility]. Hypertension This is a [...] Thought content n (more content not included)... [facility] 02-14-2024 Note Review of Systems All other systems reviewed and are negative. [facility] 09-07-2023 History of Present illness Narrative [...] and heat therapy documented in this encounter [facility] 04-04-2023 Evaluation note Encounter Date Diagnosis [...] understanding and is agreeable to treatment plan [facility] Other Evaluation note* Diagnosis Hypokalemia Hypopotassemia [facility] Diagnosis Sialadenitis- Primary Sialoadenitis Salivary duct stone Sialolithiasis Neck mass Swelling, mass, or lump in head and neck documented in this encounter [facility] HealthcareEvaluation noteNo assessment information available[facility] Work [facility]: Evaluation note* Diagnosis Onset Date Resolution Status Arthritis of knee acute BMI 40.0-44.9, adult acute Hyperlipidemia, unspecified acute Hypertriglyceridemia acute Obesity acute Vitamin D deficiency, unspecified acute [facility] Work Phone: Evaluation note* Diagnosis Onset [...] Obesity acute Vitamin D deficiency, unspecified acute [facility] Work Phone: Evaluation note* Diagnosis Onset Date Resolution Status Arthritis of knee acute BMI 40.0-44.9, adult acute Hyperlipidemia, unspecified acute Hypertriglyceridemia acute Obesity acute Vitamin D deficiency, unspecified acute Arthritis of knee acute BMI 40.0-44.9, adult acute Hyperlipidemia, unspecified acute Hypertriglyceridemia acute Obesity acute Vitamin D deficiency, unspecified acute Viral URI noneactive [facility] Work Phone: Evaluation note* Diagnosis Onset [...] Obesity acute Vitamin D deficiency, unspecified acute [facility] Work Phone: Evaluation note* Diagnosis Environmental and seasonal allergies documented in this encounter [facility] HealthcareEvaluation note* Diagnosis Hypomagnesemia- Primary Disorders of [...] hyperglycemia acute Vitamin D deficiency, unspecified acute [facility] Work Phone: Evaluation note* Diagnosis Type [...] pansinusitis Type 2 diabetes mellitus without complications (CMS/HCC) documented in this encounter [facility]* Diagnosis Type 2 diabetes mellitus without complication, without long-term current use of insulin (CMS/HCC)- Primary Muscle cramps UTI (urinary tract infection), uncomplicated Urinary tract infection, site not specified COVID Essential hypertension Unspecified essential hypertension Acute non-recurrent pansinusitis documented in this encounter [facility]* [...] hypertension Unspecified essential hypertension Acute non-recurrent pansinusitis Spondylosis without myelopathy or radiculopathy, cervical region Cervical spondylosis without myelopathy documented in this encounter [facility]* Diagnosis Onset Date Resolution Status Admit Date Arthritis of knee acute August 20, 2024 2:27pm BMI 40.0-44.9, adult acute 2024 2:27pm Hyperlipidemia, unspecified acute August 20, 2024 2:27pm Hypertension acute July 2:27pm Hypertriglyceridemia acute 2024 2:27pm Obesity acute August 20, 2024 2:27pm Type 2 diabetes mellitus wit h hyperglycemia acute August 20 2:27pm Vitamin D deficiency, unspecified ac lummi August 20, 2024 2:27pm [facility] Work Phone: Evaluation note* Diagnosis Type 2 diabetes mellitus without complication, without long-term current use of insulin (CMS/HCC)- Primary Sialadenitis Sialoadenitis Dry eyes Unspecified tear film insufficiency Abrasion of left cornea, subsequent encounter- Primary Environmental and seasonal allergies Type 2 diabetes mellitus without complication, without long-term current use of insulin ([facility]) Chronic pain of left knee Abrasion of left cornea, subsequent encounter- Primary Obesity (BMI 30-39.9) Encounter for subsequent annual wellness visit (AWV) in Medicare patient- Primary Essential hypertension Unspecified essential hypertension Obesity (BMI 30-39.9) Type 2 diabetes mellitus without complication, without long-term current use of insulin (CMS/HCC) Herpes Herpes simplex without mention of complication Hypokalemia Hypopotassemia Mixed hyperlipidemia (CMS/[facility]) Mixed hyperlipidemia Rash and nonspecific skin eruption Rash and other nonspecific skin eruption Urinary tract infection without hematuria, site unspecified Type 2 diabetes mellitus without complication, without long-term current use of insulin (CMS/[facility])- Primary Muscle cramps UTI (urinary tract infection), uncomplicated Urinary tract infection, site not specified COVID Essential hypertension Unspecified essential hypertension Acute non-recurrent pansinusitis Urinary tract infection symptoms- Primary documented in this encounter [facility] Narrative - Reported* Type Description Date Medical History Arthritis Medical History Diabetes- Metformin Medical History Gallbladder Medical History HTN Surgical History Gallbladder 1997 Surgical History Lazer Surgery of Uterus 1995 Surgical History Rhinoplasty 1977 Surgical History Eyelids 2016 [facility] Other Summary Purpose Family History Relationship Condition [...] Date/ Time Advance Directives No June 1:39pm Advance Directive Response Recorded Date/ Time Advance Directives No June 12:39pm Chief Complaint and Reason for Visit Chief Complaint salivary stone [facility] Chief Complaint [facility] Reason for Visit Arthritis of knee BMI 40.0-44.9, adult Hyperlipidemia, unspecified Hypertriglyceridemia Obesity Vitamin D deficiency, unspecified Chief Complaint [facility] WMN f/u Reason for Visit Arthritis of knee BMI 40.0-44.9, adult Hyperlipidemia, unspecified Hypertriglyceridemia Obesity Vitamin D deficiency, unspecified Chief Complaint [facility] WMN f/u WMN f/u Reason for Visit [...] mellitus with hyperglycemia Vitamin D deficiency, unspecified Chief Complaint Admit Date WMN f/u August 20, 2024 2 :27pm Reason for Visit Admit Date Arthritis of knee August 20, 2024 2 :27pm BMI 40.0-44.9, adult August 20, 2024 2:27pm Hyperlipidemia, unspecified July 2:27pm Hypertension August 20, 2024 2 :27pm Hypertriglyceridemia August 20, 2024 2:27pm Obesity August 20, 2024 2 :27pm Type 2 diabetes mellitus with hyperglyce maria m August 20, 2024 2:27pm Vitamin D deficiency, unspecified Januar y 2024 2:27pm Additional Source Comments INFORMATION SOURCE (unrecogn ized section and content) DATE CREATED AUTHOR 01/10/2018 [facility] DATE CREATED AUTHOR AUTHOR'S ORGANIZ ATION 10/31/2022 [facility]ital DATE CREATED AUTHOR AUTHOR'S ORGANIZ ATION 02/17/2024 [facility] DATE CREATED AUTHOR AUTHOR'S ORGANIZ ATION 03/15/2024 [facility] DATE CREATED AUTHOR AUTHOR'S ORGANIZ ATION 05/28/2024 [facility] EPIC REASON FOR VISIT (unrecogniz ed section and content) Reason Comments Post-op Post op salivary sto ne removal Reason Comments Med Refill Reason Comments Follow-up Hair/Scalp Problem Suspicious Skin Lesion Care Teams (unrecognized sec tion and content) Steam Service Inspector Relationship Specialty Start Date End Date Yair Nails MD PCP - General Family Medicine 07/24/22 Ginny Natarajan NP [address] [place] [phone] Referring Physician Nurse Practitioner 07/24/22 Steam Service Inspector Relationship Specialty Start Date End Date Yair Nails MD PCP - General Family Medicine 07/24/22 Ginny Natarajan NP [address] [place] [address] Referring Physician Nurse Practitioner 07/24/22 Steam Service Inspector Relationship Specialty Start Date End Date Yair Nails MD PCP - General Family Medicine 07/24/22 Ginny Natarajan NP [address] [place] [phone] Referring Physician Nurse Practitioner 07/24/22 Team Status: [...] End: March 11, 2024 Christine Pereira (Clinic) DO [facility] Attending Provider Active Start: March 11, 2024 End: March 11, 2024 Team Status: Inactive Member Role Status Dates Ginny Natarajan Primary Care Provider Active Sta rt: March 20, 2024 End: March 20, 2024 Danna Spence APRN Attending Provider Active Start: March 20, 2024 End: March 20, 2024 Steam Service Inspector Relationship Specialty Start Date End Date Yair Nails MD [address] [place] [phone] PCP - General Family Medicine 09/19/23 Ginny Natarajan NP [address] [place] [address] Referring Physician Nurse Practitioner 07/24/22 Ginny Natarajan NP [address] [place] [phone] Nurse Practitioner Family Medicine 09/19/23 Steam Service Inspector Relationship Specialty Start Date End Date Yair Nails MD [address] [place] [phone] PCP - General Family Medicine 09/19/23 Ginny Natarajan NP [address] [place] [address] Referring Physician Nurse Practitioner 07/24/22 Ginny Natarajan NP [address] [place] [address] Nurse Practitioner Family Medicine 09/19/23 Steam Service Inspector Relationship Specialty Start Date End Date Yair Nails MD [address] [place] [phone] PCP - General Family Medicine 09/19/23 Ginny Natarajan NP [address] [place] [address] Referring Physician Nurse Practitioner 07/24/22 Ginny Natarajan NP [address] [place] [address] Nurse Practitioner Family Medicine 09/19/23 Steam Service Inspector Relationship Specialty Start Date End Date Yair Nails MD [address] [place] [phone] PCP - General Family Medicine 09/19/23 Ginny Natarajan NP [address] [place] [address] Referring Physician Nurse Practitioner 07/24/22 Ginny Natarajan NP [address] [place] [address] Nurse Practitioner Family Medicine 09/19/23 Team Status: Inactive Member Role Status Dates Ginny Natarajan Primary Care Provider Active Sta rt: May 15, 2024 End: May 15, 2024 Danna Spence APRN Attending Provider Active Start: May 15, 2024 End: May 15, 2024 Steam Service Inspector Relationship Specialty Start Date End Date Yair Nails MD [address] [place] [phone] PCP - General Family Medicine 09/19/23 Ginny Natarajan NP [address] [place] [address] Referring Physician Nurse Practitioner 07/24/22 Ginny Natarajan NP [address] [place] [address] Nurse Practitioner Family Medicine 09/19/23 Steam Service Inspector Relationship Specialty Start Date End Date Yair Nails MD [address] [place] [address] PCP - General Family Medicine 09/19/23 Ginny Natarajan NP [address] [place] [address] Referring Physician Nurse Practitioner 07/24/22 Ginny Natarajan NP [address] [place] [address] Nurse Practitioner Family Medicine 09/19/23 Steam Service Inspector Relationship Specialty Start Date End Date Yair Nails MD [address] [place] [phone] PCP - General Family Medicine 09/19/23 Ginny Natarajan NP [address] [place] [address] Referring Physician Nurse Practitioner 07/24/22 Ginny Natarajan NP [address] [place] [address] Nurse Practitioner Family Medicine 09/19/23 Steam Service Inspector Relationship Specialty Start Date End Date Yair Nails MD [address] [place] [address] PCP - General Family Medicine 09/19/23 Ginny Natarajan NP [address] [place] [address] Referring Physician Nurse Practitioner 07/24/22 Ginny Natarajan NP [address] [place] [address] Nurse Practitioner Family Medicine 09/19/23 Team Status: Inactive Member Role Status Dates Ginny Natarajan Primary Care Provider Active Sta rt: August 20, 2024 End: August 20, 2024 Danna Spence APRN Attending Provider Active Start: August 20, 2024 End: August 20, 2024 Steam Service Inspector Relationship Specialty Start Date End Date Yair Nails MD [address] [place] [address] PCP - General Family Medicine 09/19/23 Ginny Natarajan NP [address] [place] [address] Referring Physician Nurse Practitioner 07/24/22 Ginny Natarajan NP [address] [place] [address] Nurse Practitioner Family Medicine 09/19/23 Goals (unrecognized [...] BE BASED ON THE PRIMARY CLINICAL RECORDS. [facility] [employer] [facility]. provides no warranty or guarantee of the accuracy or completeness of information in this document.
[2024-09-04 12:53] LABS: Magnesium 1.5 mg/dL (1.8-2.4)
== END 2024-09-04 12:20 | disposition home or self-care (01) ==
LOC: LAB 12:20
PROVIDERS: PCP Nurse Practitioner; Visit Provider Nurse Practitioner
DX: E83.42 Hypomagnesemia (principal)
CPT/HCPCS: 36415; 83735

== ENCOUNTER 2024-11-28 10:09 | Outpatient (OUT) | payer MEDICARE, MEDICAID, SELFPAY ==
[2024-11-28 11:09] LABS: Magnesium 1.4 mg/dL (1.8-2.4)
== END 2024-11-28 10:10 | disposition home or self-care (01) ==
LOC: LAB 10:14
PROVIDERS: PCP Nurse Practitioner; Visit Provider Nurse Practitioner
DX: E83.42 Hypomagnesemia (principal)
CPT/HCPCS: 36415; 83735

== ENCOUNTER 2025-04-25 12:32 | Emergency (ER) | payer MEDICARE, MEDICAID, SELFPAY ==
[2025-04-25 12:37] VITALS: BP 153/62; PULSE 79; TEMP 37.1; O2SAT 96; BMI 35.6
--- OUTSIDE RECORDS SUMMARY | 2025-04-25 12:40 | XMS_ITS | Clinical Summary ---
Author Organization [facility] Address [address] [place] [address] Care Team Providers Care Compensation Expert Name Role Phone Ginny Natarajan NP Unavailable [phone] Yair Cespedes MD Primary Care Provider [phone] Ginny Natarajan NP Unavailable [phone] Ginny Natarajan NP Unavailable [phone] Allergies Active Allergy Reactions Criticality Noted Date Comments Simvastatin Low 02/08/2013 Other Reaction(s): Alkaline phosphatase raised, ALT (SGPT) level raised, Aspartate aminotransferase serum level raised, Alkaline phosphatase raised, ALT (SGPT) level raised, Aspartate aminotransferase serum level raised, Alkaline phosphatase raised, ALT (SGPT) level raised, Aspartate aminotransferase serum level raised, Not available Statins Unknown 07/21/2023 Medications Cyanocobalamin 1000 MCG capsule Take 1 tablet by mouth 1 (one) time each day at the same time Active ascorbic acid (Vitamin C) 1000 MG tablet Take 1,000 mg by mouth 1 (one) time each day at the same time Active aspirin 81 MG chewable tablet Chew 81 mg 1 (one) time each day at the same time Active buprenorphine-nalo xone (Suboxone) 12-3 MG per sublingual film Place 1 Film under the tongue 1 (one) time Active coenzyme Q-10 10 MG capsule Take 10 mg by mouth 1 (one) time each day at the same time Active fenofibrate (Tricor) 145 MG tablet Take 145 mg by mouth 1 (one) time each day at the same time Active ketoconazole (NIZOral) 2 % cream Apply 1 application topically in the morning and 1 application before bedtime. 04/27/20 23 Active meclizine (Antivert) 25 MG tablet Take 25 mg by mouth 3 (three) times a day as needed for dizziness 04/27/20 23 Active b complex vitamins capsule Take 1 capsule by mouth in the morning. Active cholecalciferol (Vitamin D-[address]) 25 MCG (1000 UT) tablet Take 1,000 Units by mouth in the morning. Active GARLIC PO Take by mouth Active omega-3 (Fish Oil) 1000 MG capsule 1 capsule every 12 (twelve) hours Active triamcinolone (Kenalog) 0.025 % ointment 08/16/19 24 Active clobetasol (Temovate) 0.05 % ointmentIndication s:Dyshidrosis (pompholyx),Dyshid rosis APPLY TO HANDS TWICE A DAY MONDAY-MONDAY OFF ON WEEKENDS THEN NEEDED FOR FLARES 60 g 02/08/20 24 Active carvedilol (Coreg) 25 MG tablet Take 25 mg by mouth in the morning and 25 mg in the evening. Take with meals. 02/14/20 24 Active Sodium Fluoride 5000 PPM 1.1 % paste 03/13/20 24 Active ondansetron ODT (Zofran-ODT) 4 MG disintegrating tablet Take 4 mg by mouth every 8 (eight) hours if needed for nausea or vomiting 04/05/20 24 Active tiZANidine (Zanaflex) 4 MG tabletIndications: Spondylosis without myelopathy or radiculopathy, cervical region,Cervical spondylosis without myelopathy Take 1 tablet (4 mg) by mouth as needed at bedtime for muscle spasms 90 tablet 1 08/07/19 25 Active fluconazole (Diflucan) 150 MG tabletIndications: Hypomagnesemia One time dose repeat in 3 days if needed 2 tablet 1 08/12/19 25 Active chlorthalidone (Hygroton) 25 MG tablet Take 25 mg by mouth in the morning. 11/11/19 25 Active ibuprofen 800 MG tablet Take 800 mg by mouth every 8 (eight) hours if needed for mild pain 11/11/19 25 Active naloxone (Narcan) 4 mg/0.1 mL nasal spray Administer into affected nostril(s) 11/05/19 25 Active potassium chloride ER (Micro-K) 10 MEQ ER capsule 11/14/19 Active methylPREDNISolone (Medrol Dospak) 4 MG tabletsIndications :Primary osteoarthritis of left knee Follow schedule on package instructions 21 tablet 11/23/19 Active Mounjaro 10 MG/0.5ML solution auto-injector INJECT 10MG (0.5ML) SUBCUTANEOUSLY ONCE EVERY WEEK 11/22/19 Active magnesium oxide (Mag-Ox) 400 (240 Mg) MG tabletIndications: Hypomagnesemia Take 1 tablet (400 mg) by mouth in the morning and 1 tablet (400 mg) before bedtime. 180 tablet 1 02/11/20 25 025 Active metFORMIN (Glucophage) 1000 MG tabletIndications: Type 2 diabetes mellitus without complications (HCC) Take 1 tablet (1,000 mg) by mouth in the morning. Take with meals. 90 tablet 1 02/21/20 25 025 Active Additional Information Patient taking differently: 500 mgOral Daily with breakfast, Morning, Reported on 03/03/2025 fexofenadine (Sally) 180 MG tabletIndications: Environmental and seasonal allergies Take 1 tablet (180 mg) by mouth Daily 90 tablet 1 02/21/20 025 Active Active Problems Problem Noted Date Diagnosed Date Type 2 diabetes mellitus with other specified co mplication 12/03/2024 Assessment & Plan (12/03/2024 6:54 AM EDT): HTN, obesity, HLD Other chronic pain 10/11/2024 Ringworm of body 10/01/2024 Assessment & Plan (10/01/2024 1:31 PM EDT): Send in script for anti fungal Allergic conjunctivitis of both eyes 10/01/2024 Assessment & Plan (12/03/2024 6:56 AM EDT): Current meds: nasal steroids, sally, and allergy eye drop Assessment & Plan (10/01/2024 1:32 PM EDT): Stop all eye drops, trial anti histamine eye drop Cold compress Add flonase, change zyrtec to sally Fu if not better Yeast dermatitis 09/05/2024 Statin intolerance 07/25/2024 Hypomagnesemia 04/25/2024 Assessment & Plan (12/03/2024 4:08 PM EDT): Prescribed mag oxide 400mg BID Still with sub therapeutic levels Has stopped Magnesium oxide, is doing a different magnesium OTC supplement Assessment & Plan (09/05/2024 7:30 AM EST): Prescribed mag oxide 400mg daily Muscle cramps 04/17/2024 Assessment & Plan (04/17/2024 1:48 PM EDT): Check basic and mg d/t recent diarrhea and vomiting fluids COVID 04/17/2024 Assessment & Plan (04/17/2024 1:49 PM EDT): No resp distress Did not take paxlovid Fluids, and rest, treat symptoms UTI (urinary tract infection), uncomplicated Overview (09/11/2024): [facility] [id number] EXP: 10/22/2026 LOT # [id number] Assessment & Plan (12/05/2024 12:33 PM EDT): 11/05/24: citrobacter : treat with cipro Assessment & Plan (12/03/2024 4:06 PM EDT): Urine: sm leukocytes Will send health trx Give more augmentin until results back Pt asks whey this is her second UTI if a few months, no hx of freq UTI in past Discussed possible differentials: constipation, post menopausal, as well urethral stenosis Assessment & Plan (04/17/2024 1:48 PM EDT): Finished atb Urine still concentrated, recommend increasing fluids Hyperlipidemia, unspecified 01/08/2024 Assessment & Plan (12/03/2024 6:55 AM EDT): Declines use of statin, cont fenofibrate Also add metamucil fiber as well as it may help both constipation as well as heart health Assessment & Plan (09/05/2024 7:28 AM EST): Declines use of statin, cont fenofibrate Also add metamucil fiber as well as it may help both constipation as well as heart health Assessment & Plan (01/08/2024 5:56 PM EDT): Declines use of statin, cont fenofibrate Also add metamucil fiber as well as it may help both constipation as well as heart health Vitamin D deficiency, unspecified 01/08/2024 Vitamin B 12 deficiency 01/08/2024 Arthritis of knee 01/08/2024 Encounter for screening mamm ogram for malignant neoplasm of breast 01/08/2024 Encounter for subsequent [facility] wellness visit (AWV) in Medicare patient 01/08/2024 Assessment & Plan (01/08/2024 6:36 PM EDT): Reviewed Ht/Wt/BMI Recommend eye exam yearly Recommend dental exams twice a year Exercises is recommended most days of the week (appropriate as chronic conditions allow) Follow up yearly and prn Rash and nonspecific skin eruption 01/08/2024 Assessment & Plan (12/03/2024 4:12 PM EDT): Has trialed anti fungal, steroid Does get some intermittent improvement with more ointment based Assessment & Plan (01/08/2024 6:38 PM EDT): Non specific, if still present in 2 weeks call office Essential hypertension 10/04/2023 Assessment & Plan (12/03/2024 6:53 AM EDT): Please check blood pressure daily and record DASH diet Limit caffeine Take medication as directed Contact office if chest pain, pressure, dizziness, shortness of breath, swelling legs Recommend slow position changes Current meds: hydrochlorothiazide , carvedilol, Assessment & Plan (09/05/2024 4:32 PM EST): Please check blood pressure daily and record DASH diet Limit caffeine Take medication as directed Contact office if chest pain, pressure, dizziness, shortness of breath, swelling legs Recommend slow position changes Current meds: hydrochlorothiazide , carvedilol, May talk about at next appt if weight continues to go down lowering dose of bp meds Assessment & Plan (04/17/2024 1:49 PM EDT): Stable, no med dose changes Assessment & Plan (01/08/2024 5:54 PM EDT): No changes in current meds at this time Obesity (BMI 30-39.9) 10/04/2023 Assessment & Plan (10/01/2024 6:35 AM EDT): Discussed with patient their BMI (actual, verses recommended). We have also discussed lifestyle modifications: attempts to perform physical activity as chronic conditions allow, also to monitor dietary intake: increasing protein/fruits/veggies and lowering carb intake (unless contraindicated). Limit sodas, juices, and sugary drinks. Continues with [facility] and is taking Mounjaro Assessment & Plan (09/05/2024 7:26 AM EST): Continues with [facility] and is taking Mounjaro Assessment & Plan (04/17/2024 1:20 PM EDT): Doing well with mounjaro script has lost about 32 pounds this year Assessment & Plan (10/04/2023 4:45 PM EDT): Discussed with pt we would not order ozempic d/t hx of pancreatitis I have recommended she consider possible bariatric surgery, WW, or Dr Arias She was given the info on dr arias She has good insight into how her weight effects her chronic health conditions I recommend she trial a WW for 90 days to see how weight loss comes Chronic pain of left knee 09/26/2023 Assessment & Plan (09/26/2023 8:29 AM EST): Worsening in pain, wants to see ortho, will send to [facility] Environmental and seasonal allergies 09/25/2023 Assessment & Plan (12/03/2024 4:07 PM EDT): Refills for sally as well as nasal steroids Assessment & Plan (09/25/2023 8:09 PM EST): Cont OTC nasal steroid Stop loratadine, trial cetirizne Add OTC pepcid for the next 10 days Hypokalemia 08/03/2023 Assessment & Plan (01/08/2024 5:56 PM EDT): Cannot swallow the tablet Will switch to capsules Type 2 diabetes mellitus without complications 0 07/26/2023 Assessment & Plan (12/03/2024 2:56 PM EDT): Check blood sugars daily, notify if <70 [...] diet low in carbohydrates, and simple sugars. Current meds: mounjaro as well as metformin A1c: 5.2% 12/03/24 Assessment & Plan (10/01/2024 2:29 PM EDT): Check blood sugars daily, notify if <70 [...] diet low in carbohydrates, and simple sugars. Current meds: mounjaro as well as metformin Assessment & Plan (09/05/2024 7:26 AM EST): Check blood sugars daily, notify if <70 [...] diet low in carbohydrates, and simple sugars. Current meds: mounjaro as well as metformin a1c Assessment & Plan (06/24/2024 8:36 PM EST): Lower dose of metfromin to 1 500mg pill daily Assessment & Plan (04/17/2024 1:21 PM EDT): Check labs Continue mounjaro (prescribed through weight [...] diet low in carbohydrates, and simple sugars. Assessment & Plan (01/08/2024 5:54 PM EDT): Reviewed labs doing well on mounjaro cont metformin Eye exam yearly, freq foot checks Assessment & Plan (09/25/2023 8:08 PM EST): Will discuss with dr cespedes about trying Ozempic w PMH of pancreatitis Dry eyes 07/26/2023 Sialadenitis 07/21/2023 Assessment & Plan (07/26/2023 2:54 PM EST): At this time it does seem to be improving, has a fu appt with ENT on 07/28/23 Will also add some labs to r/o sjogren's Including SSA/anti-Ro, and SSB /anti-La antibodies as well Herpes 07/21/2023 Assessment & Plan (01/08/2024 5:55 PM EDT): Asking for refill of valtrex Breakouts 1-2 times year Right ankle pain 07/21/2023 RUBINA (generalized anxiety disorder) 07/21/2023 Resolved Problems Problem Noted Date Diagnosed Date Resolved Date Statin declined 09/05/2024 09/05/2024 Urinary tract infection symptoms 08/27/2024 09/05/2024 Acute non-recurrent pansinusitis 04/17/2024 10/01/2024 Injury of conjunctiva and co rneal abrasion without foreign body, left eye, initial encounter 01/08/2024 04/17/2024 Type 2 diabetes mellitus with hyperglycemia 01/08/2024 01/08/2024 Urinary tract infection without hematuria 01/08/2024 04/17/2024 Assessment & Plan (01/08/2024 6:39 PM EDT): Still has keflex, will have her completed that Reviewed urine report Abrasion of left cornea 09/25/202303/25 Assessment & Plan (10/04/2023 4:43 PM EDT): Clinically is looking better, recommended we check for healing of the abrasion, pt declined States she feels it is healing No drainage noted Assessment & Plan (09/25/2023 8:10 PM EST): Will trial new atb drops, call office in 2 days to let me know if this is helping Will see if changing up allergy meds and adding pepcid settle down the histamine response as well which I think is fueling a lot of her current eye symtpoms Abnormal results of liver function studies 07/27/2023 07/27/2023 Acute maxillary sinusitis 07/27/2023 Acute pancreatitis ([facility]) 07/27/2023 07/27/2023 Overview (07/27/2023): Apr 29, 2008 Entered By: OPAL TAYLOR Comment: on creon 20mg Acute urinary tract infection 07/27/2023 07/27/2023 Allergic urticaria 07/27/2023 Benign essential hypertension 07/27/2023 07/27/2023 Carbuncle and furuncle of trunk 07/27/2023 07/27/2023 Carpal tunnel syndrome 07/27/202307/27 Degeneration of lumbar or clayton mbosacral intervertebral disc 07/27/2023 07/27/2023 Depressive disorder 07/27/2023 07/27/19 24 Encounter for routine gyneco logical examination 07/27/2023 07/27/2023 Overview (07/27/2023): Apr 29, 2008 Entered By: OPAL TAYLOR Comment: 5 years ago was last one Gastroesophageal reflux disease 07/27/2023 07/27/2023 Hyperlipidemia, unspecified 07/27/2023 07/27/2023 Hyperlipidemia 07/27/2023 07/27/2023 Mixed hyperlipidemia 07/27/2023 024 Ingrown toenail 07/27/2023 07/27/2023 Lumbar sprain 07/27/2023 07/27/2023 Nonalcoholic steatohepatitis (CORCORAN) 07/27/2023 07/27/2023 Nondependent opioid abuse 07/27/2023 Obesity 07/27/2023 07/27/2023 Occult blood in stools 07/27/202307/27 Onychomycosis of toenail 07/27/202310/2023 Opioid dependence, in remission 07/27/2023 07/27/2023 Opioid dependence in remission 07/27/2023 07/27/2023 Osteoarthritis 07/27/2023 07/27/2023 Other general symptoms and signs 07/27/2023 07/27/2023 Painful breathing 07/27/2023 07/27/2023 Presbyopia 07/27/2023 07/27/2023 Recurrent major depressive disorder 07/27/2023 07/27/2023 Regular astigmatism, bilateral 07/27/2023 07/27/2023 Skin sensation disturbance 07/27/2023 0 07/27/2023 Tobacco user 07/27/2023 07/27/2023 Villous adenoma of colon 07/27/202310/2023 Overview (07/27/2023): Mar 12, 2019 Entered By: FELICIA GONCALVES Comment: Surveillance colonoscopy due February, Entered By: YVETTE PEREIRA Comment: - colonoscopy - polyp. Dr. Jd Wood 2021 Entered By: YVETTE PEREIRA Comment: 2019 - colonscopy. maybe a polyp will send report Pre-diabetes 07/21/2023 07/26/2023 HTN (hypertension) 07/21/2023 Dizziness 11/29/2022 07/27/2023 Migraine 11/29/2022 07/27/2023 Encounters Date Type Department Care Team Description 02/25/2025 Orders Only [facility] [address] [facility] [place] [phone] Ginny Natarajan, ABIGAIL Vitamin D deficiency, unspecified (Primary Dx); Essential hypertension; Type 2 diabetes mellitus without complication, without long-term current use of insulin (HCC); Hypomagnesemia; Hypokalemia 02/24/2025 Telephone [facility] [address] [place] [address] Ginny Natarajan NP 02/20/2025 Refill [facility] [address] [place] [address] Ginny Natarajan, ABIGAIL Type 2 diabetes mellitus without complications (HCC); Environmental and seasonal allergies 02/20/2025 Telephone [facility] [address] [place] [phone] Ginny Natarajan NP 02/11/2025 Refill [facility] [address] [facility] [phone] Ginny Natarajan NP Herpesviral infection, unspecified; Rash and nonspecific skin eruption 02/10/2025 Refill [facility] [address] [address] Ginny Natarajan NP Hypomagnesemia from Last 3 Months Immunizations Immunization Administration Dates Next Due Hep A / Hep B 09/27/2012,03/28/2012,02/24/2012 Influenza, Unspecified 06/02/2010 Pneumococcal Conjugate PCV 13 09/28/2018 Pneumococcal Polysaccharide PPSV23 03/07/2022 Pneumococcal, Unspecified 04/10/2014 Family History Medical History Relation Name Comments Heart disease Mother Hypertension Mother Relation Name Status Comments Daughter Alive Father Mother Alive Sister 1 sister Son Alive Social History Tobacco Use Types Packs/Day Years Used Date Smoking Tobacco: Former Cigarettes Q uit: 2011 Smokeless Tobacco: Never Tobacco Cessation:Counseling Given: Not Answered Alcohol Use Standard Drinks/Week Comments Never 0 (1 standard drink = 0.6 oz pur e alcohol) PHQ-2 Answer Date Recorded Patient Health Questionnaire-2 Score 0 10/04/2023 Comments Unknown Sex and Gender Information Value Date Recorded Sex Assigned at Not on file Legal Sex Female 6:58 PM EDT Gender Identity Not on file Sexual Orientation Not on file Last Filed Vital Signs Vital Sign Reading Time Taken Comments Blood Pressure 140/76 12/03/2024 2:36 PM EDT Pulse 69 12/03/2024 2:36 PM EDT Temperature 36.9 C (98.5 F) 12/03/2024 2:36 PM EDT Respiratory Rate 18 12/03/2024 2:36 PM EDT Oxygen Saturation 93% 12/03/2024 2:36 PM EDT Inhaled Oxygen Concentration - - Weight 95.7 kg (211 lb) 12/03/2024 2:36 PM EDT Height 167.6 cm (5' 6 ) 04/17/2024 1:05 PM EDT Body Mass Index 34.06 04/17/2024 1:05 PM EDT Plan of Treatment Upcoming Encounters Date Type Department Care Team (Late st Contact Info) Description 05/28/2025 1:00 PM EST Office Visit [facility] [address] [place] [phone] Jr. Dario Jamil, DO [address] [facility] [address] [place] [address] Health Maintenance Due Date Last Done Comments CT Colonography 1952 FIT-DNA 1952 FIT 1952 FOBT 1950 Sigmoidoscopy 1950 Diabetes: Retinopathy Screening 1962 Medicare Annual Wellness (AWV) 01/07/2025 0 01/08/2024, 01/08/2024, 09/25/2023 Mammogram 03/13/2025 03/13/2024, 12/15/2022 Diabetes: Urine Protein Screening 05/10/2025 024, 08/01/2023 Diabetes: Hemoglobin A1C 06/05/2025 025, 12/03/2024, 04/24/2024, Additional history exists Colonoscopy 02/09/2028 Colorectal Cancer Screening 02/09/2028 Influenza Vaccine Discontinued 06/02/2010 Pneumococcal Vaccine: 65+ Years Completed 03/07/2022, 09/28/2018, 04/10/2014 Procedures Procedure Name Priority Date/Time Associated Diagnosis Comments POCT GLYCOSYLATED HEMOGLOBIN (HGB A1C) Routine 12/03/2024 3:02 PM EDT Type 2 diabetes mellitus without complication, without long-term current use of insulin (HCC) MAMM SCREENING W CAD Routine 03/13/2024 8:48 AM EDT from Last 3 Months or Most Recently Relevant to Health Maintenance Results * POCT glycosylated hemoglobin (Hb A1C) docked device (12/03/2024 3:02 PM EDT) Hemoglobin A1C 5.2 Blood Venous blood specimen / Unknown 12/03/2024 3:02 PM EDT us Ginny Natarajan NP POINT OF CARE TEST ENTER/EDIT O RDERABLES Final Result * MAMM SCREENING W CAD (03/13/2024 8:48 AM EDT) Anatomical Region Laterality Modality Radiographic Maritza ging Yvette Pereira MD IMG XR PROCEDURES Final Result from Last 3 Months or Most Recently Relevant to Health Maintenance Insurance MEDICARE MEDICAID [place] Care Teams Compensation Expert Relationship Specialty Start Date End Date Yair Cespedes MD PCP - General Family Medicine 09/19/23 Ginny Natarajan NP [address] [place] [address] PCP - ACO Reach 08/30/24 Ginny Natarajan NP Referring Physician Nurse Practitioner 07/24/22 Ginny Natarajan NP Nurse Practitioner Family Medicine 09/19/23
--- OUTSIDE RECORDS SUMMARY | 2025-04-25 12:40 | XMS_ITS | Encounter Summary ---
Author Organization [facility] Address [address] [facility] [place] [address] Care Team Providers Care Escapement Matcher Name Role Phone Yair Nails MD Primary Care Provider [phone] Ginny Natarajan NP Unavailable [phone] Yair Nails MD Primary Care Provider [phone] Ginny Natarajan NP Unavailable [phone] Ginny Natarajan NP Unavailable Encounter Details Date Type Department Care Team (Late st Contact Info) Description 08/01/2023 Clinisync Result Encounter [facility] External Department Unsolicited Provider, Generic External Data Social History Tobacco Use Types Packs/Day Years Used Date Smoking Tobacco: Former Cigarettes Q uit: 2012 Smokeless Tobacco: Never Alcohol Use Standard Drinks/Week Comments Never 0 (1 standard drink = 0.6 oz pur e alcohol) Comments Unknown Sex and Gender Information Value Date Recorded Sex Assigned at Not on file Legal Sex Female 6:58 PM EDT Gender Identity Not on file Sexual Orientation Not on file documented as of this encounter Plan of Treatment Upcoming Encounters Date Type Department Care Team (Late st Contact Info) Description 05/28/2025 1:00 PM EST [facility] [address] [facility] [address] [place] [phone] Jr. Dario Jamil, DO [address] [facility] [address] [place] [address] documented as of this encounter Procedures Procedure Name Priority Date/Time Associated Diagnosis Comments CT SOFT TISSUE NECK WO IV CONTRAST 08/01/2023 3:34 PM EST ANTINUCLEAR ANTIBODIES, IFA Routine 08/01/2023 11:47 AM EST [facility] SJOGREN'S ANTIBODY Routine 08/01/2023 11:47 AM EST [facility] RHEUMATOID FACTOR Routine 08/01/2023 11:47 AM EST ALL ANTISTREPTOLYSIN O TITER Routine 08/01/2023 11:47 AM EST documented in this encounter Results * CT soft tissue neck wo IV contrast (08/01/2023 3:34 PM EST) Anatomical Region Laterality Modality Head, Neck Computed Tomogra phy 08/01/2023 3:34 PM EST Narrative 08/01/2023 3:37 [place] [address] CT Scan Report Signed Patient: Norma Montez MR#: [id number] : 1950 Acct:[id number] Age/Sex: 72 / F ADM Date: 08/01/23 Loc: CT Attending Dr: Non-Staff Physician Danish Ordering Physician: Marta Lorenzana M.D. Date of Service: 08/01/23 Procedure(s): CT soft tissue neck wo con Accession Number(s): [id number] cc: Ginny Natarajan DETAIL MAKER AND FITTER [place] [id number] Patient Name: NORMA MONTEZ MRN: [id number] date: 1950 Sex: F Assigned Patient Location: CT Current Patient Location: CT Accession/Order Number: [id number] Exam Date: 08/01/2023 15:05 Report Date: 08/01/2023 15:34 At the request of: NON-STAFF PHYSICIAN Procedure: CT soft tissue neck wo con CT NECK WITHOUT CONTRAST. 08/01/2023 3:05 PM EST Clinical History:Sialadenitis K11.20 on the left Comparison: None available . Unenhanced helically acquired data per standard protocol. The lack of IV contrast material hampers evaluation of the vasculature, for enhancing fluid collections, and for adenopathy. There is artifact from dental hardware. At the expected location of far distal aspects of left Bristol's duct there is a calculus measuring 5 mm.. Bran's duct is not obviously dilated. However, the left submandibular gland is slightly larger than the right and is minimally hazy at its undersurface. No submental adenopathy. There are symmetric minimally elongated submandibular nodes bilaterally. No fluid collection within the submandibular regions. No adenopathy along the cervical gregoria chains on either side. Thyroid is normal in size. It contains a few nonspecific calcifications in the right lobe. The parotid glands are symmetric and unremarkable. Some calcific disease at both carotid bifurcations. Multilevel degenerative changes cervical spinal column. CT/CT soft tissue neck wo con IMPRESSION: 1. A relatively good sized 5 mm calculus at the expected location far distal left Bran's duct. Left Bristol's duct is not obviously dilated. The left submandibular gland is slightly larger than the right. No perisubmandibular fluid collection. All CT scans at this facility use dose modulation, iterative reconstruction, and/or weight based dosing when appropriate to reduce radiation dose to as low as reasonably achievable. Electronically authenticated by: DONNELL DIXON Date: 08/01/2023 15:34 Dictated By: Donnell Dixon M.D. Signed By: 08/01/23 1537 DD/ 1534 TD/TT: Case Supervisor: Procedure Note Radiology, Radiologist, MD - 08/02/2023 [place] [address] CT Scan Report Signed Patient: Norma Montez [facility]#: [id number] : 3Acct:[id number] Age/Sex: 72 / FADM Date: 08/01/23 Loc: CT Attending Dr: Non-Staff Physician Peng Ordering Physician: Marta Lorenzana M.D. Date of Service: 08/01/23 Procedure(s): CT soft tissue neck wo con Accession Number(s): [id number] cc: Ginny Natarajan NP [place] [id number] Patient Name: NORMA MONTEZ MRN: [id number] date: 1950 Sex: F Assigned Patient Location: CT Current Patient Location: CT Accession/Order Number: [id number] Exam Date: 08/01/2023 15:05 Report Date: 08/01/2023 15:34 At the request of: NON-STAFF PHYSICIAN Procedure: CT soft tissue neck wo con CT NECK WITHOUT CONTRAST. 08/01/2023 3:05 PM EST Clinical History:Sialadenitis K11.20 on the left Comparison: None available . Unenhanced helically acquired data per standard protocol. The lack of IV contrast material hampers evaluation of the vasculature, for enhancingfluid collections, and for adenopathy. There is artifact from dental hardware. At the expected location of far distal aspects of left Bristol's ductthere is a calculus measuring 5 mm.. Bristol's duct is not obviously dilated.However, the left submandibular gland is slightly larger than the right and is minimally hazy at its undersurface. No submental adenopathy. There are symmetric minimally elongatedsubmandibular nodes bilaterally. No fluid collection within the submandibular regions. No adenopathy along the cervical gregoria chains on either side. Thyroid is normal in size. It contains a few nonspecific calcifications inthe right lobe. The parotid glands are symmetric and unremarkable. Some calcific disease at both carotid bifurcations. Multilevel degenerative changes cervical spinal column. CT/CT soft tissue neck wo con IMPRESSION: 1. A relatively good sized 5 mm calculus at the expected location fardistal left Bran's duct. Left Bran's duct is not obviously dilated. Theleft submandibular gland is slightly larger than the right. Noperisubmandibular fluid collection. All CT scans at this facility use dose modulation, iterativereconstruction, and/or weight based dosing when appropriate to reduce radiation dose to aslow as reasonably achievable. Electronically authenticated by: DONNELL DIXON Date: 08/01/2023 15:34 Dictated By: Donnell Dixon M.D. Signed By:08/01/23 1537 DD/ 33 TD/TT: Case Supervisor: us Generic External Data Provider IMG CT PROCEDURES Final Result * ANTINUCLEAR ANTIBODIES, IFA (08/01/2023 11:47 AM EST) ANTINUCLEAR ANTIBODIES, IFA Negative . [facility] Comment: Negative <1:80 Borderline 1:80 Positive >1:80 ICAP nomenclature: AC-0 For more information about Hep-2 cell patterns use ANApatterns.org, the official website for the International Consensus on Antinuclear Antibody (BALA) Patterns (ICAP). Performed at: [address] [id number] Car Seat Coverer: Parvez Wing PhD, Phone: [phone] 08/01/2023 11:4 7 AM EST 08/01/2023 11:49 AM EST Narrative CLINISYNC - 08/03/2023 12:10 PM EST us Ginny Natarajan DETAIL MAKER AND FITTER LAB BLOOD ORDERABLES Final Resu lt Performing Organization Address [facility] Co de Phone Number [facility] * [facility] SJOGREN'S ANTIBODY (08/01/2023 11:47 AM EST) [facility] SJOGREN'S ANTI-SS-A <0.2 0.0 - 0.9 [facility] SJOGREN'S ANTI-SS-B <0.2 0.0 - 0.9 [facility] Comment: Performed at: [address] [id number] Car Seat Coverer: Parvez Wing PhD, Phone: [phone] 08/01/2023 11:4 7 AM EST 08/01/2023 11:49 AM EST Narrative CLINISYNC - 08/03/2023 12:10 PM EST us Ginny Natarajan DETAIL MAKER AND FITTER CLINISYNC Final Result Performing Organization Address [facility] Co de Phone Number [facility] * [facility] RHEUMATOID FACTOR (08/01/2023 11:47 AM EST) RHEUMATOID FACTOR (RF) <10.0 <14.0 IU/mL [facility] 08/01/2023 11:4 7 AM EST 08/01/2023 11:49 AM EST Narrative CLINISYNC - 08/03/2023 12:10 PM EST us Ginny Natarajan DETAIL MAKER AND FITTER CLINISYNC Final Result Performing Organization Address City/[facility]/ZIP Co de Phone Number [facility] * ALL ANTISTREPTOLYSIN O TITER (08/01/2023 11:47 AM EST) ANTISTREPTOLYSIN O AB <20.0 0.0 - 200.0 IU/mL [facility] Comment: Performed at: [address] [id number] Car Seat Coverer: Parvez Wing PhD, Phone: [phone] 08/01/2023 11:4 7 AM EST 08/01/2023 11:49 AM EST Narrative CLINISYNC - 08/03/2023 12:10 PM EST us Ginny Natarajan DETAIL MAKER AND FITTER CLINISYNC Final Result Performing Organization Address City/[facility] Co de Phone Number [facility] documented in this encounter Visit Diagnoses Not on filedocumented in this encounter Care Teams Escapement Matcher Relationship Specialty Start Date End Date Yair Nails MD PCP - General Family Medicine 07/24/22 09/18/23 Yair Nails MD PCP - General Family Medicine 09/19/23 Ginny Natarjaan NP [address] [place] [address] PCP - ACO Reach 08/30/24 Ginny Natarajan NP Referring Physician Nurse Practitioner 07/24/22 Ginny Natarajan NP Nurse Practitioner Family Medicine 09/19/23 documented as of this encounter
--- OUTSIDE RECORDS SUMMARY | 2025-04-25 12:40 | XMS_ITS | Encounter Summary ---
Author Organization [facility] Address [address] [facility] [place] [address] Care Team Providers Care Foreman/Project Manager Name Role Phone Ginny Natarajan NP Unavailable [phone] Yair Nails MD Primary Care Provider [phone] Ginny Natarajan NP Unavailable [phone] Ginny Natarajan NP Unavailable [phone] Encounter Details Date Type Department Care Team (Late Contact Info) Description 03/13/2024 Orders Only [facility] [address] [place] [address] Yvette Aparicio MD [address] [place] [address], [place] [address] Social History Tobacco Use Types Packs/Day Years [...] Encounters Date Type Department Care Team (Late Contact Info) Description 05/28/2025 1:00 PM EST Office Visit [facility] [address] [facility] [address] [place] [phone] Jr. Dario Jamil, DO [address] [place] [address] documented as of this encounter Procedures Procedure Name Priority Date/Time Associated Diagnosis Comments MAMM SCREENING W CAD Routine 03/13/2024 8:48 AM EDT documented in this encounter Results * MAMM SCREENING W CAD (03/13/2024 8:48 AM EDT) Anatomical Region Laterality Modality Radiographic Maritza ging us Yvette Aparicio MD IMG XR PROCEDURES Final Result documented in this encounter Visit Diagnoses Not on filedocumented in this encounter Additional Health Concerns Assessment Noted Time PHQ-9 Depression Total Score: 4 01/08/20 24 5:14 PM EDT documented as of this encounter Care Teams Foreman/Project Manager Relationship Specialty Start Date End Date Yair Nails MD PCP - General Family Medicine 09/19/23 Ginny Natarajan NP [address] [place] [address] PCP - ACO Reach 08/30/24 Ginny Natarajan NP Referring Physician Nurse Practitioner 07/24/22 Ginny Natarajan NP Nurse Practitioner Family Medicine 09/19/23 documented as of this encounter
--- OUTSIDE RECORDS SUMMARY | 2025-04-25 12:40 | XMS_ITS | Encounter Summary ---
Author Organization [facility] Address [address] [place] [address] Care Team Providers Care Supervisor Building Maintenance Name Role Phone Ginny Natarajan HEAD OF DIGITAL Unavailable [phone] Yair Nails MD Primary Care Provider Ginny Natarajan HEAD OF DIGITAL Unavailable [phone] Ginny Natarajan NP Unavailable [phone] Encounter Details Date Type Department Care Team (Late Contact Info) Description 09/13/2024 Orders Only [facility] [address] [place] [address] Ginny Natarajan HEAD OF DIGITAL [address] [facility] [place] [address] Social History Tobacco Use Types Packs/Day Years [...] Office Visit [facility] [address] [place] [address] Jr. Dario Jamil, DO [address] [facility] [address] [place] [address] documented as of this encounter Procedures Procedure Name Priority Date/Time Associated Diagnosis Comments SCANNED LABS Routine 09/13/2024 8:34 AM EST documented in this encounter Results * SCANNED LABS (09/13/2024 8:34 AM EST) us Ginny Natarajan HEAD OF DIGITAL LAB CHG PERFORMABLES Final Resu lt documented in this encounter Visit Diagnoses Not on filedocumented in this encounter Additional Health Concerns Assessment Noted Time PHQ-9 Depression Total Score: 4 01/08/20 24 5:14 PM EDT documented as of this encounter Care Teams Supervisor Building Maintenance Relationship Specialty Start Date End Date Yair Nails MD PCP - General Family Medicine 09/19/23 Ginny Natarajan NP [address] [place] [address] PCP - ACO Reach 08/30/24 Ginny Natarajan NP Referring Physician Nurse Practitioner 07/24/22 Ginny Natarajan NP Nurse Practitioner Family Medicine 09/19/23 documented as of this encounter
--- OUTSIDE RECORDS SUMMARY | 2025-04-25 12:40 | XMS_ITS | Clinical Summary ---
Author Organization [facility] Address [address] [place] [address] Care Team Providers Care Cement Fittings Maker Name Role Phone Ginny Natarajan MD Primary Care Provider [phone] Allergies Active Allergy Reactions Criticality Noted Date Comments Erythromycin Base 03/16/2022 Gemfibrozil 03/16/2022 Lidocaine 03/16/2022 Simvastatin 03/16/2022 Medications aspirin 81 mg chewable tablet Chew 1 tablet every day by oral route. Active buprenorphine-na loxone (Suboxone) 8-[address] 1 film every day by sublingual route. Active loratadine (Claritin) 10 mg tablet Take 1 tablet by mouth in the morning. Active magnesium oxide 400 mg magnesium capsule Take 1 capsule twice a day by oral route as directed for 90 days. 09/30/19 22 Active metFORMIN (Glucophage) 1,000 mg tablet Take 1,000 mg by mouth with breakfast. Active tiZANidine (Zanaflex) 4 mg tablet TAKE 1 TABLET AT BEDTIME NEEDED FOR MUSCLE SPASMS Active valACYclovir (Valtrex) 1 gram tablet Take 1 tablet by mouth every 12 (twelve) hours. Active fenofibrate (Tricor) 145 mg tablet Take 145 mg by mouth 3 (three) times a week. Active potassium chloride ER (Micro-K) 10 mEq ER capsule Take 10 mEq by mouth in the morning. Do not crush or chew. Active fexofenadine (Sally) 180 mg tablet Take 180 mg by mouth in the morning. Active Mounjaro 10 mg/0.5 mL pen injector INJECT 10MG SUBCUTANEOUSLY WEEKLY Active cholecalciferol (Vitamin D-3) 50 MCG (1999) tablet Take 2,000 Units by mouth in the morning. 03/07/20 22 Active cyanocobalamin (Vitamin B-12) 1,000 mcg tablet Take 1,000 mcg by mouth in the morning. 08/11/19 18 Active carvedilol (Coreg) 25 mg tabletIndication s:Essential hypertension Take 1 tablet (25 mg) by mouth with breakfast and with evening meal. 180 tablet 3 03/13/20 25 Active chlorthalidone (Hygroton) 25 mg tabletIndication s:Essential hypertension Take 1 tablet (25 mg) by mouth in the morning. 90 tablet 3 03/13/20 25 Active Active Problems Problem Noted Date Diagnosed Date Psoriasis, unspecified 03/13/2025 Allergic conjunctivitis of both eyes 10/01/2024 Ringworm of body 10/01/2024 Yeast dermatitis 09/05/2024 Statin intolerance 07/25/2024 Hypomagnesemia 04/25/2024 COVID 04/17/2024 Muscle cramps 04/17/2024 Abnormal liver function tests 02/14/2024 Acute maxillary sinusitis 02/14/2024 Acute pancreatitis 02/14/2024 Overview (02/14/2024): Apr 29, 2008 Entered By: OPAL TAYLOR Comment: on creon 20mg Acute urinary tract infection 02/14/2024 Allergic urticaria 02/14/2024 Carpal tunnel syndrome 02/14/2024 Degeneration of lumbar or lumbosacral interverte bral disc 02/14/2024 Depressive disorder 02/14/2024 Disturbance of skin sensation 02/14/2024 Gastroesophageal reflux disease 02/14/2024 Lumbar sprain 02/14/2024 Major depression, recurrent 02/14/2024 Nonalcoholic steatohepatitis (CORCORAN) 02/14/2024 BMI 40.0-44.9, adult 02/14/2024 Occult blood in stools 02/14/2024 Onychomycosis of toenail 02/14/2024 Opioid abuse 02/14/2024 Opioid dependence, in remission 02/14/2024 Osteoarthritis 02/14/2024 Other general symptoms and signs 02/14/2024 Painful breathing 02/14/2024 Carbuncle and furuncle of trunk 02/14/2024 Regular astigmatism, bilateral 02/14/2024 Sciatica 02/14/2024 Tobacco user 02/14/2024 Type 2 diabetes mellitus with hyperglycemia 01/22 Villous adenoma of colon 02/14/2024 Overview (02/14/2024): Mar 12, 2019 Entered By: FELICIA GONCALVES Comment: Surveillance colonoscopy due February, Entered By: CHRISTINE PEREIRA Comment: - colonoscopy - polyp. Dr. Jd Wood 2021 Entered By: CHRISTINE PEREIRA Comment: 2019 - colonscopy. maybe a polyp will send report Arthritis of knee 01/08/2024 Encounter for screening mamm ogram for malignant neoplasm of breast 01/08/2024 Injury of conjunctiva and co rneal abrasion without foreign body, left eye, initial encounter 01/08/2024 Vitamin B 12 deficiency 01/08/2024 Vitamin D deficiency, unspecified 01/08/2024 Chronic pain of left knee 09/26/2023 Overview (02/14/2024): Last Assessment & Plan: Worsening in pain, wants to see ortho, will send to [facility] Abrasion of left cornea 09/25/2023 Overview (02/14/2024): Last Assessment & Plan: Clinically is looking better, recommended we check for healing of the abrasion, pt declined States she feels it is healing No drainage noted Environmental and seasonal allergies 09/25/2023 Overview (02/14/2024): Last Assessment & Plan: Cont OTC nasal steroid Stop loratadine, trial cetirizne Add OTC pepcid for the next 10 days Hypokalemia 08/03/2023 Overview (02/14/2024): Last Assessment & Plan: Cannot swallow the tablet Will switch to capsules Dry eyes 07/26/2023 RUBINA (generalized anxiety disorder) 07/21/2023 Herpes 07/21/2023 Overview (02/14/2024): Last Assessment & Plan: Asking for refill of valtrex Breakouts 1-2 times year Sialadenitis 07/21/2023 Overview (02/14/2024): Last Assessment & Plan: At this time it does seem to be improving, has a fu appt with ENT on 07/28/23 Will also add some labs to r/o sjogren's Including SSA/anti-Ro, and SSB /anti-La antibodies as well Diabetes mellitus 11/29/2022 Dizziness 11/29/2022 Migraine 11/29/2022 Hyperlipidemia 12/04/2017 Assessment & Plan (02/17/2024 9:30 AM EDT): Lipid abnormalities are unchanged. Pharmacotherapy as ordered. She is intolerant in the past to statin, d/w pt about lifestyle modifications- heart healthy/low cholesterol diet, regular exercise and she voiced understanding, will monitor with PCP lipid levels Hypertensive disorder 12/04/2017 Assessment & Plan (02/17/2024 9:28 AM EDT): Hypertension is uncontrolled Therefore will increase coreg to 25 mg po bid and continue chlorthalidone 25 mg daily Continue to monitor b/p at home and d/w pt goal b/p is < 130/80 and to call office for any concerns Encounters Date Type Department Care Team Description 03/31/[address] [facility] [address] [place] [facility] [place] [address] Kerri Rodriguez MA 03/25/[address] [facility] [address] [place] [facility] [place] [address] Susie Thapa MA 03/13/2025 1:20 PM EDT Office Visit [facility] [address] [place] [facility] [place] [address] Dee Carson CNP Mixed hyperlipidemia (Primary Dx); Essential hypertension 02/07/2025 Refill [facility] [address] [place] [address] Michelle Scruggs CNP Essential hypertension (Primary Dx) from Last 3 Months Family History Medical History Relation Name Comments Atrial fibrillation Mother Relation Name Status Comments Mother Social History Tobacco Use Types Packs/Day Years Used Date Smoking Tobacco: Former Cigarettes Smokeless Tobacco: Never Alcohol Use Standard Drinks/Week Comments Yes 0 (1 standard drink = 0.6 oz pur e alcohol) occasional [place] Safety & Environment Answer Date Rec orded Fear of Current or Ex-Partner Not on file Emotionally Abused Not on file 09/14/2023 Physically Abused Not on file 09/14/2023 Sexually Abused Not on file 09/14/2023 Physically or Sexually Abused Not on file Comments Unknown Sex and Gender Information Value Date Recorded Sex Assigned at Female 03/06/2025 9:10 AM EDT Legal Sex Female 10:49 PM EDT Gender Identity Female 03/06/2025 9:10 AM EDT Sexual Orientation Heterosexual or Straight 02/21 9:10 AM EDT Last Filed Vital Signs Vital Sign Reading Time Taken Comments Blood Pressure 130/74 03/13/2025 1:33 PM EDT Pulse 72 03/13/2025 1:33 PM EDT Temperature - - Respiratory Rate - - Oxygen Saturation 98% 03/13/2025 1:33 PM EDT Inhaled Oxygen Concentration - - Weight 95.3 kg (210 lb) 03/13/2025 1:33 PM EDT Height 167.6 cm (5' 6 ) 03/13/2025 1:33 PM EDT Body Mass Index 33.89 03/13/2025 1:33 PM EDT Plan of Treatment Health Maintenance Due Date Last Done Comments CT Colonography 1950 Colonoscopy 1950 Colorectal Cancer Screening 1950 Diabetes: Hemoglobin A1C 1950 FIT-DNA 1950 FIT 1950 FOBT 1950 Medicare Annual Wellness (AWV) 1950 Sigmoidoscopy 1950 Diabetes: Retinopathy Screening 1962 Depression Screening 1964 Diabetes: Urine Protein Screening 12/09/1971 Adult Tetanus 1974 Mammogram 1992 Zoster Vaccines (1 of 2) 2002 Fall Risk Screening 2017 COVID-19 Vaccine (1 - 2023-2 5 season) 2025 Influenza Vaccine (#1) 2025 06/02/2010 Pneumococcal Vaccine: 50+ Years Completed 03/07/2022, 09/28/2018, 04/10/2014 HIB Vaccines Aged Out No longer eligi ble based on patient's age to complete this topic HPV Vaccines Aged Out No longer eligi ble based on patient's age to complete this topic IPV Vaccines Aged Out No longer eligi ble based on patient's age to complete this topic Meningococcal B Vaccine Aged Out No l onger eligible based on patient's age to complete this topic Meningococcal Vaccine Aged Out No araceli saud eligible based on patient's age to complete this topic Rotavirus Vaccines Aged Out No longer eligible based on patient's age to complete this topic Insurance MEDICARE [place]ICAID [place] Care Teams Cement Fittings Maker Relationship Specialty Start Date End Date Ginny Natarajan MD [address] [place] [address] PCP - General 03/16/22
--- OUTSIDE RECORDS SUMMARY | 2025-04-25 12:40 | XMS_ITS | Encounter Summary ---
Author Organization [facility] Address [address] [place] [address] Care Team Providers Care Counterintelligence/Humint Specialist Name Role Phone Ginny Natarajan ANIMAL CARETAKER SUPERVISOR Unavailable [phone] Yair Nails MD Primary Care Provider Ginny Natarajan ANIMAL CARETAKER SUPERVISOR Unavailable [phone] Ginny Natarajan NP Unavailable [phone] Encounter Details Date Type Department Care Team (Late Contact Info) Description 12/05/2024 Orders Only [facility] [address] [place] [address] Ginny Natarajan ANIMAL CARETAKER SUPERVISOR [address] [place] [address] Social History Tobacco Use Types Packs/Day Years [...] Office Visit [facility] [address] [place] [address] Jr. Dario Jamil, DO [address] [facility] [address] [place] [address] documented as of this encounter Procedures Procedure Name Priority Date/Time Associated Diagnosis Comments SCANNED LABS Routine 12/05/2024 11:19 AM EDT documented in this encounter Results * SCANNED LABS (12/05/2024 11:19 AM EDT) us Ginny Natarajan ANIMAL CARETAKER SUPERVISOR LAB CHG PERFORMABLES Final Resu lt documented in this encounter Visit Diagnoses Not on filedocumented in this encounter Additional Health Concerns Assessment Noted Time PHQ-9 Depression Total Score: 4 01/08/20 24 5:14 PM EDT documented as of this encounter Care Teams Counterintelligence/Humint Specialist Relationship Specialty Start Date End Date Yair Nails MD PCP - General Family Medicine 09/19/23 Ginny Natarajan NP [address] [place] [address] PCP - ACO Reach 08/30/24 Ginny Natarajan NP Referring Physician Nurse Practitioner 07/24/22 Ginny Natarajan NP Nurse Practitioner Family Medicine 09/19/23 documented as of this encounter
--- OUTSIDE RECORDS SUMMARY | 2025-04-25 12:40 | XMS_ITS | Clinical Summary ---
Author Organization [facility] [facility] Address [id number] [address] [place] [address] Care Team Providers Care Dye Feeder Name Role Phone DanieljaylinjonathanGinny Viet FU-JANITOR Primary Care Provider Allergies Active Allergy Reactions Criticality Noted Date Comments Erythromycin Base 12/03/2018 Gemfibrozil 12/03/2018 Lidocaine 12/03/2018 PATIENT SAYS NOT REALLY ALLERGIC Simvastatin 12/03/2018 Medications fenofibrate (TRICOR) 145 mg tablet fenofibrate micronized 145 mg tablet Take 1 tablet twice a week by oral route. Active omega 8-rdj-avp-fish oil (FISH OIL) 100-160-1,000 mg capsule Fish Oil Active aspirin 81 mg chewable tablet daily. Active buprenorphine- naloxone (SUBOXONE) 8-2 mg film daily. Active metFORMIN (GLUCOPHAGE) 500 mg tablet Take 1 tablet (500 mg total) by mouth in the morning. 3 9 Active b complex vitamins capsule Take 1 capsule by mouth in the morning. Active ascorbic acid, vitamin C, (VITAMIN C) 1000 mg tablet Take 1 tablet (1,000 mg total) by mouth in the morning. Active cholecalcifero l, vitamin D3, (VITAMIN D3) 1,000 units tablet Take 1 tablet (1,000 Units total) by mouth in the morning. Active garlic capsule Take by mouth. Active ubidecarenone (CO Q-10 ORAL) Take by mouth. Active milk thistle 175 mg tablet Take 1 tablet (175 mg total) by mouth in the morning. Active TURMERIC ORAL Take by mouth. A ctive tiZANidine (ZANAFLEX) 4 mg tablet 9 Active alclomethasone (ACLOVATE) 0.05 % ointment 9 Active chlorthalidone (HYGROTON) 25 mg tablet chlorthalidone 25 mg tablet TAKE 1 TABLET BY MOUTH EVERY DAY Active magnesium oxide (MAGOX) 400 mg tablet magnesium oxide 400 mg (241.3 mg magnesium) tablet TAKE 1 TABLET BY MOUTH EVERY DAY DIRECTED Active meclizine (ANTIVERT) 25 mg tablet meclizine 25 mg tablet TAKE 1/2 - 1 TABLET BY MOUTH EVERY 8 HOURS NEEDED FOR DIZZINESS Active carvediloL (COREG) 12.5 mg tablet TAKE 1 TABLET BY MOUTH TWICE DAILY, WITH BREAKFAST AND EVENING MEAL 3 Active sod sulf-pot chloride-mag sulf 1.479-0.188- 0.225 gram tabletIndicati ons:History of colon polyps Please see instructional sheet given by physicians office. 24 tablet 3 Active Active Problems Problem Noted Date Diagnosed Date Diabetes mellitus 11/29/2022 Hypertension 11/29/2022 Dizziness 11/29/2022 Migraine 11/29/2022 Family History Medical History Relation Name Comments Stroke Maternal Grandmother Dementia Mother Hypertension Mother Parkinsonism Mother Breast cancer Sister Relation Name Status Comments Maternal Grandmother Mother Sister Social History Tobacco Use Types Packs/Day Years Used Date Smoking Tobacco: Former Smokeless Tobacco: Never Tobacco Cessation:Counseling Given: Not Answered Comments:quit 8-9 years ago Alcohol Use Standard Drinks/Week Comments Yes 0 (1 standard drink = 0.6 oz pur e alcohol) RARE Childcare Answer Date Recorded Childcare Unknown 12/27/2018 Employment Answer Date Recorded Employment Unknown 12/27/2018 Purpose - Life Answer Date Recorded Purpose and direction in life Unknown Comments Unknown Sex and Gender Information Value Date Recorded Sex Assigned at Not on file Legal Sex Female 11:15 AM EST Gender Identity Not on file Sexual Orientation Not on file Last Filed Vital Signs Vital Sign Reading Time Taken Comments Blood Pressure 132/84 12/03/2018 2:27 PM EDT Pulse - - Temperature - - Respiratory Rate - - Oxygen Saturation - - Inhaled Oxygen Concentration - - Weight 109.8 kg (242 lb) 03/08/2019 11:03 AM EDT Height 167.6 cm (5' 6 ) 03/08/2019 11:03 AM EDT Body Mass Index 39.06 03/08/2019 11:03 AM EDT Plan of Treatment Health Maintenance Due Date Last Done Comments Depression Screening 1962 Tobacco Screening 1964 Adult BMI Screening 1970 DTaP,Tdap and Td Vaccines (1 - Tdap) 12/09/1971 Zoster (Shingles) Vaccine (1 of 2) 2002 Fall Risk Screening 2017 Influenza Vaccine 03/24/2025 Colonoscopy 02/09/2028 02/08/2023, 02/27/2019 Medical Devices Not on file Procedures Procedure Name Priority Date/Time Associated Diagnosis Comments COLONOSCOPY Routine 02/08/2023 History of colon polyps from Last 3 Months or Most Recently Relevant to Health Maintenance Results * Colonoscopy (02/08/2023) Ewelina Garcia HEEL SEAT LASTER-JANITOR GI PROCEDURE ORDERABL ES Final Result MANUALLY TRANSCRIBED RESULTS from Last 3 Months or Most Recently Relevant to Health Maintenance Insurance MEDICARE MEDICAID [place] Care Teams Dye Feeder Relationship Specialty Start Date End Date Ginny Natarajan, HEEL SEAT LASTER-JANITOR [address] [place] [address] PCP - General Nurse Practitioner 03/08/19
--- OUTSIDE RECORDS SUMMARY | 2025-04-25 12:40 | XMS_ITS | Encounter Summary ---
Author Organization [facility] Address [address] [facility] [place] [address] Care Team Providers Care Seat Builder Name Role Phone Ginny Natarajan NP Unavailable [phone] Yair Nails MD Primary Care Provider [phone] Ginny Natarajan NP Unavailable [phone] Ginny Natarajan NP Unavailable [phone] Reason for Visit * Reason Comments Med Refill Encounter Details Date Type Department Care Team (Late st Contact Info) Description 12/07/2024 Refill [facility] [address] [place] [address] Ginny Natarajan NP [address] [place] [address] Other chronic pain Social History Tobacco Use Types Packs/Day Years [...] on file documented as of this encounter Miscellaneous Notes * Telephone Encounter - Ginny Natarajan NP - 12/09/2024 5:03 PM EDT Ordered by ortho documented in this encounter Plan of Treatment Upcoming Encounters Date Type Department Care Team (Late st Contact Info) Description 05/28/2025 1:00 PM EST Office Visit [facility] [address] [place] [id number] Jr. Dario Jamil C, DO [address] [place] [address] documented as of this encounter Visit Diagnoses Diagnosis Other chronic pain documented in this encounter Additional Health Concerns Assessment Noted Time PHQ-9 Depression Total Score: 4 01/08/20 5:14 PM EDT documented as of this encounter Care Teams Seat Builder Relationship Specialty Start Date End Date Yair Nails MD PCP - General Family Medicine 09/19/23 Ginny Natarajan NP [address] [place] [address] PCP - ACO Reach 08/30/24 Ginny Natarajan NP Referring Physician Nurse Practitioner 07/24/22 Ginny Natarajan NP Nurse Practitioner Family Medicine 09/19/23 documented as of this encounter
--- OUTSIDE RECORDS SUMMARY | 2025-04-25 12:41 | XMS_ITS | CCD ---
Author Organization [facility] Providers Care Housing Management Officer Name Role Phone PHYSICIAN, DEFAULT Unavailable Unavailable PHYSICIAN, DEFAULT Unavailable Unavailable PHYSICIAN, DEFAULT Unavailable Unavailable PHYSICIAN, DEFAULT Unavailable Unavailable PHYSICIAN, DEFAULT Unavailable Unavailable PHYSICIAN, DEFAULT Unavailable Unavailable AICHHOLZ, PROCESSING SPECIALIST GINNY Admitting Unavailable AICHHOLZ, PROCESSING SPECIALIST GINNY Attending Unavailable AICHHOLZ, PROCESSING SPECIALIST GINNY Primary Care Unavailable AICHHOLZ, PROCESSING SPECIALIST GINNY Consulting Unavailable ZIEBER, DR BENEDICTO Aquino Consulting Unavailable AICHHOLZ, PROCESSING SPECIALIST GINNY Admitting Unavailable AICHHOLZ, PROCESSING SPECIALIST GINNY Attending Unavailable AICHHOLZ, PROCESSING SPECIALIST GINNY Primary Care Unavailable AICHHOLZ, PROCESSING SPECIALIST GINNY Admitting Unavailable AICHHOLZ, PROCESSING SPECIALIST GINNY Attending Unavailable AICHHOLZ, PROCESSING SPECIALIST GINNY Primary Care Unavailable AICHHOLZ, PROCESSING SPECIALIST GINNY Primary Care Unavailable FLORENCIA ., DR LAFLEUR Admitting Unavailable HOY ., DR LAFLEUR Attending Unavailable HOY ., DR LAFLEUR Consulting Unavailable ZIEBER, DR BENEDICTO Aquino Consulting Unavailable PAY ., DR FOWLER Consulting Unavailable CHANDANACHORION ., COTY DAVIS Consulting Unavailabl e AICHHOLZ, PROCESSING SPECIALIST GINNY Admitting Unavailable AICHHOLZ, PROCESSING SPECIALIST GINNY Attending Unavailable AICHHOLZ, PROCESSING SPECIALIST GINNY Primary Care Unavailable AICHHOLZ, PROCESSING SPECIALIST GINNY Consulting Unavailable Gina Harkins Unavailable Yair Nails MD Primary Care Provider Aichholz TECHNICIAN SEMICONDUCTOR DEVELOPMENT, Ginny Unavailable DO Migel Núñez Attending Provider NON STAFF Primary Care Provider Unavailabl e Aichholz, Ginny J Primary Care Provider [phone] Markus ([facility])DO Crawford Attending Provider Aichholz TECHNICIAN SEMICONDUCTOR DEVELOPMENT, Ginny Unavailable Yair Nails MD Primary Care Provider Delgado TECHNICIAN SEMICONDUCTOR DEVELOPMENT, Ginny Unavailable Delgado TECHNICIAN SEMICONDUCTOR DEVELOPMENT, Ginny Unavailable DELGADO, GINNY Attending Unavailable DELGADO, GINNY Attending Unavailable JR. TORY, VINCENZO Rubio Attending Unavaila linda NATARAJAN, GINNY Attending Unavailable JR. TORY, VINCENZO Rubio Attending Unavaila linda NATARAJAN, GINNY Attending Unavailable DELGADO, GINNY Attending Unavailable JOSE MONTES Attending Unavailable Ginny Natarajan Primary Care Provider Danna Spence APRN Attending Provider Ginny Natarajan Primary Care Provider Danna Spence APRN Attending Provider Markus (Clinic) Christine TALLEY Attending Provider BENTLEY CARSON Attending Unavailable Markus (Clinic), Christine Attending Sindy Pereira (Clinic), Christine Admitting Ginny Christensen Primary Care Unavailable Allergies Allergy Classification Reported Allergen(s) Allergy Type Date of Onset Reaction(s) Facility (2 sources) Erythromycin; 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: [ERYTHROMYCIN BASE] Drug Allergy 2 [facility] Repository (2 sources) Gemfibrozil; 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: [GEMFIBROZIL] Drug Allergy [facility] (2 sources) Simvastatin; 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: [SIMVASTATIN] Drug Allergy 2 [facility] (20 sources) HMG-CoA reductase inhibitor Propensity to adverse reactions 3 Unknown [facility] (20 sources) Simvastatin Propensity to adverse reactions 3 [facility] (1 source) Lidocaine; 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: [LIDOCAINE] Drug Allergy 2 [facility] Repository (1 source) Facthun-KQL-GqE Reductase Inhibitor Drug allergy (disorder) 5 [facility] Repository Medications Current Medications Medication Drug Class(es) [...] mg / clavulanate 125 mg oral tablet (10 sources) Penicillin-class Antibacterial Start: 12-03-2024 End: 12-10-2024 take 1 tablet by mouth in the morning amoxicillin-clavulanate (Augmentin) 875-125 MG tablet Indications: UTI (urinary tract infection), uncomplicated Take 1 tablet (875 mg) by mouth in the morning and 1 tablet (875 mg) in the evening. Do all this for 7 days. Take with food. 14 tablet 12/03/2024 12/10/2024 Active Start: 11-04-2024 End: 11-11-2024 take 1 tablet by mouth in the morning amoxicillin-clavulanate (Augmentin) 875-125 MG tablet Indications: UTI (urinary tract infection), uncomplicated Take 1 tablet (875 mg) by mouth in the morning and 1 tablet (875 mg) before bedtime. Do all this for 7 days. Take with food. 14 tablet 11/04/2024 11/11/2024 Active Start: 04-17-2024 End: 04-27-2024 take 1 tablet by mouth in the morning amoxicillin-clavulanate (Augmentin) 875-125 MG tablet Indications: Acute non-recurrent pansinusitis Take 1 tablet (875 mg) by mouth in the morning and 1 tablet (875 mg) before bedtime. Do all this for 10 days. Take with food. 20 tablet 04/17/2024 04/27/2024 Active ascorbic acid 1000 mg oral capsule (20 sources) Vitamin C Start: 11-10-2023 take 1 g by mouth on ce daily Start: 11-10-2023 take 1 g by mouth once daily A scorbic Acid (Vitamin C) 1,000 mg capsule Active 1 GM PO Daily November 09, 2023 11:00pm Start: 11-10-2023 take 1 g by mouth once daily A scorbic Acid (Vitamin C) Active 1 GM PO Daily November 10, 2023 12:00am aspirin 81 mg chewable tablet (20 sources) Platelet Aggregation Inhibitor, Nonsteroidal Anti-inflammatory Drug Start: 11-10-2023 take 1 tablet by mouth once daily azelastine hydrochloride 0.5 mg/ml ophthalmic solution (16 sources) Histamine-1 Receptor Antagonist Start: 10-01-2024 End: 12-21-2024 take 1 drop(s) into the eye(s) in the morning azelastine (Optivar) 0.05 % ophthalmic solution Indications: Allergic conjunctivitis of both eyes Administer 1 drop into both eyes in the morning and 1 drop before bedtime. 6 mL 2 11/21/2024 12/21/2024 Active azithromycin 250 mg oral tablet (1 source) Macrolide Antimicrobial Start: 04-04-2023 Azithromycin 250 MG 2 tablet on the first day, then 1 tablet daily for 4 days Orally Once a day for 5 day(s) Mar, Active b complex vitamins capsule (20 sources) take 1 capsule by mouth in the morning b complex vitamins capsule Take 1 capsule by mouth in the morning. Active take 1 capsule by mouth in the m orning b complex vitamins capsule Take 1 capsule by mouth in the morning. 0 Active biotin 5 mg oral capsule (4 sources) Start: 11-20-2024 take 1 capsule by mouth once daily buprenorphine 12 mg / naloxone 3 mg sublingual film (20 sources) Partial Opioid Agonist, Opioid Antagonist buprenorphine-nal oxone (Suboxone) 12-3 MG per sublingual film Place [...] and 1 tablet before bedtime. 0 Active Calcium/Magnesium/Zinc - (1 source) Calcium/Magnesiu m/Zin c - as directed Orally *please review for potential _update for e-prescription and drug interaction check* Active Carboxymethylcellulose (12 sources) Start: 11-10-2023 Start: 11-10-2023 carboxymethylc ellulose sodium (Refresh Tears) Active 1 DROPS OPHTHALMIC As Directed as needed November 10, 2023 12:00am Complies with drug therapy Start: 11-10-2023 carboxymethylc ellulose sodium (Refresh Tears) Active 1 DROPS OPHTHALMIC As Directed as needed November 10, 2023 12:00am Start: 11-10-2023 carboxymethylc ellulose sodium (Refresh Tears) Active 1 DROPS OPHTHALMIC As Directed as needed November 09, 2023 11:00pm Start: 11-10-2023 carboxymethylc ellulose sodium (Refresh Tears) Active 1 DROPS OPHTHALMIC As Directed November 10, 2023 12:00am chlorthalidone 25 mg oral tablet (20 sources) Thiazide-like Diuretic Start: 03-08-2023 End: 09-05-2024 take 1 tablet by mouth once daily cholecalciferol 0.05 mg oral capsule (20 sources) Vitamin D Start: 12-27-2023 take 1 capsule by mouth once daily cholecalciferol (Vitamin D-[address]) 25 MCG (1000 UT) tablet Take 1,000 Units by mouth in the morning. Active ciprofloxacin 500 mg oral tablet (1 source) Quinolone Antimicrobial Start: 12-05-2024 End: 12-12-2024 take 1 tablet by mouth in the morning ciprofloxacin (Cipro) 500 MG tablet Indications: UTI (urinary tract infection), uncomplicated Take 1 tablet (500 mg) by mouth in the morning and 1 tablet (500 mg) before bedtime. Do all this for 7 days. 14 tablet 12/05/2024 12/12/2024 Active clobetasol propionate 0.0005 mg/mg topical ointment (20 sources) Corticosteroid Start: 02-08-2024 clobetasol (Temovate) 0.05 % ointment Indications: Dyshidrosis (pompholyx) , Dyshidrosis APPLY TO HANDS TWICE A DAY MONDAY-MONDAY OFF ON WEEKENDS THEN NEEDED FOR FLARES 60 g 02/08/2024 Active Start: 04-27-2023 clobetasol (Te movate) 0.05 % ointment Apply 1 application topically in the morning and 1 application before bedtime. 0 04/27/2023 Active clotrimazole 10 mg/ml topical cream (3 sources) Azole Antifungal Start: 10-01-2024 End: 10-31-2024 clotrimazole (Lotrimin) 1 % cream Indications: Ringworm of body Apply topically 2 (two) times a day 42 g 10/01/2024 10/31/2024 Active docosahexaenoic acid 120 mg / eicosapentaenoic acid 180 mg oral capsule (20 sources) take 1 capsule by mouth every twelve hours omega-3 (Fish Oil) 1000 MG capsule 1 capsule every 12 (twelve) hours Active doxycycline monohydrate 100 mg oral capsule (3 sources) Tetracycline-class Drug Start: 03-18-2024 End: 04-17-2024 take 1 capsule by mouth twice daily doxycycline (Monodox) 100 MG capsule Indications: Tick bite of abdomen, initial encounter Take 1 capsule, by mouth BID x 1 day 2 capsule 03/18/2024 04/17/2024 Discontinued (Therapy completed) fenofibrate 145 mg oral tablet (20 sources) Peroxisome Proliferator Receptor alpha Agonist Start: 11-10-2023 take 1 tablet by mouth once rebecca y fenofibrate (Tricor) 145 MG tablet Take 145 mg by mouth 1 (one) time each day at the same time Active fexofenadine hydrochloride 180 mg oral tablet (20 sources) Histamine-1 Receptor Antagonist Start: 10-01-2024 End: 05-21-2025 take 1 tablet by mouth once daily fexofenadine (Sally) 180 MG tablet Indications: Environmental and seasonal allergies Take 1 tablet (180 mg) by mouth Daily 90 tablet 1 02/20/2025 05/21/2025 Active 24 hr fexofenadine hydrochloride 180 mg / pseudoephedrine hydrochloride 240 mg extended release oral tablet (4 sources) alpha-Adrenergic Agonist, Histamine-1 Receptor Antagonist Start: 11-20-2024 take 1 tablet by mouth once daily, then take 1 tablet by mouth every twenty-four hours Start: 11-20-2024 take 1 tablet by tre th once daily, then take 1 tablet by mouth every twenty-four hours Fexofenadine-Pseudoephedrine (Sally-D 24 Hour) 180-240 mg tablet extended release 24 hr Active 1 TAB PO Daily November 20, 2024 12:00am Fish Oils (1 source) take 1 capsule by mouth twice daily Fish Oil 1000 MG 1 capsule Orally Twice a day Active fluconazole 150 mg oral tablet (20 sources) Azole Antifungal Start: fluconazole (Diflucan) 150 MG tablet Indications: Hypomagnesemia One time dose repeat in 3 days if needed 2 tablet 1 08/12/2024 Active Start: 04-16-2023 take 1 tablet by mouth once fl uconazole (Diflucan) 150 MG tablet Take 150 mg by mouth 1 (one) time 0 04/16/2023 Active Garlic (20 sources) Non-Standardized Food Allergenic Extract Start: 08-20-2024 take 1 capsule by mouth once daily Start: 08-20-2024 take 1 capsule by mo uth once daily Garlic 500 mg capsule Active 500 MG PO Daily August 20, 2024 1:00am Complies with drug therapy Start: 08-20-2024 take 1 capsule by mo uth once daily Garlic 500 mg capsule Active 500 MG PO Daily August 20, 2024 1:00am Start: 08-20-2024 take 1 capsule by mo uth once daily Garlic 500 mg capsule Active 500 MG PO Daily August 20, 2024 12:00am GARLIC PO Take b y mouth Active GARLIC PO Take b y mouth 0 Active ibuprofen 800 mg oral tablet (20 sources) Nonsteroidal Anti-inflammatory Drug Start: 10-11-2024 End: 11-10-2024 take 1 tablet by mouth every eight hours as needed for pain ibuprofen 800 MG tablet Take 800 mg by mouth every 8 (eight) hours if needed for mild pain 11/10/2024 Active Start: 10-25-2022 take 1 tablet by mouth three t imes daily as needed ketoconazole 20 mg/ml topica l cream (20 sources) Azole Antifungal Start: 11-10-2023 Start: 04-27-2023 ketoconazole ( NIZOral) 2 % cream Apply 1 application topically in the morning and 1 application before bedtime. 04/27/2023 Active Klayesta 149706 UNIT/GM powder (4 sources) Start: 09-05-2024 Klayesta 49466 0 UNIT/GM powder APPLY TO AFFECTED AREA TWICE A DAY FOR 14 DAYS 09/05/2024 Active loratadine 10 mg oral tablet (4 sources) Start: 04-27-2023 take 1 tablet by mouth in the morning loratadine (Claritin) 10 MG tablet Take 10 mg by mouth in the morning. 0 04/27/2023 Active magnesium oxide 400 mg oral tablet (20 sources) Start: 04-25-2024 End: 05-11-2025 take 1 tablet by mouth once daily take 1 tablet by mouth once rebecca y magnesium oxide (Mag-Ox) 400 MG tablet magnesium oxide 400 mg (241.3 mg magnesium) tablet TAKE 1 TABLET BY MOUTH EVERY DAY DIRECTED Active meclizine hydrochloride 25 m g oral tablet (20 sources) Antiemetic Start: 11-10-2023 Start: 11-10-2023 take 12.5 mg by mouth [...] mg oral tablet (20 sources) Biguanide Start: 03-26-20 Start: 06-24-2024 End: 05-21-2025 take 1 tablet by mouth once daily Metformin 1,000 mg tablet Discontinued 1000 MG PO Daily August 20, 2024 3:38pm March 26, 2025 2:37pm Start: 11-10-2023 End: 09-22-2024 take 1 tablet by mouth twice daily Metformin 1,000 mg tablet Discontinued 1000 MG PO Twice daily November 10, 2023 12:00am August 20, 2024 3:39pm Start: 06-11-2023 take 1 tablet by tre th in the morning metFORMIN (Glucophage) 1000 MG tablet Take 1,000 mg by mouth in the morning and 1,000 mg before bedtime. 0 06/11/2023 Active take 1 tablet by tre th every twenty-four hours metFORMIN HCl 500 MG 1 tablet with a meal Orally Once a day for 30 day(s) Active methylPREDNISolone (15 sources) Corticosteroid Start: 11-22-2024 methylPREDNISo lone (Medrol Dospak) 4 MG tablets Indications: Primary osteoarthritis of left knee Follow schedule on package instructions 21 tablet 11/22/2024 Active Start: 04-17-2024 End: 04-24-2024 methylPREDNISolone (Medrol D ospak) 4 MG tablets Indications: Acute non-recurrent pansinusitis Take as directed, take with food. Follow schedule on package instructions 21 tablet 04/17/2024 04/24/2024 Active mometasone furoate 0.001 mg/mg topical ointment (6 sources) Corticosteroid Start: 02-12-2025 End: 03-14-2025 mometasone (Elocon) 0.1 % ointment Indications: Rash and nonspecific skin eruption Apply topically Daily Apply a thin layer to affected area of the back daily for 3-4 weeks. Do not apply to face 45 g 02/12/2025 03/14/2025 Active Start: 12-03-2024 End: 01-02-2025 mometasone (Elocon) 0.1 % oi ntment Indications: Rash and nonspecific skin eruption Apply topically Daily Apply a thin layer to affected area of the back daily for 3-4 weeks. Do not apply to face 45 g 12/03/2024 01/02/2025 Active Mounjaro 10 MG/0.5ML solution auto-injector (8 sources) Start: 11-21-2024 inject 10 mg by subcutaneous injection every week Mounjaro 10 MG/0.5ML solution auto-injector INJECT 10MG (0.5ML) SUBCUTANEOUSLY ONCE EVERY WEEK 11/21/2024 Active Mounjaro 2.5 MG/0.5ML solution pen-injector (2 sources) [...] skin every 7 (seven) days 03/26/2024 Active naloxone hydrochloride 40 mg/ml nasal spray (12 sources) Opioid Antagonist Start: 11-04-2024 naloxone (Narcan) 4 mg/0.1 mL nasal spray Administer into affected nostril(s) 11/04/2024 Active [place] 0-Gkl-Osa-Fish Oil (Fish Oil) 1,200 (144-216) mg capsule (4 sources) Start: 11-20-2024 take 1 capsule by mouth once daily Start: 11-20-2024 take 1 capsule by mo uth once daily [place] 7-Xna-Jce-Fish Oil (Fish Oil) 1,200 (144-216) mg capsule Active 1 CAP PO Daily November 20, 2024 12:00am Complies with drug therapy Start: 11-20-2024 take 1 capsule by mo ut once daily [place] 6-Nye-Bhv-Fish Oil (Fish Oil) 1,200 (144-216) mg capsule Active 1 CAP PO Daily November 20, 2024 12:00am ondansetron 4 mg disintegrating oral tablet (20 sources) Serotonin-3 Receptor Antagonist Start: 04-05-2024 take 1 tablet by mouth every eight hours as needed for nausea and vomiting ondansetron ODT (Zofran-ODT) 4 MG disintegrating tablet Take 4 mg by mouth every 8 (eight) hours if needed for nausea or vomiting 04/05/2024 Active polaprezinc (zinc carnosine) (12 sources) Start: 11-10-2023 take 1 tablet by mouth once daily Start: 11-10-2023 take 1 tablet by tre once daily polaprezinc (zinc carnosine) Active 1 TAB PO Daily November 10, 2023 12:00am Complies with drug therapy Start: 11-10-2023 take 1 tablet by tre th once daily polaprezinc (zinc carnosine) Active 1 TAB PO Daily November 09, 2023 11:00pm Start: 11-10-2023 take 1 tablet by tre th once daily polaprezinc (zinc carnosine) Active 1 TAB PO Daily November 10, 2023 12:00am potassium chloride 10 meq extended release oral capsule (20 sources) Start: 11-13-2024 potassium chlo ride ER (Micro-K) 10 MEQ ER capsule 11/13/2024 Active Start: 01-31-2024 End: 08-06-2024 take 2 capsules by mouth once daily Start: 01-31-2024 take 20 mEq by mouth once rebecca y Potassium Chloride Active 20 MEQ PO Daily January 31, 2024 12:00am Start: 11-10-2023 End: 01-31-2024 Potassium Chloride (Klor-Con M20) 20 mEq tablet,ER particles/crystals Discontinued MEQ PO November 10, 2023 12:00am January 31, 2024 2:02pm Start: 08-03-2023 End: 11-26-2023 take 1 tablet [...] Mar, Active sodium fluoride 0.011 mg/mg toothpaste (20 sources) Start: 03-13-2024 Sodium Fluorid e 5000 PPM 1.1 % paste 03/13/2024 Active Start: 03-13-2024 Sodium Fluorid e 5000 PPM 1.1 % paste APPLY THIN RIBBON TO TOOTHBRUSH, BRUSH TWICE DAILY X2MINS, SPIT, DO NOT EAT/DRINK/RINSE FOR 30 MIN 03/13/2024 Active Tirzepatide (2 sources) Start: 03-26-2025 triamcinolone acetonide 0.08829 mg/mg topical ointment (20 sources) Corticosteroid Start: 08-16-2023 triamcinolone (Kenalog) 0.025 % ointment 08/16/2023 Active Start: 08-16-2023 triamcinolone (Kenalog) 0.025 % ointment APPLY A SMALL AMOUNT EXTERNALLY TWICE A DAY FOR SEBORRHEIC DERMATITIS TO SKIN OF EARS/BEHIND EARS 08/16/2023 Active Tumeric (1 source) Tumeric daily *p lease review for potential _update for e-prescription and drug interaction check* Active ubidecarenone 100 mg oral capsule (20 sources) Start: 05-15-2024 Start: 11-10-2023 End: 05-15-2024 Coenzyme Q10 10 mg capsule D iscontinued 10 MG PO Daily November 10, 2023 12:00am May 15, 2024 2:06pm valACYclovir 1000 mg oral tablet (20 sources) Herpesvirus Nucleoside Analog DNA Polymerase Inhibitor, Herpes Simplex Virus Nucleoside Analog DNA Polymerase Inhibitor, Herpes Zoster Virus Nucleoside Analog DNA Polymerase Inhibitor Start: 02-12-2025 End: 02-17-2025 take 1 tablet by mouth once daily valACYclovir (Valtrex) 1 g tablet Indications: Herpesviral infection, unspecified Take 1 tablet (1,000 mg) by mouth Daily for 5 days 5 tablet 2 02/12/2025 02/17/2025 Active Start: 03-29-2024 End: 02-12-2025 valACYclovir (Valtrex) 1 g t ablet Take 1,000 mg by mouth Daily as needed (breakouts) 03/29/2024 02/12/2025 Discontinued take 1 tablet by tre every twelve hours valACYclovir (Valtrex) 1 g tablet Take 1 tablet by mouth every 12 (twelve) hours 0 Active Vitamin B Complex tablet (5 sources) Start: 08-20-2024 take 1 tablet by mouth once da aura Start: 08-20-2024 take 1 tablet by mouth once da aura Vitamin B Complex tablet Active 1 TAB PO Daily August 20, 2024 1:00am Complies with drug therapy Start: 08-20-2024 take 1 tablet by mouth once da aura Vitamin B Complex tablet Active 1 TAB PO Daily August 20, 2024 1:00am Start: 08-20-2024 take 1 tablet by mouth once da aura Vitamin B Complex tablet Active 1 TAB PO Daily August 20, 2024 12:00am vitamin e d-alpha 400 unt oral capsule (4 sources) alpha tocopherol (Vitamin E) 400 units capsule 1 capsule 1 (one) time each day at the same time 0 Active Vitamin E 400 UNIT (1 source) take 1 capsule by mo [facility] once daily Vitamin E 400 UNIT 1 capsule Orally Once a day for 30 day(s) Active Completed/Discontinued Medications Medication Drug Class(es) Dates Sig (Normalized) Sig (Original) bilberry extract 40 mg oral capsule (1 source) Bilberry Extract 40 MG as directed Orally Not-Taking Maoqdvdc-Jjvaahy-T utin-Quercet (Bilberry Extract) 40 MG capsule (20 sources) End: 11-22-2024 take 1 capsule by mouth in the morning Ugqjacqk-Xlncprb-Ms tin-Quercet (Bilberry Extract) 40 MG capsule Take 40 mg by mouth in the morning. 11/22/2024 Discontinued take 1 capsule by mo ut in the morning Frmdebmy-Gquoqfo-Xhrci-Quercet (Bilberry Extract) 40 MG capsule Take 40 mg by mouth in the morning. Active take 1 capsule by mo ut in the morning Octbsoyn-Zyuexvr-Rtwey-Quercet (Bilberry Extract) 40 MG capsule Take 40 mg by mouth in the morning. 0 Active CALCIUM MAGNESIUM ZINC PO (20 sources) End: 11-22-2024 take 1 tablet by mouth in the morning CALCIUM MAGNESIUM ZINC PO Take 1 tablet by mouth in the morning. 11/22/2024 Discontinued take 1 tablet by mouth in the mo rning CALCIUM MAGNESIUM ZINC PO Take 1 tablet by mouth in the morning. Active take 1 tablet by mouth in the mo rning CALCIUM MAGNESIUM ZINC PO Take 1 tablet by mouth in the morning. 0 Active carvedilol 25 mg oral tablet (20 sources) alpha-Adrenergic Onofre, beta-Adrenergic Onofre Start: 02-16-2024 End: 05-15-2024 take 1 mg by mouth twice daily Carvedilol Discontinued MG PO Twice daily March 20, 2024 2:44pm May 15, 2024 2:11pm Start: 02-14-2024 End: 05-15-2024 take 1 mg by mouth twice daily Carvedilol 25 mg tablet Discontinued MG PO Twice daily March 20, 2024 2:44pm May 15, 2024 2:11pm Start: 05-29-2023 End: 04-17-2024 take 1 tablet by mouth twice daily Carvedilol 12.5 mg tablet Discontinued 12.5 MG PO Twice daily November 10, 2023 12:00am February 16, 2024 11:55am Carvedilol 6.25 MG as directed Orally Active cetirizine hydrochloride 10 mg oral tablet (20 sources) Histamine-1 Receptor Antagonist Start: 10-24-2023 End: 11-20-2024 take 1 tablet by mouth once daily as needed Cetirizine (Allergy Relief (Cetirizine)) 10 mg tablet Discontinued 10 MG PO Daily as needed May 15, 2024 2:05pm November 20, 2024 3:02pm Cholecalciferol 00374 UNIT (1 source) Cholecalciferol 52321 UNIT as directed Orally *please review for [...] a day for 30 day(s) Dec, Not-Taking Folic Acid-Cholecalciferol 1-38507 MG-UNIT tablet (20 sources) End: 11-22-2024 take 1 tablet by mouth in the morning Folic Acid-Cholecalciferol 1-87582 MG-UNIT tablet Take 10,000 Units by mouth in the morning. 11/22/2024 Discontinued take 1 tablet by tre th in the morning Folic Acid-Cholecalciferol 1-43949 MG-UN IT tablet Take 10,000 Units by mouth in the morning. Active take 1 tablet by tre th in the morning Folic Acid-Cholecalciferol 1-41354 MG-UN IT tablet Take 10,000 Units by mouth in the morning. 0 Active grape seed extract 25 mg oral capsule (1 source) Grape Seed 25 MG as directed Orally *please review for potential _update for e-prescription and drug interaction check* Not-Taking hydroCHLOROthiazide 25 mg oral tablet (20 sources) Thiazide Diuretic End: take 1 tablet by mouth once daily hydroCHLOROthiazide (HYDRODiuril) 25 MG tablet Take 25 mg by mouth 1 (one) time each day at the same time 11/22/2024 Discontinued Magnesium Chloride (12 sources) Start: End: take 1 tablet by mouth once daily as needed magnesium chloride Discontinued 1 TAB PO Daily as needed November 10, 2023 12:00am May 15, 2024 2:07pm Start: 11-10-2023 End: 05-15-2024 take 1 tablet [...] TAB PO Daily November 10, 2023 12:00am milk thistle extract 500 mg oral capsule (20 sources) End: 11-22-2024 Milk Thistle 500 MG capsule as directed Orally 11/22/2024 Discontinued Milk Thistle 500 MG capsule as directed Orally Active Milk Thistle 500 MG capsule as directed Orally 0 Active Milk Thistle 500 MG as directed Orally Not-Taking Mounjaro 7.5 MG/0.5ML soluti on auto-injector (19 sources) Start: 06-15-2024 End: 12-03-2024 Mounjaro 7.5 MG/0.5ML soluti on auto-injector Inject 7.5 mg as directed every 7 (seven) days 06/15/2024 12/03/2024 Discontinued (Therapy completed) Start: 06-15-2024 Mounjaro 7.5 M G/0.5ML solution auto-injector Inject 7.5 mg as directed every 7 (seven) days 06/15/2024 Active nitrofurantoin, macrocrystals 25 mg / nitrofurantoin, monohydrate 75 mg oral capsule (7 sources) Nitrofuran Antibacterial Start: 08-27-2024 End: 09-05-2024 take 1 capsule by mouth in the morning nitrofurantoin, macrocrystal-monohydrate, (Macrobid) 100 MG capsule Indications: Urinary tract infection symptoms Take 1 capsule (100 mg) by mouth in the morning and 1 capsule (100 mg) before bedtime. Do all this for 7 days. 14 capsule 08/27/2024 09/05/2024 Discontinued (Therapy completed) take 1 capsule by mo [facility] in the morning nitrofurantoin, macrocrystal-monohydrate , (Macrobid) 100 MG capsule Take 1 capsule by mouth in the morning and 1 capsule before bedtime. 0 Active nystatin 100 unt/mg topical powder (9 sources) Polyene Antifungal Start: 09-05-2024 End: 11-22-2024 Klayesta 728215 UNIT/GM powder APPLY TO AFFECTED AREA TWICE A DAY FOR 14 DAYS 09/05/2024 11/22/2024 Discontinued Start: 09-05-2024 End: 09-19-2024 nystatin (Mycostatin) [id number] UNIT/GM powder Indications: Yeast dermatitis Apply topically 2 (two) times a day for 14 days 60 g 1 09/05/2024 09/19/2024 Active [place] 0-Hbl-Ley-Fish Oil (Fish Oil) 1,000 mg (120 mg-180 mg) capsule (12 sources) Start: 11-10-2023 End: 05-15-2024 take 1 capsule by mouth once daily as needed [place] 6-Zbl-Gic-Fish Oil (Fish Oil) 1,000 mg (120 mg-180 mg) capsule Discontinued 1 CAP PO Daily as needed November 10, 2023 12:00am May 15, 2024 2:08pm Start: 11-10-2023 End: 05-15-2024 take 1 capsule by mouth once daily as needed [place] 2-Dst-Clz-Fish Oil (Fish Oil) 1,000 mg (120 mg-180 mg) capsule Discontinued 1 CAP PO Daily as needed November 09, 2023 11:00pm May 15, 2024 1:08pm Start: 11-10-2023 End: 05-15-2024 take 1 capsule by mouth once daily [place] 0-Qeo-Twm-Fish Oil (Fish Oil) 1,000 mg (120 mg-180 mg) capsule Discontinued 1 CAP PO Daily November 10, 2023 12:00am May 15, 2024 2:08pm Start: 11-10-2023 take 1 capsule by [facility] once daily [place] 7-Mdu-Hgm-Fish Oil (Fish Oil) 1,000 mg (120 mg-180 mg) capsule Active 1 CAP PO Daily November 10, 2023 12:00am Potassium Chloride (Klor-Con M20) 20 mEq tablet,ER particles/crystals (9 sources) Start: 11-10-2023 End: 01-31-2024 Potassium Chloride [...] e-prescription and drug interaction check* Not-Taking Tirzepatide (11 sources) Start: 11-10-2023 End: 01-31-2024 Tirzepatide (Mounjaro) [...] week 3 November 10, 2023 12:00am Tirzepatide (16 sources) Start: 03-20-2024 End: 05-15-2024 inject 0.5 [...] mg dosing if 5.0 mg not available Tirzepatide (20 sources) Start: 10-28-2024 End: 11-20-2024 inject 1 mL by subcutaneous injection every week Tirzepatide (Mounjaro) 7.5 mg/0.5 mL pen injector Discontinued 0 .ROUTE .COMPLEX October 28, 2024 3:57pm November 20, 2024 3:43pm INJECT 7.5MG(0.5ML) SUBCUTANEOUSLY ONCE EVERY WEEK FOR 4 WEEKS Start: 10-07-2024 End: 10-28-2024 inject 1 mL by subcutaneous injection every week Tirzepatide (Mounjaro) 7.5 mg/0.5 mL pen injector Discontinued 0 .ROUTE .COMPLEX 2 October 07, 2024 10:05am October 28, 2024 3:57pm INJECT 7.5MG(0.5ML) SUBCUTANEOUSLY ONCE EVERY WEEK FOR 4 WEEKS Start: 09-09-2024 End: 10-07-2024 inject 1 mL by subcutaneous injection every week Tirzepatide (Mounjaro) 7.5 mg/0.5 mL pen injector Discontinued 0 .ROUTE .COMPLEX 2 September 09, 2024 11:18am October 07, 2024 10:05am INJECT 7.5MG(0.5ML) SUBCUTANEOUSLY ONCE EVERY WEEK FOR 4 WEEKS Start: 08-12-2024 End: 09-09-2024 inject 1 mL by subcutaneous injection every week Tirzepatide (Mounjaro) 7.5 mg/0.5 mL pen injector Discontinued 0 .ROUTE .COMPLEX 2 August 12, 2024 6:09pm September 09, 2024 11:18am INJECT 7.5MG(0.5ML) SUBCUTANEOUSLY ONCE EVERY WEEK FOR 4 WEEKS Start: 08-12-2024 inject 1 mL by subcu taneous injection every week Tirzepatide (Mounjaro) 7.5 mg/0.5 mL pen injector Active 0 .ROUTE .COMPLEX 2 August 12, 2024 5:09pm INJECT 7.5MG(0.5ML) SUBCUTANEOUSLY ONCE EVERY WEEK FOR 4 WEEKS Start: 05-15-2024 End: 08-12-2024 Tirzepatide 7.5 mg/0.5 mL pe n injector Discontinued 7.5 MG SUBCUT every week 09 20May 15, 2024 3:05pm August 12, 2024 6:10pm Ok to dispense 5.0 mg weekly if 7.5 mg delayed or unavailable Start: 05-15-2024 End: 08-12-2024 Tirzepatide 7.5 mg/0.5 [...] weekly if 7.5 mg delayed or unavailable Tirzepatide (7 sources) Start: 01-29-2025 End: 03-26-2025 Tirzepatide 10 mg/0.5 mL pen injector Discontinued 10 MG SUBCUT every week 2 January 29, 2025 4:11pm March 26, 2025 3:07pm Start: 01-29-2025 Tirzepatide 10 mg/0.5 mL pen injector Active 10 MG SUBCUT every week 2 January 29, 2025 4:11pm Complies with drug therapy Start: 11-20-2024 End: 01-29-2025 inject 0.5 mg by subcutaneous injection every week Tirzepatide 10 mg/0.5 mL pen injector Discontinued 10 MG SUBCUT every week 2 November 20, 2024 3:42pm January 29, 2025 4:11pm OK to dispense 7.5 mg if there is any delay in 10 mg dosing Start: 11-20-2024 inject 0.5 mg by sub cutaneous injection every week Tirzepatide 10 mg/0.5 mL pen injector Active 10 MG SUBCUT every week 2 November 20, 2024 3:42pm OK to dispense 7.5 mg if there is any delay in 10 mg dosing tiZANidine 4 mg oral tablet (20 sources) Central alpha-2 Adrenergic Agonist Start: 02-16-2024 End: 03-20-2024 Tizanidine Active MG PO March 20, 2024 2:46pm Start: 02-08-2024 End: 11-05-2024 Tizanidine 4 mg tablet Disco ntinued MG PO as needed March 20, 2024 2:46pm August 20, 2024 3:39pm tiZANidine (Micheal flex) 4 MG tablet TAKE 1 TABLET AT BEDTIME NEEDED FOR MUSCLE SPASMS 0 Active Turmeric extract (20 sources) End: 11-22-2024 take 1 tablet by mouth once daily Turmeric (QC TUMERIC COMPLEX PO) Take 1 tablet by mouth 1 (one) time each day at the same time 11/22/2024 Discontinued take 1 tablet by mouth once rebecca y Turmeric (QC TUMERIC COMPLEX PO) Take 1 tablet by mouth 1 (one) time each day at the same time Active take 1 tablet by mouth once rebecca y Turmeric (QC TUMERIC COMPLEX PO) Take 1 tablet by mouth 1 (one) time each day at the same time 0 Active vitamin b12 1 mg oral tablet (20 sources) Vitamin B12 Start: 11-10-2023 End: 08-20-2024 take 1 tablet by mouth once daily as needed Cyanocobalamin (Vitamin B-12) 1,000 mcg tablet Discontinued 1000 MCG PO Daily as needed November 10, 2023 12:00am August 20, 2024 3:36pm take 1 tablet by mouth once rebecca [...] Problem Date Documented Date Episodic/Chronic Anxiety disorders (20 sources) Generalized anxiety disorder; 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: [Generalized anxiety disorder] Onset: 03-14-2022 07-21-2023 Chronic Diabetes mellitus with complications (20 sources) Hyperglycemia due to type 2 diabetes mellitus; 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: [Type 2 diabetes mellitus with hyperglycemia] Onset: 01-08-2024 Resolved: 01-08-2024 11-10-2023 Chronic Diabetes mellitus without complication (20 sources) Type 2 diabetes mellitus without complications; 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: [Type 2 diabetes mellitus without complication] Onset: 08-05-2022 Resolved: 07-27-2023 07-26-2023 Chronic Disorders of lipid metabolism (20 sources) Hyperlipidemia, unspecified; 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: [Hyperlipidemia] Onset: 03-14-2022 Resolved: 07-27-2023 07-27-2023 Chronic Essential hypertension (20 sources) Essential (primary) hypertension; 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: [Hypertensive disorder] Onset: 12-23-2021 Resolved: 04-17-2024 07-21-2023 Chronic Fluid and electrolyte disorders (20 sources) Hypokalemia; 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: [Hypokalemia] Onset: 12-23-2021 08-28-2023 Episodic Lymphadenitis (4 sources) Enlarged lymph nodes, unspecified; 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: [ENLARGED LYMPH NODES UNSPECIFIED] Onset: 08-03-2022 Episodic Nutritional deficiencies (20 sources) Vitamin D deficiency; 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: [Vitamin D deficiency, unspecified] Onset: 01-08-2024 11-10-2023 Chronic Nutritional deficiencies (20 sources) Cobalamin deficiency; 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: [Deficiency of other specified B group vitamins] Onset: 01-08-2024 11-10-2023 Episodic Osteoarthritis (20 sources) Osteoarthritis; 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: [Unspecified osteoarthritis, unspecified site] Onset: 07-27-2023 Resolved: 07-27-2023 07-27-2023 Chronic Other and unspecified benign neoplasm (2 sources) Dermatofibroma; 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: [Other benign neoplasm of skin, unspecified] 05-27-2024 Episodic Other nervous system disorders (16 sources) Chronic pain; 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: [Other chronic pain] Onset: 10-11-2024 10-11-2024 Chronic Other nutritional; endocrine; and metabolic disorders (1 source) Morbid (severe) obesity due to excess calories; Translations: [MORBID SEVERE OBES D/T EXCESS CHAI] Onset: 12-23-2021 Chronic Other nutritional; endocrine; and metabolic disorders (1 source) Body mass index (BMI) 37.0-37.9, adult; Translations: [BODY MASS INDEX BMI 37.0-37.9 ADULT] Onset: 12-23-2021 Chronic Other nutritional; endocrine; and metabolic disorders (20 sources) Obesity; Translations: [Obesity, unspecified] Onset: 07-27-2023 Resolved: 07-27-2023 07-27-2023 Chronic Other nutritional; endocrine; and metabolic disorders (17 sources) Body mass index 40+ - severely obese; Translations: [Body mass index (BMI) 40.0-44.9, adult] 11-10-2023 Chronic Other nutritional; endocrine; and metabolic disorders (14 sources) Body mass index (BMI) 40.0-44.9, adult; Translations: [Body Mass Index 40.0-44.9, adult] 11-10-2023 Chronic Other nutritional; endocrine; and metabolic disorders (14 sources) Obesity, unspecified; Translations: [Obesity, unspecified] 11-10-2023 Chronic Other nutritional; endocrine; and metabolic disorders (20 sources) Body mass index 30+ - obesity; Translations: [Obesity, unspecified] Onset: 10-04-2023 10-04-2023 Chronic Other nutritional; endocrine; and metabolic disorders (20 sources) Hypomagnesemia; Translations: [Hypomagnesemia] Onset: 04-25-2024 04-25-2024 Chronic Other screening for suspected conditions (not [...] effluvium] 05-27-2024 Episodic Other upper respiratory disease (20 sources) Allergic disposition; Translations: [Other allergic rhinitis] Onset: 09-25-2023 09-25-2023 Chronic Unclassified (1 source) CONTACT W/AND (SUSP) EXPOS COVID-19; Translations: [CONTACT W/AND (SUSP) EXPOS COVID-19] Onset: 12-23-2021 Past or Other Problems Problem Classification Problem Date Documented Da te Episodic/Chronic Allergic reactions (20 sources) Allergic urticaria; Translations: [Allergic urticaria] Onset: 4 Resolved: 4 07-27-2023 Episodic Blindness and vision defects (20 sources) Presbyopia; Translations: [Presbyopia] Onset: 4 Resolved: 4 07-27-2023 Episodic Conditions associated with dizziness or vertigo (20 sources) Dizziness and giddiness; Translations: [Dizziness] Onset: 2 Resolved: Episodic Diabetes mellitus without complication (20 sources) Prediabetes; Translations: [Prediabetes] Onset: 2 Resolved: 4 07-26-2023 Episodic Diseases of mouth; excluding dental (20 sources) Sialoadenitis; Translations: [Sialoadenitis, unspecified] Onset: 3 07-26-2023 Episodic Esophageal disorders (20 sources) Gastroesophageal reflux disease; Translations: [Gastro-esophageal reflux disease without esophagitis] Onset: 4 Resolved: 4 07-27-2023 Chronic Genitourinary symptoms and ill-defined conditions (20 sources) Urinary symptoms ; Translations: [Unspecified symptoms and signs involving the genitourinary system] Onset: 5 Resolved: 5 08-27-2024 Episodic Headache; including migraine (20 sources) Migraine; Translations: [Migraine, unspecified, not intractable, without status migrainosus] Onset: 3 Resolved: 4 07-27-2023 Chronic Hepatitis (20 sources) Nonalcoholic steatohepatitis; Translations: [Nonalcoholic steatohepatitis (CORCORAN)] Onset: 4 Resolved: 4 07-27-2023 Chronic Inflammation; infection of eye (except that caused by tuberculosis or sexually transmitteddisease) (20 sources) Allergic conjunctivitis of bilateral eyes; Translations: [Acute atopic conjunctivitis, bilateral] Onset: 5 10-01-2024 Episodic Mood disorders (20 sources) Depressive disorder; Translations: [Depressive disorder] Onset: 4 Resolved: 4 07-27-2023 Chronic Mood disorders (20 sources) Mood disorders Onset: 4 01-08-2024 Mycoses (20 sources) Onychomycosis of toenails; Translations: [Tinea unguium] Onset: 4 Resolved: 4 07-27-2023 Episodic Neoplasms of unspecified nature or uncertain behavior (20 sources) Villous adenoma of colon; Translations: [Neoplasm of uncertain behavior of colon] Onset: 4 Resolved: 4 07-27-2023 Episodic Other aftercare (1 source) alf (current) use of aspirin; Translations: [USP CURRENT USE OF ASPIRIN] Onset: 2 Episodic Other aftercare (1 source) 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; Translations: [USP USE ORAL HYPOGLYCEMIC DX] Onset: 2 Episodic Other aftercare (1 source) Other chcf (current) drug therapy; Translations: [OTH DOCK COORDINATOR CURRENT DRUG THERAPY] Onset: 2 Episodic Other connective tissue disease (20 sources) Cramp; Translations: [Cramp and spasm] Onset: 4 04-17-2024 Episodic Other eye disorders (20 sources) Dry eyes; Translations: [Dry eye syndrome of bilateral lacrimal glands] Onset: 4 07-26-2023 Episodic Other gastrointestinal disorders (20 sources) Occult blood in stools; Translations: [Other fecal abnormalities] Onset: 4 Resolved: 4 07-27-2023 Episodic Other liver diseases (1 source) Abnormal levels of other serum enzymes; Translations: [ABNORMAL LEVELS OTHER SERUM ENZYMES] Onset: 2 Episodic Other lower respiratory disease (20 sources) Breathing painful; Translations: [Chest pain on breathing] Onset: 4 Resolved: 4 07-27-2023 Episodic Other nervous system disorders (20 sources) Carpal tunnel syndrome; Translations: [Carpal tunnel syndrome, unspecified upper limb] Onset: 4 Resolved: 4 07-27-2023 Chronic Other nervous system disorders (1 source) Paresthesia of skin; Translations: [PARESTHESIA OF SKIN] Onset: 2 Episodic Other nervous system disorders (20 sources) Skin sensation disturbance; Translations: [Unspecified disturbances of skin sensation] Onset: 4 Resolved: 4 07-27-2023 Episodic Other non-traumatic joint disorders (20 sources) Ankle pain; Translations: [Pain in right ankle and joints of right foot] Onset: 3 07-21-2023 Episodic Other non-traumatic joint disorders (20 sources) Pain in left knee; Translations: [Pain in joint, lower leg] Onset: 4 09-26-2023 Episodic Other skin disorders (20 sources) Ingrowing toenail; Translations: [Ingrowing nail] Onset: 4 Resolved: 4 07-27-2023 Episodic Other skin disorders (20 sources) Eruption; Translations: [Rash and other nonspecific skin eruption] Onset: 4 01-08-2024 Episodic Other upper respiratory infections (20 sources) Acute maxillary sinusitis, unspecified; Translations: [Acute maxillary sinusitis] Onset: 4 Resolved: 5 Episodic Pancreatic disorders (not diabetes) (20 sources) Acute pancreatitis; Translations: [Acute pancreatitis without necrosis or infection, unspecified] Onset: 4 Resolved: 4 07-27-2023 Episodic Residual codes; unclassified (20 sources) Other specified health status; Translations: [Other drug allergy] Onset: 2 Episodic Residual codes; unclassified (20 sources) Other general symptoms and signs; Translations: [Other general symptoms] Onset: 4 Resolved: 07-27-2023 Episodic Residual codes; unclassified (20 sources) Tobacco user; Translations: [Tobacco use] Onset: 4 Resolved: 4 07-27-2023 Episodic Residual codes; unclassified (20 sources) Statin declined; Translations: [Procedure and treatment not carried out because of patient's decision for unspecified reasons] Onset: 5 Resolved: 5 09-05-2024 Episodic Screening and history of mental health and substance abuse codes (1 source) Personal history of nicotine dependence; Translations: [PERSONAL HISTORY OF NICOTINE DEPEND] Onset: 2 Episodic Skin and subcutaneous tissue infections (20 sources) Carbuncle of trunk; Translations: [Carbuncle of [...] Resolved: 4 07-27-2023 Episodic Sprains and strains (20 sources) Lumbar sprain; Translations: [Sprain of ligaments [...] Test Name Value Interpretation Reference Range Facility 36on 03-31-2025 36 Pt called and canceled appt with pharm to talk about statins, she said she does not want to bill her insurance and she is no longer interested [facility] MM screening mammo BI w/CADo n 03-26-2025 MM screening mammo BI w/CAD [facility] [address] [place] [address] Mammography Report Signed Patient: Little Redmond MR#: [id number] : 1950 Acct:[id number] Age/Sex: 74 / F Adm Date: 03/26/25 Loc: [place] Room: Type: [facility] Attending Dr: Christine Pereira (Clinic) , [facility] Ordering Provider: Christine Pereira DO Date of Service: 03/26/25 Procedure(s): MM screening mammo BI w/CAD Accession Number(s): ([id number]) MM/MM screening mammo BI w/CAD: SCREENING Copies to: DO Ginny Blount NP-C CLINICAL DATA: Screening for malignancy. BILATERAL SCREENING MAMMOGRAMS - FULL FIELD DIGITAL WITH TOMOSYNTHESIS AND CAD Tomosynthesis craniocaudal and mediolateral oblique views of both breasts were obtained using low- dose digital technique. Comparison is made to prior studies from 03/11/2024, 12/15/2022, 06/14/2021, and 03/17/2020. This examination was reviewed with the aid of CAD. There are scattered fibroglandular densities. Benign-appearing lymph nodes are noted along the chest wall. Similar focal asymmetries are present bilaterally. Benign-appearing calcifications are present bilaterally. There are no dominant masses, typically malignant calcifications or architectural distortion. There has been no significant interval change. MM/MM screening mammo BI w/CAD IMPRESSION: NO MAMMOGRAPHIC EVIDENCE OF MALIGNANCY. ROUTINE FOLLOW-UP IS RECOMMENDED IN ONE YEAR. RESULT CODE: 2 Benign Findings(s) DENSITY CODE: 2 (approximately 25-50% glandular) There are scattered areas of fibroglandular density. FOLLOW UP: 1YR The false-negative rate of mammography is approximately 10-percent. Management of a palpable abnormality must be based on clinical grounds. Patient was entered into a reminder system with a target due date for the next mammogram. Impression dictated by: Cedric Smith M.D. 03/26/2025 4:11 PM Dictation Location: [facility] Dictated By: Cedric Smith II, MD 03/26/25 1608 Signed By: 03/26/25 1611 Normal [facility] Mammography reportOrdered By : Cedric Smith on 03-26-2025 Diagnostic imaging study [facility] [address] [place] [address] Mammography Report Signed Patient: Little Redmond MR#: [id number] : 1950 Acct:[id number] Age/Sex: 74 / F Adm Date: 5 Loc: [place] Room: Type: [facility] Attending Dr: Christine Pereira (Clinic) [facility] Ordering Provider: Christine Pereira DO Date of Service: 03/26/25 Procedure(s): MM screening mammo BI w/CAD Accession Number(s): ([id number]) MM/MM screening mammo BI w/CAD: SCREENING Copies to: DO Ginny Blount NP-C~ CLINICAL DATA: Screening for malignancy. BILATERAL SCREENING MAMMOGRAMS - FULL FIELD DIGITAL WITH TOMOSYNTHESIS AND CAD Tomosynthesis craniocaudal and mediolateral oblique views of both breasts were obtained using low-dose digital technique. Comparison is made to prior studies from 03/11/2024, 12/15/2022, 06/14/2021, and 03/17/2020. This examination was reviewed with the aid of CAD. There are scattered fibroglandular densities. Benign-appearing lymph nodes are noted along the chest wall. Similar focal asymmetries are present bilaterally. Benign-appearing calcifications are present bilaterally. There are no dominant masses, typically malignant calcifications or architectural distortion. There has been no significant interval change. MM/MM screening mammo BI w/CAD IMPRESSION: NO MAMMOGRAPHIC EVIDENCE OF MALIGNANCY. ROUTINE FOLLOW-UP IS RECOMMENDED IN ONE YEAR. RESULT CODE: 2 Benign Findings(s) DENSITY CODE: 2 (approximately 25-50% glandular) There are scattered areas of fibroglandular density. FOLLOW UP: 1YR The false-negative rate of mammography is approximately 10-percent. Management of a palpable abnormality must be based on clinical grounds. Patient was entered into a reminder system with a target due date for the next mammogram. Impression dictated by: Cedric Smith M.D. 03/26/2025 4:11 PM Dictation Location: [id number] Dictated By: Cedric Smith II, MD 03/26/25 1608 Signed By: 03/26/25 1611 [facility] Work Phone: [phone] 03-25-2025 36 Regarding lab result s from 01/14/2025: NEELIMA Ibrahim MA Please let her know her cholesterol levels are above goal. LDL is increased from last year, was 121, now at 139. Goal is <100 for primary prevention for stroke, [place], etc. Triglycerides are slightly better, was at 208, now at 196. Please ask if she would be agreeable to discuss other cholesterol management options with our pharmacist. They can review all the options available and which ones that wouldn't significantly affect the liver. Thanks! Spoke with patient and she is agreeable to cardiology pharmacist consult via telephone. I told her I would put the referral in and someone from [facility] would be contacting her soon. Patient verbalized understanding. Referral entered. [facility] Documentationon 03-25-2025 Documentation [id number] Little Redmond 1950 Provider Department Center 03/25/[id number], KARA HVCANTICOAG [place] [facility] Family History Problem Relation Age of Onset Atrial fibrillation Mother Family Status - Relation Status Age at Mother Reason for Visit and Comments: Pharmacist Consult - Referral [Other] [facility] Telephoneon 03-25-2025 Telephone [id number] Little Redmond 1950 Provider Department Center 03/25/2025 928-SEVERINO HARVEY TETE [facility] Family History Problem Relation Age of Onset Atrial fibrillation Mother Family Status - Relation Status Age at Mother [facility] Office Visiton 03-13-2025 Follow-up visit [id number] Little Redmond 1950 Provider Department Center 03/13/2025 166-BENTLEY CARSON TETE [facility] Family History Problem Relation Age of Onset Atrial fibrillation Mother Family Status - Relation Status Age at Mother Level of Service:79780 [place] OFFICE/OUTPATIENT ESTABLISHED LOW MDM 20 MIN Reason for Visit and Comments: Hyperlipidemia [182] Hypotension [407] [facility] HbA1c (Bld) [Mass fraction]o n 12-03-2024 Interpretation and review of laboratory results [facility] Laboratory - Hematology and Cell countson 12-03-2024 HbA1c (Bld) [Mass fraction] 5.2 % [facility] Urinalysis macro (dipstick) panel (U)on 12-03-2024 Bilirubin, UA Negative Negative - 4(70) +++ mg/dL [facility] Blood, UA Negative Negative - 50 Wilfredo/mcL [facility] Clarity, UA Clear [facility] re Color, UA Yellow [facility] [employer] e Glucose, UA Negative Negative - 1999(110) ++++ mg/dL [facility] Interpretation and review of laboratory results Abnormal [facility] Ketones, UA Negative Negative - 160(16) ++++ mg/dL [facility] Leukocytes, UA Positive Negative - 500+++ Nicole/mcL [facility] Comment on above: small Nitrite, UA Negative Negative - Positive [facility] pH, UA 7 5 - 9 [facility] [employer] Protein, UA Negative Negative - 1999(20) ++++ mg/dL [facility] Spec Grav, UA 1.02 1 - 1.03 [facility] Urobilinogen, UA 0.2 0.2 - 12 mg/dL [facility] MAGNESIUMon 11-28-2024 Interpretation and review of laboratory results Abnormal [facility] Magnesium [Mass/Vol] 1.4 mg/dL Low 1.8 - 2 .4 mg/dL [facility] [employer] ALL MAGNESIUMon 09-04-2024 Interpretation and review of laboratory results Abnormal [facility] Magnesium [Mass/Vol] 1.5 mg/dL Low 1.8 - 2 .4 mg/dL [facility] [employer] No Panel Informationon 05-27 Type of biopsy: [...] taken Amount of lidocaine used: 1.0 cc [facility] MLR HEMOGLOBIN A1Con 024 Glucose [Mass/Vol] 103 mg/dL [facility] HbA1c (Bld) [Mass fraction] 5.2 % 4.5 - 6.2 % [facility] Comment on above: ADA RECOMMENDED LIMI T 4.0 - 6.0 ADA THERAPEUTIC TARGET < 7.0 ACTION SUGGESTED > 7.0 [facility] No Panel InformationOrdered By: Gina Harkins on 02-16-2024 Quick Strep (POC) [facility] Respiratory specimen 2019 no aaron coronavirus RNA detection by probe and target amplifion 02-16-2024 SARS-CoV-2 (COVID-19) RNA MARY+probe Ql (Resp) Negative [facility] HbA1c HPLC (Bld) [Mass fract ion]on 11-10-2023 HbA1c (Bld) [Mass fraction] 6.3 % [facility] No Panel Informationon 11-09 Bedside Glucose 122 [facility] COVID Quick Testingon 2022 Result Negative [employer] Other CT NECK ST W CONon 3 [...] BENEDICTO KARIMI Date: 2022-08-04 08:41 Normal [facility] CBC AUTO DIFFon 08-03-2022 BASO # 0.0 103/ul Normal 0.0-0.1 [facility] Comment on above: Performed By: #### A 1C #### [facility] [address] [place] [address] Dr. Blanca Ford Basophils/100 WBC (Bld) 0.8 % Normal 0.2-2.0 [facility] Comment on above: Performed By: #### A 1C #### [facility] [address] [place] [address] Dr. Blanca Ford EO # 0.2 103/ul Normal 0.0-0.7 [facility] Comment on above: Performed By: #### A 1C #### [facility] [address] [place] [address] Dr. Blanca Ford Eosinophils/100 WBC (Bld) 3.1 % Normal 0.9-7.0 [facility] Comment on above: Performed By: #### A 1C #### [facility] [address] [place] [address] Dr. Blanca Ford Erythrocyte distribution width (RBC) [Ratio] 12.4 % Normal 11.0-15.0 [facility] Comment on above: Performed By: #### A 1C #### [facility] [address] [place] [address] Dr. Blanca Ford Hematocrit (Bld) [Volume fraction] 42.5 % Normal 36.0-48.0 [facility] Comment on above: Performed By: #### A 1C #### [facility] [address] [place] [address] Dr. Blanca Ford Hemoglobin (Bld) [Mass/Vol] 14.0 g/dL Normal 12.0-16.0 [facility] Comment on above: Performed By: #### A 1C #### [facility] [address] [place] [address] Dr. Blanca Ford IG # 0.03 10e3/ul Normal 0.00-0.03 [facility] Comment on above: Performed By: #### A 1C #### [facility] [address] [place] [address] Dr. Blanca Ford IG % 0.6 % Critically high 0.0-0.5 [facility] Comment on above: Performed By: #### A 1C #### [facility] [address] [place] [address] Dr. Blanca Ford LYMPH # 1.2 103/ul Normal 1.2-3.8 [facility] Comment on above: Performed By: #### A 1C #### [facility] [address] [place] [address] Dr. Blanca Ford Lymphocytes/100 WBC (Bld) 22.6 % Normal 20.5-60.0 [facility] Comment on above: Performed By: #### A 1C #### [facility] [address] [place] [address] Dr. Blanca Ford MANUAL DIFF REQ NO Normal [facility] Comment on above: Performed By: #### A 1C #### [facility] [address] [place] [address] Dr. Blanca Ford MCH (RBC) [Entitic mass] 28.1 pg Normal 26.7-34.0 [facility] Comment on above: Performed By: #### A 1C #### [facility] [address] [place] [address] Dr. Blanca Ford MCHC (RBC) [Mass/Vol] 32.9 g/dL Normal 29.9-35.2 [facility] Comment on above: Performed By: #### A 1C #### [facility] [address] [place] [address] Dr. Blanca Ford MCV (RBC) [Entitic vol] 85.3 fL Normal 81.0-99.0 [facility] Comment on above: Performed By: #### A 1C #### [facility] [address] [place] [address] Dr. Blanca Ford MONO # 0.3 103/ul Normal 0.3-0.8 [facility] Comment on above: Performed By: #### A 1C #### [facility] [address] [place] [address] Dr. Blanca Ford Monocytes/100 WBC (Bld) 6.3 % Normal 1.7-12.0 [facility] Comment on above: Performed By: #### A 1C #### [facility] [address] [place] [address] Dr. Blanca Ford NEUT # 3.5 103/ul Normal 1.4-6.5 [facility] Comment on above: Performed By: #### A 1C #### [facility] [address] [place] [address] Dr. Blanca Ford Neutrophils/100 WBC (Bld) 66.6 % Normal 43.0-75.0 [facility] Comment on above: Performed By: #### A 1C #### [facility] [address] [place] [address] Dr. Blanca Ford Platelet mean volume (Bld) [Entitic vol] 8.7 fL Critically low 9.5-13.5 [facility] Comment on above: Performed By: #### A 1C #### [facility] [address] [place] [address] Dr. Blanca Ford PLT 214 103/ul Normal 150-450 [facility] Comment on above: Performed By: #### A 1C #### [facility] [address] [place] [address] Dr. Blanca Ford RBC 4.98 106/ul Normal 4.20-5.40 [facility] Comment on above: Performed By: #### A 1C #### [facility] [address] [place] [address] Dr. Blanca Ford WBC 5.2 103/ul Normal 4.0-11.0 [facility] Comment on above: Performed By: #### A 1C #### [facility] [address] [place] [address] Dr. Blanca Ford CRPon 08-03-2022 CRP [Mass/Vol] mg/L Normal <=1.0 [facility] Comment on above: Performed By: #### L ACT #### [facility] [address] [address] [address] Blanca Ford GLYCOHEMOGLOBIN A1Con 2022 ADA RECOMMENDATION SEE BELOW Normal [facility] Comment on above: Result Comment: ADA RECOMMENDED LIMIT 4.0 - 6.0 ADA THERAPEUTIC TARGET < 7.0 ACTION SUGGESTED > 7.0 Performed By: #### C MP #### [facility] [address] [address] [address] Blanca Ford Glucose [Mass/Vol] 137 mg/dL Normal [facility] Comment on above: Performed By: #### C MP #### [facility] [address] [address] [address] Blanca Ford HbA1c (Bld) [Mass fraction] 6.4 % Critically high 4.5-6.2 [facility] Comment on above: Performed By: #### C MP #### [facility] [address] [address] [address] Blanca Ford PROF CHEM 8 (BAS METB)on Anion gap [Moles/Vol] 12.8 mmol/L Normal [facility] Comment on above: Performed By: #### B MP ####[facility] [address] [address]Dr. Blanca Ford Calcium [Mass/Vol] 9.4 mg/dL Normal 8.5-10.1 [facility] Comment on above: Performed By: #### B MP ####[facility] [address] [id number]. Blanca Ford Chloride [Moles/Vol] 101 mmol/L Normal 98-107 [facility] Comment on above: Performed By: #### B MP ####[facility] [address] [address]Dr. Blanca Ford CO2 [Moles/Vol] 30.0 mmol/L Normal 21.0-32.0 [facility] Comment on above: Performed By: #### B MP ####[facility] [address] [address]Dr. Blanca Ford Creatinine [Mass/Vol] 0.69 mg/dL Normal 0.55-1.02 [facility] Comment on above: Performed By: #### B MP ####[facility] [address] [address]Dr. Blanca Ford EGFR-AF FILIPINO >60 Normal >=60 [facility] Comment on above: Performed By: #### B MP ####[facility] [address] [address]Dr. Blanca Ford EGFR-NON AF FILIPINO >60 Normal >=60 [facility] Comment on above: Performed By: #### B MP ####[facility] [address] [place], [place] [address]Dr. Blanca Ford Glucose [Mass/Vol] 138 mg/dL Critically high 74-106 [facility] Comment on above: Performed By: #### B MP ####[facility] [address] [address]Dr. Blanca Ford Potassium [Moles/Vol] 3.8 mmol/L Normal 3.5-5.1 [facility] Comment on above: Performed By: #### B MP ####[facility] [address] [place], [place] [address]Dr. Blanca Ford Sodium [Moles/Vol] 140 mmol/L Normal 136-145 [facility] Comment on above: Performed By: #### B MP ####[facility] [address] [address]Dr. Blanca Ford Urea nitrogen [Mass/Vol] 13.0 mg/dL Normal 7.0-18.0 [facility] Comment on above: Performed By: #### B MP ####[facility] [address] [id number]. Blanca Ford Urea nitrogen/Creatinine [Mass ratio] 18.8 mg/mg Normal [facility] Comment on above: Performed By: #### B MP ####[facility] [address] [address]DrElyssa Ford SED RATE WESTERGRENon 2022 SED RATE 35 mm/hr Critically high <=30 [facility] Comment on above: Performed By: #### A 1C #### [facility] [address] [place], [place] [address] Dr. Blanca Ford CBC AUTO DIFFon 03-03-2022 BASO # 0.1 103/ul Normal 0.0-0.1 [facility] Comment on above: Performed By: #### C BC ####[facility] [address] [address]DrElyssa Ford Basophils/100 WBC (Bld) 1.0 % Normal 0.2-2.0 [facility] Comment on above: Performed By: #### C BC ####[facility] [address] [address]DrElyssa Ford EO # 0.1 103/ul Normal 0.0-0.7 [facility] Comment on above: Performed By: #### C BC ####[facility] [address] [address]DrElyssa Ford Eosinophils/100 WBC (Bld) 2.4 % Normal 0.9-7.0 [facility] Comment on above: Performed By: #### C BC ####[facility] [address] [address]DrElyssa Ford Erythrocyte distribution width (RBC) [Ratio] 12.3 % Normal 11.0-15.0 [facility] Comment on above: Performed By: #### C BC ####[facility] [address] [id number] Ford Hematocrit (Bld) [Volume fraction] 43.9 % Normal 36.0-48.0 [facility] Comment on above: Performed By: #### C BC ####[facility] [address] [address]DrElyssa Ford Hemoglobin (Bld) [Mass/Vol] 14.6 g/dL Normal 12.0-16.0 [facility] Comment on above: Performed By: #### C BC ####[facility] [address] [address]Dr. Blanca Ford IG # 0.01 10e3/ul Normal 0.00-0.03 [facility] Comment on above: Performed By: #### C BC ####[facility] [address] [address]Dr. Blanca Ford IG % 0.2 % Normal 0.0-0.5 [facility] Comment on above: Performed By: #### C BC ####[facility] [address] [address]Dr. Blanca Ford LYMPH # 1.2 103/ul Normal 1.2-3.8 [facility] Comment on above: Performed By: #### C BC ####[facility] [address] [address]Dr. Blanca Ford Lymphocytes/100 WBC (Bld) 22.9 % Normal 20.5-60.0 [facility] Comment on above: Performed By: #### C BC ####[facility] [address] [address]Dr. Blanca Ford MANUAL DIFF REQ NO Normal [facility] Comment on above: Performed By: #### C BC ####[facility] [address] [address]Dr. Blanca Ford MCH (RBC) [Entitic mass] 28.0 pg Normal 26.7-34.0 [facility] Comment on above: Performed By: #### C BC ####[facility] [address] [address]Dr. Blanca Ford MCHC (RBC) [Mass/Vol] 33.3 g/dL Normal 29.9-35.2 [facility] Comment on above: Performed By: #### C BC ####[facility] [address] [address]Dr. Blanca Ford MCV (RBC) [Entitic vol] 84.3 fL Normal 81.0-99.0 [facility] Comment on above: Performed By: #### C BC ####[facility] [address] [id number]. Blanca Ford MONO # 0.3 103/ul Normal 0.3-0.8 [facility] Comment on above: Performed By: #### C BC ####[facility] [address] [place] [address]Dr. Blanca Ford Monocytes/100 WBC (Bld) 5.9 % Normal 1.7-12.0 [facility] Comment on above: Performed By: #### C BC ####[facility] [address] [address]Dr. Blanca Ford NEUT # 3.4 103/ul Normal 1.4-6.5 [facility] Comment on above: Performed By: #### C BC ####[facility] [address] [address]Dr. Blanca Ford Neutrophils/100 WBC (Bld) 67.6 % Normal 43.0-75.0 [facility] Comment on above: Performed By: #### C BC ####[facility] [address] [place] [address]Dr. Blanca Ford Platelet mean volume (Bld) [Entitic vol] 8.7 fL Critically low 9.5-13.5 [facility] Comment on above: Performed By: #### C BC ####[facility] [address] [address]Dr. Blanca Ford PLT 236 103/ul Normal 150-450 [facility] Comment on above: Performed By: #### C BC ####[facility] [address] [place] [address]Dr. Blanca Ford RBC 5.21 106/ul Normal 4.20-5.40 [facility] Comment on above: Performed By: #### C BC ####[facility] [address] [address]Dr. Blanca Ford WBC 5.1 103/ul Normal 4.0-11.0 [facility] Comment on above: Performed By: #### C BC ####[facility] [address] [address]Dr. Blanca Ford FREE T4on 03-03-2022 Free T4 [Mass/Vol] 1.04 ng/dL Normal 0.76-1.46 [facility] Comment on above: Performed By: #### F T4 ####[facility] [address] [address]Dr. Blanca Ford GLYCOHEMOGLOBIN A1Con 2021 ADA RECOMMENDATION SEE BELOW Normal [facility] Comment on above: Result Comment: ADA RECOMMENDED LIMIT 4.0 - 6.0 ADA THERAPEUTIC TARGET < 7.0 ACTION SUGGESTED > 7.0 Performed By: #### A 1C #### [facility] [address] [place] [address] Dr. Blanca Ford Glucose [Mass/Vol] 128 mg/dL Normal [facility] Comment on above: Performed By: #### A 1C #### [facility] [address] [address] [address] Blanca Ford HbA1c (Bld) [Mass fraction] 6.1 % Normal 4.5-6.2 [facility] Comment on above: Performed By: #### A 1C #### [facility] [address] [place] [address] Dr. Blanca Ford LIPID PROFILEon 03-03-2022 CHOL-HDL RATIO NORM SEE BELOW Normal [facility] Comment on above: Result Comment: 3.3 - 4.4 LOW RISK 4.4 - 7.1 AVERAGE RISK 7.1 - 11.0 MODERATE RISK >11.0 HIGH RISK Performed By: #### L ACT #### [facility] [address] [address] [address] Blanca Ford Cholesterol [Mass/Vol] 214 mg/dL Critically high <=200 [facility] Comment on above: Performed By: #### L ACT #### [facility] [address] [address] [address] Blanca Ford Cholesterol in HDL [Mass/Vol] 45 mg/dL Normal 40-60 [facility] Comment on above: Performed By: #### L ACT #### [facility] [address] [address] [address] Blanca Ford Cholesterol in LDL [Mass/Vol] 134.2 mg/dL Normal [facility] Comment on above: Performed By: #### L ACT #### [facility] [address] [address] [address] Blanca Ford Cholesterol.total/Cho lesterol in HDL [Mass ratio] 4.8 {ratio} Normal [facility] Comment on above: Performed By: #### L ACT #### [facility] [address] [address] [address] Blanca Ford HDL NORMAL > or = 60 mg/dl - LO W CARDIOVASCULAR RISK <40 mg/dl - HIGH CARDIOVASCULAR RISK Normal [facility] Comment on above: Performed By: #### L ACT #### [facility] [address] [address] [address] Blanca Ford LDL CALC NORMAL SEE BELOW Normal [facility] Comment on above: Result Comment: <100 mg/dl OPTIMAL 100 - 129 mg/dl NEAR OR ABOVE OPTIMAL 130 - 159 mg/dl BORDERLINE HIGH 160 - 189 mg/dl HIGH >190 mg/dl VERY HIGH Performed By: #### L ACT #### [facility] [address] [address] [address] Blanca Ford Triglyceride [Mass/Vol] 174 mg/dL Critically high <=150 [facility] Comment on above: Performed By: #### L ACT #### [facility] [address] [address] [address] Blanca Ford VLDL CALC 34.8 mg/dL Normal [facility] Comment on above: Performed By: #### L ACT #### [facility] [address] [address] [address] Blanca Ford PROF 14(COMP METB)on 022 Albumin [Mass/Vol] 4.1 g/dL Normal 3.4-5.0 [facility] Comment on above: Performed By: #### L ACT #### [facility] [address] [address] [address] Blanca Ford Albumin/Globulin [Mass ratio] 1.1 {ratio} Normal [facility] Comment on above: Performed By: #### L ACT #### [facility] [address] [address] [address] Blanca Ford ALP [Catalytic activity/Vol] 78 U/L Normal 46-116 [facility] Comment on above: Performed By: #### L ACT #### [facility] [address] [address] [address] Blanca Ford ALT [Catalytic activity/Vol] 54 U/L Normal 14-59 [facility] Comment on above: Performed By: #### L ACT #### [facility] [address] [address] [address] Blanca Ford Anion gap [Moles/Vol] 12.1 mmol/L Normal [facility] Comment on above: Performed By: #### L ACT #### [facility] [address] [place] [address] Dr. Blanca Ford AST [Catalytic activity/Vol] 35 U/L Normal 15-37 [facility] Comment on above: Performed By: #### L ACT #### [facility] [address] [place] [address] Dr. Blanca Ford Bilirubin [Mass/Vol] 0.7 mg/dL Normal 0.2-1.0 [facility] Comment on above: Performed By: #### L ACT #### [facility] [address] [place] [address] Dr. Blanca Ford Calcium [Mass/Vol] 9.6 mg/dL Normal 8.5-10.1 [facility] Comment on above: Performed By: #### L ACT #### [facility] [address] [place] [address] Dr. Blanca Ford Chloride [Moles/Vol] 102 mmol/L Normal 98-107 [facility] Comment on above: Performed By: #### L ACT #### [facility] [address] [address] [address] Blanca Ford CO2 [Moles/Vol] 30.5 mmol/L Normal 21.0-32.0 [facility] Comment on above: Performed By: #### L ACT #### [facility] [address] [address] [address] Blanca Ford Creatinine [Mass/Vol] 0.72 mg/dL Normal 0.55-1.02 [facility] Comment on above: Performed By: #### L ACT #### [facility] [address] [address] [address] Blanca Ford EGFR-AF FILIPINO >60 Normal >=60 [facility] Comment on above: Performed By: #### L ACT #### [facility] [address] [address] [address] Blanca Ford EGFR-NON AF FILIPINO >60 Normal >=60 [facility] Comment on above: Performed By: #### L ACT #### [facility] [address] [place] [address] Dr. Blanca Ford Globulin (S) [Mass/Vol] 3.6 g/dL Normal [facility] Comment on above: Performed By: #### L ACT #### [facility] [address] [place] [address] Dr. Blanca Ford Glucose [Mass/Vol] 129 mg/dL Critically high 74-106 [facility] Comment on above: Performed By: #### L ACT #### [facility] [address] [place] [address] Dr. Blanca Ford Potassium [Moles/Vol] 3.6 mmol/L Normal 3.5-5.1 [facility] Comment on above: Performed By: #### L ACT #### [facility] [address] [place] [address] Dr. Blanca Ford Protein [Mass/Vol] 7.7 g/dL Normal 6.4-8.2 [facility] Comment on above: Performed By: #### L ACT #### [facility] [address] [address] [address] Blanca Ford Sodium [Moles/Vol] 141 mmol/L Normal 136-145 [facility] Comment on above: Performed By: #### L ACT #### [facility] [address] [place] [address] Dr. Blanca Ford Urea nitrogen [Mass/Vol] 16.0 mg/dL Normal 7.0-18.0 [facility] Comment on above: Performed By: #### L ACT #### [facility] [address] [place] [address] Dr. Blanca Ford Urea nitrogen/Creatinine [Mass ratio] 22.2 mg/mg Normal [facility] Comment on above: Performed By: #### L ACT #### [facility] [address] [place] [address] Dr. Blanca Ford TSHon 03-03-2022 TSH 2.932 uIU/mL Normal 0.358-3.740 [facility] Comment on above: Performed By: #### L ACT #### [facility] [address] [place] [address] Dr. Blanca Ford UA RANDOM W/MICROSCOPICon BACTERIA TRACE Abnormal NONE SEEN [facility] Comment on above: Performed By: #### U AMIC #### [facility] [address] [place] [address] Dr. Blanca Ford Bilirubin Ql (U) Negative Normal NEGATIVE [facility] Comment on above: Performed By: #### U AMIC #### [facility] [address] [place] [address] Dr. Blanca Ford CAST NONE SEEN Normal NONE SEEN [facility] Comment on above: Performed By: #### U AMIC #### [facility] [address] [place] [address] Dr. Blanca Ford Clarity (U) CLEAR Normal CLEAR [facility] Comment on above: Performed By: #### U AMIC #### [facility] [address] [place] [address] Dr. Blanca Ford Color (U) YELLOW Normal YELLOW [facility] Comment on above: Performed By: #### U AMIC #### [facility] [address] [place] [address] Dr. Blanca Ford Crystals LM Nom (Urine sed) NONE SEEN Normal NONE SEEN [facility] Comment on above: Performed By: #### U AMIC #### [facility] [address] [address] [address] Blanca Ford Epithelial cells LM Ql (Urine sed) FEW Abnormal NONE SEEN /RARE [facility] Comment on above: Performed By: #### U AMIC #### [facility] [address] [place] [address] Dr. Blanca Ford Glucose Ql (U) Negative Normal NEGATIVE [facility] Comment on above: Performed By: #### U AMIC #### [facility] [address] [address] [address] Blanca Ford Hemoglobin Ql (U) Negative Normal NEGATIVE [facility] Comment on above: Performed By: #### U AMIC #### [facility] [address] [place] [address] Dr. Blanca Ford Ketones Ql (U) Negative Normal NEGATIVE [facility] Comment on above: Performed By: #### U AMIC #### [facility] [address] [place] [address] Dr. Blanca Ford LEUKOCYTES SMALL Abnormal NEGATIVE City [facility] Comment on above: Performed By: #### U AMIC #### [facility] [address] [place] [address] Dr. Blanca Ford MUCOUS SMALL Abnormal NONE SEEN [facility] Comment on above: Performed By: #### U AMIC #### [facility] [address] [place] [address] Dr. Blanca Ford Nitrite Ql (U) Negative Normal NEGATIVE [facility] Comment on above: Performed By: #### U AMIC #### [facility] [address] [place] [address] Dr. Blanca Ford pH (U) 6.0 [pH] Normal 5-9 [facility] Comment on above: Performed By: #### U AMIC #### [facility] [address] [place] [address] Dr. Blanca Ford RBC NONE SEEN Abnormal 0-2 [facility] Comment on above: Performed By: #### U AMIC #### [facility] [address] [place] [address] Dr. Blanca Ford SPEC GRAVITY >=1.030 Abnormal 1.005-<=1.02 5 [facility] Comment on above: Performed By: #### U AMIC #### [facility] [address] [place] [address] Dr. Blanca Ford UA PROTEIN Negative Normal NEGATIVE/ TRACE [facility] Comment on above: Performed By: #### U AMIC #### [facility] [address] [place] [address] Dr. Blanca Ford Urobilinogen Qn (U) 1.0 {Erwin'U}/dL Normal 0.2 - 1. 0 [facility] Comment on above: Performed By: #### U AMIC #### [facility] [address] [place] [address] Dr. Blanca Ford WBC 5-10 Abnormal NONE SEEN [facility] Comment on above: Performed By: #### U AMIC #### [facility] [address] [place] [address] Dr. Blanca Frod CBC AUTO DIFFon 12-19-2021 BASO # 0.0 103/ul Normal 0.0-0.1 [facility] Comment on above: Performed By: #### C MP #### [facility] [address] [place] [address] Dr. Blanca Ford Basophils/100 WBC (Bld) 0.2 % Normal 0.2-2.0 [facility] Comment on above: Performed By: #### C MP #### [facility] [address] [place] [address] Dr. Blanca Ford EO # 0.1 103/ul Normal 0.0-0.7 [facility] Comment on above: Performed By: #### C MP #### [facility] [address] [place] [address] Dr. Blanca Ford Eosinophils/100 WBC (Bld) 1.0 % Normal 0.9-7.0 [facility] Comment on above: Performed By: #### C MP #### [facility] [address] [place] [address] Dr. Blanca Ford Erythrocyte distribution width (RBC) [Ratio] 12.6 % Normal 11.0-15.0 [facility] Comment on above: Performed By: #### C MP #### [facility] [address] [place] [address] Dr. Blanca Ford Hematocrit (Bld) [Volume fraction] 36.1 % Normal 36.0-48.0 [facility] Comment on above: Performed By: #### C MP #### [facility] [address] [place] [address] Dr. Blanca Ford Hemoglobin (Bld) [Mass/Vol] 12.0 g/dL Normal 12.0-16.0 [facility] Comment on above: Performed By: #### C MP #### [facility] [address] [place] [address] Dr. Blanca Ford IG # 0.02 10e3/ul Normal 0.00-0.03 [facility] Comment on above: Performed By: #### C MP #### [facility] [address] [place] [address] Dr. Blanca Ford IG % 0.2 % Normal 0.0-0.5 [facility] Comment on above: Performed By: #### C MP #### [facility] [address] [place] [address] Dr. Blanca Ford LYMPH # 1.7 103/ul Normal 1.2-3.8 [facility] Comment on above: Performed By: #### C MP #### [facility] [address] [place] [address] Dr. Blanca Ford Lymphocytes/100 WBC (Bld) 20.9 % Normal 20.5-60.0 [facility] Comment on above: Performed By: #### C MP #### [facility] [address] [place] [address] Dr. Blanca Ford MANUAL DIFF REQ NO Normal [facility] Comment on above: Performed By: #### C MP #### [facility] [address] [place] [address] Dr. Blanca Ford MCH (RBC) [Entitic mass] 28.2 pg Normal 26.7-34.0 [facility] Comment on above: Performed By: #### C MP #### [facility] [address] [address] [address] Blanca Ford MCHC (RBC) [Mass/Vol] 33.2 g/dL Normal 29.9-35.2 [facility] Comment on above: Performed By: #### C MP #### [facility] [address] [address] [address] Blanca Ford MCV (RBC) [Entitic vol] 84.7 fL Normal 81.0-99.0 [facility] Comment on above: Performed By: #### C MP #### [facility] [address] [address] [address] Blanca Ford MONO # 0.4 103/ul Normal 0.3-0.8 [facility] Comment on above: Performed By: #### C MP #### [facility] [address] [place] [address] Dr. Blanca Ford Monocytes/100 WBC (Bld) 5.4 % Normal 1.7-12.0 [facility] Comment on above: Performed By: #### C MP #### [facility] [address] [address] [address] Blanca Ford NEUT # 5.9 103/ul Normal 1.4-6.5 [facility] Comment on above: Performed By: #### C MP #### [facility] [address] [place] [address] Dr. Blanca Ford Neutrophils/100 WBC (Bld) 72.3 % Normal 43.0-75.0 [facility] Comment on above: Performed By: #### C MP #### [facility] [address] [address] [address] Blanca Ford Platelet mean volume (Bld) [Entitic vol] 9.1 fL Critically low 9.5-13.5 [facility] Comment on above: Performed By: #### C MP #### [facility] [address] [place] [address] Dr. Blanca Ford PLT 216 103/ul Normal 150-450 [facility] Comment on above: Performed By: #### C MP #### [facility] [address] [address] [address] Blanca Ford RBC 4.26 106/ul Normal 4.20-5.40 [facility] Comment on above: Performed By: #### C MP #### [facility] [address] [address] [address] Blanca Ford WBC 8.1 103/ul Normal 4.0-11.0 [facility] Comment on above: Performed By: #### C MP #### [facility] [address] [address] [address] Blanca Ford POINT OF CARE GLUCOSEon 11-22 Glucose [Mass/Vol] 68 mg/dL Critically low 74-106 [facility] Comment on above: Performed By: #### P OCGLUC ####[facility] [id number] [address]. lBanca Ford Glucose [Mass/Vol] 109 mg/dL Critically high 74-106 [facility] Comment on above: Performed By: #### L ACT #### [facility] [address] [address] [address] Blanca Ford Glucose [Mass/Vol] 127 mg/dL Critically high 74-106 [facility] Comment on above: Performed By: #### P OCGLUC #### [facility] [address] [address] [address] Blanca Ford PROF 14(COMP METB)on 022 Albumin [Mass/Vol] 3.1 g/dL Critically low 3.4-5.0 [facility] Comment on above: Performed By: #### C MP #### [facility] [address] [address] [address] Blanca Ford Albumin/Globulin [Mass ratio] 1.0 {ratio} Normal [facility] Comment on above: Performed By: #### C MP #### [facility] [address] [address] [address] Blanca Ford ALP [Catalytic activity/Vol] 50 U/L Normal 46-116 [facility] Comment on above: Performed By: #### C MP #### [facility] [address] [address] [address] Blanca Ford ALT [Catalytic activity/Vol] 10 U/L Critically low 14-59 [facility] Comment on above: Performed By: #### C MP #### [facility] [address] [address] [address] Blanca Ford Anion gap [Moles/Vol] 14.0 mmol/L Normal [facility] Comment on above: Performed By: #### C MP #### [facility] [address] [address] [address] Blanca Ford AST [Catalytic activity/Vol] 15 U/L Normal 15-37 [facility] Comment on above: Performed By: #### C MP #### [facility] [address] [address] [address] Blanca Ford Bilirubin [Mass/Vol] 0.2 mg/dL Normal 0.2-1.0 [facility] Comment on above: Performed By: #### C MP #### [facility] [address] [address] [address] Blanca Ford Calcium [Mass/Vol] 8.2 mg/dL Critically low 8.5-10.1 [facility] Comment on above: Performed By: #### C MP #### [facility] [address] [address] [address] Blanca Ford Chloride [Moles/Vol] 104 mmol/L Normal 98-107 [facility] Comment on above: Performed By: #### C MP #### [facility] [address] [address] [address] Blanca Ford CO2 [Moles/Vol] 28.0 mmol/L Normal 21.0-32.0 [facility] Comment on above: Performed By: #### C MP #### [facility] [address] [address] [address] Blanca Ford Creatinine [Mass/Vol] 0.74 mg/dL Normal 0.55-1.02 [facility] Comment on above: Performed By: #### C MP #### [facility] [address] [address] [address] Blanca Ford EGFR-AF FILIPINO >60 Normal >=60 [facility] Comment on above: Performed By: #### C MP #### [facility] [address] [address] [address] Blanca Ford EGFR-NON AF FILIPINO >60 Normal >=60 [facility] Comment on above: Performed By: #### C MP #### [facility] [address] [address] [address] Blanca Ford Globulin (S) [Mass/Vol] 3.0 g/dL Normal [facility] Comment on above: Performed By: #### C MP #### [facility] [address] [place] [address] Dr. Blanca Ford Glucose [Mass/Vol] 127 mg/dL Critically high 74-106 T [facility] Comment on above: Performed By: #### C MP #### [facility] [address] [address] [address] Blanca Ford Potassium [Moles/Vol] 3.0 mmol/L Critically low 3.5-5.1 [facility] Comment on above: Performed By: #### C MP #### [facility] [address] [place] [address] Dr. Blanca Ford Protein [Mass/Vol] 6.1 g/dL Critically low 6.4-8.2 [facility] Comment on above: Performed By: #### C MP #### [facility] [address] [address] [address] Blanca Ford Sodium [Moles/Vol] 143 mmol/L Normal 136-145 [facility] Comment on above: Performed By: #### C MP #### [facility] [address] [place] [address] Dr. Blanca Ford Urea nitrogen [Mass/Vol] 16.0 mg/dL Normal 7.0-18.0 [facility] Comment on above: Performed By: #### C MP #### [facility] [address] [place] [address] Dr. Blanca Ford Urea nitrogen/Creatinine [Mass ratio] 21.6 mg/mg Normal [facility] Comment on above: Performed By: #### C MP #### [facility] [address] [place] [address] Dr. Blanca Ford CBC AUTO DIFFon 12-18-2021 BASO # 0.0 103/ul Normal 0.0-0.1 [facility] Comment on above: Performed By: #### C MP #### [facility] [address] [place] [address] Dr. Blanca Ford Basophils/100 WBC (Bld) 0.4 % Normal 0.2-2.0 [facility] Comment on above: Performed By: #### C MP #### [facility] [address] [place] [address] Dr. Blnaca Ford EO # 0.0 103/ul Normal 0.0-0.7 [facility] Comment on above: Performed By: #### C MP #### [facility] [address] [place] [address] Dr. Blanca Ford Eosinophils/100 WBC (Bld) 0.2 % Critically low 0.9-7.0 [facility] Comment on above: Performed By: #### C MP #### [facility] [address] [place] [address] Dr. Blanca Ford Erythrocyte distribution width (RBC) [Ratio] 12.2 % Normal 11.0-15.0 [facility] Comment on above: Performed By: #### C MP #### [facility] [address] [place] [address] Dr. Blanca Ford Hematocrit (Bld) [Volume fraction] 40.4 % Normal 36.0-48.0 [facility] Comment on above: Performed By: #### C MP #### [facility] [address] [place] [address] Dr. Blanca Ford Hemoglobin (Bld) [Mass/Vol] 13.1 g/dL Normal 12.0-16.0 [facility] Comment on above: Performed By: #### C MP #### [facility] [address] [place] [address] Dr. Blanca Ford IG # 0.02 10e3/ul Normal 0.00-0.03 [facility] Comment on above: Performed By: #### C MP #### [facility] [address] [place] [address] Dr. Blanca Ford IG % 0.4 % Normal 0.0-0.5 [facility] Comment on above: Performed By: #### C MP #### [facility] [address] [place] [address] Dr. Blanca Ford LYMPH # 1.0 103/ul Critically low 1.2-3.8 [facility] Comment on above: Performed By: #### C MP #### [facility] [address] [place] [address] Dr. Blanca Ford Lymphocytes/100 WBC (Bld) 17.3 % Critically low 20.5-60.0 [facility] Comment on above: Performed By: #### C MP #### [facility] [address] [place] [address] Dr. Blanca Ford MANUAL DIFF REQ NO Normal [facility] Comment on above: Performed By: #### C MP #### [facility] [address] [place] [address] Dr. Blanca Ford MCH (RBC) [Entitic mass] 27.8 pg Normal 26.7-34.0 [facility] Comment on above: Performed By: #### C MP #### [facility] [address] [place] [address] Dr. Blanca Ford MCHC (RBC) [Mass/Vol] 32.4 g/dL Normal 29.9-35.2 [facility] Comment on above: Performed By: #### C MP #### [facility] [address] [place] [address] Dr. Blanca Ford MCV (RBC) [Entitic vol] 85.6 fL Normal 81.0-99.0 [facility] Comment on above: Performed By: #### C MP #### [facility] [address] [place] [address] Dr. Blanca Ford MONO # 0.1 103/ul Critically low 0.3-0.8 [facility] Comment on above: Performed By: #### C MP #### [facility] [address] [place] [address] Dr. Blanca Ford Monocytes/100 WBC (Bld) 1.4 % Critically low 1.7-12.0 [facility] Comment on above: Performed By: #### C MP #### [facility] [address] [place] [address] Dr. Blanca Ford NEUT # 4.6 103/ul Normal 1.4-6.5 [facility] Comment on above: Performed By: #### C MP #### [facility] [address] [place] [address] Dr. Blanca Ford Neutrophils/100 WBC (Bld) 80.3 % Critically high 43.0-75.0 [facility] Comment on above: Performed By: #### C MP #### [facility] [address] [place] [address] Dr. Blanca Ford Platelet mean volume (Bld) [Entitic vol] 9.1 fL Critically low 9.5-13.5 [facility] Comment on above: Performed By: #### C MP #### [facility] [address] [place] [address] Dr. Blanca Ford PLT 214 103/ul Normal 150-450 [facility] Comment on above: Performed By: #### C MP #### [facility] [address] [place] [address] Dr. Blanca Ford RBC 4.72 106/ul Normal 4.20-5.40 [facility] Comment on above: Performed By: #### C MP #### [facility] [address] [place] [address] Dr. Blanca Ford WBC 5.7 103/ul Normal 4.0-11.0 [facility] Comment on above: Performed By: #### C MP #### [facility] [address] [place] [address] Dr. Blanca Ford POINT OF CARE GLUCOSEon 05-2 Glucose [Mass/Vol] 159 mg/dL Critically high 74-106 [facility] Comment on above: Performed By: #### L ACT #### [facility] [address] [address] [address] Blanca Ford Glucose [Mass/Vol] 142 mg/dL Critically high [address] [place] [address] Comment on above: Performed By: #### P OCGLUC #### [facility] [address] [address] [address] Blanca Ford Glucose [Mass/Vol] 224 mg/dL Critically high [address] [place] [address] Comment on above: Performed By: #### L ACT #### [facility] [address] [address] [address] Blanca Ford Glucose [Mass/Vol] 177 mg/dL Critically high [address] [place] [address] Comment on above: Performed By: #### L ACT #### [facility] [address] [address] [address] Blanca Ford PROF 14(COMP METB)on 022 Albumin [Mass/Vol] 3.5 g/dL Normal 3.4-5.0 [facility] Comment on above: Performed By: #### C MP #### [facility] [address] [place] [address] Dr. Blanca Ford Albumin/Globulin [Mass ratio] 1.0 {ratio} [facility] Comment on above: Performed By: #### C MP #### [facility] [address] [place] [address] Dr. Blanca Ford ALP [Catalytic activity/Vol] 61 U/L Normal 46-116 [facility] Comment on above: Performed By: #### C MP #### [facility] [address] [address] [address] Blanca Ford ALT [Catalytic activity/Vol] 40 U/L Normal 14-59 [facility] Comment on above: Performed By: #### C MP #### [facility] [address] [place] [address] Dr. Blanca Ford Anion gap [Moles/Vol] 12.8 mmol/L Normal [facility] Comment on above: Performed By: #### C MP #### [facility] [address] [address] [address] Blanca Ford AST [Catalytic activity/Vol] 20 U/L Normal 15-37 [facility] Comment on above: Performed By: #### C MP #### [facility] [address] [address] [address] Blanca Ford Bilirubin [Mass/Vol] 0.3 mg/dL Normal 0.2-1.0 [facility] Comment on above: Performed By: #### C MP #### [facility] [address] [address] [address] Blanca Ford Calcium [Mass/Vol] 8.7 mg/dL Normal 8.5-10.1 [facility] Comment on above: Performed By: #### C MP #### [facility] [address] [address] [address] Blanca Ford Chloride [Moles/Vol] 101 mmol/L Normal 98-107 [facility] Comment on above: Performed By: #### C MP #### [facility] [address] [address] [address] Blanca Ford CO2 [Moles/Vol] 28.5 mmol/L Normal 21.0-32.0 [facility] Comment on above: Performed By: #### C MP #### [facility] [address] [address] [address] Blanca Ford Creatinine [Mass/Vol] 0.91 mg/dL Normal 0.55-1.02 [facility] Comment on above: Performed By: #### C MP #### [facility] [address] [address] [address] Blanca Ford EGFR-AF FILIPINO >60 Normal >=60 [facility] Comment on above: Performed By: #### C MP #### [facility] [address] [address] [address] Blanca Ford EGFR-NON AF FILIPINO >60 Normal >=60 [facility] Comment on above: Performed By: #### C MP #### [facility] [address] [address] [address] Blanca Ford Globulin (S) [Mass/Vol] 3.6 g/dL [facility] Comment on above: Performed By: #### C MP #### [facility] [address] [place] [address] Dr. Blanca Ford Glucose [Mass/Vol] 191 mg/dL Critically high 74-106 T [facility] Comment on above: Performed By: #### C MP #### [facility] [address] [address] [address] Blanca Ford Potassium [Moles/Vol] 3.3 mmol/L Critically low 3.5-5.1 [facility] Comment on above: Performed By: #### C MP #### [facility] [address] [place] [address] Dr. Blanca Ford Protein [Mass/Vol] 7.1 g/dL Normal 6.4-8.2 [facility] Comment on above: Performed By: #### C MP #### [facility] [address] [place] [address] Dr. Blanca Ford Sodium [Moles/Vol] 139 mmol/L Normal 136-145 [facility] Comment on above: Performed By: #### C MP #### [facility] [address] [place] [address] Dr. Blanca Ford Urea nitrogen [Mass/Vol] 18.0 mg/dL Normal 7.0-18.0 [facility] Comment on above: Performed By: #### C MP #### [facility] [address] [place] [address] Dr. Blanca Ford Urea nitrogen/Creatinine [Mass ratio] 19.8 mg/mg [facility] Comment on above: Performed By: #### C MP #### [facility] [address] [place] [address] Dr. Blanca Ford ACETONE SERUMon 12-17-2021 ACETONE Negative Normal NEGATIVE [facility] Comment on above: Performed By: #### L ACT #### [facility] [address] [place] [address] Dr. Blanca Ford CBC AUTO DIFFon 12-17-2021 BASO # 0.0 103/ul Normal 0.0-0.1 [facility] Comment on above: Performed By: #### C BC #### [facility] [address] [place] [address] Dr. Blanca Ford Basophils/100 WBC (Bld) 0.5 % Normal 0.2-2.0 [facility] Comment on above: Performed By: #### C BC #### [facility] [address] [place] [address] Dr. Blanca Ford EO # 0.1 103/ul Normal 0.0-0.7 [facility] Comment on above: Performed By: #### C BC #### [facility] [address] [place] [address] Dr. Blanca Ford Eosinophils/100 WBC (Bld) 1.2 % Normal 0.9-7.0 [facility] Comment on above: Performed By: #### C BC #### [facility] [address] [place] [address] Dr. Blanca Ford Erythrocyte distribution width (RBC) [Ratio] 12.3 % Normal 11.0-15.0 [facility] Comment on above: Performed By: #### C BC #### [facility] [address] [place] [address] Dr. Blanca Ford Hematocrit (Bld) [Volume fraction] 41.2 % Normal 36.0-48.0 [facility] Comment on above: Performed By: #### C BC #### [facility] [address] [place] [address] Dr. Blanca Ford Hemoglobin (Bld) [Mass/Vol] 13.8 g/dL Normal 12.0-16.0 [facility] Comment on above: Performed By: #### C BC #### [facility] [address] [place] [address] Dr. Blanca Ford IG # 0.02 10e3/ul Normal 0.00-0.03 [facility] Comment on above: Performed By: #### C BC #### [facility] [address] [place] [address] Dr. Blanca Ford IG % 0.3 % Normal 0.0-0.5 [facility] Comment on above: Performed By: #### C BC #### [facility] [address] [place] [address] Dr. Blanca Ford LYMPH # 1.1 103/ul Critically low 1.2-3.8 [facility] Comment on above: Performed By: #### C BC #### [facility] [address] [place] [address] Dr. Blanca Ford Lymphocytes/100 WBC (Bld) 15.0 % Critically low 20.5-60.0 [facility] Comment on above: Performed By: #### C BC #### [facility] [address] [place] [address] Dr. Blanca Ford MANUAL DIFF REQ NO Normal [facility] Comment on above: Performed By: #### C BC #### [facility] [address] [place] [address] Dr. Blanca Ford MCH (RBC) [Entitic mass] 28.1 pg Normal 26.7-34.0 [facility] Comment on above: Performed By: #### C BC #### [facility] [address] [place] [address] Dr. Blanca Ford MCHC (RBC) [Mass/Vol] 33.5 g/dL Normal 29.9-35.2 [facility] Comment on above: Performed By: #### C BC #### [facility] [address] [place] [address] Dr. Blanca Ford MCV (RBC) [Entitic vol] 83.9 fL Normal 81.0-99.0 [facility] Comment on above: Performed By: #### C BC #### [facility] [address] [place] [address] Dr. Blanca Ford MONO # 0.3 103/ul Normal 0.3-0.8 [facility] Comment on above: Performed By: #### C BC #### [facility] [address] [place] [address] Dr. Blanca Ford Monocytes/100 WBC (Bld) 4.3 % Normal 1.7-12.0 [facility] Comment on above: Performed By: #### C BC #### [facility] [address] [place] [address] Dr. Blanca Ford NEUT # 5.8 103/ul Normal 1.4-6.5 [facility] Comment on above: Performed By: #### C BC #### [facility] [address] [place] [address] Dr. Blanca Ford Neutrophils/100 WBC (Bld) 78.7 % Critically high 43.0-75.0 [facility] Comment on above: Performed By: #### C BC #### [facility] [address] [place] [address] Dr. Blanca Ford Platelet mean volume (Bld) [Entitic vol] 8.8 fL Critically low 9.5-13.5 [facility] Comment on above: Performed By: #### C BC #### [facility] [address] [place] [address] Dr. Blanca Ford PLT 240 103/ul Normal 150-450 [facility] Comment on above: Performed By: #### C BC #### [facility] [address] [place] [address] Dr. Blanca Ford RBC 4.91 106/ul Normal 4.20-5.40 [facility] Comment on above: Performed By: #### C BC #### [facility] [address] [place] [address] Dr. Blanca Ford WBC 7.4 103/ul Normal 4.0-11.0 [facility] Comment on above: Performed By: #### C BC #### [facility] [address] [place] [address] CSPINE WO CONon [...] BENEDICTO KARIMI Date: 2021-12-17 17:12 Normal [facility] CT HEAD WO CONon 12-17-2021 CT HEAD [...] BENEDICTO KARIMI Date: 2021-12-17 17:03 Normal [facility] CULTURE BLOODon 12-17-2021 Microscopic examination of blood, culture Culture Observations: NO GROWTH AT 5 DAYS. Normal [facility] Comment on above: Performed By: #### A 1C #### [facility] [address] [address] [address] Blanca Ford Microscopic examination of blood, culture Culture Observations: NO GROWTH AT 5 DAYS. Normal [facility] Comment on above: Performed By: #### A 1C #### [facility] [address] [address] [address] Blanca Ford CULTURE URINEon 12-17-2021 CULTURE URINE Culture Observations : LIGHT GROWTH OF MIXED GENITAL JUILANE. NO POTENTIAL PATHOGENS SEEN. Normal [facility] Comment on above: Performed By: #### A 1C #### [facility] [address] [place] [address] Dr. Blanca Ford Covid-19 PCR ([facility])on 11-22 SARS-CoV-2 (COVID-19) RNA MARY+probe Ql (Unsp spec) Not detected Normal NOT DETECTED [facility] Comment on above: Result Comment: When diagnostic [...] for this test is supported by the [place] Supervisor of Health and Human Service's declaration that [...] used). Performed By: #### A 1C #### [facility] [address] [address] [address] Blanca Ford ER URINE PROFILEon Bilirubin Ql (U) Negative Normal NEGATIVE [facility] Comment on above: Performed By: #### E SEAN PETERSON ####[facility] [address] [address]DrElyssa Ford Clarity (U) CLEAR Normal CLEAR [facility] Comment on above: Performed By: #### E SEAN PETERSON ####[facility] [address] [address]DrElyssa Ford Color (U) DK. ORANGE Abnormal YELLOW [facility] Comment on above: Performed By: #### E NICHOLAS, UMICRO ####[facility] [address] [place], [place] [address]Dr. Blanca CHAVES A micrscopic examination will be performed if indicated. Normal [facility] Comment on above: Performed By: #### SEAN BUSCH ####[facility] [address] [address]Dr. Blanca Ford Glucose Ql (U) Negative Normal NEGATIVE [facility] Comment on above: Performed By: #### SEAN BUSCH ####[facility] [address] [place], [place] [address]Dr. Blanca Ford Hemoglobin Ql (U) Negative Normal NEGATIVE [facility] Comment on above: Performed By: #### BRII BUSCHRO ####[facility] [address] [place], [place] [address]Dr. Blanca Ford Ketones Ql (U) Negative Normal NEGATIVE [facility] Comment on above: Performed By: #### SEAN BUSCH ####[facility] [address] [place], [place] [address]Dr. Blanca Ford LEUKOCYTES MODERATE Abnormal NEGATIVE [facility] Comment on above: Performed By: #### SEAN BUSCH ####[facility] [address] [place], [place] [address]Dr. Blanca Ford Nitrite Ql (U) Positive Abnormal NEGATIVE [facility] Comment on above: Performed By: #### SENA BUSCH ####[facility] [address] [place], [place] [address]Dr. Blanca Ford pH (U) 6.5 [pH] Normal 5-9 [facility] Comment on above: Performed By: #### SEAN BUSCH ####[facility] [address] [place], [place] [address]Dr. Blanca Ford SPEC GRAVITY 1.015 Normal 1.005-<=1.02 5 [facility] Comment on above: Performed By: #### SEAN BUSCH ####[facility] [address] [address]Dr. Blanca Ford UA PROTEIN Negative Normal NEGATIVE/ TRACE [facility] Comment on above: Performed By: #### SEAN BUSCH ####[facility] [address] [address]Dr. Blanca Ford UR MICRO IND INDICATED Normal [facility] Comment on above: Performed By: #### SEAN BUSCH ####[facility] [address] [address]Dr. Blanca Ford Urobilinogen Qn (U) 1.0 {Erwin'U}/dL Normal 0.2 - 1. 0 [facility] Comment on above: Performed By: #### SEAN BUSCH ####[facility] [address] [address]Dr. Blanca Ford LACTATE/LACTIC ACIDon 2021 Lactate [Moles/Vol] 1.8 mmol/L Normal 0.4-1.9 [facility] Comment on above: Performed By: #### L ACT #### [facility] [address] [address] [address] Blanca Ford Lactate [Moles/Vol] 2.2 mmol/L Critically high 0.4-1.9 [facility] Comment on above: Performed By: #### A 1C #### [facility] [address] [address] [address] Blanca Ford LIPASEon 12-17-2021 Lipase [Catalytic activity/Vol] 49.0 U/L Critically low 73.0-393.0 [facility] Comment on above: Performed By: #### T SH, HSTROPN, CMP, LIPA ####[facility] [address] [address]DrElyssa Ford POINT OF CARE GLUCOSEon 11-22 Glucose [Mass/Vol] 133 mg/dL Critically high 74-106 [facility] Comment on above: Performed By: #### L ACT #### [facility] [address] [address] [address] Blanca Ford Glucose [Mass/Vol] 113 mg/dL Critically high 74-106 [facility] Comment on above: Performed By: #### C MP #### [facility] [address] [address] [address] Blanca Ford PROF 14(COMP METB)on 022 Albumin [Mass/Vol] 3.8 g/dL Normal 3.4-5.0 [facility] Comment on above: Performed By: #### T SH, HSTROPN, CMP, LIPA ####[facility] [address] [address]Dr. Blanca Ford Albumin/Globulin [Mass ratio] 1.1 {ratio} Normal [facility] Comment on above: Performed By: #### T SH, HSTROPN, CMP, LIPA ####[facility] [address] [address]Dr. Blanca Ford ALP [Catalytic activity/Vol] 72 U/L Normal 46-116 [facility] Comment on above: Performed By: #### T SH, HSTROPN, CMP, LIPA ####[facility] [address] [address]Dr. Blanca Ford ALT [Catalytic activity/Vol] 46 U/L Normal 14-59 [facility] Comment on above: Performed By: #### T SH, HSTROPN, CMP, LIPA ####[facility] [address] [address]Dr. Blanca Ford Anion gap [Moles/Vol] 10.8 mmol/L Normal [facility] Comment on above: Performed By: #### T SH, HSTROPN, CMP, LIPA ####[facility] [address] [address]Dr. Blanca Ford AST [Catalytic activity/Vol] 25 U/L Normal 15-37 [facility] Comment on above: Performed By: #### T SH, HSTROPN, CMP, LIPA ####[facility] [address] [address]Dr. Blanca Ford Bilirubin [Mass/Vol] 0.5 mg/dL Normal 0.2-1.0 [facility] Comment on above: Performed By: #### T SH, HSTROPN, CMP, LIPA ####[facility] [address] [address]Dr. Blanca Ford Calcium [Mass/Vol] 9.4 mg/dL Normal 8.5-10.1 [facility] Comment on above: Performed By: #### T SH, HSTROPN, CMP, LIPA ####[facility] [address] [address]Dr. Blanca Ford Chloride [Moles/Vol] 99 mmol/L Normal 98-107 [facility] Comment on above: Performed By: #### T SH, HSTROPN, CMP, LIPA ####[facility] [address] [place], [place] [address]Dr. Blanca Ford CO2 [Moles/Vol] 31.2 mmol/L Normal 21.0-32.0 [facility] Comment on above: Performed By: #### T SH, HSTROPN, CMP, LIPA ####[facility] [address] [address]Dr. Blanca Ford Creatinine [Mass/Vol] 0.86 mg/dL Normal 0.55-1.02 [facility] Comment on above: Performed By: #### T SH, HSTROPN, CMP, LIPA ####[facility] [address] [address]Dr. Blanca Ford EGFR-AF FILIPINO >60 Normal >=60 [facility] Comment on above: Performed By: #### T SH, HSTROPN, CMP, LIPA ####[facility] [address] [address]Dr. Blanca Ford EGFR-NON AF FILIPINO >60 Normal >=60 [facility] Comment on above: Performed By: #### T SH, HSTROPN, CMP, LIPA ####[facility] [address] [address]Dr. Blanca Ford Globulin (S) [Mass/Vol] 3.6 g/dL Normal [facility] Comment on above: Performed By: #### T SH, HSTROPN, CMP, LIPA ####[facility] [address] [address]Dr. Blanca Ford Glucose [Mass/Vol] 125 mg/dL Critically high 74-106 [facility] Comment on above: Performed By: #### T SH, HSTROPN, CMP, LIPA ####[facility] [address] [address]Dr. Blanca Ford Potassium [Moles/Vol] 3.0 mmol/L Critically low 3.5-5.1 [facility] Comment on above: Performed By: #### T SH, HSTROPN, CMP, LIPA ####[facility] [address] [place], [place] [address]Dr. Blanca Ford Protein [Mass/Vol] 7.4 g/dL Normal 6.4-8.2 [facility] Comment on above: Performed By: #### T SH, HSTROPN, CMP, LIPA ####[facility] [address] [place], [place] [address]Dr. Blanca Ford Sodium [Moles/Vol] 139 mmol/L Normal 136-145 [facility] Comment on above: Performed By: #### T SH, HSTROPN, CMP, LIPA ####[facility] [address] [address]Dr. Blanca Ford Urea nitrogen [Mass/Vol] 16.0 mg/dL Normal 7.0-18.0 [facility] Comment on above: Performed By: #### T SH, HSTROPN, CMP, LIPA ####[facility] [address] [address]Dr. Blanca Ford Urea nitrogen/Creatinine [Mass ratio] 18.6 mg/mg Normal [facility] Comment on above: Performed By: #### T SH, HSTROPN, CMP, LIPA ####[facility] [address] [place], [place] [address]Dr. Blanca Ford PROTIMEon 12-17-2021 INR Coag (PPP) [Relative time] 1.09 {INR} Normal [facility] Comment on above: Performed By: #### P TT, PT #### [facility] [address] [address] [address] Blanca Ford INR GUIDELINES SEE BELOW Normal [facility] Comment on above: Result Comment: NICHOLAS RED INR: 2.0 - 3.0 CONDITIONS NOT LISTED BELOW 2.5 - 3.5 FOR PROSTHETIC HEART VALVE REPLACEMENT 2.5 - 3.5 RECURRENT THROMBOSIS Performed By: #### P TT, PT #### [facility] [address] [address] [address] Blanca Ford PT Coag (PPP) [Time] 11.7 s Critically high 9.0-11.6 [facility] Comment on above: Performed By: #### P TT, PT #### [facility] [address] [place] [address] Dr. Blanca Ford PTTon 12-17-2021 aPTT Coag (Bld) [Time] 26.5 s Normal 22.3-36.2 [facility] Comment on above: Performed By: #### P TT, PT #### [facility] [address] [address] [address] Blanca Ford TROPONIN, HIGH SENSITIVITYon 12-17-2021 HSTROP 6.8 pg/mL Normal 4.0-51.3 [facility] Comment on above: Result Comment: CUT- OFF POINTS HAVE BEEN ESTABLISHED BASED ON THE FOURTH UNIVERSAL DEFINITIONS OF MYOCARDIAL INFARCTION. THE UPPER REFERENCE LIMIT (URL) OF TROPONIN, DEFINED THE 99TH PERCENTILE OF cTnI DISTRIBUTION IN A REFERENCE POPULATION, HAS BEEN CONFIRMED THE DECISION THRESHOLD FOR [place] DIAGNOSIS. Performed By: #### T SH, HSTROPN, CMP, LIPA ####[facility] [address] [address]Dr. Blanca Ford TSHon 12-17-2021 TSH 1.580 uIU/mL Normal 0.358-3.740 [facility] Comment on above: Performed By: #### T SH, HSTROPN, CMP, LIPA ####[facility] [address] [address]Dr. Blanca Logan TSH RANGE SEE BELOW Normal [facility] Comment on above: Result Comment: <0.3 4 UIU/ml HYPERTHYROID 0.34-5.60 UIU/ml EUTHYROID >5.60 UIU/ml HYPOTHYROID Performed By: #### T SH, HSTROPN, CMP, LIPA ####[facility] [address] [address]Dr. Blanca Logan URINE MICROSCOPIC ONLYon BACTERIA TRACE Abnormal NONE SEEN [facility] Comment on above: Performed By: #### Jenniffer PETERSON UMICRO ####[facility] [address] [place], [place] [address]Dr. Blanca Ford Bacteria identified Cx Nom (U) INDICATED Normal [facility] Comment on above: Performed By: #### Jenniffer PETERSON UMICRO ####[facility] [address] [place], [place] [address]Dr. Blanca Ford CAST SEEN Abnormal NONE SEEN [facility] Comment on above: Performed By: #### Jenniffer PETERSON UMICRO ####[facility] [address] [address]Dr. Blanca Ford Crystals LM Nom (Urine sed) NONE SEEN Normal NONE SEEN [facility] Comment on above: Performed By: #### Jenniffer PETERSON UMICRO ####[facility] [address] [address]Dr. Blanca Ford Epithelial cells LM Ql (Urine sed) RARE Normal NONE SEEN /RARE [facility] Comment on above: Performed By: #### Jenniffer PETERSON UMICRO ####[facility] [address] [address]Dr. Blanca Ford MUCOUS NONE SEEN Normal NONE SEEN [facility] Comment on above: Performed By: #### Jenniffer PETERSON UMICRO ####[facility] [address] [address]Dr. Blanca Ford RBC 0-2 Normal 0-2 [facility] Comment on above: Performed By: #### Jenniffer PETERSON UMICRO ####[facility] [address] [place], [place] [address]Ap. Blanca Ford WBC 10-20 Abnormal NONE SEEN [facility] Comment on above: Performed By: #### SEAN BUSCH ####[facility] [address] [place], [place] [address]Xn. 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 03-26-2025 14:26-0400 Body height 161.11 cm Ginny [employer] Work Phone: [facility] 03-26-2025 14:26-040 Body mass index (BMI) [Ratio] 36.5 kg/m2 [employer] [employer] Work Phone: [facility] 03-26-2025 14:-040 Body weight 94.8 kg Ginny EVRGR Work Phone: [facility] 03-26-2025 14:26-040 Diastolic blood pressure 60 mm[Hg] Ginny EVRGR Work Phone: [facility] 03-26-2025 14:26-0400 Heart rate 78 /min Ginny EVRGR Work Phone: [facility] 03-26-2025 14:26-0400 Respiratory rate 18 /min [facility] [employer] Work Phone: [facility] 03-26-2025 14:26-0400 SaO2% (BldA) [Mass fraction] 96 % Ginny Aichholz Work Phone: [facility] 03-26-2025 14:26-0400 Systolic blood pressure 122 mm[Hg] Ginny Aichholz Work Phone: [facility] 01-29-2025 15:29-0400 Body height 160.71 cm Ginny Aichholz Work Phone: [facility] 01-29-2025 15:29-0400 Body mass index (BMI) [Ratio] 36.9 kg/m2 Ginny Aichholz Work Phone: [facility] 01-29-2025 15:29-0400 Body weight 95.5 kg Ginny Aichholz Work Phone: [facility] 01-29-2025 15:29-0400 Diastolic blood pressure 64 mm[Hg] Ginny Aichholz Work Phone: [facility] 01-29-2025 15:29-0400 Heart rate 76 /min Ginny Aichholz Work Phone: [facility] 01-29-2025 15:29-0400 Respiratory rate 20 /min Ginny Aichholz Work Phone: [facility] 01-29-2025 15:29-0400 SaO2% (BldA) [Mass fraction] 96 % Ginny Aichholz Work Phone: [facility] 01-29-2025 15:29-0400 Systolic blood pressure 140 mm[Hg] Ginny Aichholz Work Phone: [facility] 12-03-2024 14:36-0400 Body mass index (BMI) [Ratio] 34.06 kg/m2 Ginny Aichholz [employer] Work Phone: [facility] 12-03-2024 14:36-0400 Body temperature 98.49 [degF] Ginny Aichholz [employer] Work Phone: [facility] 12-03-2024 14:36-0400 Body weight 95.71 kg Ginny Ariasz [employer] Work Phone: [facility] 12-03-2024 14:36-0400 Diastolic blood pressure 76 mm[Hg] Ginny Danielhholz TECHNIC[employer] Work Phone: [facility] 12-03-2024 14:36-0400 Heart rate 69 /min Ginny Sonnyholz TECHNIC[employer] Work Phone: [facility] 12-03-2024 14:36-0400 Respiratory rate 18 /min Ginny Aichholz TECHNIC[employer] Work Phone: [facility] 12-03-2024 14:36-0400 SaO2% (BldA) [Mass fraction] 93 % Ginny Danielhholz TECHNICIAN [employer] Work Phone: [facility] 12-03-2024 14:36-0400 Systolic blood pressure 140 mm[Hg] Ginny Sonnyholz TECHNIC[employer] Work Phone: [facility] 11-20-2024 14:59-0400 Body height 160.6 cm [facility] 11-20-2024 14:59-0400 Body mass index (BMI) [Ratio] 36.8 kg/m2 [facility] 11-20-2024 14:59-0400 Body weight 95 kg [facility] 11-20-2024 14:59-0400 Diastolic blood pressure 73 mm[Hg] [facility] 11-20-2024 14:59-0400 Heart rate 73 /min [facility] 11-20-2024 14:59-0400 Respiratory rate 18 /min [facility] 11-20-2024 14:59-0400 SaO2% (BldA) [Mass fraction] 96 % [facility] 11-20-2024 14:59-0400 Systolic blood pressure 127 mm[Hg] [facility] 10-01-2024 13:03-0400 Body mass index (BMI) [Ratio] 34.35 kg/m2 Ginnygina Sanchezhholz TECHNIC[employer] Work Phone: [facility] 10-01-2024 13:03-0400 Body temperature 98.01 [degF] Ginny Aichholz TECHNICIAN [employer] Work Phone: [facility] 10-01-2024 13:03-0400 Body weight 96.53 kg Ginny Aichholz TECHNICIAN [employer] Work Phone: [facility] 10-01-2024 13:03-0400 Diastolic blood pressure 72 mm[Hg] Ginny Aichholz TECHNICIAN [employer] Work Phone: [facility] 10-01-2024 13:03-0400 Heart rate 80 /min Ginny Aichholz TECHNIC[employer] Work Phone: [facility] 10-01-2024 13:03-0400 Respiratory rate 18 /min Ginny Aichholz TECHNICIAN [employer] Work Phone: [facility] 10-01-2024 13:03-0400 SaO2% (BldA) [Mass fraction] 96 % Ginny Aichholz TECHNICIAN [employer] Work Phone: [facility] 10-01-2024 13:03-0400 Systolic blood pressure 118 mm[Hg] Ginny Aichholz TECHNICIAN [employer] Work Phone: [facility] 09-05-2024 14:26-0500 Body mass index (BMI) [Ratio] 33.54 kg/m2 Ginny Aichholz TECHNICIAN [employer] Work Phone: [facility] 09-05-2024 14:26-0500 Body temperature 98.49 [degF] Ginny Aichholz TECHNICIAN [employer] Work Phone: [facility] 09-05-2024 14:26-0500 Body weight 94.26 kg Ginny Aichholz TECHN[employer] Work Phone: [facility] 09-05-2024 14:26-0500 Diastolic blood pressure 72 mm[Hg] Ginny Aichholz TECHNICIAN [employer] Work Phone: [facility] 09-05-2024 14:26-0500 Heart rate 81 /min Ginny Aichholz TECHN[employer] Work Phone: [facility] 09-05-2024 14:26-0500 Respiratory rate 19 /min Ginny Delgado TECHNICIAN [employer] Work Phone: [facility] 09-05-2024 14:26-0500 SaO2% (BldA) [Mass fraction] 97 % Ginny Delgado TECHN[employer] Work Phone: [facility] 09-05-2024 14:26-0500 Systolic blood pressure 118 mm[Hg] Ginny Delgado TECHNIC[employer] Work Phone: [facility] 08-20-2024 14:29-0500 Body height 163.83 cm [facility] 08-20-2024 14:29-0500 Body mass index (BMI) [Ratio] 35.2 kg/m2 [facility] 08-20-2024 14:29-0500 Body weight 94.48 kg [facility] 08-20-2024 14:29-0500 Diastolic blood pressure 70 mm[Hg] [facility] 08-20-2024 14:29-0500 Heart rate 67 /min [facility] 08-20-2024 14:29-0500 Respiratory rate 18 /min [facility] 08-20-2024 14:29-0500 SaO2% (BldA) [Mass fraction] 95 % [facility] 08-20-2024 14:29-0500 Systolic blood pressure 116 mm[Hg] [facility] 05-15-2024 14:19-0400 Body mass index (BMI) [Ratio] 35.9 kg/m2 Ginny Juanaz Work Phone: [facility] 05-15-2024 14:19-0400 Diastolic blood pressure 70 mm[Hg] Ginny Juanaz Work Phone: [facility] 05-15-2024 14:19-0400 Systolic blood pressure 136 mm[Hg] Ginny Juanaz Work Phone: [facility] 05-15-2024 14:05-0400 Heart rate 69 /min Ginny Aichholz Work Phone: [facility] 05-15-2024 14:05-0400 Respiratory rate 18 /min Ginny Aichholz Work Phone: [facility] 05-15-2024 14:05-0400 SaO2% (BldA) [Mass fraction] 96 % Ginny Aichholz Work Phone: [facility] 05-15-2024 13:53-0400 Body height 163.83 cm Ginny Aichholz Work Phone: [facility] 05-15-2024 13:53-0400 Body weight 96.38 kg Ginny Aichholz Work Phone: [facility] 04-17-2024 13:05-0400 Body height 167.6 cm Ginny Aichholz TECHNICIAN [employer] Work Phone: [facility] 04-17-2024 13:05-0400 Body mass index (BMI) [Ratio] 33.7 kg/m2 Ginny Aichholz TECHNICIAN [employer] Work Phone: [facility] 04-17-2024 13:05-0400 Body temperature 98.49 [degF] Ginny Aichholz TECHNICIAN [employer] Work Phone: [facility] 04-17-2024 13:05-0400 Body weight 94.71 kg Ginny Aichholz TECHNICIAN [employer] Work Phone: [facility] 04-17-2024 13:05-0400 Diastolic blood pressure 70 mm[Hg] Ginny Aichholz TECHNICIAN [employer] Work Phone: [facility] 04-17-2024 13:05-0400 Heart rate 71 /min Ginny Aichholz TECHNICIAN [employer] Work Phone: [facility] 04-17-2024 13:05-0400 Respiratory rate 20 /min Ginny Aichholz TECHNICIAN [employer] Work Phone: [facility] 04-17-2024 13:05-0400 SaO2% (BldA) [Mass fraction] 96 % Ginny Aichholz TECHNICIAN [employer] Work Phone: [facility] 04-17-2024 13:05-0400 Systolic blood pressure 132 mm[Hg] Ginny Aichholz TECHNICIAN [employer] Work Phone: [facility] 03-20-2024 14:36-0400 Body height 163.83 cm Ginny Aichholz Work Phone: [facility] 03-20-2024 14:36-0400 Body mass index (BMI) [Ratio] 36.5 kg/m2 Ginny Aichholz Work Phone: [facility] 03-20-2024 14:36-0400 Body weight 97.97 kg Ginny Aichholz Work Phone: [facility] 03-20-2024 14:36-0400 Diastolic blood pressure 72 mm[Hg] Ginny Aichholz Work Phone: [facility] 03-20-2024 14:36-0400 Heart rate 70 /min Ginny Aichholz Work Phone: [facility] 03-20-2024 14:36-0400 Respiratory rate 18 /min Ginny Aichholz Work Phone: [facility] 03-20-2024 14:36-0400 SaO2% (BldA) [Mass fraction] 97 % Ginny Aichholz Work Phone: [facility] 03-20-2024 14:36-0400 Systolic blood pressure 132 mm[Hg] Ginny Aichholz Work Phone: [facility] 02-16-2024 12:04-0400 Body height 163.83 cm Ginny Aichholz Work Phone: [facility] 02-16-2024 12:04-0400 Body mass index (BMI) [Ratio] 37.5 kg/m2 Ginny Aichholz Work Phone: [facility] 02-16-2024 12:04-0400 Body temperature 97.7 [degF] Ginny Aichholz Work Phone: [facility] 02-16-2024 12:04-0400 Body weight 100.92 kg Ginny Aichholz Work Phone: [facility] 02-16-2024 12:04-0400 Diastolic blood pressure 77 mm[Hg] Ginny Aichholz Work Phone: [facility] 02-16-2024 12:04-0400 Heart rate 75 /min Ginny Aichholz Work Phone: [facility] 02-16-2024 12:04-0400 Respiratory rate 18 /min Ginny Aichholz Work Phone: [facility] 02-16-2024 12:04-0400 SaO2% (BldA) [Mass fraction] 97 % Ginny Sanchezhholz Work Phone: [facility] 02-16-2024 12:04-0400 Systolic blood pressure 135 mm[Hg] Ginny Aichholz Work Phone: [facility] 01-31-2024 14:03-0400 Body height 163.83 cm [facility] 01-31-2024 14:03-0400 Body mass index (BMI) [Ratio] 38.5 kg/m2 [facility] 01-31-2024 14:03-0400 Body weight 103.47 kg [facility] 01-31-2024 14:03-0400 Heart rate 65 /min [facility] 01-31-2024 14:03-0400 Respiratory rate 18 /min [facility] 01-31-2024 14:03-0400 SaO2% (BldA) [Mass fraction] 100 % [facility] 12-27-2023 13:05-0400 Body height 163.83 cm [facility] 12-27-2023 13:05-0400 Body mass index (BMI) [Ratio] 38.3 kg/m2 [facility] 12-27-2023 13:05-0400 Body weight 102.96 kg [facility] 12-27-2023 13:05-0400 Diastolic blood pressure 79 mm[Hg] [facility] 12-27-2023 13:05-0400 Heart rate 65 /min [facility] 12-27-2023 13:05-0400 Respiratory rate 16 /min [facility] 12-27-2023 13:05-0400 SaO2% (BldA) [Mass fraction] 96 % [facility] 12-27-2023 13:05-0400 Systolic blood pressure 146 mm[Hg] [facility] 11-10-2023 11:28-0400 Body height 163.83 cm [facility] 11-10-2023 11:28-0400 Body mass index (BMI) [Ratio] 40.8 kg/m2 [facility] 11-10-2023 11:28-0400 Body weight 109.51 kg [facility] 11-10-2023 09:50-0400 Body height 163.83 cm DO Migel Biedenbach Work Phone: [facility] 11-10-2023 09:50-0400 Body mass index (BMI) [Ratio] 36.2 kg/m2 DO Migel Biedenbach Work Phone: [facility] 11-10-2023 09:50-0400 Body weight 97.26 kg DO Migel Biedenbach Work Phone: [facility] 11-10-2023 09:50-0400 Diastolic blood pressure 76 mm[Hg] DO Migel Biedenbach Work Phone: [facility] 11-10-2023 09:50-0400 Heart rate 67 /min DO Migel Biedenbach Work Phone: [facility] 11-10-2023 09:50-0400 Respiratory rate 18 /min DO Migel Biedenbach Work Phone: [facility] 11-10-2023 09:50-0400 SaO2% (BldA) [Mass fraction] 95 % DO Migel Núñez Work Phone: [facility] 11-10-2023 09:50-0400 Systolic blood pressure 120 mm[Hg] DO Migel Núñez Work Phone: [facility] 09-07-2023 10:42-0500 Body height 167.6 cm Migel Núñez DO Work Phone: [facility] 09-07-2023 10:42-0500 Body mass index (BMI) [Ratio] 38.74 kg/m2 Migel Núñez DO Work Phone: [facility] 09-07-2023 10:42-0500 Body weight 108.86 kg Migel Núñez DO Work Phone: [facility] 04-04-2023 10:40-0400 Body height 167.64 cm Gina Harkins Other [employer] Other 04-04-2023 10:40-0400 Body mass index (BMI) [Ratio] 39.48 kg/m2 Gina Harkins Other [employer] Other 04-04-2023 10:40-0400 Body temperature 99.7 [degF] Gina Harkins Other [employer] Other 04-04-2023 10:40-0400 Body weight 110.95 kg Gina Harkins Other [employer] Other 04-04-2023 10:40-0400 Diastolic blood pressure 64 mm[Hg] Gina Harkins Other [employer] Other 04-04-2023 10:40-0400 Respiratory rate 18 /min Gina Harkins Other [employer] Other 04-04-2023 10:40-0400 SaO2% (BldA) [Mass fraction] 98 % Gina Harkins Other [employer] Other 04-04-2023 10:40-0400 Systolic blood pressure 149 mm[Hg] Gina Hakrins Other [employer] Other Encounters Encounter Date Encounter Type Care Provider Facility Start: 03-26-2025 End: 03-26-2025 ambulatory Ginny Natarajan Work Phone: [facility] Work Phone: Start: 03-26-2025 End: 03-26-2025 Patient encounter procedure Danna Spence [facility] Work Phone: Start: 03-13-2025 End: 03-13-2025 ambulatory [facility] Start: 02-25-2025 End: 02-25-2025 Orders Only Ginnygina Natarajan TECHNICIAN [employer] Work Phone: [facility] Comment on above: Vitamin D deficiency , unspecified (Primary Dx); Essential hypertension; Type 2 diabetes mellitus without complication, without long-term current use of insulin (HCC); Hypomagnesemia; Hypokalemia Start: 02-20-2025 End: 02-20-2025 Refill Ginny Aichholz TECHNICIAN [employer] Work Phone: [facility] Comment on above: Type 2 diabetes bridget itus without complications (HCC); Environmental and seasonal allergies Start: 02-11-2025 End: 02-12-2025 Refill Ginny Aichholz TECHNICIAN [employer] Work Phone: [facility] Comment on above: Herpesviral infectio n, unspecified; Rash and nonspecific skin eruption Start: 02-10-2025 End: 02-10-2025 Refill Ginny Aichholz TECHNICIAN [employer] Work Phone: [facility] Comment on above: Hypomagnesemia Start: 01-29-2025 End: 01-29-2025 ambulatory Ginny Viet Natarajan Work Phone: [facility] Work Phone: Start: 01-29-2025 End: 01-29-2025 Patient encounter procedure Danna Spence [employer] [facility] Work Phone: Start: 12-05-2024 End: 12-05-2024 Refill Ginnygina Natarajan TECHNICIAN [employer] Work Phone: [facility] Comment on above: UTI (urinary tract i nfection), uncomplicated (Primary Dx) Start: 12-03-2024 End: 12-03-2024 Office outpatient visit 25 minutes Ginny Natarajan TECHNICIAN [employer] Work Phone: [facility] Comment on above: Type 2 diabetes bridget itus without complication, without long- term current use of insulin (Primary Dx); Type 2 diabetes mellitus with other specified complication; Mixed hyperlipidemia ([facility]/HCC); Essential hypertension; Allergic conjunctivitis of both eyes; Hypomagnesemia; UTI (urinary tract infection), uncomplicated; Environmental and seasonal allergies; Rash and nonspecific skin eruption Start: 12-03-2024 End: 12-03-2024 ambulatory GINNYGina NATARAJAN Not Available Start: 12-03-2024 End: 12-03-2024 Bamboo flowsheet Ginny Natarajan TECHNICIAN [employer] Work Phone: [facility] Start: 12-03-2024 End: 12-03-2024 Bamboo flowsheet Ginny Delgado TECHNICIAN [employer] Work Phone: [facility] Start: 11-28-2024 End: 11-28-2024 Clinisync Result Encounter Ginny Natarajan TECHNICIAN [employer] Work Phone: [facility] External Department Unsolicited Start: 11-28-2024 End: 11-28-2024 Clinisync Result Encounter Ginny Natarajan TECHNICIAN [employer] Work Phone: [facility] External Department Unsolicited Start: 11-22-2024 End: 11-22-2024 Bamboo flowsheet Jr. Vincenzo Jamil DO Work Phone: [facility] Start: 11-22-2024 End: 11-22-2024 Bamboo flowsheet Jr. Vincenzo Jamil DO Work Phone: [facility] Start: 11-22-2024 End: 11-22-2024 Office outpatient visit 25 minutes Jr. Vincenzo Jamil DO Work Phone: [facility] Comment on above: Pain and swelling of left knee (Primary Dx); Primary osteoarthritis of left knee Start: 11-22-2024 End: 11-22-2024 ambulatory VINCENZO BURNS Not Available Start: 11-21-2024 End: 11-21-2024 Refill Ginny Aichholz TECHNICIAN [employer] Work Phone: [facility] Comment on above: Allergic conjunctivi tis of both eyes Start: 11-20-2024 End: 11-20-2024 ambulatory [facility] Work Phone: Start: 11-20-2024 End: 11-20-2024 Patient encounter procedure [facility] Work Phone: Start: 11-05-2024 End: 11-05-2024 Telephone encounter Jr. Vincenzo Jamil DO Work Phone: [facility] Comment on above: Knee Start: 11-04-2024 End: 11-04-2024 Refill Ginny Aichholz TECHNICIAN [employer] Work Phone: [facility] Comment on above: UTI (urinary tract i nfection), uncomplicated (Primary Dx) Start: 10-23-2024 End: 10-24-2024 Refill Ginny Aichholz TECHNICIAN [employer] Work Phone: [facility] Comment on above: Allergic conjunctivi tis of both eyes Start: 10-01-2024 End: 10-01-2024 Bamboo flowsheet Ginny Aichholz TECHNICIAN [employer] Work Phone: [facility] Start: 10-01-2024 End: 10-01-2024 Bamboo flowsheet Ginny Natarajan TECHNICIAN [employer] Work Phone: [facility] Start: 10-01-2024 End: 10-01-2024 Office outpatient visit 15 minutes Ginny Natarajan TECHNICIAN [employer] Work Phone: [facility] Comment on above: Allergic conjunctivi tis of both eyes (Primary Dx); Obesity (BMI 30-39.9); Type 2 diabetes mellitus without complications (CMS/[facility]); Ringworm of body; Environmental and seasonal allergies; Type 2 diabetes mellitus without complication, without long-term current use of insulin (CMS/[facility]) Start: 10-01-2024 End: 10-01-2024 ambulatory GINNY AICHHOLZ Not Available Start: 09-11-2024 End: 09-11-2024 Orders Only Ginny Natarajan TECHNICIAN [employer] Work Phone: [facility] Comment on above: UTI (urinary tract i nfection), uncomplicated (Primary Dx) Start: 09-05-2024 End: 09-05-2024 Office outpatient visit 25 minutes Ginny Natarajan TECHNICIAN [employer] Work Phone: [facility] Comment on above: Essential hypertensi on (Primary Dx); Obesity (BMI 30-39.9); Type 2 diabetes mellitus without complication, without long-term current use of insulin (CMS/[facility]); Mixed hyperlipidemia ([facility]); Statin intolerance; Hypomagnesemia; Yeast dermatitis Start: 09-05-2024 End: 09-05-2024 ambulatory GINNY AICHHOLZ Not Available Start: 09-04-2024 End: 09-04-2024 Clinisync Result Encounter Ginny Natarajan TECHNICIAN [employer] Work Phone: [facility] External Department Unsolicited Start: 09-04-2024 End: 09-04-2024 Clinisync Result Encounter Ginny Natarajan TECHNICIAN [employer] Work Phone: [facility] External Department Unsolicited Start: 08-27-2024 End: 08-27-2024 Refill Ginny Delgado TECHNICIAN [employer] Work Phone: [facility] Comment on above: Urinary tract infect ion symptoms (Primary Dx) Start: 08-20-2024 End: 08-20-2024 ambulatory [facility] Work Phone: Start: 08-20-2024 End: 08-20-2024 Patient encounter procedure [facility] Work Phone: Start: 08-07-2024 End: 08-07-2024 Refill Yair Nails MD Work Phone: [facility] Comment on above: Spondylosis without myelopathy or radiculopathy, cervical region; Cervical spondylosis without myelopathy Start: 06-24-2024 End: 06-24-2024 Refill Ginny Delgado TECHNICIAN [employer] Work Phone: [facility] Comment on above: Type 2 diabetes bridget itus without complications ([facility]) Start: 05-27-2024 End: 05-27-2024 Office outpatient visit 15 minutes Jose Montes MD Work Phone: [facility] Comment on above: Telogen effluvium (P rimary Dx); Neoplasm of unspecified behavior of bone, soft tissue, and skin; Dermatofibroma Start: 05-27-2024 End: 05-27-2024 ambulatory JOES MONTES Not Available Start: 05-15-2024 End: 05-15-2024 ambulatory Ginny Natarajan Work Phone: [facility] Work Phone: Start: 05-15-2024 End: 05-15-2024 Patient encounter procedure Ginny Natarajan Work Phone: [facility] Work Phone: Start: 05-08-2024 End: 05-08-2024 Refill Ginny Delgado TECHNICIAN [employer] Work Phone: [facility] Comment on above: Hypokalemia Start: 04-25-2024 End: 04-25-2024 Refill Ginny Aichholz TECHNICIAN [employer] Work Phone: [facility] Comment on above: Hypomagnesemia (Prim carin Dx) Start: 04-24-2024 End: 04-24-2024 Clinisync Result Encounter Ginny Aichholz TECHNICIAN [employer] Work Phone: [facility] External Department Unsolicited Start: 04-24-2024 End: 04-24-2024 Clinisync Result Encounter Ginny Aichholz TECHNICIAN [employer] Work Phone: [facility] External Department Unsolicited Start: 04-24-2024 End: 04-24-2024 Refill Ginny Aichholz TECHNICIAN [employer] Work Phone: [facility] Comment on above: Environmental and se asonal allergies Start: 04-17-2024 End: 04-17-2024 Bamboo flowsheet Ginny Aichholz TECHNICIAN [employer] Work Phone: [facility] Start: 04-17-2024 End: 04-17-2024 Bamboo flowsheet Ginny Aichholz TECHNICIAN [employer] Work Phone: [facility] Start: 04-17-2024 End: 04-17-2024 Office outpatient visit 25 minutes Ginny Aichholz TECHNICIAN [employer] Work Phone: [facility] Comment on above: Type 2 diabetes bridget itus without complication, without long- term current use of insulin ([facility]) (Primary Dx); Muscle cramps; UTI (urinary tract infection), uncomplicated; COVID; Essential hypertension; Acute non-recurrent pansinusitis Start: 04-17-2024 End: 04-17-2024 ambulatory GINNY AICHHOLZ Not Available Start: 03-20-2024 End: 03-20-2024 ambulatory Ginny J Aichholz Work Phone: [facility] Work Phone: Start: 03-20-2024 End: 03-20-2024 Patient encounter procedure Ginny Aichholz Work Phone: [facility] Work Phone: Start: 03-11-2024 End: 03-11-2024 ambulatory Ginny Dennisdelmimeenakshi Work Phone: [facility] Work Phone: Start: 03-11-2024 End: 03-11-2024 Patient encounter procedure Ginny Dennisdelmimeenakshi Work Phone: [facility] Work Phone: Start: 02-16-2024 End: 02-16-2024 Patient encounter procedure Ginny Dennisdelmimeneakshi Work Phone: [facility] [facility] Work Phone: Start: 01-31-2024 End: 01-31-2024 ambulatory [facility] Work Phone: Start: 01-31-2024 End: 01-31-2024 Patient encounter procedure [facility] Work Phone: Start: 01-08-2024 End: 01-08-2024 ambulatory GINNY DENNISDELMIMeenakshi Not Available Start: 01-08-2024 Patient encounter procedure Ginny Dennisdelmimeenakshi Work Phone: [facility] Start: 01-03-2024 End: 01-03-2024 ambulatory VINCENZO BURNS Not Available Start: 12-27-2023 End: 12-27-2023 ambulatory [facility] Work Phone: Start: 12-27-2023 End: 12-27-2023 Patient encounter procedure [facility] Work Phone: Start: 11-28-2023 End: 11-28-2023 ambulatory [facility] Work Phone: Start: 11-28-2023 End: 11-28-2023 Patient encounter procedure [facility] Work Phone: Start: 11-10-2023 End: 11-10-2023 ambulatory NON STAFF [facility] Work Phone: Start: 11-10-2023 End: 11-10-2023 Patient encounter procedure DO Migel Núñez Work Phone: [facility] Work Phone: Start: 09-07-2023 Bamboo flowsheet Migel Kati Milkafatuma thaddeus DO Work Phone: [facility] Start: 09-07-2023 Bamboo flowsheet Migel Kati Carlitoankur thaddeus DO Work Phone: [facility] Start: 09-07-2023 End: 09-07-2023 Postop follow up visit related to original px Migel Núñez DO Work Phone: [facility] Comment on above: Sialadenitis (Primar y Dx); Salivary duct stone; Neck mass Start: 08-29-2023 End: 08-29-2023 Departed Referred DO Migel Jarquinfatumathaddeus Work Phone: [facility] [place] Work Phone: Start: 08-28-2023 Refill Ginny Natarajan TECHNICIAN [employer] [facility] Phone[facility] Comment on above: Hypokalemia Start: 07-27-2023 End: 07-27-2023 Patient encounter status Ginny Natarajan TECHNICIAN [employer] Work Phone: [facility] Start: 04-04-2023 End: 04-04-2023 ambulatory Gina Harkins Other [employer] Other Start: 04-04-2023 Office outpatient ne w 30 minutes Gina Harkins [facility] Start: 10-28-2022 ambulatory PROCESSING SPECIALIST GINNY NATARAJAN Facil ity:[facility] Start: 08-03-2022 End: 08-04-2022 ambulatory PROCESSING SPECIALIST GINNY NATARAJAN Facility:[facility] Start: 03-03-2022 End: 03-04-2022 ambulatory PROCESSING SPECIALIST GINNY DELGADO Facility:[facility] Start: 12-31-2021 End: 03-15-2022 ambulatory PROCESSING SPECIALIST GINNY DANIELHillaryDELMIMeenakshi Facility:[facility] Start: 12-17-2021 End: 12-19-2021 ambulatory PROCESSING SPECIALIST GINNY DELGADO Facility: Start: 12-19-2017 End: 12-20-2017 Ambulatory DEFAULT PHYSICIAN Facility:[facility] Start: 12-14-2017 End: 12-15-2017 Ambulatory DEFAULT PHYSICIAN Facility:[facility] Start: 12-04-2017 End: 12-05-2017 Ambulatory DEFAULT PHYSICIAN Facility:[facility] Procedures Date Procedure Procedure Detail Performing Clinician Start: 03-26-2025 Screening mammograph y of bilateral breasts Ginny Delgado Work Phone: Start: 12-03-2024 Hemoglobin glycosyla maria m a1c Ginny Delgado TECHNICIAN [employer] Work Phone: Start: 12-03-2024 Urnls dip stick/tabl et rgnt non-auto w/o micrscp Ginny Delgado TECHNICIAN [employer] Work Phone: Start: 11-28-2024 ALL MAGNESIUM Ginny Danielh jonathan TECHNICIAN [employer] Work Phone: Start: 09-04-2024 ALL MAGNESIUM Ginny Danielh jonathan TECHNICIAN [employer] Work Phone: Start: 05-27-2024 SKIN / NAIL BIOPSY Rey y Gina Montes MD Work Phone: Start: 04-24-2024 MLR HEMOGLOBIN A1C Ginny Delgado TECHNICIAN [employer] Work Phone: Start: 03-13-2024 Mammography Ginny Dash toney TECHNICIAN [employer] Work Phone: Start: 03-11-2024 Screening mammograph y of bilateral breasts Ginny Delgado Work Phone: Start: 02-16-2024 Quick Strep (POC) Ginny Delgado Work Phone: Start: 12-15-2022 Mammography Ginny Dash olmeenakshi TECHNICIAN [employer] Work Phone: Plan of Treatment Date Care Activity Detail Author Start: 02-09-2028 Screening for malignant neoplasm of colon [facility] Start: 06-06-2025 Glaucoma screening Diabetes: Retinopathy Screening [facility] Start: 06-05-2025 Hemoglobin A1c measurement Diabetes: Hemoglobin A1C [facility] Start: 05-28-2025 End: 05-28-2025 Patient encounter procedure [facility] Start: 05-10-2025 Urine screening for protein Diabetes: Urine Protein Screening [facility] Start: 04-07-2025 End: 04-07-2025 Patient encounter procedure 04/07/2025 1:40 PM EDT Office Visit [facility] [address] [place] [address] Ginny Natarajan NP [address] [place] [id number] [facility] Start: 03-26-2025 Screening mammography of bilateral breasts MM screening mammo BI w/CAD [facility] Start: 03-13-2025 Screening for malignant neoplasm of breast Mammogram [facility] Start: 03-04-2025 End: 03-04-2025 Patient encounter procedure 03/04/2025 2:00 PM EDT Office Visit [facility] [address] [place] [address] Ginny Natarajan NP [address] [place] [id number] [facility] Start: 02-25-2025 End: 02-25-2026 25-hydroxyvitamin D3 [Mass/volume] in Serum or Plasma Vitamin D 25 hydroxy Lab Routine Vitamin D deficiency, unspecified Expected: 02/25/2025 (Approximate), Expires: 02/25/2026 [facility] Comment on above: Expected: 02/25/2025 (Approximate), Expi res: 02/25/2026 Start: 02-25-2025 End: 02-25-2026 CBC W Auto Differential panel - Blood CBC and differential Lab Routine Type 2 diabetes mellitus without complication, without long-term current use of insulin (HCC) Expected: 02/25/2025 (Approximate), Expires: 02/25/2026 [facility] Work Phone: Comment on above: Expected: 02/25/2025 (Approximate), Expi res: 02/25/2026 Start: 02-25-2025 End: 02-25-2026 Comprehensive metabolic 2000 panel - Serum or Plasma Comprehensive metabolic panel Lab Routine Vitamin D deficiency, unspecified Hypokalemia Expected: 02/25/2025 (Approximate), Expires: 02/25/2026 [facility] Comment on above: Expected: 02/25/2025 (Approximate), Expi res: 02/25/2026 Start: 02-25-2025 End: 02-25-2026 Lipid 1996 panel - Serum or Plasma Lipid panel Lab Routine Type 2 diabetes mellitus without complication, without long-term current use of insulin ([facility]) Expected: 02/25/2025 (Approximate), Expires: 02/25/2026 [facility] Comment on above: Expected: 02/25/2025 (Approximate), Expi res: 02/25/2026 Start: 02-25-2025 End: 02-25-2026 Magnesium [Mass/volume] in Serum or Plasma Magnesium Lab Routine Hypomagnesemia Expected: 02/25/2025 (Approximate), Expires: 02/25/2026 [facility] Comment on above: Expected: 02/25/2025 (Approximate), Expi res: 02/25/2026 Start: 02-25-2025 End: 02-25-2026 Microalbumin/Creatinine panel in random Urine Microalbumin / creatinine, urine ratio Lab Routine Essential hypertension Type 2 diabetes mellitus without complication, without long-term current use of insulin (HCC) Expected: 02/25/2025 (Approximate), Expires: 02/25/2026 [facility] Comment on above: Expected: 02/25/2025 (Approximate), Expi res: 02/25/2026 Start: 02-25-2025 End: 02-25-2026 Urinalysis complete panel - Urine Urinalysis with reflex microscopic (clean catch) Lab Routine Essential hypertension Type 2 diabetes mellitus without complication, without long-term current use of insulin ([facility]) Expected: 02/25/2025 (Approximate), Expires: 02/25/2026 [facility] Comment on above: Expected: 02/25/2025 (Approximate), Expi res: 02/25/2026 Start: 01-07-2025 Medicare Annual Wellness (AWV) Medicare Annual Wellness (AWV) [facility] Start: 01-03-2025 End: 12-03-2025 Magnesium [Mass/volume] in Serum or Plasma Magnesium Lab Routine Hypomagnesemia Expected: 01/03/2025 (Approximate), Expires: 12/03/2025 [facility] Comment on above: Expected: 01/03/2025 (Approximate), Expi res: 12/03/2025 Start: 12-03-2024 End: 12-03-2024 Patient encounter procedure [facility] Comment on above: Essential hypertension (Primary Dx); Type 2 diabetes mellitus with other specified complication; Mixed hyperlipidemia ([facility]); Type 2 diabetes mellitus without complication, without long-term current use of insulin; Allergic conjunctivitis of both eyes; Hypomagnesemia Start: 12-03-2024 End: 12-03-2025 URINARY TRACT INFECTION (HTRX) URINARY TRACT INFECTION (HTRX) Lab Routine UTI (urinary tract infection), uncomplicated Expected: 12/03/2024 (Approximate), Expires: 12/03/2025 [facility] Work Phone: Comment on above: Expected: 12/03/2024 (Approximate), Expi res: 12/03/2025 Start: 11-22-2024 End: 11-22-2024 Patient encounter procedure [facility] Comment on above: Arrived Start: 10-23-2024 Hemoglobin A1c measurement Diabetes: Hemoglobin A1C [facility] Start: 10-03-2024 End: 09-05-2025 Magnesium [Mass/volume] in Serum or Plasma Magnesium Lab Routine Hypomagnesemia Expected: 10/03/2024 (Approximate), Expires: 09/05/2025 [facility] Work Phone: Comment on above: Expected: 10/03/2024 (Approximate), Expi res: 09/05/2025 Start: 10-01-2024 End: 10-01-2024 Patient encounter procedure 10/01/2024 1:00 PM EDT Office Visit [facility] [address] [place] [phone] Ginny Natarajan, ABIGAIL [address] [place] [phone] Obesity (BMI 30-39.9) (Primary Dx); Type 2 diabetes mellitus without complications (CMS/HCC) [facility] Comment on above: Obesity (BMI 30-39.9) (Primary Dx); Type 2 diabetes mellitus without complications (CMS/HCC) Start: 09-11-2024 End: 09-11-2025 URINARY TRACT INFECTION (HTRX) URINARY TRACT INFECTION (HTRX) Lab Routine UTI (urinary tract infection), uncomplicated Expected: 09/11/2024 (Approximate), Expires: 09/11/2025 [facility] Work Phone: Comment on above: Expected: 09/11/2024 (Approximate), Expi res: 09/11/2025 Start: 09-05-2024 End: 09-05-2024 Patient encounter procedure 09/05/2024 2:20 PM EST Office Visit [facility] [address] [place] [address] Ginny Natarajan, ABIGAIL [address] [place] [phone] [facility] Start: 08-14-2024 Urine screening for protein Diabetes: Urine Protein Screening [facility] Start: 08-01-2024 Urine screening for protein Diabetes: Urine Protein Screening [facility] Start: 07-10-2024 End: 07-10-2024 Patient encounter procedure 07/10/2024 1:00 PM EST Office Visit [facility] [address] [place] [address] Ginny Natarajan, ABIGAIL [address] [place] [phone] [facility] Start: 05-14-2024 End: 05-14-2024 Patient encounter procedure 05/14/2024 2:30 PM EDT Office Visit [facility] [address] [place] [phone] Jose Montes MD [address] [place] [address] [facility] Start: 04-17-2024 End: 04-17-2025 Basic metabolic 1998 panel - Serum or Plasma Basic metabolic panel Lab Routine Muscle cramps Expected: 04/17/2024 (Approximate), Expires: 04/17/2025 [facility] Comment on above: Expected: 04/17/2024 (Approximate), Expi res: 04/17/2025 Start: 04-17-2024 End: 04-17-2025 Hemoglobin A1c/Hemoglobin.total in Blood Hemoglobin A1c Lab Routine Type 2 diabetes mellitus without complication, without long-term current use of insulin ([facility]) Expected: 04/17/2024 (Approximate), Expires: 04/17/2025 [facility] Work Phone: Comment on above: Expected: 04/17/2024 (Approximate), Expi res: 04/17/2025 Start: 04-17-2024 End: 04-17-2025 Magnesium [Mass/volume] in Serum or Plasma Magnesium Lab Routine Muscle cramps Expected: 04/17/2024 (Approximate), Expires: 04/17/2025 [facility] Comment on above: Expected: 04/17/2024 (Approximate), Expi res: 04/17/2025 Start: 04-05-2024 Hemoglobin A1c measurement Diabetes: Hemoglobin A1C [facility] Start: 03-24-2024 Influenza vaccination Influenza Vaccine (#1) [facility] Start: 01-21-2024 Influenza vaccination Influenza Vaccine (#1) [facility] Comment on above: Postponed from 03/24/2023 (Patient Refus ed) Start: 12-16-2023 Screening for malignant neoplasm of breast Mammogram [facility] Start: 10-31-2023 Hemoglobin A1c measurement Diabetes: Hemoglobin A1C [facility] Start: 09-13-2023 End: 09-13-2023 Patient encounter procedure 09/13/2023 2:00 PM EST [facility] [address] [place] [address] Ginny Natarajan, ABIGAIL [address] [place] [address] [facility] Start: 09-07-2023 End: 09-07-2023 Patient encounter procedure [facility] Comment on above: Arrived Start: 09-04-2023 End: 09-04-2023 Patient encounter procedure 09/04/2023 5:00 PM EST Office Visit [facility] [address] [place] [address] Ginny Natarajan, ABIGAIL [address] [place] [phone] [facility] Start: 08-29-2023 End: 08-29-2023 Patient encounter procedure 08/29/2023 10:15 AM EST Procedure Visit [facility] Migel Núñez, DO [address] [place] [address] [facility] Start: 12-09-1971 Urine screening for protein Diabetes: Urine Protein Screening [facility] Start: 1962 Glaucoma screening Diabetes: Retinopathy Screening [facility] Start: 1952 Hemoglobin A1c measurement Diabetes: Hemoglobin A1C [facility] Start: 1950 Medicare Annual Wellness (AWV) Medicare Annual Wellness (AWV) [facility] Start: 1950 Screening for malignant neoplasm of colon [facility] Dermatopathology exam Dermatopat hology exam Pathology and Cytology Timed Neoplasm of unspecified behavior of bone, soft tissue, and skin Release Upon Ordering for 1 Occurrences starting 05/27/2024 [facility] Work Phone: Comment on above: Release Upon Ordering for 1 Occurrences starting 05/27/2024 Immunizations Immunization Date Immunization Notes Care Provider Tristin nicole 03-07-2022 pneumococcal polysaccharide vaccine, 23 valent Ginny Aichholz TECHNIC[employer] Work Phone: [facility] 09-28-2018 pneumococcal conjuga te vaccine, 13 valent Ginny Aichholz TECHNIC[employer] Work Phone: [facility] 04-10-2014 pneumococcal vaccine , unspecified formulation Ginny Aichholz TECHN[employer] Work Phone: [facility] 09-27-2012 hepatitis A and hepa titis B vaccine Ginny Aichholz [employer]CH[employer] Work Phone: [facility] 03-28-2012 hepatitis A and hepa titis B vaccine Ginny Aichholz TECHN[employer] Work Phone: [facility] 02-24-2012 hepatitis A and hepa titis B vaccine Ginny Aichholz TECHNIC[employer] Work Phone: [facility] 06-02-2010 influenza virus vacc ine, unspecified formulation Ginny Aichholz TECHNIC[employer] Work Phone: [facility] Payers Date Payer Category Payer Self-pay [id number] 2025 Unknown [id number] 2017 Medicaid [id number] 2017 Medicare [id number] 1959 Medicaid [id number] 1959 Medicare [id number] 1952 Unknown [id number] 2.16.84 [id number] 1952 Unknown [id number] 2.16.84 0.1.909934.3.579.2.593 1952 Unknown [id number] 2.16.84 0.1.561158.3.579.2.593 1952 Unknown [id number] 2.16.84 0.1.049258.3.579.2.593 1952 Unknown [id number] 2.16.84 0.1.414577.3.579.2.593 1952 Unknown [id number] 2.16.84 0.1.731180.3.579.2.1259 1952 Unknown [id number] 2.16.84 0.1.853261.3.579.2.1259 1952 Unknown [id number] 2.16.84 0.1.538867.3.579.2.1259 1952 Unknown [id number] 2.16.84 0.1.911034.3.579.2.1259 1952 Unknown [id number] 2.16.84 0.1.575801.3.579.2.1259 1952 Unknown [id number] 2.16.84 0.1.202209.3.579.2.1259 1952 Unknown [id number] 2.16.84 0.1.127204.3.579.2.1259 1952 Unknown [id number] 2.16.84 [id number] Medicaid [id number] Unknown Unknown [id number] 2.16.8 [id number] Social History Date Type Detail Facility Start: 08-11-2023 End: 10-04-2023 Sex Assigned At [facility] Start: 07-26-2023 End: 11-10-2023 Tobacco smoking status [facility] Ex-smoker [facility] End: 07-24-2011 History of tobacco use Current smoker [facility] End: 07-24-2011 History of tobacco use Cigarette Smoker [facility] Start: 07-26-2023 End: 01-08-2024 Tobacco use and exposure Smokeless tobacco non-user [facility] Start: 08-11-2023 End: 12-03-2024 Alcohol intake Lifetime non-drinker (finding) [facility] Start: 08-11-2023 End: 10-04-2023 History of Social function [facility] Start: 1950 Sex Assigned At Not on file [facility] Start: 1950 Sex Assigned At Female F [facility] Start: 08-20-2024 End: 11-20-2024 Sex Female (finding) [facility] Clinical Notes 04-04-2023 to 03-25-2025 Note Date & Type Note Facility 03-25-2025 Note [facility] - REFERRAL 03/25/25 Referring Provider: [facility]: Cardiology Little Redmond is referred to clinic pharmacists for lipid management (hx of HLD and HTN, LDL goal < 100). Electronic order received from patient's cardiology provider. Patient is currently taking fenofibrate 145 mg three times a week. Patient previously took statins in the past and discontinued by GI for liver dysfunction. Most recent LDLc 139 (01/14/25). Called patient and scheduled for telemed visit on 04/01 to discuss options. Patient mentioned that she does not want to take any medication that will effect liver. Netta Lopez, PharmD [facility] Cardiology [facility] 03-13-2025 Note Patient here for 1 y ear follow up hypertension and hyperlipidemia. [facility] Denies chest pain, SOB, and LE edema. Down 13# since last year and she's feeling good. Review of Systems Musculoskeletal: Positive for arthritis and joint pain. All other systems reviewed and are negative. [facility] 03-13-2025 Note Cardiovascular Medic [facility] SUBJECTIVE Chief Complaint Patient presents with Hyperlipidemia Hypotension Little Redmond is a 74 y.o. female here for follow-up. PMHx: HTN, HLD -Noted Hx liver dysfunction while on statins. HPI 03/13/2025 She denies any significant chagnes since last seen. She is currently on Mounjaro. She is down about 30# since being on it. BP at home running 130-140s/70s. Denies c/o CP, dyspnea, orthopnea, PND, LE edema, dizziness/LH, palpitations, syncope. Problem List[1] Medical History[2] Family History[3] Social History[4] Allergies[5] OBJECTIVE Visit Vitals BP 130/74 (BP Location: Left arm, Patient Position: Sitting) Pulse 72 Ht 1.676 m (5' 6 ) Wt 95.3 kg (210 lb) SpO2 98% BMI 33.89 kg/m??? Smoking Status Former BSA 2.11 m??? Medications: Current Medications[6] Physical Exam Vitals reviewed. Constitutional: Appearance: Normal appearance. She is obese. HENT: Head: Normocephalic and atraumatic. Right Ear: External ear normal. Left Ear: External ear normal. Eyes: Extraocular Movements: Extraocular movements intact. Conjunctiva/sclera: Conjunctivae normal. Pupils: Pupils are equal, round, and reactive to light. Neck: Vascular: No carotid bruit. Cardiovascular: Rate and Rhythm: Normal rate and regular rhythm. Pulses: Normal pulses. Heart sounds: Normal heart sounds. Pulmonary: Effort: Pulmonary effort is normal. Breath sounds: Normal breath sounds. Abdominal: General: Bowel sounds are normal. Palpations: Abdomen is soft. Musculoskeletal: Cervical back: Neck supple. Right lower leg: No edema. Left lower leg: No edema. Skin: General: Skin is warm and dry. Neurological: General: No focal deficit present. Mental Status: She is alert and oriented to person, place, and time. Psychiatric: Mood and Affect: Mood normal. Behavior: Behavior normal. Thought Content: Thought content normal. Judgment: Judgment normal. Labs: No results found for: EXTCMP , BMPR1A , CBCDIF , BNP , LASAP , RED No visits with results within 6 Month(s) from this visit. Latest known visit with results is: No results found for any previous visit. 02/13/2024 Chol 208, trig 208, HDL 46, LDL 121 Labs 01/29/2020: CR 0.7, BUN 11, K 3.4, NA 140, GFR 83, total cholesterol 231, LDL 138, HDL 46, trig 250 , Hgb a1c 6.7, mildly elevated liver enzymes (patient states enzymes are stable for her) Reviewed labs from 04/13/2020-sodium 138, potassium 3.4, BUN 11, creatinine 0.82, magnesium 1.5 Testing/Procedures: CTA 07/29/20: bilateral patchy parenchymal infiltrates, consider multifocal PNA; mild CAD, moderate atherosclerosis to aorta ECHO 12/19/17 Global left ventricular systolic function is normal (Visually estimated EF 60-65%). No regional wall motion abnormality. Grade 1, mild diastolic dysfunction (abnormal relaxation). Normal right ventricular systolic function. The left atrium is mildly enlarged. Doppler studies suggest normal right sided pressures. No pericardial effusion. No significant valvular abnormalities Cardiac stress test 11/2017: Normal nuclear medicine myocardial perfusion scan ASSESSMENT/PLAN: Diagnoses and all orders for this visit: Mixed hyperlipidemia Essential hypertension - carvedilol (Coreg) 25 mg tablet; Take 1 tablet (25 mg) by mouth with breakfast and with evening meal. - chlorthalidone (Hygroton) 25 mg tablet; Take 1 tablet (25 mg) by mouth in the morning. Hypertensive disorder Controlled Continue coreg to 25 mg po bid and chlorthalidone 25 mg daily Continue to monitor b/p at home and d/w pt goal b/p is < 130/80 and to call office if she has readings consistently above goal Hyperlipidemia Lipid abnormalities have been stable. She is currently on fenofibrate 145mg three days a week. She notes prior hx of liver dysfunction while taking statins in the past and her GI doctor was able to find the fenofibrate regimen that worked for her with 3 days a week dosing. [facility] will [facility]. Discussed consulting with her cardiology pharmacists to see if any other options would be an option for her given her LDL has been above goal of <100 for primary prevention. She stated she would consider it. Discussed importance of heart healthy diet and routine exercise. Also reviewed hypertriglyceridemia management with lowering carb/sugar intake and limiting ETOH us. Follow up in about 1 year (around 03/13/2026). NEELIMA Ibrahim Cardiovascular Medicine [1] Patient Active Problem List Diagnosis Hyperlipidemia Hypertensive disorder Abnormal liver function tests Abrasion of left cornea Acute maxillary sinusitis Acute pancreatitis Acute urinary tract infection Allergic urticaria Arthritis of knee Carpal tunnel syndrome Degeneration of lumbar or lumbosacral intervertebral disc Depressive disorder Diabetes (more content not included)... [facility] 01-29-2025 Evaluation note Diagnosis Onset Date Resolution Arthritis of knee acute January 2:53pm BMI 40.0-44.9, adult acute January 29, 2025 2:53pm Hyperlipidemia, unspecified acute January 29, 2025 2:53pm Hypertension acute January 29 2:53pm Hypertriglyceridemia acute January 29, 2025 2:53pm Obesity acute January 29, 2025 2:53pm Type 2 diabetes mellitus with hyperglycemia acute January 29 2:53pm Vitamin D deficiency, unspecified acute January 29, 2025 2:53pm Arthritis of knee acute 2024 2:14pm BMI 40.0-44.9, adult acute Mar 2:14pm Hyperlipidemia, unspecified acute March 26, 2025 2:14pm Hypertension acute March 2:14pm Hypertriglyceridemia acute Mar 2:14pm Obesity acute March 26, 2025 2:14pm Type 2 diabetes mellitus with hyperglycemia acute March 2:14pm Vitamin D deficiency, unspecified acute March 26, 2025 2:14pm [facility] Work Phone: [phone] 529-954405-15-2025 History of Present illness Narrative* Ginny Natarajan NP - 12/05/2024 12:33 PM EDTAssociated Problem(s): UTI (urinary tract infection), uncomplicated 11/05/24: citrobacter : treat with cipro [id number] History of Present illness Narrative* Ginny Natarajan NP - 12/03/2024 4:12 PM EDTAssociated Problem(s): Rash and nonspecific skin eruption Has trialed anti fungal, steroid Does get some intermittent improvement with more ointment based * Ginny Natarajan NP - 12/03/2024 4:07 PM EDTAssociated Problem(s): Environmental and seasonal allergies Refills for sally as well as nasal steroids * Ginny Natarajan NP - 12/03/2024 2:57 PM EDTAssociated Problem(s): UTI (urinary tract infection), uncomplicated Urine: sm leukocytes Will send health trx Give more augmentin until results back Pt asks whey this is her second UTI if a few months, no hx of freq UTI in past Discussed possible differentials: constipation, post menopausal, as well urethral stenosis * STU HALL - 12/03/2024 2:20 PM EDT Pt believes she could have a lingering UTI Pt states she has been having increased urination, bloated, pressure, and burning. She took 5 left over amoxicillins and AZO * Ginny Natarajan NP - 12/03/2024 2:20 PM EDT Images from the original note were not included. Little Redmond is a 73 y.o. female presents with chief complaint of No chief complaint on file. HPI: Pt believes she could have a lingering UTI Pt states she has been having increased urination, bloated, pressure, and burning. She took 5 left over amoxicillins and AZO Hypertension This is a chronic problem. The current episode started more than 1 year ago. The problem is unchanged. The problem is controlled. Pertinent negatives include no blurred vision, chest pain, headaches,palpitations, peripheral edema or shortness of breath. There are no associated agents to hypertension. Risk factors for coronary artery disease include dyslipidemia, obesity and sedentary lifestyle. Past treatments include beta blockers and diuretics. The current treatment provides significant improvement. There are no compliance problems. Rash This is a chronic problem. The current episode started more than 1 month ago. The problem has been waxing and waning since onset. The affected locations include the back. The rash is characterized bydryness, redness and itchiness. She was exposed to nothing. Pertinent negatives include no congestion, cough, diarrhea, eye pain, fever, shortness of breath, sore throat or vomiting. Past treatments include anti-itch cream and topical steroids. The treatment provided mild relief. Her past medical history is significant for allergies and eczema. There is no history of asthma or varicella. UTI This is a recurrent problem. The current episode started in the past 7 days. The problem has been waxing and waning since onset. (Freq, bloated, pressure, burning) SUBJECTIVE: MEDICATIONS: Current Outpatient Medications Medication Instructions ascorbic acid (VITAMIN C) 1,000 mg, Every 24 hours aspirin 81 mg, Every 24 hours azelastine (Optivar) 0.05 % ophthalmic solution 1 drop, Both Eyes, 2 times daily b complex vitamins capsule 1 capsule, Daily RT buprenorphine-naloxone (Suboxone) 12-3 MG per sublingual film 1 Film, Once carvedilol (COREG) 25 mg, 2 times daily with meals chlorthalidone (HYGROTON) 25 mg, Every morning cholecalciferol (VITAMIN D-[address]) 1,000 Units, Daily RT clobetasol (Temovate) 0.05 % ointment APPLY TO HANDS TWICE A DAY MONDAY-MONDAY OFF ON WEEKENDS THENAS NEEDED FOR FLARES coenzyme Q-10 10 mg, Every 24 hours Cyanocobalamin 1000 MCG capsule 1 tablet, Every 24 hours fenofibrate (TRICOR) 145 mg, Every 24 hours fexofenadine (SALLY) 180 mg, Oral, Daily fluconazole (Diflucan) 150 MG tablet One time dose repeat in 3 days if needed GARLIC PO Take by mouth ibuprofen 800 mg, Every 8 hours PRN ketoconazole (NIZOral) 2 % cream 1 application , 2 times daily magnesium oxide (MAG-OX) 400 mg, Oral, 2 times daily meclizine (ANTIVERT) 25 mg, 3 times daily PRN metFORMIN (GLUCOPHAGE) 1,000 mg, Oral, Daily with breakfast methylPREDNISolone (Medrol Dospak) 4 MG tablets Follow schedule on package instructions Mounjaro 10 MG/0.5ML solution auto-injector INJECT 10MG (0.5ML) SUBCUTANEOUSLY ONCE EVERY WEEK naloxone (Narcan) 4 mg/0.1 mL nasal spray Administer into affected nostril(s) omega-3 (Fish Oil) 1000 MG capsule 1 capsule, Every 12 hours ondansetron ODT (ZOFRAN-ODT) 4 mg, Every 8 hours PRN potassium chloride ER (Micro-K) 10 MEQ ER capsule Sodium Fluoride 5000 PPM 1.1 % paste tiZANidine (ZANAFLEX) 4 mg, Oral, Nightly PRN triamcinolone (Kenalog) 0.025 % ointment valACYclovir (VALTREX) 1,000 mg, Daily PRN ALLERGIES: Allergies Allergen Reactions Statins Unknown Simvastatin Other Reaction(s): Alkaline phosphatase raised, ALT (SGPT) level raised, Aspartate aminotransferaseserum level raised, Alkaline phosphatase raised, ALT (SGPT) level raised, Aspartate aminotransferase serum level raised, Alkaline phosphatase raised, ALT (SGPT) level raised, Aspartate aminotransferase serum level raised, Not available REVIEW OF SYMPTOMS: Review of Systems Constitutional: Negative for appetite change, chills and fever. HENT: Negative for congestion, ear pain and sore throat. Eyes: Negative for blurred vision, pain, discharge, redness and visual disturbance. Respiratory: Negative for cough, shortness of breath and wheezing. Cardiovascular: Negative for chest pain, palpitations and leg swelling. Gastrointestinal: Negative for abdominal pain, blood in stool, constipation, diarrhea, nausea and vomiting. Genitourinary: Positive for dysuria. Negative for difficulty urinating and frequency. Musculoskeletal: Negative for arthralgias, back pain, joint swelling and myalgias. Skin: Positive for rash. Negative for wound. Neurological: Negative for dizziness, tremors, seizures, [...] Allergic urticaria 07/27/2023 Arthritis Benign essential hypertension ([facility]/HCC) 07/27/2023 Carbuncle and furuncle of trunk 07/27/2023 Carpal tunnel syndrome 07/27/2023 COVID-19 15 day stay Degeneration of lumbar or lumbosacral intervertebral disc 07/27/2023 Depressive disorder ([facility]/HCC) 07/27/2023 Dizziness 11/29/2022 Encounter for routine gynecological examination 07/27/2023 Apr 29, 2008 Entered By: OPAL TAYLOR Comment: 5 years ago was last one Gallbladder problem Gastroesophageal reflux disease 07/27/2023 HTN (hypertension) ([facility]) Hyperlipidemia ([facility]/HCC) 07/27/2023 Hyperlipidemia, unspecified ([facility]) 07/27/2023 Ingrown toenail 07/27/2023 Lumbar sprain 07/27/2023 Migraine 11/29/2022 Mixed hyperlipidemia ([facility]) 07/27/2023 Nonalcoholic steatohepatitis (CORCORAN) 07/27/2023 Nondependent opioid abuse 07/27/2023 Obesity 07/27/2023 Occult blood in stools 07/27/2023 Onychomycosis of toenail 07/27/2023 Opioid dependence in remission ([facility]) 07/27/2023 Opioid dependence, in remission 07/27/2023 Osteoarthritis 07/27/2023 Other general symptoms and signs 07/27/2023 Painful breathing 07/27/2023 Pancreatitis Presbyopia 07/27/2023 Recurrent major depressive disorder (HCC) ([facility]) 07/27/2023 Regular astigmatism, bilateral 07/27/2023 Sciatica 07/27/2023 [...] Lazer Surgery of Uterus OTHER SURGICAL HISTORY 2016 Eyelids OTHER SURGICAL HISTORY Left 08/29/2023 Removal left salivary stone / Sialodochoplasty RHINOPLASTY 1977 family history includes Heart disease in her mother; Hypertension in her mother. OBJECTIVE: Visit Vitals BP 140/76 (BP Location: Left arm, Patient Position: Sitting, BP Cuff Size: Adult long) Pulse 69 Temp 98.5 F (Temporal) Resp 18 Wt 211 lb SpO2 93% BMI 34.06 kg/m Smoking Status Former BSA 2.11 m Physical Exam Vitals and nursing note reviewed. Constitutional: General: She is not in acute distress. Appearance: Normal appearance. She is obese. HENT: Head: Normocephalic and atraumatic. Right Ear: External ear normal. Left Ear: External ear normal. Nose: Nose normal. Mouth/Throat: Mouth: Mucous membranes are moist. Eyes: Extraocular Movements: Extraocular movements intact. Conjunctiva/sclera: Conjunctivae normal. Cardiovascular: Rate and Rhythm: Normal rate and regular rhythm. Pulses: Normal pulses. Heart sounds: Normal heart sounds. No murmur heard. Pulmonary: Effort: Pulmonary effort is normal. Breath sounds: Normal breath sounds. No wheezing or rhonchi. Abdominal: General: Bowel sounds are normal. There is no distension. Palpations: Abdomen is soft. There is no mass. Tenderness: There is no abdominal tenderness (mild supra pubic tenderness). Musculoskeletal: General: Normal range of motion. Cervical back: Normal range of motion and neck supple. Right lower leg: No edema. Left lower leg: No edema. Skin: General: Skin is warm and dry. Capillary Refill: Capillary refill takes 2 to 3 seconds. Findings: No rash (lower mid lumbar: erythematous, dry plaque measures approx: 6.2mkw3wh. no open wounds, no vesciles, does not appear to be zoster related). Neurological: General: No focal deficit present. Mental Status: She is alert and oriented to person, place, and time. Psychiatric: Mood and Affect: Mood normal. Behavior: Behavior normal. Thought Content: Thought content normal. Judgment: Judgment normal. ASSESSMENT AND PLAN: No follow-ups on file. Problem List Items Addressed This Visit Type 2 diabetes mellitus without complications Check blood sugars daily, notify if <70 or >200. Take medications (pills or insulin) as directed. Monitor for s/s of hypoglycemia (sweaty, dizziness, nausea, vomiting, or shakiness). Watch for increase in thirst, urination, or appetite. Inspect feet frequently monitoring for open wounds , andalso recommend yearly eye exam. Pt should attempt to remain as physically active as chronic conditions allow, as well as trying to follow a diet low in carbohydrates, and simple sugars. Current meds: mounjaro as well as metformin A1c: 5.2% 12/03/24 Relevant Orders POCT glycosylated hemoglobin (Hb A1C) docked device (Completed) Essential hypertension - Primary (Chronic) Please check blood pressure daily and record DASH diet Limit caffeine Take medication as directed Contact office if chest pain, pressure, dizziness, shortness of breath, swelling legs Recommend slow position changes Current meds: hydrochlorothiazide , carvedilol, Hyperlipidemia, unspecified (CMS/HCC) Declines use of statin, cont fenofibrate Also add metamucil fiber as well as it may help both constipation as well as heart health UTI (urinary tract infection), uncomplicated Urine: sm leukocytes Relevant Orders POCT Urinalysis dipstick (Completed) Hypomagnesemia Prescribed mag oxide 400mg BID Still with sub therapeutic levels Allergic conjunctivitis of both eyes Current meds: nasal steroids, sally, and allergy eye drop Type 2 diabetes mellitus with other specified complication HTN, obesity, HLD * Ginny Natarajan NP - 12/03/2024 6:56 AM EDTAssociated Problem(s): Hypomagnesemia Prescribed mag oxide 400mg BID Still with sub therapeutic levels Has stopped Magnesium oxide, is doing a different magnesium OTC supplement * Ginny Natarajan NP - 12/03/2024 6:56 AM EDTAssociated Problem(s): Allergic conjunctivitis of both eyes Current meds: nasal steroids, sally, and allergy eye drop * Ginny Natarajan NP - 12/03/2024 6:55 AM EDTAssociated Problem(s): Hyperlipidemia, unspecified (CMS/HCC) Declines use of statin, cont fenofibrate Also add metamucil fiber as well as it may help both constipation as well as heart health * Ginny Natarajan NP - 12/03/2024 6:54 AM EDTAssociated Problem(s): Type 2 diabetes mellitus without complications Check blood sugars daily, notify if <70 or >200. Take medications (pills or insulin) as directed. Monitor for s/s of hypoglycemia (sweaty, dizziness, nausea, vomiting, or shakiness). Watch for increase in thirst, urination, or appetite. Inspect feet frequently monitoring for open wounds , andalso recommend yearly eye exam. Pt should attempt to remain as physically active as chronic conditions allow, as well as trying to follow a diet low in carbohydrates, and simple sugars. Current meds: mounjaro as well as metformin A1c: 5.2% 12/03/24 * Ginny Natarajan NP - 12/03/2024 6:54 AM EDTAssociated Problem(s): Type 2 diabetes mellitus with other specified complication HTN, obesity, HLD * Ginny Natarajan NP - 12/03/2024 6:53 AM EDTAssociated Problem(s): Essential hypertension Please check blood pressure daily and record DASH diet Limit caffeine Take medication as directed Contact office if chest pain, pressure, dizziness, shortness of breath, swelling legs Recommend slow position changes Current meds: hydrochlorothiazide , carvedilol, documented in this [facility]05-13-2025 Instructions* Patient Instructions* Ginny Natarajan NP - 12/03/2024 2:20 PM EDT We will send in urine for a culture Will give you more atb as well Allergies: taking the nasal spray, as well as allergy meds, and eye drops A1c was 5.2% Rash to back: I will find a new cream for that as well documented in this encounterSaint John's Regional Health [id number] History of Present illness Narrative* Jr. Vincenzo Jamil, - 11/22/2024 10:15 AM EDT Images from the original note were not included. HISTORY OF PRESENT ILLNESS: EST PT Little Redmond is an 73 y.o. @ female. (EST PT) RECHECK (L) KNEE - LAST SEEN ON 01/03/24 HX CELLULITIS (L) CALF FOLLOWING MOLE BIOPSY 11/30/23 XR (L) KNEE 11/06/23 IN [facility] NO MRI NO MDP / PREDNISONE NO CORTISONE INJ AQUATIC THERAPY TB (#1 VISIT 11/23/23) NO PAIN MGMT PAIN IS MEDIAL, INTERMITTENT. DENIES INJURY- PAIN OCCURS RANDOMLY, NOTES SHE HAS NO PAIN TODAY; A FEW WEEKS AGO SHE NOTES SHE HAD A FLARE UP THAT LASTED ABOUT 9 DAYS. NOTES GOOD ROM ; DENIES ANY INSTABILITY / WEAKNESS. DENIES ANY SWELLING. NOT TAKING ANYTHING FOR PAIN, NOT USING ICE/HEAT. ALLERGIES: Allergies Allergen Reactions Statins Unknown Simvastatin Other Reaction(s): Alkaline phosphatase raised, ALT (SGPT) level raised, Aspartate aminotransferaseserum level raised, Alkaline phosphatase raised, ALT (SGPT) level raised, Aspartate aminotransferase serum level raised, Alkaline phosphatase raised, ALT (SGPT) level raised, Aspartate aminotransferase serum level raised, Not available HOME MEDICATIONS: Current Outpatient Medications Medication Instructions ascorbic acid (VITAMIN C) 1,000 mg, Every 24 hours aspirin 81 mg, Every 24 hours azelastine (Optivar) 0.05 % ophthalmic solution 1 drop, Both Eyes, 2 times daily b complex vitamins capsule 1 capsule, Daily RT buprenorphine-naloxone (Suboxone) 12-3 MG per sublingual film 1 Film, Once carvedilol (COREG) 25 mg, 2 times daily with meals chlorthalidone (HYGROTON) 25 mg, Every morning cholecalciferol (VITAMIN D-[address]) 1,000 Units, Daily RT clobetasol (Temovate) 0.05 % ointment APPLY TO HANDS TWICE A DAY MONDAY-MONDAY OFF ON WEEKENDS THENAS NEEDED FOR FLARES coenzyme Q-10 10 mg, Every 24 hours Cyanocobalamin 1000 MCG capsule 1 tablet, Every 24 hours fenofibrate (TRICOR) 145 mg, Every 24 hours fexofenadine (SALLY) 180 mg, Oral, Daily fluconazole (Diflucan) 150 MG tablet One time dose repeat in 3 days if needed GARLIC PO Take by mouth ibuprofen 800 mg, Every 8 hours PRN ketoconazole (NIZOral) 2 % cream 1 application , 2 times daily magnesium oxide (MAG-OX) 400 mg, Oral, 2 times daily meclizine (ANTIVERT) 25 mg, 3 times daily PRN metFORMIN (GLUCOPHAGE) 1,000 mg, Oral, Daily with breakfast methylPREDNISolone (Medrol Dospak) 4 MG tablets Follow schedule on package instructions Mounjaro 7.5 mg, Every 7 days naloxone (Narcan) 4 mg/0.1 mL nasal spray Administer into affected nostril(s) omega-3 (Fish Oil) 1000 MG capsule 1 capsule, Every 12 hours ondansetron ODT (ZOFRAN-ODT) 4 mg, Every 8 hours PRN potassium chloride ER (Micro-K) 10 MEQ ER capsule Sodium Fluoride 5000 PPM 1.1 % paste tiZANidine (ZANAFLEX) 4 mg, Oral, Nightly PRN triamcinolone (Kenalog) 0.025 % ointment valACYclovir (VALTREX) 1,000 mg, Daily PRN PHYSICAL EXAM: Knee Musculoskeletal Exam Inspection Leg length disparity: no discrepancy Left Erythema: none Effusion: none Edema: none Ecchymosis: none Deformity: none Alignment: varus Palpation Left Left knee palpation is unremarkable. Increased warmth: none Masses: none Crepitus: patellofemoral and medial Tenderness: present Patella: mild Range of Motion Left Left knee range of motion is normal. Active extension: 0 Active flexion: 120 Strength Left Left knee strength is normal. Extension: 5/5. Extension is not affected by pain. Flexion: 5/5. Flexion is not affected by pain. Instability Left Instability signs: none - stable Anterior drawer: normal Neurovascular Left Left knee neurovascular exam is normal. Pulses - PT: normal Posterior tibial: 2+ Capillary refill: warm and well-perfused Special Signs Left Left knee special signs are normal. Patellar apprehension: mild General Skin: Large excoriated skin leasion posterior mid calf. pt reports as mole.. Vitals: There is no height or weight on file to calculate BMI. Tobacco Use: Medium Risk (11/22/2024) Patient History Smoking Tobacco Use: Former Smokeless Tobacco Use: Never Passive Exposure: Not on file Alcohol Use: Not on file IMAGING: Procedures No orders of the defined types were placed in this encounter. ASSESSMENT: ICD-10-CM 1. Pain and swelling of left knee M25.562 M25.462 2. Primary osteoarthritis of left knee M17.12 methylPREDNISolone (Medrol Dospak) 4 MG tablets PLAN: We have discussed her symptoms, physical exam and previous x-rays at length today. She is nearly completely asymptomatic. We have given her a Medrol Dosepak to have on hand in case her knee pain flares up again like it did 5 weeks ago for 5 days. She understands that she has to have a strict diabetic diet and the monitor her sugars while she's taking the Dosepak. We'll see her back in 6 months for re-x-rays of her left knee Questions answered in laymen terms at the bedside. The diagnosis, home exercise plan and any ongoing restrictions/ recommendations reviewed. If unable to be reached in office, I recommend evaluation at nearest Emergency Room if any symptoms worsened or new symptoms develop for requiring urgent evaluation. documented in this encounterSaint John's Regional Health [id number] Evaluation note* Diagnosis Onset Date Resolution Status Admit Date Arthritis of knee acute October 242024 2:46pm BMI 40.0-44.9, adult acute Apri l 2024 2:46pm Hyperlipidemia, unspecified acute November 20, 2024 2:46pm Hypertension acute November 20, 2024 2:46pm Hypertriglyceridemia acute Apri l 2024 2:46pm Obesity acute November 20 2:46pm Type 2 diabetes mellitus wit h hyperglycemia acute November 20, 2024 2:46pm Vitamin D deficiency, unspecified ac [place] November 20, 2024 2:46pm Arthritis of knee acute January 2:53pm BMI 40.0-44.9, adult acute January 29, 2025 2:53pm Hyperlipidemia, unspecified acute January 29, 2025 2:53pm Hypertension acute January 29 2:53pm Hypertriglyceridemia acute January 29, 2025 2:53pm Obesity acute January 29, 2025 2:53pm Type 2 diabetes mellitus wit h hyperglycemia acute January 29, 2025 2:53pm Vitamin D deficiency, unspecified ac [place] January 29, 2025 2:53pm [facility] Work Phone: [phone]) 530-385504-15-2025 Telephone encounter Note* Telephone Encounter - Prisca Haddad - 11/05/2024 4:34 PM EDT Called to move patients appointment sooner than the 18 of November, to see Dr Jamil, but, we couldn't find a sooner time and day that worked with her other appointment. Told her if anything changedin her schedule to let us know and we will try to get her in sooner. She is scheduled for November 22, at10:15am. [facility] [id number] Miscellaneous Notes* Telephone Encounter - Prisca Haddad - 11/05/2024 4:34 PM EDT Called to move patients appointment sooner than the 18 of November, to see Dr Jamil, but, we couldn't find a sooner time and day that worked with her other appointment. Told her if anything changedin her schedule to let us know and we will try to get her in sooner. She is scheduled for November 22, at10:15am. * Telephone Encounter - COTY Fenton - 11/05/2024 2:03 PM EDT I would recommend use of a walker or cane, Ice, try to off load the hip and see if Dr. Jamil cansee her sooner as they discussed surgical treatment in the past. * Telephone Encounter - Treva Betancourt - 11/05/2024 1:39 PM EDT Patient's called to schedule appt for her left knee. It did just start being very painful last week. She would like to know recommendations until her appt on 11/18. She has taken ibuprofen. She does not want to go to the ER or UC. documented in this encounterFred [place]ille [id number] Telephone encounter Note* Telephone Encounter - COTY Fenton - 11/05/2024 2:03 PM EDT I would recommend use of a walker or cane, Ice, try to off load the hip and see if Dr. Jamil cansee her sooner as they discussed surgical treatment in the past. [facility] [employer] Work Phone: [phone] 605-683504-15-2025 Telephone encounter Note* Telephone Encounter - Treva Betancourt - 11/05/2024 1:39 PM EDT Patient's called to schedule appt for her left knee. It did just start being very painful last week. She would like to know recommendations until her appt on 11/18. She has taken ibuprofen. She does not want to go to the ER or UC. [facility] [id number] History of Present illness Narrative* Ginny Natarajan NP - 10/01/2024 2:29 PM EDTAssociated Problem(s): Type 2 diabetes mellitus without complications (CMS/HCC) Check blood sugars daily, notify if <70 or >200. Take medications (pills or insulin) as directed. Monitor for s/s of hypoglycemia (sweaty, dizziness, nausea, vomiting, or shakiness). Watch for increase in thirst, urination, or appetite. Inspect feet frequently monitoring for open wounds , andalso recommend yearly eye exam. Pt should attempt to remain as physically active as chronic conditions allow, as well as trying to follow a diet low in carbohydrates, and simple sugars. Current meds: mounjaro as well as metformin * Ginny Natarajan NP - 10/01/2024 1:32 PM EDTAssociated Problem(s): Allergic conjunctivitis of both eyes Stop all eye drops, trial anti histamine eye drop Cold compress Add flonase, change zyrtec to sally Fu if not better * Ginny Natarajan NP - 10/01/2024 1:31 PM EDTAssociated Problem(s): Ringworm of body Send in script for anti fungal * STU HALL - 10/01/2024 1:00 PM EDT Left eye more pain possibly effecting both eyes now. Started 10 days ago started with swelling, redness, itchiness and burning. Round red patch that is itchy lower mid back. Pt has pictures on her phone of everything she has used to try to get rid of it. Started about 3-4 months ago. Did not see [place] until about a week or so ago. No pain. * Ginny Natarajan, ABIGAIL - 10/01/2024 1:00 PM EDT Images from the original note were not included. Little Redmond is a 73 y.o. female presents with chief complaint of No chief complaint on file. HPI: Rash This is a new problem. The current episode started more than 1 month ago. The problem is unchanged.The affected locations include the back. The rash is characterized by dryness, redness and itchiness. She was exposed to nothing. Associated symptoms include congestion and rhinorrhea. Pertinent negatives include no cough, diarrhea, eye pain, fever, shortness of breath, sore throat or vomiting. Past treatments include topical steroids. The treatment provided mild relief. Her past medical history is significant for allergies. There is no history of asthma or varicella. Conjunctivitis The current episode started 5 to 7 days ago. The onset was gradual. The problem occurs continuously. The problem has been unchanged. The problem is moderate. Nothing relieves the symptoms. Nothing aggravates the symptoms. Associated symptoms include eye itching, congestion, rhinorrhea, rash and eyeredness. Pertinent negatives include no fever, no decreased vision, no double vision, no photophobia, no abdominal pain, no constipation, no diarrhea, no nausea, no vomiting, no ear pain, no headaches, no mouth sores, no sore throat, no swollen glands, no cough, no wheezing, no eye discharge and noeye pain. Both eyes are affected. SUBJECTIVE: MEDICATIONS: Current Outpatient Medications Medication Instructions ascorbic acid (VITAMIN C) 1,000 mg, Every 24 hours aspirin 81 mg, Every 24 hours azelastine (Optivar) 0.05 % ophthalmic solution 1 drop, Both Eyes, 2 times daily b complex vitamins capsule 1 capsule, Daily RT Koomgqmr-Ewizxgv-Auucd-Quercet (Bilberry Extract) 40 MG capsule 40 mg, Daily buprenorphine-naloxone (Suboxone) 12-3 MG per sublingual film 1 Film, Once CALCIUM MAGNESIUM ZINC PO 1 tablet, Daily carvedilol (COREG) 25 mg, 2 times daily with meals cholecalciferol (VITAMIN D-[address]) 1,000 Units, Daily RT clobetasol (Temovate) 0.05 % ointment APPLY TO HANDS TWICE A DAY MONDAY-MONDAY OFF ON WEEKENDS THENAS NEEDED FOR FLARES clotrimazole (Lotrimin) 1 % cream Topical, 2 times daily coenzyme Q-10 10 mg, Every 24 hours Cyanocobalamin 1000 MCG capsule 1 tablet, Every 24 hours fenofibrate (TRICOR) 145 mg, Every 24 hours fexofenadine (SALLY) 180 mg, Oral, Daily fluconazole (Diflucan) 150 MG tablet One time dose repeat in 3 days if needed Folic Acid-Cholecalciferol 1-50810 MG-UNIT tablet 10,000 Units, Daily GARLIC PO Take by mouth hydroCHLOROthiazide (HYDRODIURIL) 25 mg, Every 24 hours ibuprofen 800 mg, 3 times daily ketoconazole (NIZOral) 2 % cream 1 application , 2 times daily [place] 630079 UNIT/GM powder APPLY TO AFFECTED AREA TWICE A DAY FOR 14 DAYS magnesium oxide (MAG-OX) 400 mg, Oral, 2 times daily meclizine (ANTIVERT) 25 mg, 3 times daily PRN metFORMIN (GLUCOPHAGE) 1,000 mg, Oral, Daily with breakfast Milk Thistle 500 MG capsule as directed Orally Mounjaro 7.5 mg, Every 7 days omega-3 (Fish Oil) 1000 MG capsule 1 capsule, Every 12 hours ondansetron ODT (ZOFRAN-ODT) 4 mg, Every 8 hours PRN Sodium Fluoride 5000 PPM 1.1 % paste APPLY THIN RIBBON TO TOOTHBRUSH, BRUSH TWICE DAILY X2MINS, SPIT, DO NOT EAT/DRINK/RINSE FOR 30 MIN tiZANidine (ZANAFLEX) 4 mg, Oral, Nightly PRN triamcinolone (Kenalog) 0.025 % ointment APPLY A SMALL AMOUNT EXTERNALLY TWICE A DAY FOR SEBORRHEICDERMATITIS TO SKIN OF EARS/BEHIND EARS Turmeric (QC TUMERIC COMPLEX PO) 1 tablet, Every 24 hours valACYclovir (VALTREX) 1,000 mg, Daily PRN ALLERGIES: Allergies Allergen Reactions Statins Unknown Simvastatin Other Reaction(s): Alkaline phosphatase raised, ALT (SGPT) level raised, Aspartate aminotransferaseserum level raised, Alkaline phosphatase raised, ALT (SGPT) level raised, Aspartate aminotransferase serum level raised, Alkaline phosphatase raised, ALT (SGPT) level raised, Aspartate aminotransferase serum level raised, Not available REVIEW OF SYMPTOMS: Review of Systems Constitutional: Negative for appetite change, chills and fever. HENT: Positive for congestion and rhinorrhea. Negative for ear pain, mouth sores and sore throat. Eyes: Positive for redness and itching. Negative for double vision, photophobia, pain, discharge and visual disturbance. Respiratory: Negative for cough, shortness of breath and wheezing. Cardiovascular: Negative for chest pain, palpitations and leg swelling. Gastrointestinal: Negative for abdominal pain, blood in stool, constipation, diarrhea, nausea and vomiting. Genitourinary: Negative for difficulty urinating, dysuria and frequency. Musculoskeletal: Negative for arthralgias, back pain, joint swelling and myalgias. Skin: Positive for rash. Negative for wound. Neurological: Negative for dizziness, tremors, seizures, syncope and headaches. Psychiatric/Behavioral: Negative for behavioral problems, self-injury and suicidal ideas. The patient is not nervous/anxious. Hematological: Does not bruise/bleed easily. Endocrine: Negative for polydipsia, polyphagia and polyuria. Allergic/Immunologic: Positive for environmental allergies. Negative for food allergies. PAST MEDICAL HISTORY Past Medical History: Diagnosis Date Abnormal results of liver function studies 07/27/2023 Acute maxillary sinusitis 07/27/2023 Acute pancreatitis 07/27/2023 Apr 29, 2008 Entered By: OPAL TAYLOR Comment: on creon 20mg Acute urinary tract infection 07/27/2023 Allergic urticaria 07/27/2023 Arthritis Benign essential hypertension (CMS/HCC) 07/27/2023 Carbuncle and furuncle of trunk 07/27/2023 [...] Ingrown toenail 07/27/2023 Lumbar sprain 07/27/2023 Migraine ([facility]) 11/29/2022 Mixed hyperlipidemia ([facility]) 07/27/2023 Nonalcoholic steatohepatitis (CORCORAN) 07/27/2023 Nondependent opioid abuse ([facility]) 07/27/2023 Obesity 07/27/2023 Occult blood in stools 07/27/2023 Onychomycosis of toenail 07/27/2023 Opioid dependence in remission ([facility]) 07/27/2023 Opioid dependence, in remission ([facility]) 07/27/2023 Osteoarthritis 07/27/2023 Other general symptoms and signs 07/27/2023 Painful breathing 07/27/2023 Pancreatitis Presbyopia 07/27/2023 Recurrent major depressive disorder (HCC) ([facility]) 07/27/2023 Regular astigmatism, bilateral 07/27/2023 Sciatica 07/27/2023 [...] in her mother. OBJECTIVE: Visit Vitals BP 118/72 (BP Location: Left arm, Patient Position: Sitting, BP Cuff Size: Large adult) Pulse 80 Temp 98 F (Temporal) Resp 18 Wt 212 lb 12.8 oz SpO2 96% BMI 34.35 kg/m Smoking Status Former BSA 2.12 m Physical Exam Vitals and nursing note reviewed. Constitutional: General: She is not in acute distress. Appearance: Normal appearance. HENT: Head: Normocephalic and atraumatic. Right Ear: Tympanic membrane, ear canal and external ear normal. Left Ear: Tympanic membrane, ear canal and external ear normal. Nose: Rhinorrhea present. Mouth/Throat: Mouth: Mucous membranes are moist. Pharynx: No oropharyngeal exudate or posterior oropharyngeal erythema. Eyes: General: Right eye: No discharge. Left eye: No discharge. Extraocular Movements: Extraocular movements intact. Pupils: Pupils are equal, round, and reactive to light. Comments: Mild erythema to sclera, inflammation to conjunctiva Cardiovascular: Rate and Rhythm: Normal rate and [...] Normal range of motion and neck supple. Right lower leg: No edema. Left lower leg: No edema. Skin: General: Skin is warm and dry. Capillary Refill: Capillary refill takes 2 to 3 seconds. Findings: Rash (circular rash lower mid back, measures 5cm diameter red in color) present. Neurological: General: No focal deficit present. Mental Status: She is alert and oriented to person, place, and time. Psychiatric: Mood and Affect: Mood normal. Behavior: Behavior normal. Thought Content: Thought content normal. Judgment: Judgment normal. ASSESSMENT AND PLAN: Follow up for Next scheduled follow-up. Problem List Items Addressed This Visit Type 2 diabetes mellitus without complications ([facility]) Check blood sugars daily, notify if <70 or >200. Take medications (pills or insulin) as directed. Monitor for s/s of hypoglycemia (sweaty, dizziness, nausea, vomiting, or shakiness). Watch for increase in thirst, urination, or appetite. Inspect feet frequently monitoring for open wounds , andalso recommend yearly eye exam. Pt should attempt to remain as physically active as chronic conditions allow, as well as trying to follow a diet low in carbohydrates, and simple sugars. Current meds: mounjaro as well as metformin Relevant Medications metFORMIN (Glucophage) 1000 MG tablet Environmental and seasonal allergies Relevant Medications fexofenadine (Sally) 180 MG tablet Obesity (BMI 30-39.9) - Primary Discussed with patient their BMI (actual, verses recommended). We have also discussed lifestyle modifications: attempts to perform physical activity as chronic conditions allow, also to monitor dietary intake: increasing protein/fruits/veggies and lowering carb intake (unless contraindicated). Limit sodas, juices, and sugary drinks. Continues with [facility] and is taking Mounjaro Ringworm of body Send in script for anti fungal Relevant Medications clotrimazole (Lotrimin) 1 % cream Allergic conjunctivitis of both eyes Stop all eye drops, trial anti histamine eye drop Cold compress Add flonase, change zyrtec to sally Fu if not better Relevant Medications azelastine (Optivar) 0.05 % ophthalmic solution * Ginny Natarajan NP - 10/01/2024 6:35 AM EDTAssociated Problem(s): Obesity (BMI 30-39.9) Discussed with patient their BMI (actual, verses recommended). We have also discussed lifestyle modifications: attempts to perform physical activity as chronic conditions allow, also to monitor dietary intake: increasing protein/fruits/veggies and lowering carb intake (unless contraindicated). Limit sodas, juices, and sugary drinks. Continues with [facility] and is taking Mounjaro documented in this [facility]03-11-2025 Instructions* Patient Instructions* Ginny Natarajan NP - 10/01/2024 1:00 PM EDT Stop zyrtec, trial sally (fexofenadine) and add nasal steroids Cream antifungal documented in this [facility]02-13-2025 History of Present illness Narrative* STU HALL - 09/05/2024 2:20 PM EST Pt has been having a lot of heart burn- right side pain. Right heel-heel spurs- painful on and off either late at night or at night. Right knee- still a little sore from her fall * Ginny Delgado, ABIGAIL - 09/05/2024 2:20 PM EST Images from the original note were not included. Little Redmond is a 73 y.o. female presents with chief complaint of Diabetes HPI: Diabetes She presents for her follow-up diabetic visit. She has type 2 diabetes mellitus. Her disease coursehas been stable. There are no hypoglycemic associated symptoms. Pertinent negatives for hypoglycemia include no dizziness, headaches, nervousness/anxiousness, seizures or tremors. Associated symptomsinclude blurred vision. Pertinent negatives for diabetes include no chest pain, no polydipsia, no polyphagia and no polyuria. There are no hypoglycemic complications. Symptoms are stable. Pertinent negatives for diabetic complications include no heart disease, nephropathy or peripheral neuropathy. Risk factors for coronary artery disease include dyslipidemia, diabetes mellitus, hypertension and obesity. Current diabetic treatment includes oral agent (monotherapy). She is compliant with treatment all of the time. An ELIAZAR inhibitor/angiotensin II receptor onofre is being taken. She does not seea front desk lead.Eye exam is current. GERD She reports no abdominal pain, no chest pain, no coughing, no nausea, no sore throat or no wheezing. The problem occurs rarely. Hypertension This is a chronic problem. The problem is unchanged. The problem is controlled. Associated symptomsinclude blurred vision. Pertinent negatives include no chest pain, headaches, palpitations, peripheral edema or shortness of breath. There are no associated agents to hypertension. Risk factors for coronary artery disease include diabetes mellitus, dyslipidemia, obesity and post-menopausal state. Past treatments include beta blockers and diuretics. The current treatment provides significant improvement. There are no compliance problems. SUBJECTIVE: MEDICATIONS: Current Outpatient Medications Medication Instructions ascorbic acid (VITAMIN C) 1,000 mg, Oral, Every 24 hours aspirin 81 mg, Oral, Every 24 hours b complex vitamins capsule 1 capsule, Oral, Daily RT Azkviohc-Ctdmfge-Vxuqp-Quercet (Bilberry Extract) 40 MG capsule 40 mg, Oral, Daily buprenorphine-naloxone (Suboxone) 12-3 MG per sublingual film 1 Film, Sublingual, Once CALCIUM MAGNESIUM ZINC PO 1 tablet, Oral, Daily carvedilol (COREG) 25 mg, Oral, 2 times daily with meals cetirizine (ZYRTEC) 10 mg, Oral, Daily cholecalciferol (VITAMIN D-[address]) 1,000 Units, Oral, Daily RT clobetasol (Temovate) 0.05 % ointment APPLY TO HANDS TWICE A DAY MONDAY-MONDAY OFF ON WEEKENDS THENAS NEEDED FOR FLARES coenzyme Q-10 10 mg, Oral, Every 24 hours Cyanocobalamin 1000 MCG capsule 1 tablet, Oral, Every 24 hours fenofibrate (TRICOR) 145 mg, Oral, Every 24 hours fluconazole (Diflucan) 150 MG tablet One time dose repeat in 3 days if needed Folic Acid-Cholecalciferol 1-69890 MG-UNIT tablet 10,000 Units, Oral, Daily GARLIC PO Oral hydroCHLOROthiazide (HYDRODIURIL) 25 mg, Oral, Every 24 hours ibuprofen 800 mg, Oral, 3 times daily ketoconazole (NIZOral) 2 % cream 1 application , Topical, 2 times daily magnesium oxide (MAG-OX) 400 mg, Oral, Daily meclizine (ANTIVERT) 25 mg, Oral, 3 times daily PRN metFORMIN (GLUCOPHAGE) 1,000 mg, Oral, Daily with breakfast Milk Thistle 500 MG capsule as directed Orally Mounjaro 7.5 mg, Every 7 days omega-3 (Fish Oil) 1000 MG capsule 1 capsule, Every 12 hours ondansetron ODT (ZOFRAN-ODT) 4 mg, Oral, Every 8 hours PRN Sodium Fluoride 5000 PPM 1.1 % paste APPLY THIN RIBBON TO TOOTHBRUSH, BRUSH TWICE DAILY X2MINS, SPIT, DO NOT EAT/DRINK/RINSE FOR 30 MIN tiZANidine (ZANAFLEX) 4 mg, Oral, Nightly PRN triamcinolone (Kenalog) 0.025 % ointment APPLY A SMALL AMOUNT EXTERNALLY TWICE A DAY FOR SEBORRHEICDERMATITIS TO SKIN OF EARS/BEHIND EARS Turmeric (QC TUMERIC COMPLEX PO) 1 tablet, Oral, Every 24 hours valACYclovir (VALTREX) 1,000 mg, Oral, Daily PRN ALLERGIES: Allergies Allergen Reactions Statins Unknown Simvastatin Other Reaction(s): Alkaline phosphatase raised, ALT (SGPT) level raised, Aspartate aminotransferaseserum level raised, Alkaline phosphatase raised, ALT (SGPT) level raised, Aspartate aminotransferase serum level raised, Alkaline phosphatase raised, ALT (SGPT) level raised, Aspartate aminotransferase serum level raised, Not available REVIEW OF SYMPTOMS: Review of Systems Constitutional: Negative for appetite change, chills and fever. HENT: Negative for congestion, ear pain and sore throat. Eyes: Positive for blurred vision. Negative for pain, discharge, redness and visual disturbance. Respiratory: Negative for cough, shortness of breath and wheezing. Cardiovascular: Negative for chest pain, palpitations and leg swelling. Gastrointestinal: Negative for abdominal pain, blood in stool, constipation, diarrhea, nausea and vomiting. GERD Genitourinary: Negative for difficulty urinating, dysuria and frequency. Musculoskeletal: Positive for arthralgias. Negative for back pain, joint swelling and myalgias. Skin: [...] Allergic urticaria 07/27/2023 Arthritis Benign essential hypertension (CMS/HCC) 07/27/2023 Carbuncle and furuncle of trunk 07/27/2023 [...] sprain 07/27/2023 Migraine (CMS/HCC) 11/29/2022 Mixed hyperlipidemia ([facility]) 07/27/2023 Nonalcoholic steatohepatitis (CORCORAN) 07/27/2023 Nondependent opioid abuse ([facility]) 07/27/2023 Obesity 07/27/2023 Occult blood in stools 07/27/2023 Onychomycosis of toenail 07/27/2023 Opioid dependence in remission ([facility]) 07/27/2023 Opioid dependence, in remission ([facility]) 07/27/2023 Osteoarthritis 07/27/2023 Other general symptoms and signs 07/27/2023 Painful breathing 07/27/2023 Pancreatitis Presbyopia 07/27/2023 Recurrent major depressive disorder (HCC) ([facility]) 07/27/2023 Regular astigmatism, bilateral 07/27/2023 Sciatica 07/27/2023 [...] Lazer Surgery of Uterus OTHER SURGICAL HISTORY 2016 Eyelids OTHER SURGICAL HISTORY Left 08/29/2023 Removal left salivary stone / Sialodochoplasty RHINOPLASTY 1977 family history includes Heart disease in her mother; Hypertension in her mother. OBJECTIVE: Visit Vitals BP 118/72 (BP Location: Left arm, Patient Position: Sitting, BP Cuff Size: Adult long) Pulse 81 Temp 98.5 F (Temporal) Resp 19 Wt 207 lb 12.8 oz SpO2 97% BMI 33.54 kg/m Smoking Status Former BSA 2.1 m Physical Exam Vitals and nursing note reviewed. Constitutional: General: She is not in acute distress. Appearance: Normal appearance. She is obese. She is not ill-appearing. HENT: Head: Normocephalic and atraumatic. Right Ear: External ear normal. Left Ear: External ear normal. Nose: Nose normal. Mouth/Throat: Mouth: Mucous membranes are moist. Eyes: Extraocular Movements: Extraocular movements intact. Conjunctiva/sclera: Conjunctivae normal. Neck: Vascular: No carotid bruit. Cardiovascular: Rate and Rhythm: Normal rate and regular rhythm. Pulses: Normal pulses. Heart sounds: Normal heart sounds. Pulmonary: Effort: Pulmonary effort is normal. No respiratory distress. Breath sounds: Normal breath sounds. No wheezing. Abdominal: General: Bowel sounds are normal. There is no distension. Palpations: Abdomen is soft. There is no mass. Tenderness: There is no abdominal tenderness. Musculoskeletal: General: Normal range of motion. Cervical back: Normal range of motion and neck supple. Right lower leg: No edema. Left lower leg: No edema. Lymphadenopathy: Cervical: No cervical adenopathy. Skin: General: Skin is warm and dry. [...] complication, without long-term current use of insulin ([facility]) Check blood sugars daily, notify if <70 or >200. Take medications (pills or insulin) as directed. Monitor for s/s of hypoglycemia (sweaty, dizziness, nausea, vomiting, or shakiness). Watch for increase in thirst, urination, or appetite. Inspect feet frequently monitoring for open wounds , andalso recommend yearly eye exam. Pt should attempt to remain as physically active as chronic conditions allow, as well as trying to follow a diet low in carbohydrates, and simple sugars. Current meds: mounjaro as well as metformin a1c Essential hypertension - Primary (Chronic) Please check blood pressure daily and record DASH diet Limit caffeine Take medication as directed Contact office if chest pain, pressure, dizziness, shortness of breath, swelling legs Recommend slow position changes Current meds: hydrochlorothiazide , carvedilol, Obesity (BMI 30-39.9) Continues with [facility] and is taking Mounjaro Hyperlipidemia, unspecified (CMS/HCC) Declines use of statin, cont fenofibrate Also add metamucil fiber as well as it may help both constipation as well as heart health Hypomagnesemia Prescribed mag oxide 400mg daily Relevant Medications magnesium oxide (Mag-Ox) 400 MG tablet Statin intolerance Yeast dermatitis Relevant Medications nystatin (Mycostatin) 483204 UNIT/GM powder * Ginny Natarajan NP - 09/05/2024 7:30 AM ESTAssociated Problem(s): Hypomagnesemia Prescribed mag oxide 400mg daily * Ginny Natarajan NP - 09/05/2024 7:28 AM ESTAssociated Problem(s): Hyperlipidemia, unspecified ([facility]/HCC) Declines use of statin, cont fenofibrate Also add metamucil fiber as well as it may help both constipation as well as heart health * Ginny Natarajan NP - 09/05/2024 7:26 AM ESTAssociated Problem(s): Type 2 diabetes mellitus without complication, without long-term current useof insulin ([facility]) Check blood sugars daily, notify if <70 or >200. Take medications (pills or insulin) as directed. Monitor for s/s of hypoglycemia (sweaty, dizziness, nausea, vomiting, or shakiness). Watch for increase in thirst, urination, or appetite. Inspect feet frequently monitoring for open wounds , andalso recommend yearly eye exam. Pt should attempt to remain as physically active as chronic conditions allow, as well as trying to follow a diet low in carbohydrates, and simple sugars. Current meds: mounjaro as well as metformin a1c * Ginny Natarajan NP - 09/05/2024 7:26 AM ESTAssociated Problem(s): Obesity (BMI 30-39.9) Continues with [facility] and is taking Mounjaro * Ginny Natarajan NP - 09/05/2024 7:25 AM ESTAssociated Problem(s): Essential hypertension Please check blood pressure daily and record DASH diet Limit caffeine Take medication as directed Contact office if chest pain, pressure, dizziness, shortness of breath, swelling legs Recommend slow position changes Current meds: hydrochlorothiazide , carvedilol, May talk about at next appt if weight continues to go down lowering dose of bp meds documented in this [facility]02-13-2025 Instructions* Patient Instructions* Ginny Natarajan NP - 09/05/2024 2:20 PM EST Recheck magnesium in about 4 weeks, increase the dose to 400mg twice a day documented in this [facility]11-04-2024 History of Present illness Narrative* Jose Montes MD - 05/27/2024 11:30 AM EST Images from the original note were not [...] soft tissue, and skin Mid Frontal Scalp New Sarpy pearly papule Lesion biopsy Type of biopsy: [...] for any new/changing lesions documented in this encounterSaint [facility] Health [id number] History of Present illness Narrative* Ginny Natarajan, ABIGAIL - 04/17/2024 1:49 PM EDTAssociated Problem(s): Essential hypertension Stable, no med dose changes * Ginny Natarajan NP - 04/17/2024 1:49 PM EDTAssociated Problem(s): COVID No resp distress Did not take paxlovid Fluids, and rest, treat symptoms * Ginny Natarajan NP - 04/17/2024 1:48 PM EDTAssociated Problem(s): Muscle cramps Check basic and mg d/t recent diarrhea and vomiting fluids * Ginny Natarajan NP - 04/17/2024 1:48 PM EDTAssociated Problem(s): UTI (urinary tract infection), uncomplicated Finished atb Urine still concentrated, recommend increasing fluids * Ginny Natarajan NP - 04/17/2024 1:21 PM EDTAssociated Problem(s): Type 2 diabetes mellitus without complication, without long-term current useof insulin ([facility]) Check labs Continue mounjaro (prescribed through weight mgmt office-I did not prescribe d/t hx pancreatitis) Check blood sugars daily, notify if <70 or >200. Take medications (pills or insulin) as directed. Monitor for s/s of hypoglycemia (sweaty, dizziness, nausea, vomiting, or shakiness). Watch for increase in thirst, urination, or appetite. Inspect feet frequently monitoring for open wounds , andalso recommend yearly eye exam. Pt should attempt to remain as physically active as chronic conditions allow, as well as trying to follow a diet low in carbohydrates, and simple sugars. * Ginny Natarajan NP - 04/17/2024 1:20 PM EDTAssociated Problem(s): Obesity (BMI 30-39.9) Doing well with mounjaro script has lost about 32 pounds this year * STU HALL - 04/17/2024 1:00 PM EDT Pt has been sick- for 2 weeks now. Monday morning she was in urgent care in [place]- had tested pos for covid and UTI, pt did not take the paxlovid due to too many side effects She has been taking otc cold/flu medication and stopped with most of her vitamins other than potassium Pt is having bad leg cramps. * Ginny Natarajan NP - 04/17/2024 1:00 PM EDT Images from the original note were not included. Little Redmond is a 73 y.o. female presents with chief complaint of No chief complaint on file. HPI: Dx with UTI and COVID last week in [place] Did not take paxlovid , took bactrim and from UTI stand point is doing well Taking OTC Mucinex D Hypertension This is a chronic problem. The current episode started more than 1 year ago. The problem is unchanged. The problem is controlled. Pertinent negatives include no blurred vision, chest pain, headaches,palpitations, peripheral edema or shortness of breath. There are no associated agents to hypertension. Risk factors for coronary artery disease include diabetes mellitus, dyslipidemia, obesity and sedentary lifestyle. Past treatments include beta blockers and diuretics. The current treatment provides significant improvement. There are no compliance problems. There is no history of CAD/AZ, heart failure or PVD. Diabetes She presents for her follow-up diabetic visit. She has type 2 diabetes mellitus. Her disease coursehas been stable. There are no hypoglycemic associated symptoms. Pertinent negatives for hypoglycemia include no dizziness, headaches, nervousness/anxiousness, seizures or tremors. Pertinent negativesfor diabetes include no blurred vision, no chest pain, no polydipsia, no polyphagia and no polyuria. There are no hypoglycemic complications. Symptoms are stable. Pertinent negatives for diabetic complications include no heart disease, nephropathy or PVD. Risk factors for coronary artery disease include diabetes mellitus, dyslipidemia, obesity and sedentary lifestyle. Current diabetic treatments:leah. She is compliant with treatment all of the time. Her overall blood glucose range is 90-110 mg/dl. An ELIAZAR inhibitor/angiotensin II receptor onofre is not being taken. She does not see a front desk lead.Eye exam is current. Sinusitis This is a new problem. The current episode started in the past 7 days. The problem has been gradually worsening since onset. There has been no fever. The pain is moderate. Associated symptoms includecongestion, coughing, ear pain, sinus pressure and a sore throat. Pertinent negatives include no chills, headaches or shortness of breath. SUBJECTIVE: MEDICATIONS: Current Outpatient Medications Medication Instructions ascorbic acid (VITAMIN C) 1,000 mg, Oral, Every 24 hours aspirin 81 mg, Oral, Every 24 hours b complex vitamins capsule 1 capsule, Oral, Daily RT Xomplhcu-Agtntvd-Lfobr-Quercet (Bilberry Extract) 40 MG capsule 40 mg, [...] TWICE A DAY MONDAY-MONDAY OFF ON WEEKENDS THENAS NEEDED FOR FLARES coenzyme Q-10 10 mg, Oral, Every 24 hours Cyanocobalamin 1000 MCG capsule 1 tablet, Oral, Every 24 hours doxycycline (Monodox) 100 MG capsule Take 1 capsule, by mouth BID x 1 day fenofibrate (TRICOR) 145 mg, Oral, Every 24 hours Folic Acid-Cholecalciferol 1-27024 MG-UNIT tablet 10,000 Units, Oral, Daily GARLIC [...] SMALL AMOUNT EXTERNALLY TWICE A DAY FOR SEBORRHEICDERMATITIS TO SKIN OF EARS/BEHIND EARS Turmeric (QC TUMERIC COMPLEX PO) 1 tablet, Oral, Every 24 hours valACYclovir (VALTREX) 1,000 mg, Oral, Daily PRN ALLERGIES: Allergies Allergen Reactions Statins Unknown Simvastatin Other Reaction(s): Alkaline phosphatase raised, ALT (SGPT) level raised, Aspartate aminotransferaseserum level raised, Alkaline phosphatase raised, ALT (SGPT) [...] Allergic urticaria 07/27/2023 Arthritis Benign essential hypertension ([facility]) 07/27/2023 Carbuncle and furuncle of trunk 07/27/2023 Carpal tunnel syndrome 07/27/2023 COVID-19 15 day stay Degeneration of lumbar or lumbosacral intervertebral disc 07/27/2023 Depressive disorder ([facility]) 07/27/2023 Dizziness 11/29/2022 Encounter for routine gynecological examination 07/27/2023 Apr 29, 2008 Entered By: OPAL TAYLOR Comment: 5 years ago was last one Gallbladder problem Gastroesophageal reflux disease 07/27/2023 HTN (hypertension) ([facility]) Hyperlipidemia ([facility]) 07/27/2023 Hyperlipidemia, unspecified ([facility]) 07/27/2023 Ingrown toenail 07/27/2023 Lumbar sprain 07/27/2023 Migraine ([facility]) 11/29/2022 Mixed hyperlipidemia ([facility]) 07/27/2023 Nonalcoholic steatohepatitis (CORCORAN) 07/27/2023 Nondependent opioid abuse ([facility]) 07/27/2023 Obesity 07/27/2023 Occult blood in stools 07/27/2023 Onychomycosis of toenail 07/27/2023 Opioid dependence in remission ([facility]/HCC) 07/27/2023 Opioid dependence, in remission ([facility]) 07/27/2023 Osteoarthritis 07/27/2023 Other general symptoms and signs 07/27/2023 Painful breathing 07/27/2023 Pancreatitis Presbyopia 07/27/2023 Recurrent major depressive disorder (HCC) ([facility]) 07/27/2023 Regular astigmatism, bilateral 07/27/2023 Sciatica 07/27/2023 [...] Lazer Surgery of Uterus OTHER SURGICAL HISTORY 2016 Eyelids OTHER SURGICAL HISTORY Left 08/29/2023 Removal [...] complication, without long-term current use of insulin ([facility]) -Primary Check labs Continue mounjaro (prescribed through weight mgmt office-I did not prescribe d/t hx pancreatitis) Check blood sugars daily, notify if <70 or >200. Take medications (pills or insulin) as directed. Monitor for s/s of hypoglycemia (sweaty, dizziness, nausea, vomiting, or shakiness). Watch for increase in thirst, urination, or appetite. Inspect feet frequently monitoring for open wounds , andalso recommend yearly eye exam. Pt should attempt [...] Dospak) 4 MG tablets documented in this encounterSaint [facility]'s [facility] Health [id number] History of Present illness Narrative* Migel Núñez, DO - 09/07/2023 10:45 AM EST Subjective Patient ID: Little Redmond is a 72 y.o. female who presents for Post-op (Post op salivary stoneremoval) HPI This patient presents postop excision of [...] widely patent. Dissolvable sutures are still in place.Clear saliva is expressed. Assessment/Plan Diagnoses and all orders for this visit: Sialadenitis Comments: significant improvement Salivary duct stone Comments: floor of mouth is healing quite nicely. We will see her back as needed Neck mass Comments: Recommend massage and heat therapy [id number] Evaluation note* Encounter Date Diagnosis Assessment Notes Treatment Notes Treatment Clinical Notes Mar, Acute non-recurrent maxillary sinusitis (ICD-10 [...] fluids and rest, Tylenol as directed for discomfort/fever, warm moist compress over sinuses several times a day, cool mist humidification, nasal saline spray as directed. Symptoms should improve in the next 3 days, if symptoms persist follow up with PCP. Immediate eval for warning s/sx as discussed. Patient verbalizes understanding and is agreeable to treatment plan [employer] Other Evaluation note* Diagnosis Hypokalemia Hypopotassemia documented in this encounter [facility] HealthcareEvaluation note* Diagnosis Sialadenitis- Primary Sialoadenitis Salivary duct stone Sialolithiasis Neck mass Swelling, mass, or lump in head and neck documented in this encounter [facility] HealthcareEvaluation noteNo assessment [facility] available[facility] Work [facility]* Diagnosis Onset Date Resolution Status Arthritis of knee acute BMI 40.0-44.9, adult acute Hyperlipidemia, unspecified acute Hypertriglyceridemia acute Obesity acute Vitamin D deficiency, unspecified acute [facility] Work Phone: evaluation note* Diagnosis Onset Date Resolution Status Arthritis [...] Obesity acute Vitamin D deficiency, unspecified acute [facility] Work Phone: evaluation note* Diagnosis Onset Date Resolution Status Arthritis of knee acute BMI 40.0-44.9, adult acute Hyperlipidemia, unspecified acute Hypertriglyceridemia acute Obesity acute Vitamin D deficiency, unspecified acute Arthritis of knee acute BMI 40.0-44.9, adult acute Hyperlipidemia, unspecified acute Hypertriglyceridemia acute Obesity acute Vitamin D deficiency, unspecified acute Viral URI noneactive [facility] Work Phone: evaluation note* Diagnosis Onset Date Resolution Status Arthritis [...] Obesity acute Vitamin D deficiency, unspecified acute [facility] Work Phone: evaluation note* Diagnosis Environmental and seasonal allergies documented in this encounter [facility] HealthcareEvaluation note* Diagnosis Hypomagnesemia- Primary Disorders of magnesium metabolism documented in this encounter [facility] HealthcareEvaluation note* Diagnosis Type 2 diabetes mellitus without complication, without long-term current use of insulin (CMS/[facility])- Primary Sialadenitis Sialoadenitis Dry eyes Unspecified tear [...] complication, without long-term current use of insulin (CMS/[facility]) Herpes Herpes simplex without mention of complication Hypokalemia Hypopotassemia Mixed hyperlipidemia (CMS/[facility]) Mixed hyperlipidemia Rash and nonspecific skin eruption Rash and other nonspecific skin eruption Urinary tract infection without hematuria, site unspecified Type 2 diabetes mellitus without complication, without long-term current use of insulin (CMS/HCC)- Primary Muscle cramps UTI (urinary tract infection), uncomplicated Urinary tract infection, site not specified COVID Essential hypertension Unspecified essential hypertension Acute non-recurrent pansinusitis Hypokalemia Hypopotassemia documented in this encounter [facility] HealthcareEvaluation note* Diagnosis Onset Date Resolution Status [...] hyperglycemia acute Vitamin D deficiency, unspecified acute [facility] Work Phone: Evaluation note* Diagnosis Type [...] complication, without long-term current use of insulin (CMS/[facility]) Chronic pain of left knee Abrasion of [...] spondylosis without myelopathy documented [facility] encounter [facility]* [...] 20 2:27pm Vitamin D deficiency, unspecified ac [employer] August 20, 2024 2:27pm [facility] Work Phone: Evaluation note* Diagnosis Type [...] symptoms- Primary documented in this encounter [facility]* [...] hypertension Unspecified essential hypertension Acute non-recurrent pansinusitis Essential hypertension- Primary Unspecified essential hypertension Obesity (BMI 30-39.9) Type 2 diabetes mellitus without complication, without long-term current use of insulin (CMS/HCC) Mixed hyperlipidemia (CMS/HCC) Mixed hyperlipidemia Statin intolerance Hypomagnesemia Disorders of magnesium metabolism Yeast dermatitis documented in this encounter [facility] HealthcareEvaluation note* Diagnosis Type 2 diabetes mellitus without complication, without long-term current use of insulin ([facility])- Primary Sialadenitis Sialoadenitis Dry eyes Unspecified tear film insufficiency Abrasion of left cornea, subsequent encounter- Primary Environmental and seasonal allergies Type 2 diabetes mellitus without complication, without long-term current use of insulin ([facility]) Chronic pain of left knee Abrasion of left cornea, subsequent encounter- Primary Obesity (BMI 30-39.9) Encounter for subsequent annual wellness visit (AWV) in Medicare patient- Primary Essential hypertension Unspecified essential hypertension Obesity (BMI 30-39.9) Type 2 diabetes mellitus without complication, without long-term current use of insulin ([facility]) Herpes Herpes simplex without mention of complication Hypokalemia Hypopotassemia Mixed hyperlipidemia ([facility]) Mixed hyperlipidemia Rash and nonspecific skin eruption Rash and other nonspecific skin eruption Urinary tract infection without hematuria, site unspecified Type 2 diabetes mellitus without complication, without long-term current use of insulin ([facility])- Primary Muscle cramps UTI (urinary tract infection), uncomplicated Urinary tract infection, site not specified COVID Essential hypertension Unspecified essential hypertension Acute non-recurrent pansinusitis Essential hypertension- Primary Unspecified essential hypertension Obesity (BMI 30-39.9) Type 2 diabetes mellitus without complication, without long-term current use of insulin ([facility]) Mixed hyperlipidemia ([facility]) Mixed hyperlipidemia Statin intolerance Hypomagnesemia Disorders of magnesium metabolism Yeast dermatitis UTI (urinary tract infection), uncomplicated- Primary Urinary tract infection, site not specified documented in this encounter [facility] HealthcareEvaluation note* Diagnosis Type 2 diabetes mellitus without complication, without long-term current use of insulin ([facility])- Primary Sialadenitis Sialoadenitis Dry eyes Unspecified tear film insufficiency Abrasion of left cornea, subsequent encounter- Primary Environmental and seasonal allergies Type 2 diabetes mellitus without complication, without long-term current use of insulin ([facility]) Chronic pain of left knee Abrasion of left cornea, subsequent encounter- Primary Obesity (BMI 30-39.9) Encounter for subsequent annual wellness visit (AWV) in Medicare patient- Primary Essential hypertension Unspecified essential hypertension Obesity (BMI 30-39.9) Type 2 diabetes mellitus without complication, without long-term current use of insulin ([facility]) Herpes Herpes simplex without mention of complication [...] hypertension Unspecified essential hypertension Acute non-recurrent pansinusitis Essential hypertension- Primary Unspecified essential hypertension Obesity (BMI 30-39.9) Type 2 diabetes mellitus without complication, without long-term current use of insulin (CMS/HCC) Mixed hyperlipidemia (CMS/HCC) Mixed hyperlipidemia Statin intolerance Hypomagnesemia Disorders of magnesium metabolism Yeast dermatitis Allergic conjunctivitis of both eyes- Primary Other chronic allergic conjunctivitis Obesity (BMI 30-39.9) Type 2 diabetes mellitus without complications (CMS/HCC) Ringworm of body Dermatophytosis of the body Environmental and seasonal allergies Type 2 diabetes mellitus without complication, without long-term current use of insulin (CMS/HCC) documented in this encounter [facility]* Diagnosis Type 2 diabetes mellitus without complication, without long-term current use of insulin- Primary Sialadenitis Sialoadenitis Dry eyes Unspecified tear film insufficiency Abrasion of left cornea, subsequent encounter- Primary Environmental and seasonal allergies Type 2 diabetes mellitus without complication, without long-term current use of insulin Chronic pain of left knee Abrasion of left cornea, subsequent encounter- Primary Obesity (BMI 30-39.9) Encounter for subsequent annual wellness visit (AWV) in Medicare patient- Primary Essential hypertension Unspecified essential hypertension Obesity (BMI 30-39.9) Type 2 diabetes mellitus without complication, without long-term current use of insulin Herpes Herpes simplex without mention of complication Hypokalemia Hypopotassemia Mixed hyperlipidemia (CMS/HCC) Mixed hyperlipidemia Rash and nonspecific skin eruption Rash and other nonspecific skin eruption Urinary tract infection without hematuria, site unspecified Type 2 diabetes mellitus without complication, without long-term current use of insulin- Primary Muscle cramps UTI (urinary tract infection), uncomplicated Urinary tract infection, site not specified COVID Essential hypertension Unspecified essential hypertension Acute non-recurrent pansinusitis Essential hypertension- Primary Unspecified essential hypertension Obesity (BMI 30-39.9) Type 2 diabetes mellitus without complication, without long-term current use of insulin Mixed hyperlipidemia (CMS/HCC) Mixed hyperlipidemia Statin intolerance Hypomagnesemia Disorders of magnesium metabolism Yeast dermatitis Allergic conjunctivitis of both eyes- Primary Other chronic allergic conjunctivitis Obesity (BMI 30-39.9) Type 2 diabetes mellitus without complications Ringworm of body Dermatophytosis of the body Environmental and seasonal allergies Type 2 diabetes mellitus without complication, without long-term current use of insulin Allergic conjunctivitis of both eyes Other chronic allergic conjunctivitis documented in this encounter [facility] HealthcareEvaluation note* Diagnosis Type 2 diabetes mellitus without complication, without long-term current use of insulin- Primary Sialadenitis Sialoadenitis Dry eyes Unspecified tear film insufficiency Abrasion of left cornea, subsequent encounter- Primary Environmental and seasonal allergies Type 2 diabetes mellitus without complication, without long-term current use of insulin Chronic pain of left knee Abrasion of left cornea, subsequent encounter- Primary Obesity (BMI 30-39.9) Encounter for subsequent annual wellness visit (AWV) in Medicare patient- Primary Essential hypertension Unspecified essential hypertension Obesity (BMI 30-39.9) Type 2 diabetes mellitus without complication, without long-term current use of insulin Herpes Herpes simplex without mention of complication Hypokalemia Hypopotassemia Mixed hyperlipidemia (CMS/HCC) Mixed hyperlipidemia Rash and nonspecific skin eruption Rash and other nonspecific skin eruption Urinary tract infection without hematuria, site unspecified Type 2 diabetes mellitus without complication, without long-term current use of insulin- Primary Muscle cramps UTI (urinary tract infection), uncomplicated Urinary tract infection, site not specified COVID Essential hypertension Unspecified essential hypertension Acute non-recurrent pansinusitis Essential hypertension- Primary Unspecified essential hypertension Obesity (BMI 30-39.9) Type 2 diabetes mellitus without complication, without long-term current use of insulin Mixed hyperlipidemia (CMS/HCC) Mixed hyperlipidemia Statin intolerance Hypomagnesemia Disorders of magnesium metabolism Yeast dermatitis Allergic conjunctivitis of both eyes- Primary Other chronic allergic conjunctivitis Obesity (BMI 30-39.9) Type 2 diabetes mellitus without complications Ringworm of body Dermatophytosis of the body Environmental and seasonal allergies Type 2 diabetes mellitus without complication, without long-term current use of insulin UTI (urinary tract infection), uncomplicated- Primary Urinary tract infection, site not specified documented in this encounter [facility] HealthcareEvaluation note* Diagnosis Onset Date Resolution Status Admit Date Arthritis of knee acute October 242024 2:46pm BMI 40.0-44.9, adult acute Apri l 2024 2:46pm Hyperlipidemia, unspecified acute November 20, 2024 2:46pm Hypertension acute November 20, 2024 2:46pm Hypertriglyceridemia acute Apri 2024 2:46pm Obesity acute November 20 2:46pm Type 2 diabetes mellitus wit h hyperglycemia acute November 20, 2024 2:46pm Vitamin D deficiency, unspecified ac [employer] [place] November 20, 2024 2:46pm [facility] Work Phone: Evaluation note* Diagnosis Type 2 diabetes mellitus without complication, without long-term current use of insulin- Primary Sialadenitis Sialoadenitis Dry eyes Unspecified tear film insufficiency Abrasion of left cornea, subsequent encounter- Primary Environmental and seasonal allergies Type 2 diabetes mellitus without complication, without long-term current use of insulin Chronic pain of left knee Abrasion of left cornea, subsequent encounter- Primary Obesity (BMI 30-39.9) Encounter for subsequent annual wellness visit (AWV) in Medicare patient- Primary Essential hypertension Unspecified essential hypertension Obesity (BMI 30-39.9) Type 2 diabetes mellitus without complication, without long-term current use of insulin Herpes Herpes simplex without mention of complication Hypokalemia Hypopotassemia Mixed hyperlipidemia (CMS/HCC) Mixed hyperlipidemia Rash and nonspecific skin eruption Rash and other nonspecific skin eruption Urinary tract infection without hematuria, site unspecified Type 2 diabetes mellitus without complication, without long-term current use of insulin- Primary Muscle cramps UTI (urinary tract infection), uncomplicated Urinary tract infection, site not specified COVID Essential hypertension Unspecified essential hypertension Acute non-recurrent pansinusitis Essential hypertension- Primary Unspecified essential hypertension Obesity (BMI 30-39.9) Type 2 diabetes mellitus without complication, without long-term current use of insulin Mixed hyperlipidemia (CMS/HCC) Mixed hyperlipidemia Statin intolerance Hypomagnesemia Disorders of magnesium metabolism Yeast dermatitis Allergic conjunctivitis of both eyes- Primary Other chronic allergic conjunctivitis Obesity (BMI 30-39.9) Type 2 diabetes mellitus without complications Ringworm of body Dermatophytosis of the body Environmental and seasonal allergies Type 2 diabetes mellitus without complication, without long-term current use of insulin Allergic conjunctivitis of both eyes Other chronic allergic conjunctivitis documented in this encounter [facility] HealthcareEvaluation note* Diagnosis Type 2 diabetes mellitus without complication, without long-term current use of insulin- Primary Sialadenitis Sialoadenitis Dry eyes Unspecified tear film insufficiency Abrasion of left cornea, subsequent encounter- Primary Environmental and seasonal allergies Type 2 diabetes mellitus without complication, without long-term current use of insulin Chronic pain of left knee Abrasion of left cornea, subsequent encounter- Primary Obesity (BMI 30-39.9) Encounter for subsequent annual wellness visit (AWV) in Medicare patient- Primary Essential hypertension Unspecified essential hypertension Obesity (BMI 30-39.9) Type 2 diabetes mellitus without complication, without long-term current use of insulin Herpes Herpes simplex without mention of complication Hypokalemia Hypopotassemia Mixed hyperlipidemia (CMS/HCC) Mixed hyperlipidemia Rash and nonspecific skin eruption Rash and other nonspecific skin eruption Urinary tract infection without hematuria, site unspecified Type 2 diabetes mellitus without complication, without long-term current use of insulin- Primary Muscle cramps UTI (urinary tract infection), uncomplicated Urinary tract infection, site not specified COVID Essential hypertension Unspecified essential hypertension Acute non-recurrent pansinusitis Essential hypertension- Primary Unspecified essential hypertension Obesity (BMI 30-39.9) Type 2 diabetes mellitus without complication, without long-term current use of insulin Mixed hyperlipidemia (CMS/HCC) Mixed hyperlipidemia Statin intolerance Hypomagnesemia Disorders of magnesium metabolism Yeast dermatitis Allergic conjunctivitis of both eyes- Primary Other chronic allergic conjunctivitis Obesity (BMI 30-39.9) Type 2 diabetes mellitus without complications Ringworm of body Dermatophytosis of the body Environmental and seasonal allergies Type 2 diabetes mellitus without complication, without long-term current use of insulin Pain and swelling of left knee- Primary Primary osteoarthritis of left knee documented in this encounter [facility]* Diagnosis Type 2 diabetes mellitus without complication, without long-term current use of insulin- Primary Sialadenitis Sialoadenitis Dry eyes Unspecified tear film insufficiency Abrasion of left cornea, subsequent encounter- Primary Environmental and seasonal allergies Type 2 diabetes mellitus without complication, without long-term current use of insulin Chronic pain of left knee Abrasion of left cornea, subsequent encounter- Primary Obesity (BMI 30-39.9) Encounter for subsequent annual wellness visit (AWV) in Medicare patient- Primary Essential hypertension Unspecified essential hypertension Obesity (BMI 30-39.9) Type 2 diabetes mellitus without complication, without long-term current use of insulin Herpes Herpes simplex without mention of complication Hypokalemia Hypopotassemia Mixed hyperlipidemia (CMS/HCC) Mixed hyperlipidemia Rash and nonspecific skin eruption Rash and other nonspecific skin eruption Urinary tract infection without hematuria, site unspecified Type 2 diabetes mellitus without complication, without long-term current use of insulin- Primary Muscle cramps UTI (urinary tract infection), uncomplicated Urinary tract infection, site not specified COVID Essential hypertension Unspecified essential hypertension Acute non-recurrent pansinusitis Essential hypertension- Primary Unspecified essential hypertension Obesity (BMI 30-39.9) Type 2 diabetes mellitus without complication, without long-term current use of insulin Mixed hyperlipidemia (CMS/HCC) Mixed hyperlipidemia Statin intolerance Hypomagnesemia Disorders of magnesium metabolism Yeast dermatitis Allergic conjunctivitis of both eyes- Primary Other chronic allergic conjunctivitis Obesity (BMI 30-39.9) Type 2 diabetes mellitus without complications Ringworm of body Dermatophytosis of the body Environmental and seasonal allergies Type 2 diabetes mellitus without complication, without long-term current use of insulin Type 2 diabetes mellitus without complication, without long-term current use of insulin- Primary Type 2 diabetes mellitus with other specified complication Mixed hyperlipidemia (CMS/HCC) Mixed hyperlipidemia Essential hypertension Unspecified essential hypertension Allergic conjunctivitis of both eyes Other chronic allergic conjunctivitis Hypomagnesemia Disorders of magnesium metabolism UTI (urinary tract infection), uncomplicated Urinary tract infection, site not specified Environmental and seasonal allergies Rash and nonspecific skin eruption Rash and other nonspecific skin eruption documented in this encounter [facility]* Diagnosis Type 2 diabetes mellitus without complication, without long-term current use of insulin- Primary Sialadenitis Sialoadenitis Dry eyes Unspecified tear film insufficiency Abrasion of left cornea, subsequent encounter- Primary Environmental and seasonal allergies Type 2 diabetes mellitus without complication, without long-term current use of insulin Chronic pain of left knee Abrasion of left cornea, subsequent encounter- Primary Obesity (BMI 30-39.9) Encounter for subsequent annual wellness visit (AWV) in Medicare patient- Primary Essential hypertension Unspecified essential hypertension Obesity (BMI 30-39.9) Type 2 diabetes mellitus without complication, without long-term current use of insulin Herpes Herpes simplex without mention of complication Hypokalemia Hypopotassemia Mixed hyperlipidemia (CMS/HCC) Mixed hyperlipidemia Rash and nonspecific skin eruption Rash and other nonspecific skin eruption Urinary tract infection without hematuria, site unspecified Type 2 diabetes mellitus without complication, without long-term current use of insulin- Primary Muscle cramps UTI (urinary tract infection), uncomplicated Urinary tract infection, site not specified COVID Essential hypertension Unspecified essential hypertension Acute non-recurrent pansinusitis Essential hypertension- Primary Unspecified essential hypertension Obesity (BMI 30-39.9) Type 2 diabetes mellitus without complication, without long-term current use of insulin Mixed hyperlipidemia (CMS/HCC) Mixed hyperlipidemia Statin intolerance Hypomagnesemia Disorders of magnesium metabolism Yeast dermatitis Allergic conjunctivitis of both eyes- Primary Other chronic allergic conjunctivitis Obesity (BMI 30-39.9) Type 2 diabetes mellitus without complications Ringworm of body Dermatophytosis of the body Environmental and seasonal allergies Type 2 diabetes mellitus without complication, without long-term current use of insulin Type 2 diabetes mellitus without complication, without long-term current use of insulin- Primary Type 2 diabetes mellitus with other specified complication Mixed hyperlipidemia (CMS/HCC) Mixed hyperlipidemia Essential hypertension Unspecified essential hypertension Allergic conjunctivitis of both eyes Other chronic allergic conjunctivitis Hypomagnesemia Disorders of magnesium metabolism UTI (urinary tract infection), uncomplicated Urinary tract infection, site not specified Environmental and seasonal allergies Rash and nonspecific skin eruption Rash and other nonspecific skin eruption UTI (urinary tract infection), uncomplicated- Primary Urinary tract infection, site not specified documented in this encounter [facility]* Diagnosis Type 2 diabetes mellitus without complication, without long-term current use of insulin (HCC)- Primary Sialadenitis Sialoadenitis Dry eyes Unspecified tear film insufficiency Abrasion of left cornea, subsequent encounter- Primary Environmental and seasonal allergies Type 2 diabetes mellitus without complication, without long-term current use of insulin (HCC) Chronic pain of left knee Abrasion of left cornea, subsequent encounter- Primary Obesity (BMI 30-39.9) Encounter for subsequent annual wellness visit (AWV) in Medicare patient- Primary Essential hypertension Unspecified essential hypertension Obesity (BMI 30-39.9) Type 2 diabetes mellitus without complication, without long-term current use of insulin (HCC) Herpes Herpes simplex without mention of complication Hypokalemia Hypopotassemia Mixed hyperlipidemia Mixed hyperlipidemia Rash and nonspecific skin eruption Rash and other nonspecific skin eruption Urinary tract infection without hematuria, site unspecified Type 2 diabetes mellitus without complication, without long-term current use of insulin (HCC)- Primary Muscle cramps UTI (urinary tract infection), uncomplicated Urinary tract infection, site not specified COVID Essential hypertension Unspecified essential hypertension Acute non-recurrent pansinusitis Essential hypertension- Primary Unspecified essential hypertension Obesity (BMI 30-39.9) Type 2 diabetes mellitus without complication, without long-term current use of insulin (HCC) Mixed hyperlipidemia Mixed hyperlipidemia Statin intolerance Hypomagnesemia Disorders of magnesium metabolism Yeast dermatitis Allergic conjunctivitis of both eyes- Primary Other chronic allergic conjunctivitis Obesity (BMI 30-39.9) Type 2 diabetes mellitus without complications (HCC) Ringworm of body Dermatophytosis of the body Environmental and seasonal allergies Type 2 diabetes mellitus without complication, without long-term current use of insulin (HCC) Type 2 diabetes mellitus without complication, without long-term current use of insulin (HCC)- Primary Type 2 diabetes mellitus with other specified complication (HCC) Mixed hyperlipidemia Mixed hyperlipidemia Essential hypertension Unspecified essential hypertension Allergic conjunctivitis of both eyes Other chronic allergic conjunctivitis Hypomagnesemia Disorders of magnesium metabolism UTI (urinary tract infection), uncomplicated Urinary tract infection, site not specified Environmental and seasonal allergies Rash and nonspecific skin eruption Rash and other nonspecific skin eruption UTI (urinary tract infection), uncomplicated- Primary Urinary tract infection, site not specified Hypomagnesemia Disorders of magnesium metabolism documented in this encounter [facility] HealthcareEvaluation note* Diagnosis Type 2 diabetes mellitus without complication, without long-term current use of insulin (HCC)- Primary Sialadenitis Sialoadenitis Dry eyes Unspecified tear film insufficiency Abrasion of left cornea, subsequent encounter- Primary Environmental and seasonal allergies Type 2 diabetes mellitus without complication, without long-term current use of insulin (HCC) Chronic pain of left knee Abrasion of left cornea, subsequent encounter- Primary Obesity (BMI 30-39.9) Encounter for subsequent annual wellness visit (AWV) in Medicare patient- Primary Essential hypertension Unspecified essential hypertension Obesity (BMI 30-39.9) Type 2 diabetes mellitus without complication, without long-term current use of insulin (HCC) Herpes Herpes simplex without mention of complication Hypokalemia Hypopotassemia Mixed hyperlipidemia Mixed hyperlipidemia Rash and nonspecific skin eruption Rash and other nonspecific skin eruption Urinary tract infection without hematuria, site unspecified Type 2 diabetes mellitus without complication, without long-term current use of insulin (HCC)- Primary Muscle cramps UTI (urinary tract infection), uncomplicated Urinary tract infection, site not specified COVID Essential hypertension Unspecified essential hypertension Acute non-recurrent pansinusitis Essential hypertension- Primary Unspecified essential hypertension Obesity (BMI 30-39.9) Type 2 diabetes mellitus without complication, without long-term current use of insulin (HCC) Mixed hyperlipidemia Mixed hyperlipidemia Statin intolerance Hypomagnesemia Disorders of magnesium metabolism Yeast dermatitis Allergic conjunctivitis of both eyes- Primary Other chronic allergic conjunctivitis Obesity (BMI 30-39.9) Type 2 diabetes mellitus without complications (HCC) Ringworm of body Dermatophytosis of the body Environmental and seasonal allergies Type 2 diabetes mellitus without complication, without long-term current use of insulin (HCC) Type 2 diabetes mellitus without complication, without long-term current use of insulin (HCC)- Primary Type 2 diabetes mellitus with other specified complication (HCC) Mixed hyperlipidemia Mixed hyperlipidemia Essential hypertension Unspecified essential hypertension Allergic conjunctivitis of both eyes Other chronic allergic conjunctivitis Hypomagnesemia Disorders of magnesium metabolism UTI (urinary tract infection), uncomplicated Urinary tract infection, site not specified Environmental and seasonal allergies Rash and nonspecific skin eruption Rash and other nonspecific skin eruption UTI (urinary tract infection), uncomplicated- Primary Urinary tract infection, site not specified Herpesviral infection, unspecified Rash and nonspecific skin eruption Rash and other nonspecific skin eruption documented in this encounter [facility]* Diagnosis Type 2 diabetes mellitus without complication, without long-term current use of insulin (HCC)- Primary Sialadenitis Sialoadenitis Dry eyes Unspecified tear film insufficiency Abrasion of left cornea, subsequent encounter- Primary Environmental and seasonal allergies Type 2 diabetes mellitus without complication, without long-term current use of insulin (HCC) Chronic pain of left knee Abrasion of left cornea, subsequent encounter- Primary Obesity (BMI 30-39.9) Encounter for subsequent annual wellness visit (AWV) in Medicare patient- Primary Essential hypertension Unspecified essential hypertension Obesity (BMI 30-39.9) Type 2 diabetes mellitus without complication, without long-term current use of insulin (HCC) Herpes Herpes simplex without mention of complication Hypokalemia Hypopotassemia Mixed hyperlipidemia Mixed hyperlipidemia Rash and nonspecific skin eruption Rash and other nonspecific skin eruption Urinary tract infection without hematuria, site unspecified Type 2 diabetes mellitus without complication, without long-term current use of insulin (HCC)- Primary Muscle cramps UTI (urinary tract infection), uncomplicated Urinary tract infection, site not specified COVID Essential hypertension Unspecified essential hypertension Acute non-recurrent pansinusitis Essential hypertension- Primary Unspecified essential hypertension Obesity (BMI 30-39.9) Type 2 diabetes mellitus without complication, without long-term current use of insulin (HCC) Mixed hyperlipidemia Mixed hyperlipidemia Statin intolerance Hypomagnesemia Disorders of magnesium metabolism Yeast dermatitis Allergic conjunctivitis of both eyes- Primary Other chronic allergic conjunctivitis Obesity (BMI 30-39.9) Type 2 diabetes mellitus without complications (HCC) Ringworm of body Dermatophytosis of the body Environmental and seasonal allergies Type 2 diabetes mellitus without complication, without long-term current use of insulin (HCC) Type 2 diabetes mellitus without complication, without long-term current use of insulin (HCC)- Primary Type 2 diabetes mellitus with other specified complication (HCC) Mixed hyperlipidemia Mixed hyperlipidemia Essential hypertension Unspecified essential hypertension Allergic conjunctivitis of both eyes Other chronic allergic conjunctivitis Hypomagnesemia Disorders of magnesium metabolism UTI (urinary tract infection), uncomplicated Urinary tract infection, site not specified Environmental and seasonal allergies Rash and nonspecific skin eruption Rash and other nonspecific skin eruption UTI (urinary tract infection), uncomplicated- Primary Urinary tract infection, site not specified Type 2 diabetes mellitus without complications (HCC) Environmental and seasonal allergies documented in this encounter [facility]* Diagnosis Type 2 diabetes mellitus without complication, without long-term current use of insulin (HCC)- Primary Sialadenitis Sialoadenitis Dry eyes Unspecified tear film insufficiency Abrasion of left cornea, subsequent encounter- Primary Environmental and seasonal allergies Type 2 diabetes mellitus without complication, without long-term current use of insulin (HCC) Chronic pain of left knee Abrasion of left cornea, subsequent encounter- Primary Obesity (BMI 30-39.9) Encounter for subsequent annual wellness visit (AWV) in Medicare patient- Primary Essential hypertension Unspecified essential hypertension Obesity (BMI 30-39.9) Type 2 diabetes mellitus without complication, without long-term current use of insulin (HCC) Herpes Herpes simplex without mention of complication Hypokalemia Hypopotassemia Mixed hyperlipidemia Mixed hyperlipidemia Rash and nonspecific skin eruption Rash and other nonspecific skin eruption Urinary tract infection without hematuria, site unspecified Type 2 diabetes mellitus without complication, without long-term current use of insulin (HCC)- Primary Muscle cramps UTI (urinary tract infection), uncomplicated Urinary tract infection, site not specified COVID Essential hypertension Unspecified essential hypertension Acute non-recurrent pansinusitis Essential hypertension- Primary Unspecified essential hypertension Obesity (BMI 30-39.9) Type 2 diabetes mellitus without complication, without long-term current use of insulin (HCC) Mixed hyperlipidemia Mixed hyperlipidemia Statin intolerance Hypomagnesemia Disorders of magnesium metabolism Yeast dermatitis Allergic conjunctivitis of both eyes- Primary Other chronic allergic conjunctivitis Obesity (BMI 30-39.9) Type 2 diabetes mellitus without complications (HCC) Ringworm of body Dermatophytosis of the body Environmental and seasonal allergies Type 2 diabetes mellitus without complication, without long-term current use of insulin (HCC) Type 2 diabetes mellitus without complication, without long-term current use of insulin (HCC)- Primary Type 2 diabetes mellitus with other specified complication (HCC) Mixed hyperlipidemia Mixed hyperlipidemia Essential hypertension Unspecified essential hypertension Allergic conjunctivitis of both eyes Other chronic allergic conjunctivitis Hypomagnesemia Disorders of magnesium metabolism UTI (urinary tract infection), uncomplicated Urinary tract infection, site not specified Environmental and seasonal allergies Rash and nonspecific skin eruption Rash and other nonspecific skin eruption UTI (urinary tract infection), uncomplicated- Primary Urinary tract infection, site not specified Vitamin D deficiency, unspecified- Primary Essential hypertension Unspecified essential hypertension Type 2 diabetes mellitus without complication, without long-term current use of insulin (HCC) Hypomagnesemia Disorders of magnesium metabolism Hypokalemia Hypopotassemia documented in this encounter [facility] N[facility]ative - Reported* Type Description Date Medical History Arthritis Medical History Diabetes- Metformin Medical History Gallbladder Medical History HTN Surgical History Gallbladder 1997 Surgical History Lazer Surgery of Uterus 1995 Surgical History Rhinoplasty 1977 Surgical History Eyelids 2016 [employer] Other Reason for referral (narrative)No reason for [facility] Summary Purpose Family History No Family History Records Found Relationship Condition Age at Onset Recorded Date/T jeff father Unknown Not Specified Hypertension Unknown Heart disease Unknown Unknown Atrial fibrillation Unknown Parkinson's disease Unknown Relationship Condition Age at Onset Recorded Date/T jeff father Unknown mother Hypertension Unknown Heart disease Unknown Unknown Atrial fibrillation Unknown Parkinson's disease Unknown Advance Directives No Advanced Directives Records Found Advance Directive Response Recorded Date/ Time Advance Directives No June 1:39pm Advance Directive Response Recorded Date/ Time Advance Directives No June 12:39pm Chief Complaint and Reason for Visit Chief Complaint salivary stone [facility] Chief Complaint [facility] Reason for Visit Arthritis of knee BMI 40.0-44.9, adult Hyperlipidemia, unspecified Hypertriglyceridemia Obesity Vitamin D deficiency, unspecified Chief Complaint [facility]/[place] WMN f/u Reason for Visit Arthritis of knee BMI 40.0-44.9, adult Hyperlipidemia, unspecified Hypertriglyceridemia Obesity Vitamin D deficiency, unspecified Chief Complaint [facility]/[place] WMN f/u WMN f/u Reason for Visit [...] D deficiency, unspecified Januar y 2024 2:27pm Chief Complaint Admit Date 8-10 week-WMN f/u November 20, 2024 2:4 6pm Reason for Visit Admit Date Arthritis of knee November 20, 2024 2:4 6pm BMI 40.0-44.9, adult November 20, 2024 2: 46pm Hyperlipidemia, unspecified November 20, 2024 2:46pm Hypertension November 20, 2024 2:4 6pm Hypertriglyceridemia November 20, 2024 2: 46pm Obesity November 20, 2024 2:4 6pm Type 2 diabetes mellitus with hyperglyce maria m November 20, 2024 2:46pm Vitamin D deficiency, unspecified November 20, 2024 2:46pm Chief Complaint Admit Date 8-10 week-WMN f/u November 20, 2024 2:4 6pm 8-10 week-WMN f/u January 29, 2025 2:53p m Reason for Visit Admit Date Arthritis of knee November 20, 2024 2:4 6pm BMI 40.0-44.9, adult November 20, 2024 2: 46pm Hyperlipidemia, unspecified November 20, 2024 2:46pm Hypertension November 20, 2024 2:4 6pm Hypertriglyceridemia November 20, 2024 2: 46pm Obesity November 20, 2024 2:4 6pm Type 2 diabetes mellitus with hyperglyce maria m November 20, 2024 2:46pm Vitamin D deficiency, unspecified November 20, 2024 2:46pm Arthritis of knee January 29, 2025 2:53p m BMI 40.0-44.9, adult January 29, 2025 2:53 pm Hyperlipidemia, unspecified January 29 2:53pm Hypertension January 29, 2025 2:53p m Hypertriglyceridemia January 29, 2025 2:53 pm Obesity January 29, 2025 2:53p m Type 2 diabetes mellitus with hyperglyce maria m January 29, 2025 2:53pm Vitamin D deficiency, unspecified January 292024 2:53pm Chief Complaint Admit Date 8-10 week-WMN f/u January 29, 2025 2:53p m 8-10 week-WMN f/u March 26, 2025 2:14pm Z12.31 March 26, 2025 3:12pm Reason for Visit Admit Date Arthritis of knee January 29, 2025 2:53p m BMI 40.0-44.9, adult January 29, 2025 2:53 pm Hyperlipidemia, unspecified January 29 2:53pm Hypertension January 29, 2025 2:53p m Hypertriglyceridemia January 29, 2025 2:53 pm Obesity January 29, 2025 2:53p m Type 2 diabetes mellitus with hyperglyce maria m January 29, 2025 2:53pm Vitamin D deficiency, unspecified January 292024 2:53pm Arthritis of knee March 26, 2025 2:14pm BMI 40.0-44.9, adult March 26, 2025 2:14pm Hyperlipidemia, unspecified March 2:14pm Hypertension March 26, 2025 2:14pm Hypertriglyceridemia March 26, 2025 2:14pm Obesity March 26, 2025 2:14pm Type 2 diabetes mellitus with hyperglyce maria m March 26, 2025 2:14pm Vitamin D deficiency, unspecified Septem 2024 2:14pm Additional Source Comments INFORMATION SOURCE (unrecogn ized section and content) DATE CREATED AUTHOR 01/10/2018 [facility] DATE CREATED AUTHOR AUTHOR'S ORGANIZ ATION 10/31/2022 [facility] DATE CREATED AUTHOR AUTHOR'S ORGANIZ ATION 12/04/2024 [facility] EPIC DATE CREATED AUTHOR AUTHOR'S ORGANIZ ATION 04/02/2025 [facility] DATE CREATED AUTHOR AUTHOR'S ORGANIZ ATION 04/04/2025 [facility] REASON FOR VISIT (unrecogniz ed section and content) Reason Comments Post-op Post op salivary sto ne removal Reason Comments Med Refill Reason Comments Follow-up Hair/Scalp Problem Suspicious Skin Lesion Reason Comments Diabetes Reason Onset Date Comments Med Refill 10/23/2024 Reason Onset Date Comments Knee 11/05/2024 Reason Comments Pain Care Teams (unrecognized sec tion and content) Housing Management Officer Relationship Specialty Start Date End Date Yair Nails MD PCP - General Family Medicine 07/24/22 Ginny Natarajan NP [address] [place] [address] Referring Physician Nurse Practitioner 07/24/22 Housing Management Officer Relationship Specialty Start Date End Date Yair Nails MD PCP - General Family Medicine 07/24/22 Ginny Natarajan NP [address] [place] [address] Referring Physician Nurse Practitioner 07/24/22 Housing Management Officer Relationship Specialty Start Date End Date Yair Nails MD PCP - General Family Medicine 07/24/22 Ginny Natarajan NP [address] [place] [address] Referring Physician Nurse Practitioner 07/24/22 Team Status: Active Member Role Status Dates Ginny Natarajan Primary Care Provider Active Team Status: Inactive Member Role Status Dates Migel Núñez DO Attending Provider Active S tart: August [...] March 20, 2024 End: March 20, 2024 Housing Management Officer Relationship Specialty Start Date End Date Yair Nails MD [address] [place] [phone] PCP - General Family Medicine 09/19/23 Ginny Natarajan NP [address] [place] [address] Referring Physician Nurse Practitioner 07/24/22 Ginny Natarajan NP [address] [place] [address] Nurse Practitioner Family Medicine 09/19/23 Housing Management Officer Relationship Specialty Start Date End Date Yair Nails MD [address] [place] [address] PCP - General Family Medicine 09/19/23 Ginny Natarajan NP [address] [place] [address] Referring Physician Nurse Practitioner 07/24/22 Ginny Natarajan NP [address] [place] [address] Nurse Practitioner Family Medicine 09/19/23 Housing Management Officer Relationship Specialty Start Date End Date Yair Nails MD [address] [place] [address] PCP - General Family Medicine 09/19/23 Ginny Natarajan NP [address] [place] [address] Referring Physician Nurse Practitioner 07/24/22 Ginny Natarajan NP [address] [place] [address] Nurse Practitioner Family Medicine 09/19/23 Housing Management Officer Relationship Specialty Start Date End Date Yair Nails MD [address] [place] [address] PCP - General Family Medicine 09/19/23 Ginny Natarajan NP [address] [place] [address] Referring Physician Nurse Practitioner 07/24/22 Ginny Natarajan NP [address] [place] [address] Nurse Practitioner Family Medicine 09/19/23 Team Status: Inactive Member Role Status Dates Ginny Natarajan Primary Care Provider Active Sta rt: May 15, 2024 End: May 15, 2024 Danna Spence APRN Attending Provider Active Start: May 15, 2024 End: May 15, 2024 Housing Management Officer Relationship Specialty Start Date End Date Yair Nails MD [address] [place] [address] PCP - General Family Medicine 09/19/23 Ginny Natarajan NP [address] [place] [address] Referring Physician Nurse Practitioner 07/24/22 Ginny Natarajan NP [address] [place] [address] Nurse Practitioner Family Medicine 09/19/23 Housing Management Officer Relationship Specialty Start Date End Date Yair Nails MD [address] [place] [address] PCP - General Family Medicine 09/19/23 Ginny Natarajan NP [address] [place] [address] Referring Physician Nurse Practitioner 07/24/22 Ginny Natarajan NP [address] [place] [address] Nurse Practitioner Family Medicine 09/19/23 Housing Management Officer Relationship Specialty Start Date End Date Yair Nails MD [address] [place] [address] PCP - General Family Medicine 09/19/23 Ginny Natarajan NP [address] [place] [address] Referring Physician Nurse Practitioner 07/24/22 Ginny Natarajan NP [address] [place] [address] Nurse Practitioner Family Medicine 09/19/23 Housing Management Officer Relationship Specialty Start Date End Date Yair Nails MD [address] [place] [address] PCP - General Family Medicine 09/19/23 Ginny Natarajan NP [address] [place] [address] Referring Physician Nurse Practitioner 07/24/22 Ginny Natarajan NP [address] [place] [address] Nurse Practitioner Family Medicine 09/19/23 Team Status: Inactive Member Role Status Dates Ginny Natarajan Primary Care Provider Active Sta rt: August 20, 2024 End: August 20, 2024 Danna Spence APRN Attending Provider Active Start: August 20, 2024 End: August 20, 2024 Housing Management Officer Relationship Specialty Start Date End Date Yair Nails MD [address] [place] [address] PCP - General Family Medicine 09/19/23 Ginny Natarajan NP [address] [place] [address] Referring Physician Nurse Practitioner 07/24/22 Ginny Natarajan NP [address] [place] [address] Nurse Practitioner Family Medicine 09/19/23 Housing Management Officer Relationship Specialty Start Date End Date Yair Nails MD [address] [place] [address] PCP - General Family Medicine 09/19/23 Ginny Natarajan NP [address] [place] [address] PCP - ACO Reach 08/30/24 Ginny Natarajan NP [address] [place] [address] Referring Physician Nurse Practitioner 07/24/22 Ginny Natarajan NP [address] [place] [address] Nurse Practitioner Family Medicine 09/19/23 Housing Management Officer Relationship Specialty Start Date End Date Yair Nails MD [address] [place] [address] PCP - General Family Medicine 09/19/23 Ginny Natarajan NP [address] [place] [address] PCP - ACO Reach 08/30/24 Ginny Natarajan NP [address] [place] [address] Referring Physician Nurse Practitioner 07/24/22 Ginny Natarajan NP [address] [place] [address] Nurse Practitioner Family Medicine 09/19/23 Housing Management Officer Relationship Specialty Start Date End Date Yair Nails MD [address] [place] [address] PCP - General Family Medicine 09/19/23 Ginny Natarajan NP [address] [place] [address] PCP - ACO Reach 08/30/24 Ginny Natarajan NP [address] [place] [address] Referring Physician Nurse Practitioner 07/24/22 Ginny Natarajan NP [address] [place] [address] Nurse Practitioner Family Medicine 09/19/23 Housing Management Officer Relationship Specialty Start Date End Date Yair Nails MD [address] [place] [address] PCP - General Family Medicine 09/19/23 Ginny Natarajan NP [address] [place] [address] PCP - ACO Reach 08/30/24 Ginny Natarajan NP [address] [place] [address] Referring Physician Nurse Practitioner 07/24/22 Ginny Natarajan NP [address] [place] [address] Nurse Practitioner Family Medicine 09/19/23 Housing Management Officer Relationship Specialty Start Date End Date Yair Nails MD [address] [place] [address] PCP - General Family Medicine 09/19/23 Ginny Natarajan NP [address] [place] [address] PCP - ACO Reach 08/30/24 Ginny Natarajan NP [address] [place] [address] Referring Physician Nurse Practitioner 07/24/22 Ginny Natarajan NP [address] [place] [address] Nurse Practitioner Family Medicine 09/19/23 Housing Management Officer Relationship Specialty Start Date End Date Yair Nails MD [address] [place] [address] PCP - General Family Medicine 09/19/23 Ginny Natarajan NP [address] [place] [address] PCP - ACO Reach 08/30/24 Ginny Natarajan NP [address] [place] [address] Referring Physician Nurse Practitioner 07/24/22 Ginny Natarajan NP [address] [place] [address] Nurse Practitioner Family Medicine 09/19/23 Housing Management Officer Relationship Specialty Start Date End Date Yair Nails MD [address] [place] [address] PCP - General Family Medicine 09/19/23 Ginny Natarajan NP [address] [place] [address] PCP - ACO Reach 08/30/24 Ginny Natarajan NP [address] [place] [address] Referring Physician Nurse Practitioner 07/24/22 Ginny Natarajan NP [address] [place] [address] Nurse Practitioner Family Medicine 09/19/23 Team Status: Inactive Member Role Status Dates Ginny Natarajan Primary Care Provider Active Sta rt: November 20, 2024 End: November 20, 2024 Danna Spence APRN Attending Provider Active Start: November 20, 2024 End: November 20, 2024 Housing Management Officer Relationship Specialty Start Date End Date Yair Nails MD [address] [place] [address] PCP - General Family Medicine 09/19/23 Ginny Natarajan NP [address] [place] [address] PCP - ACO Reach 08/30/24 Ginny Natarajan NP [address] [place] [address] Referring Physician Nurse Practitioner 07/24/22 Ginny Natarajan NP [address] [place] [address] Nurse Practitioner Family Medicine 09/19/23 Housing Management Officer Relationship Specialty Start Date End Date Yair Nails MD [address] [place] [address] PCP - General Family Medicine 09/19/23 Ginny Natarajan NP [address] [place] [address] PCP - ACO Reach 08/30/24 Ginny Natarajan NP [address] [place] [id number] Referring Physician Nurse Practitioner 07/24/22 Ginny Natarajan NP [address] [place] [id number] Nurse Practitioner Family Medicine 09/19/23 Housing Management Officer Relationship Specialty Start Date End Date Yair Nails MD [address] [place] [id number] PCP - General Family Medicine 09/19/23 Ginny Natarajan NP [address] [place] [address] PCP - ACO Reach 08/30/24 Ginny Natarajan NP [address] [place] [address] Referring Physician Nurse Practitioner 07/24/22 Ginny Natarajan NP [address] [place] [address] Nurse Practitioner Family Medicine 09/19/23 Housing Management Officer Relationship Specialty Start Date End Date Yair Nails MD [address] [place] [address] PCP - General Family Medicine 09/19/23 Ginny Natarajan NP [address] [place] [phone] PCP - ACO Reach 08/30/24 Ginny Natarajan NP [address] [place] [phone] Referring Physician Nurse Practitioner 07/24/22 Ginny Natarajan NP [address] [place] [phone] Nurse Practitioner Family Medicine 09/19/23 Housing Management Officer Relationship Specialty Start Date End Date Yair Nails MD [address] [place] [phone] PCP - General Family Medicine 09/19/23 Ginny Natarajan NP [address] [place] [address] PCP - ACO Reach 08/30/24 Ginny Natarajan NP [address] [place] [address] Referring Physician Nurse Practitioner 07/24/22 Ginny Natarajan NP [address] [place] [address] Nurse Practitioner Family Medicine 09/19/23 Housing Management Officer Relationship Specialty Start Date End Date Yair Nails MD [address] [place] [phone] PCP - General Family Medicine 09/19/23 Ginny Natarajan NP [address] [place] [address] PCP - ACO Reach 08/30/24 Ginny Natarajan NP [address] [place] [address] Referring Physician Nurse Practitioner 07/24/22 Ginny Natarajan NP [address] [place] [address] Nurse Practitioner Family Medicine 09/19/23 Team Status: Inactive Member Role Status Dates Ginny Natarajan Primary Care Provider Active Sta rt: January 29, 2025 End: January 29, 2025 Danna Spence APRN Attending Provider Active Start: January 29, 2025 End: January 29, 2025 Housing Management Officer Relationship Specialty Start Date End Date Yair Nails MD [address] [place] [phone] PCP - General Family Medicine 09/19/23 Ginny Natarajan NP [address] [place] [address] PCP - ACO Reach 08/30/24 Ginny Natarajan NP [address] [place] [address] Referring Physician Nurse Practitioner 07/24/22 Ginny Natarajan NP [address] [place] [address] Nurse Practitioner Family Medicine 09/19/23 Housing Management Officer Relationship Specialty Start Date End Date Yair Nails MD [address] [place] [phone] PCP - General Family Medicine 09/19/23 Ginny Natarajan NP [address] [place] [address] PCP - ACO Reach 08/30/24 Ginny Natarajan NP [address] [place] [address] Referring Physician Nurse Practitioner 07/24/22 Ginny Natarajan NP [address] [place] [address] Nurse Practitioner Family Medicine 09/19/23 Housing Management Officer Relationship Specialty Start Date End Date Yair Nails MD [address] [place] [address] PCP - General Family Medicine 09/19/23 Ginny Natarajan NP [address] [place] [address] PCP - ACO Reach 08/30/24 Ginny Natarajan NP [address] [place] [address] Referring Physician Nurse Practitioner 07/24/22 Ginny Natarajan NP [address] [place] [address] Nurse Practitioner Family Medicine 09/19/23 Housing Management Officer Relationship Specialty Start Date End Date Yair Nails MD [address] [place] [phone] PCP - General Family Medicine 09/19/23 Ginny Natarajan NP [address] [place] [address] PCP - ACO Reach 08/30/24 Ginny Natarajan NP [address] [place] [address] Referring Physician Nurse Practitioner 07/24/22 Ginny Natarajan NP [address] [place] [address] Nurse Practitioner Family Medicine 09/19/23 Team Status: Inactive Member Role Status Dates Ginny Natarajan Primary Care Provider Active Sta rt: March 26, 2025 End: March 26, 2025 Danna Spence APRN Attending Provider Active Start: March 26, 2025 End: March 26, 2025 Team Status: Active Member Role Status Dates Ginny Natarajan Primary Care Provider Active Sta rt: March 26, 2025 Christine Pereira (Clinic) , DO [facility] Attending Provider Active Start: March Team Status: Inactive Member Role Status Dates Ginny Natarajan Primary Care Provider Active Sta rt: March 26, 2025 End: March 26, 2025 Christine Pereira (Clinic) , [facility] Attending Provider Active Start: March End: March 26, 2025 Goals (unrecognized section and content) Goals may [...] BE BASED ON THE PRIMARY CLINICAL RECORDS. [facility] [employer] [facility]. provides no warranty or guarantee of the accuracy or completeness of information in this document.
--- NOTE | 2025-04-25 13:04 | ED.SKABFB1 ---
HPI - Skin/Abscess/Foreign Bdy General Chief complaint: Skin/Abscess/Foreign Body Stated complaint: RASH Time Seen by Provider: 04/25/25 12:40 Source: patient Mode of arrival: walk-in Limitations: no limitations History of Present Illness HPI narrative: The patient is a 74-year-old femalepresenting to the ED with a complaint of two rashes, one of which has been present for one week and the other for two days. First Rash (Upper Back): The patient reports a rash located on the upper center of her back, which has been present for one week. The lesions appear to be scabbed over, with several areas that are excorticated in appearance. The rash is not linear, and the lesions are not vesicular. The patient suspects it may be the result of an insect bite, although she denies recent exposure to bedbugs, visitors, or stays in hotels. The rash is isolated to this one area and appears to be exacerbated by scratching. There is no history of similar rashes or trauma to the area. She did just get a cat but it was quarintined for 10 days and does not have fleas. The cat was given all its treatments prior to coming into the home. Second Rash (Left Hip): A second rash is present on the left hip, described as a red, hive-like area that started 2 days ago. It is itching and appears as potentially being a contact dermatitis, although she denies any recent exposure to new substances, detergents, or allergens. She notes that the rash is very itchy. There is no associated history of systemic symptoms, such as fever, shortness of breath, cough, chest pain, or difficulty breathing/swallowing. The patient is alert, oriented, and in no acute distress. There is no history of systemic involvement, and she denies any new medications, creams, or detergents. She has a dermatology appointment scheduled for further evaluation. Related Data Home Medications ?Medication ?Instructions ?Recorded ?Confirmed ascorbic acid (vitamin C) 1,000 mg 1 g PO DAILY 02/06/23 02/08/23 capsule aspirin 81 mg tablet,delayed 81 mg PO DAILY 02/06/23 02/08/23 release (Adult Aspirin Regimen) buprenorphine 8 mg-naloxone 2 mg 1 film buccal DAILY 02/06/23 02/08/23 sublingual film (Suboxone) carvedilol 12.5 mg tablet 12.5 mg PO Q12H 02/06/23 02/08/23 chlorthalidone 25 mg tablet 25 mg PO QDAY 02/06/23 02/08/23 cholecalciferol (vitamin D3) 25 1,000 unit PO DAILY 02/06/23 02/08/23 mcg (1,000 unit) capsule fenofibrate nanocrystallized 145 145 mg PO DAILY 02/06/23 02/08/23 mg tablet garlic 1,000 mg capsule 1,000 mg PO DAILY 02/06/23 02/08/23 magnesium oxide 400 mg PO DAILY 02/06/23 02/08/23 meclizine 12.5 mg tablet 12.5 mg PO TID-QID PRN dizziness 02/06/23 02/08/23 metformin 1,000 mg tablet 500 mg PO QDAY 02/06/23 02/08/23 omega-3 fatty acids 500 mg PO DAILY 02/06/23 02/08/23 tizanidine 4 mg tablet 4 mg PO Q12H PRN muscle spasticity 02/06/23 02/06/23 vitamin B complex 1 cap PO DAILY 02/06/23 02/08/23 carvedilol 6.25 mg tablet mg 02/08/23 Previous Rx's ?Medication ?Instructions ?Recorded ondansetron 4 mg disintegrating 4 mg PO Q4H PRN nausea and 07/19/24 tablet vomiting 3 days #6 tabs diphenhydramine-zinc acetate 1 1 applic topical BID PRN itching 04/25/25 %-0.1 % topical cream (Anti-Itch #28 grams (diphenhydramine) with Zinc) methylprednisolone 4 mg tablets in 4 mg PO DAILY #21 ea 04/25/25 a dose pack (Medrol (Deyvi)) Allergies Allergy/AdvReac Type Severity Reaction Status Date / Time erythromycin base Allergy Unknown Verified 07/18/24 23:13 gemfibrozil Allergy Unknown Verified 07/18/24 23:13 simvastatin Allergy Unknown Verified 07/18/24 23:13 [facility] Medical History (Updated 04/25/25 @ 13:09 by COTY MORGAN) Arthritis ?M19.90 - Unspecified osteoarthritis, unspecified site (ICD-10) Back pain ?M54.9 - Dorsalgia, unspecified (ICD-10) COVID-19 ?U07.1 - COVID-19 (ICD-10) Vestibular migraine ?G43.809 - Other migraine, not intractable, without status migrainosus (ICD-10) Vertigo ?R42 - Dizziness and giddiness (ICD-10) Urinary tract infection ?N39.0 - Urinary tract infection, site not specified (ICD-10) Dizziness ?R42 - Dizziness and giddiness (ICD-10) High cholesterol ?E78.00 - Pure hypercholesterolemia, unspecified (ICD-10) Hypertension ?I10 - Essential (primary) hypertension (ICD-10) Diabetes ?E11.9 - Type 2 diabetes mellitus without complications (ICD-10) Colon polyp ?K63.5 - Polyp of colon (ICD-10) Surgical History (Updated 02/06/23 @ 12:48 by Dottie Recinos NP) History of colonoscopy ?Z98.890 - Other specified postprocedural states (ICD-10) History of cholecystectomy ?Z90.49 - Acquired absence of other specified parts of digestive tract (ICD-10) History of endometrial ablation ?Z98.890 - Other specified postprocedural states (ICD-10) History of dilation and curettage ?Z98.890 - Other specified postprocedural states (ICD-10) H/O breast surgery ?Z98.890 - Other specified postprocedural states (ICD-10) Family History (Updated 02/06/23 @ 12:48 by Dottie Recinos NP) Other Family history of Parkinson disease Family history of breast cancer Family history of hypertension Family history of stroke Social History (Updated 02/06/23 @ 12:38 by Dottie Recinos NP) Within the past year, how often did you have a drink containing alcohol: monthly or less Smoking status: Former smoker Non-prescribed substance use: denies use and former substance user Highest level of school completed/degree received: high school graduate Little interest or pleasure in doing things: not at all Feeling down, depressed, or hopeless: not at all Exam Narrative Exam Narrative: General Appearance: Alert, oriented, in no acute distress. Skin: Upper Back: Multiple very small scabbed lesions, somewhat excorticated in appearance, localized to the upper back area. No vesicular lesions or signs of secondary infection. Rash is not linear, and there is no evidence of abscess or infectious etiology. The patient has been scratching in the area. no patchy areas Left Hip: Red, hive-like rash, suggestive of contact dermatitis. No other signs of irritation or infection. Rash is localized and non-vesicular. Respiratory: Clear to auscultation bilaterally. No wheezing or crackles. Cardiovascular: Regular rate and rhythm. No murmurs or signs of distress. Gastrointestinal: Abdomen soft, non-tender, no signs of systemic involvement. Neurological: Alert, oriented, and appropriate for age. Constitutional Vital Signs, click to edit/add: Last Vital Signs Temp 98.7 F 04/25/25 12:37 Pulse 79 04/25/25 12:37 Resp 18 04/25/25 12:37 BP 153/62 H 04/25/25 12:37 Pulse Ox 96 04/25/25 12:37 O2 Del Method Room Air 04/25/25 12:37 Course Vital Signs Vital signs: Vital Signs Temperature 98.7 F 04/25/25 12:37 Pulse Rate 79 04/25/25 12:37 Respiratory Rate 18 04/25/25 12:37 Blood Pressure 153/62 H 04/25/25 12:37 Pulse Oximetry 96 04/25/25 12:37 Oxygen Delivery Method Room Air 04/25/25 12:37 Temperature 98.7 F 04/25/25 12:37 Pulse Rate 79 04/25/25 12:37 Respiratory Rate 18 04/25/25 12:37 Blood Pressure 153/62 H 04/25/25 12:37 Pulse Oximetry 96 04/25/25 12:37 Oxygen Delivery Method Room Air 04/25/25 12:37 MDM - Skin/Abscess/Foreign Bdy MDM Narrative Medical decision making narrative: Upper Back Rash (Insect Bite or Scratched Lesion): Likely a localized response to insect bite, possibly exacerbated by scratching. The appearance of the lesions does not suggest a viral rash like shingles or an infectious etiology. Plan: Topical treatment with antihistamine (Benadryl) and steroids for symptomatic relief. Advise to avoid further scratching and to keep the area clean to prevent secondary infection. Left Hip Rash (Contact Dermatitis): The appearance is consistent with contact dermatitis, likely due to an unknown irritant or allergen. The absence of new substances, detergents, or scented items makes a specific trigger unclear. 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 Plan: Continue steroids and antihistamine cream as prescribed. Advise to avoid any potential irritants (e.g., certain fabrics, soaps, lotions). Follow-up and Education: Discussed with the patient that she should follow up with dermatology for further evaluation, as she has an appointment scheduled. Patient Education: Emphasized the importance of avoiding scratching the affected areas to prevent further irritation and possible infection. Instructed the patient to return to the ED or contact her primary care physician if there is any worsening of symptoms (e.g., increased swelling, pain, spreading of rash, or signs of infection). Will prescribe benedryl cream for itching and medrol dose pack. She will see dermatology as noted next week. Follow-up: Follow up with PCP for continuity of care. No acute concerns at this time. If symptoms persist or worsen, consider re-evaluation. Medical Records Attestation: I reviewed the patient's medical records. Discharge Plan Discharge Chief Complaint: Skin/Abscess/Foreign Body Clinical Impression: Contact dermatitis Patient Disposition: Home, Self-Care Time of Disposition Decision: 13:09 Condition: Good Prescriptions / Home Meds: New Anti-Itch(diphenhyd) with Zinc 1-0.1 % cream 1 applic topical BID PRN (Reason: itching) Qty: 28 0RF methylprednisolone [Medrol (Deyvi)] 4 mg tablets,dose pack 4 mg PO DAILY Qty: 21 0RF No Action carvedilol 12.5 mg tablet 12.5 mg PO Q12H chlorthalidone 25 mg tablet 25 mg PO QDAY metformin 1,000 mg tablet 500 mg PO QDAY tizanidine 4 mg tablet 4 mg PO Q12H PRN (Reason: muscle spasticity) ascorbic acid (vitamin C) 1,000 mg capsule 1 g PO DAILY aspirin [Adult Aspirin Regimen] 81 mg tablet,delayed release (DR/EC) 81 mg PO DAILY buprenorphine-naloxone [Suboxone] 8-2 mg film 1 film buccal DAILY cholecalciferol (vitamin D3) 25 mcg (1,000 unit) capsule 1,000 unit PO DAILY fenofibrate nanocrystallized 145 mg tablet 145 mg PO DAILY garlic 1,000 mg capsule 1,000 mg PO DAILY magnesium oxide 400 mg magnesium capsule 400 mg PO DAILY meclizine 12.5 mg tablet 12.5 mg PO TID-QID PRN (Reason: dizziness) omega-3 fatty acids Capsule 500 mg PO DAILY vitamin B complex Capsule 1 cap PO DAILY carvedilol 6.25 mg tablet ondansetron 4 mg tablet,disintegrating 4 mg PO Q4H PRN (Reason: nausea and vomiting) 3 Days Qty: 6 0RF Print Language: Grenadian Instructions: Contact Dermatitis (DC) Referrals: Ginny Natarajan NP [Primary Care Provider, Family Practice] - 1 week Discharge Date/Time: 04/25/25 13:19
== END 2025-04-25 13:19 | disposition home or self-care (01) ==
PROVIDERS: Emergency Provider Emergency Medicine; PCP Nurse Practitioner
DX: L25.9 Unspecified contact dermatitis, unspecified cause (principal); Z87.891 Personal history of nicotine dependence
CPT/HCPCS: 99283